=== PATIENT | male | born 1950 | race Caucasian/White ===

== ENCOUNTER → 2016-08-12 | Outpatient (CLI) | payer BC ==
[~2016-08-12] MED LIST: ATOR-22 PO; BSP5 PO; CHONDR PO; CLTP PO; GABA-113 PO; GLUCOSA PO; METO25TA56 PO; MULT-190 PO; MULT-506 PO; PANT40TA PO; ULT/50 PO
== END | disposition home or self-care (01) ==
LOC: C.CPL 13:09
PROVIDERS: ATTEND Orthopaedic Surgery
DX: Z01.810 Encounter for preprocedural cardiovascular examination (principal)

== ENCOUNTER 2023-07-28 15:16 | Inpatient (IN) ==
[2023-07-28] MEDS ORDERED: ONDANSETRON INJ 2 MG/ML 2 ML VIAL IV PRN (16:03)
[2023-07-28 17:27] LABS: Basophils # (auto) 0.02 K/uL (0.00-0.20); Basophils % (auto) 0.2 %; Eosinophils # (auto) 0.01 K/uL (0.00-0.50); Eosinophils % (auto) 0.1 %; Hematocrit (blood only) 47.7 % (42.0-52.0); Hemoglobin 16.7 g/dl (14.0-18.0); Immature Granulocytes # (auto) 0.02 K/uL (0.01-0.20); Immature Granulocytes % (auto) 0.2 %; Lymphocytes % (auto) 9.6 %; Mean Corpuscular Hemoglobin 32.2 pg (25.0-34.0); Mean Corpuscular Volume 92.1 fL (80.0-100.0); Mean Platelet Volume 9.2 fL (9.4-12.4); Monocytes # (auto) 1.06 K/uL (0.11-0.59); Monocytes % (auto) 11.3 %; Neutrophils # (auto) 7.33 K/uL (1.40-6.50); Neutrophils % (auto) 78.6 %; Platelet Count 146 K/uL (130-400); RDW Coefficient of Variation 12.2 % (11.5-14.5); RDW Standard Deviation 40.8 fL (36.4-46.3); Red Blood Count 5.18 M/uL (4.70-6.10); White Blood Count 9.34 K/ul (4.8-10.8)
[2023-07-28 17:39] LABS: Alanine Aminotransferase 20 U/L (7-52); Albumin Globulin Ratio 1.9 (0.9-2); Albumin Level 4.6 gm/dl (3.4-5.0); Alkaline Phosphatase 87 U/L (34-104); Anion Gap 8 (3-11); Aspartate Aminotransferase 19 U/L (13-39); BUN Creatinine Ratio 24.3 (10-20); Bilirubin,Total 1.1 mg/dl (0.2-1.0); Blood Urea Nitrogen 28 mg/dl (6-23); Calcium 9.7 mg/dl (8.6-10.3); Carbon Dioxide 28 mmol/L (21-32); Chloride 102 mmol/L (98-107); Est GFR (African American) 72.8 ml/min; Est GFR (Non-African American) 62.8 ml/min; Globulin 2.4 gm/dl (2.5-4.0); Glucose 123 mg/dl (70-99(Fasting)); Potassium 4.4 mmol/L (3.5-5.1); Sodium 138 mmol/L (136-145)
--- NOTE | 2023-07-28 17:58 | History & Physical Report ---
Date of Service July 28, 2023 Assessment & Plan (1) SBO (small bowel obstruction): Plan: This is a 73-year-old male with PMH of paroxysmal atrial fibrillation on Eliquis, hypertension, dyslipidemia, CAD, BPH, CLL following at [facility] on immunotherapy, Mnire's disease and other medical problems listed below who is a direct admission from [facility] with small bowel obstruction. History of small bowel obstruction in 2015 following a spinal surgery that resolved with bowel rest and IV fluids Began to have symptom last evening after midnight that woke him up and describes pain as diffuse across abdomen with associated nausea and emesis x [address] 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 Discussed NGT but patient would like to wait for now; open to it if nausea and discomfort progress Keep NPO, surgical evaluation, antiemetics No PO meds for now but consider resuming home po flecainide and Venclexta in AM if improving (2) Paroxysmal atrial fibrillation: Plan: On Flecainide, Toprol 12.5mg daily, Eliquis for anticoagulation - hold all PO for now Currently with regular rate & rhythm, admission EKG pending Converting beta piper to IV lopressor for now, ordered heparin gtt in case need for OR Will transfer to [facility] for telemetry coverage Mag/phos pending (3) CLL (chronic lymphocytic leukemia): Plan: Follows with [facility], on Venclexta 400mg HS Will hold tonight, consider resuming tomorrow if clinical improvement (4) GERD (gastroesophageal reflux disease): Plan: Converted PPI to IV while NPO DVT Ppx: heparin gtt Code status: FULL PCP: Robert Dispo: admitted to [facility] Patient seen in collaboration with Dr. Conrad. Please see addendum. Admission and Anticipated Discharge Date Admission Date: July 28, 2023 History of Present Illness Chief Complaint: Abdominal pain Primary Care Provider: Conner Jones MD This is a 73-year-old male with PMH of paroxysmal atrial fibrillation on Eliquis, hypertension, dyslipidemia, CAD, BPH, CLL following at [facility] on immunotherapy, Mnire's disease and other medical problems listed below who is a direct admission from [facility] with small bowel obstruction. History of small bowel obstruction in 2014 following a spinal surgery that resolved with bowel rest and IV fluids. No issues since then. Began to have symptom last evening after midnight that woke him up and describes pain as diffuse across abdomen with associated nausea. Had 1 episode of emesis earlier this morning that prompted visit to [facility] ER. 1 CT abdomen pelvis revealed proximal small bowel obstruction, transfer is arranged for patient to come to preferred location of [facility] where we have general surgery support. Patient's nausea resolved at outside hospital ER after dose of Zofran but recurred by time of arrival. Also having some belching. Denies any recurrent vomiting. Diffuse abdominal discomfort and bloating but denies overt pain. No fever, chills, lightheadedness, headache, chest pain, shortness of breath, dysuria. Last bowel movement was yesterday. History of bilateral hernia repair as well as appendectomy. Allergies Allergy/AdvReac Type Severity Reaction Status Date / Time bee venom protein (honey bee) Allergy Intermediate Hives Verified 04/26/21 22:38 orphenadrine AdvReac Intermediate MENTAL Verified 04/26/21 22:38 CHANGES oxycodone AdvReac Mild NAUSEA Verified 04/26/21 22:38 Home Medications Medication Instructions Recorded Confirmed Type Lactobacillus acidophilus 250 1,000 mmu cells PO DAILY 08/23/19 07/28/23 History million cell capsule (Probiotic Acidophilus) apixaban 5 mg tablet (Eliquis) 5 mg PO BID 08/23/19 07/28/23 History ascorbic acid (vitamin C) 1,000 mg 1 g PO DAILY 08/23/19 07/28/23 History tablet (Vitamin C) atorvastatin 20 mg tablet 20 mg PO HS 08/23/19 07/28/23 History calcium carbonate 600 mg-vitamin 1 tab PO HS 08/23/19 07/28/23 History D3 10 mcg (400 unit) tablet (Calcium 600 + D(3)) flecainide 50 mg tablet 50 mg PO BID 08/23/19 07/28/23 History glucosamine 750 ub-caeywivjvp-rsm 1 tab PO BID 08/23/19 07/28/23 History no.1 625 mg-C 30 rx-vbju-pfrx tablet (Glucosamine-Chondroitin 3X) metoprolol succinate 25 mg 12.5 mg PO DAILY 08/23/19 07/28/23 History tablet,extended release 24 hr vit C 250 mg-vit E 90 mg-zinc 40 1 tab PO BID 08/23/19 07/28/23 History mg-copper 1 zp-jjfbqw-tdujrp capsule (PreserVision AREDS-2) zinc 50 mg tablet 50 mg PO DAILY 08/23/19 07/28/23 History cyclobenzaprine 10 mg tablet 10 mg PO TID PRN Muscle Spasm 07/28/23 07/28/23 History pantoprazole 20 mg tablet,delayed 20 mg PO DAILY 07/28/23 07/28/23 History release (Protonix) venetoclax 100 mg tablet 400 mg PO HS 07/28/23 07/28/23 History (Venclexta) Past Med/Surg History Medical History (Updated 07/28/23 @ 20:36 by Ann Gonzalez PA-C) Abdominal hernia Hx SBO following lumbar fusion Osteoarthritis Melanoma Hyperlipidemia Atrial fibrillation s/p Imbruvica medication regimen GERD (gastroesophageal reflux disease) Hypertension CLL (chronic lymphocytic leukemia) Follows routinely with heme/onc Surgical History (Updated 07/28/23 @ 20:36 by Ann Gonzalez PA-C) History of appendectomy History of cardioversion 08/25/19 at [facility] S/P epidural steroid injection H/O elbow surgery laparoscopic elbow x2 S/P right knee arthroscopy S/P lumbar fusion S/P right inguinal hernia repair laparoscopic (with complications d/t arterial bleed) [facility] (~6-10 years ago) S/P left inguinal hernia repair open repair History of colonoscopy History of esophagogastroduodenoscopy (EGD) History of appendectomy H/O local excision of skin lesion History of adenoidectomy History of tonsillectomy History of cardiac cath 2012. no stents. Family History Brother FHx: brain cancer FHx: melanoma Aunt Family hx of colon cancer Grandfather Family history of diabetes mellitus Mother Family history of diabetes mellitus FHx: stroke Social History Smoking Status: Former smoker Second Hand Exposure: Yes (HX); Do You Dip or Chew Tobacco: No; Hx Alcohol Use: Yes Alcohol type: beer Hx Substance Use: No Preferred Language: Gabonese Communication Ability: Effective Windows Desktop Support Required: No Beliefs That Will Affect Care: None Current Living Situation: Family Other Information That Helps Us Care for You: Yes (CLL Must take drug) Feels Safe at Home: Yes Safety Concerns: Feels Safe At This Time Assistive Devices: Glasses Review of Systems Review of Systems: At least ten systems reviewed and negative except as noted in the HPI. Physical Exam Physical Exam: General Appearance: WD/WN, vitals as above, NAD, sitting up in bed, pleasant, conversing easily Head: normocephalic, atraumatic Eyes: normal inspection, PERRL, conjunctivae normal, anicteric sclerae ENT: external ear and nose normal, oropharynx normal Neck: normal visual inspection, trachea midline, no thyromegaly Respiratory: normal respiratory effort, lungs clear to auscultation, no wheeze, rales, rhonchi. No accessory muscle use Cardiovascular: regular rate, rhythm, no murmur, normal peripheral pulses, no BLE edema. Vessels: no JVD Chest: normal inspection of chest Abdomen/GI: hypoactive bowel sounds, soft with mild distention and TTP across lower abdomen, no hepatosplenomegaly Extremities/Musculoskeletal: no cyanosis or clubbing, extremities motor strength 5/5 Neurologic: PERRL, EOMI, accommodation nl, no face palsy, no dysarthria, CN's II-XI intact bilaterally and moves all extremities Psychiatric: A+Ox3, euthymic affect Skin: no rashes, normal color, warm/dry Results & Data Results & Data Vital Signs (Past 12 Hours) Vital Signs Temp Pulse Resp BP Pulse Ox O2 Del Method 07/28/23 17:06 36.5 C 73 16 136/82 95 Room Air Laboratory Results Short CBC 07/28/23 Range/Units 17:01 WBC 9.34 (4.8-10.8) K/ul Hgb 16.7 (14.0-18.0) g/dl Hct 47.7 (42.0-52.0) % Plt Count 146 (130-400) K/uL BMP 07/28/23 17:01 Sodium 138 Potassium 4.4 Chloride 102 Carbon Dioxide 28 BUN 28 H Creatinine 1.15 Glucose 123 H Calcium 9.7 Liver Function 07/28/23 Range/Units 17:01 Total Bilirubin 1.1 H (0.2-1.0) mg/dl AST 19 (13-39) U/L ALT 20 (7-52) U/L Alkaline Phosphatase 87 (34-104) U/L Albumin 4.6 (3.4-5.0) gm/dl Diagnostic Findings Chest X-Ray 07/28/23 16:03 XR chest 1V portable CLINICAL HISTORY: admission TECHNIQUE: Single frontal radiograph of the chest was obtained. Comparison: Comparison is made to chest radiograph 02/08/2015 FINDINGS: No lines and tubes are seen. The cardiomediastinal silhouette is normal. The lungs are clear. No evidence of pleural effusion or pneumothorax. IMPRESSION: No acute chest disease. ACT 112: Negative or not required by law. Electronically signed by: Joaquin Lundberg M.D. 07/28/2023 6:36 PM KUB X-Ray 07/28/23 17:56 XR KUB/Abdomen 1 view CLINICAL HISTORY: sbo TECHNIQUE: 1 view of the abdomen was obtained. Comparison: Comparison is made to abdomen radiograph 02/09/2015 FINDINGS: Lung bases are unremarkable. Posterior fixation hardware is seen. Gas distended loops of small bowel measure up to 42 mm, increased to stable from prior exam. Minimal stool and colonic gas seen. IMPRESSION: Multiple gas dilated loops of small bowel with no significant large bowel gas, compatible with small bowel obstruction. ACT 112: Negative or not required by law. Electronically signed by: Joaquin Lundberg M.D. 07/28/2023 6:41 PM ECG Additional Comments: admission EKG pending Code Status & VTE Plan VTE Prophylaxis Plan VTE Prophylaxis will be ordered: Yes Supervising Physician Co-Signing Physician Notes Patient is 73 year old man with h/o pAF on eliquis, flecainide, h/o SBO, CLL on venclexta who was transferred from [facility] where he presented with abd pain, distention that started overnight. Currently reports some nausea, mild abd pain, abd distention Had only one episode of nonbloody vomiting prior to admission. On exam, General: No acute distress Eyes: PERRL, conjunctivae normal, not pale, anicteric sclerae, EOM intact bilaterally ENMT: External ear and nose normal, oropharynx normal Respiratory: Normal respiratory effort, no respiratory distress, lungs clear to auscultation, no crackles and no wheezes Cardiovascular: RRR S1 S2 Gastrointestinal (Abdomen): Abdomen is mildly distended, soft, mild epigastric tenderness, decreased breath sounds Musculoskeletal: No pedal edema Neurologic: Alert and oriented x 3, No focal weakness, sensation grossly intact Psychiatric: Euthymic affect Small bowel obstruction Reviewed paperwork in chart from [facility] CT report noted SBO Paperwork has CD of CT abd. 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
--- NOTE | 2023-07-28 18:37 | XRay Report ---
XR chest 1V portable CLINICAL HISTORY: admission TECHNIQUE: Single frontal radiograph of the chest was obtained. Comparison: Comparison is made to chest radiograph 02/08/2015 FINDINGS: No lines and tubes are seen. The cardiomediastinal silhouette is normal. The lungs are clear. No evid ence of pleural effusion or pneumothorax. IMPRESSION: No acute chest disease. ACT 112: Negative or not required by law. Electronically signed by: Joaquin Lundberg M.D. 07/28/2023 6:36 PM
--- NOTE | 2023-07-28 18:43 | XRay Report ---
XR KUB/Abdomen 1 view CLINICAL HISTORY: sbo TECHNIQUE: 1 view of the abdomen was obtained. Comparison: Comparison is made to abdomen radiograph 02/09/2015 FINDINGS: Lung bases are unremarkable. Posterior fixation hardware is seen. Gas distended loops of small bowel measure up to 42 mm, increased to stable from prior exam. Minimal stool and colonic gas seen. IMPRESSION: Multiple gas dilated loops of small bowel with no significant large bowel gas, compatible with small bowel obstruction. ACT 112: Negative or not required by law. Electronically signed by: Joaquin Lundberg M.D. 07/28/2023 6:41 PM
--- NOTE | 2023-07-28 20:30 | Surgery Consultation ---
Date of Consultation July 28, 2023 Assessment & Plan (1) SBO (small bowel obstruction): The patient has been admitted on the hospital service. From surgical perspective we recommend proceeding as follows: Provide analgesics Provide antiemetics Continue n.p.o. status. I did discuss with the patient that as his abdominal exam improves and his bowel function returns consideration be given to advancing his diet beginning with sips of clear liquids. The patient has not had any emesis since approximately 10:30 AM this morning. As he has not had any emesis in several hours I feel we can hold off on placing an NG tube at this time, but did inform the patient that if his abdominal exam worsens or any nausea or vomiting ensue this modality will need to be reconsidered. Serial labs to be followed Intravenous fluids to be given for hydration At the present time the patient is noted to be normotensive without tachycardia or fever. He also does not exhibit leukocytosis or acute kidney injury and therefore I feel a trial of conservative management is warranted for his present clinical scenario Additional recommendations to be forthcoming based on his clinical course as as above. +bm this afternoon. feeling fine. he does have a RIH currently reduced. will obtain KUB and if better initiate clears. History of Present Illness Reason for Consultation: Small bowel obstruction Attending Physician: Ally Conrad MD History of Present Illness This a 73-year-old male who presented to [facility] secondary to abdominal pain. The patient notes that yesterday he developed some severe abdominal cramping and had some nausea and vomiting that ensued. He did not have any fever shakes or chills but presented to [facility]. While at [facility] he had labs and imaging performed. Chemistry profile showed sodium and potassium were both within the normal range. His BUN and creatinine were 23 and 1.3. His INR was 1.2. Lipase was 49. CBC revealed white blood cell count was not elevated. His hemoglobin and hematocrit were 17.7 and 53.4. His platelet count was [address] scan showed the patient had an [place] proximal small bowel and stomach with increased fluid levels and collapsed distal small bowel compatible the small bowel obstruction. There is no clear transition point identified. There is no free air or free fluid noted on the study With the patient's current clinical presentation as noted above he did have some nausea and vomiting and his most recent emesis was approximately 10:30 AM this morning. Since his symptomatology began he has not had any bowel movement or flatus. His most recent bowel movement was yesterday. He has not had any oral intake today. He does not report any modifying factors to his pain. He has had prior abdominal surgeries. He has had bilateral inguinal herniorrhaphies and he notes that 1 of these surgeries was performed laparoscopically. He has also had an appendectomy. He does report that he had a small bowel obstruction in 2014 that was treated in a conservative manner (he notes he did not require NG tube); with this episode though he said it was related to narcotic use following back surgery which raises the question of whether he had a small bowel obstruction or ileus. Since arrival to [facility] the patient has had labs and imaging which independent reviewed. Chest x-ray was performed that showed no evidence of pneumonia. A KUB was performed that showed multiple gas and dilated loops of small bowel compatible with a small bowel obstruction. CBC reveals white blood cell count, hemoglobin, hematocrit, and platelet count were all within normal range. Chemistry profile showed sodium and potassium and his creatinine were within normal range. BUN had a slight elevation at 28. Lactic acid level was nonelevated. At the time of my interview the patient was resting comfortably in bed and he was in no distress. Allergies Allergy/AdvReac Type Severity Reaction Status Date / Time bee venom protein (honey bee) Allergy Intermediate Hives Verified 04/26/21 22:38 orphenadrine AdvReac Intermediate MENTAL Verified 04/26/21 22:38 CHANGES oxycodone AdvReac Mild NAUSEA Verified 04/26/21 22:38 Home Medications Medication Instructions Recorded Confirmed Type Lactobacillus acidophilus 250 1,000 mmu cells PO DAILY 08/23/19 07/28/23 History million cell capsule (Probiotic Acidophilus) apixaban 5 mg tablet (Eliquis) 5 mg PO BID 08/23/19 07/28/23 History ascorbic acid (vitamin C) 1,000 mg 1 g PO DAILY 08/23/19 07/28/23 History tablet (Vitamin C) atorvastatin 20 mg tablet 20 mg PO HS 08/23/19 07/28/23 History calcium carbonate 600 mg-vitamin 1 tab PO HS 08/23/19 07/28/23 History D3 10 mcg (400 unit) tablet (Calcium 600 + D(3)) flecainide 50 mg tablet 50 mg PO BID 08/23/19 07/28/23 History glucosamine 750 xi-prbhdgtaxo-ykj 1 tab PO BID 08/23/19 07/28/23 History no.1 625 mg-C 30 tt-fuox-tlie tablet (Glucosamine-Chondroitin 3X) metoprolol succinate 25 mg 12.5 mg PO DAILY 08/23/19 07/28/23 History tablet,extended release 24 hr vit C 250 mg-vit E 90 mg-zinc 40 1 tab PO BID 08/23/19 07/28/23 History mg-copper 1 vv-xpsadn-uwulkb capsule (PreserVision AREDS-2) zinc 50 mg tablet 50 mg PO DAILY 08/23/19 07/28/23 History cyclobenzaprine 10 mg tablet 10 mg PO TID PRN Muscle Spasm 07/28/23 07/28/23 History pantoprazole 20 mg tablet,delayed 20 mg PO DAILY 07/28/23 07/28/23 History release (Protonix) venetoclax 100 mg tablet 400 mg PO HS 07/28/23 07/28/23 History (Venclexta) Patient History Medical History (Updated 07/28/23 @ 20:36 by Ann Gonzalez PA-C) Abdominal hernia Hx SBO following lumbar fusion Osteoarthritis Melanoma Hyperlipidemia Atrial fibrillation s/p Imbruvica medication regimen GERD (gastroesophageal reflux disease) Hypertension CLL (chronic lymphocytic leukemia) Follows routinely with heme/onc Surgical History (Updated 07/28/23 @ 20:36 by Ann Gonzalez PA-C) History of appendectomy History of cardioversion 08/25/19 at [facility] S/P epidural steroid injection H/O elbow surgery laparoscopic elbow x2 S/P right knee arthroscopy S/P lumbar fusion S/P right inguinal hernia repair laparoscopic (with complications d/t arterial bleed) [facility] (~6-10 years ago) S/P left inguinal hernia repair open repair History of colonoscopy History of esophagogastroduodenoscopy (EGD) History of appendectomy H/O local excision of skin lesion History of adenoidectomy History of tonsillectomy History of cardiac cath 2012. no stents. Family History Brother FHx: brain cancer FHx: melanoma Aunt Family hx of colon cancer Grandfather Family history of diabetes mellitus Mother Family history of diabetes mellitus FHx: stroke Social History Smoking Status: Former smoker Second Hand Exposure: Yes (HX); Do You Dip or Chew Tobacco: No; Hx Alcohol Use: Yes Alcohol type: beer Hx Substance Use: No Preferred Language: Georgian Communication Ability: Effective Assembler [employer] Required: No Beliefs That Will Affect Care: None Current Living Situation: Family Other Information That Helps Us Care for You: Yes (CLL Must take drug) Feels Safe at Home: Yes Safety Concerns: Feels Safe At This Time Assistive Devices: Glasses Review of Systems Constitutional: no fever and no chills Ear, Nose, Mouth, Throat: no ear pain Respiratory: no cough and no dyspnea Cardiovascular: no chest pain Gastrointestinal: as per Subjective / HPI Genitourinary: no dysuria Musculoskeletal: no back pain Integumentary: no rash Neurologic: no localized weakness Physical Exam Constitutional: WD/WN, vitals as above Eyes: no conjunctival abnormality ENMT: Ears: no hearing impairment and no external ear abnormality Mouth: no oropharynx abnormality Neck: trachea midline Respiratory: normal respiratory effort; no respiratory distress and no labored breathing Cardiovascular: Rate/Rhythm: regular rate and regular rhythm Gastrointestinal (Abdomen): Abdomen has absent bowel sounds. His abdomen is mild to moderately distended. There is no rebound tenderness or guarding. The patient did have some generalized pain with palpation greatest near the umbilicus. I did not appreciate any hernias Musculoskeletal: No calf tenderness Skin: no rashes Neurologic: moves all extremities Psychiatric: A+Ox3, euthymic affect Results & Data Vital Signs (Past 12 Hours) Vital Signs Temp Pulse Resp BP Pulse Ox O2 Del Method 07/28/23 17:06 36.5 C 73 16 136/82 95 Room Air PG Care Time/CCT Total # of Minutes Spent Total Time Spent with Patient: Total time spent is greater than 50% in coordination of care (as documented) at patient's floor/unit and/or counseling patient: Coding Level of Care Code 23640 INT INP/OBS CARE 2/55MIN Diagnoses SBO (small bowel obstruction) K56.609
[2023-07-28] MEDS ORDERED: METOPROLOL TARTRATE 1 MG/ML VIAL IV SCH (21:28)
[2023-07-28] MEDS ORDERED: ACETAMINOPHEN 1,000 MG/100 ML VIAL IV PRN (21:28)
[2023-07-28] MEDS ORDERED: METOPROLOL TARTRATE 1 MG/ML VIAL IV PRN (21:32)
[2023-07-28] MEDS ORDERED: Heparin IV Adult Wt-Based Standard *NO* INITIAL Bolus Protocol IV SCH (21:49)
[2023-07-28] MEDS: PANTOprazole 40 MG in SYRINGE 0 ML IV SCH (22:47)
[2023-07-28] MEDS: D5W AND NSS 1,000 ML IV SCH (22:47)
[2023-07-28] MEDS: HEPARIN SODIUM/DEXTROSE 25,000 UNITS/500 ML BAG IV SCH (23:10)
[2023-07-28 23:18] LABS: Basophils # (auto) 0.02 K/uL (0.00-0.20); Basophils % (auto) 0.3 %; Eosinophils # (auto) 0.02 K/uL (0.00-0.50); Eosinophils % (auto) 0.3 %; Hematocrit (blood only) 44.3 % (42.0-52.0); Hemoglobin 15.7 g/dl (14.0-18.0); Immature Granulocytes # (auto) 0.03 K/uL (0.01-0.20); Immature Granulocytes % (auto) 0.4 %; Lymphocytes # (auto) 0.97 K/uL (1.20-3.40); Lymphocytes % (auto) 13.6 %; Mean Corpuscular Hemoglobin 32.6 pg (25.0-34.0); Mean Corpuscular Hgb Conc 35.4 g/dL (32.0-36.0); Mean Corpuscular Volume 91.9 fL (80.0-100.0); Mean Platelet Volume 9.4 fL (9.4-12.4); Monocytes % (auto) 12.6 %; Neutrophils % (auto) 72.8 %; Platelet Count 148 K/uL (130-400); RDW Coefficient of Variation 12.2 % (11.5-14.5); RDW Standard Deviation 40.9 fL (36.4-46.3); Red Blood Count 4.82 M/uL (4.70-6.10); White Blood Count 7.14 K/ul (4.8-10.8)
[2023-07-28 23:49] LABS: INR 1.1 (0.9-1.1); Partial Thromboplastin Time 29 Seconds (21-31); Prothrombin Time 11.9 Seconds (9.0-12.0)
--- OUTSIDE RECORDS SUMMARY | 2023-07-29 04:51 | External Medical Summary | Summary of Care ---
Author Name Unknown Organization [facility] Address [address] [facility] [place] [address] Phone [phone] Care Team Providers Care Clinical Sales Consultant Name Role Phone Conner Jones MD Primary Care Provider + Reason for Visit * Reason Comments NEW PATIENT Right shoulder Encounter Details Date Type Department Care Team (Latest Contact Info) Description 06/27/2023 1:30 PM EST Office Visit Orthopaedics [facility] [address] [place] [address] Allan Alas PA-C [address] [place] [address] Osteoarthritis of right glenohumeral joint*; Osteoarthritis of right acromioclavicular joint Allergies Active Allergy Reactions Criticality Noted Date Comments Bee Venom Edema Other 05/02/2016 Swelling in area that was stung documented as of this encounter (statuses as of 06/27/2023) Medications Medication Sig Dispensed Refills Start Date End Date Status ICAPS PO CAPS Take by mouth 2 times a day. 0 Active GLUCOSAMINE CHONDROITIN COMPLX PO TABS Take by mouth 2 times a day. 0 Active zinc gluconate 50 MG Tablet Take 1 Tablet by mouth every evening. 0 Active Cyclobenzaprine HCl 10 MG Oral Tablet (Flexeril)Indications :Trismus Take 1 Tablet by mouth 3 times a day. 90 Tablet 0 06/07/2021 Active Venclexta 100 MG Oral Tablet Take 4 Tablets by mouth every evening. 0 03/19/2022 Active Vitamin C 1000 MG Oral Tablet Take 1 Tablet by mouth every evening. 0 Active Multivitamin Men 50+ Oral Tablet Take by mouth daily. 0 Active Probiotic Acidophilus BioBeads Oral Capsule Take 1 Capsule by mouth every evening. 0 Active Pantoprazole Sodium 40 MG Oral Tablet Delayed Release (Protonix) TAKE 1 TABLET IN THE MORNING 90 Tablet 3 07/23/2022 Active Flecainide Acetate 50 MG Oral Tablet (Tambocor) Take 1 Tablet by mouth in the morning and 1 Tablet before bedtime. 180 Tablet 3 09/04/2022 Active Apixaban 5 MG Oral Tablet (Eliquis)Indications: Atrial fibrillation, unspecified type (HCC) Take 1 Tablet by mouth in the morning and 1 Tablet before bedtime. 180 Tablet 3 02/13/2023 Active Atorvastatin Calcium 20 MG Oral Tablet (Lipitor)Indications: Hyperlipidemia with target LDL less than 130 TAKE 1 TABLET DAILY 90 Tablet 1 02/24/2023 Active Metoprolol Succinate ER 25 MG Oral Tablet Extended Release 24 Hour (toPROL XL)Indications:Atrial fibrillation, unspecified type (HCC) TAKE ONE-HALF (1/2) TABLET IN THE MORNING 45 Tablet 3 04/28/2023 Active Hospital, Clinic, or Other Facility Administered Medication Ordered Dose Route Frequency Start Date End Date Status lidocaine 1% 1 mL - triamcinolone acetonide 40 mg/mL 1 mL inj 2 mLIndications:Osteoarthriti s of right glenohumeral joint 2 mL IJ ONCE 06/27/2023 06/27/2023 Ended documented as of this encounter (statuses as of 06/27/2023) Active Problems Problem Noted Date Diagnosed Date Senile purpura 01/09/2022 Nonrheumatic aortic valve insufficiency 03/07/20 21 Nonrheumatic mitral valve regurgitation 03/07/20 21 PAF (paroxysmal atrial fibrillation) 03/07/2021 History of 2019 novel coronavirus disease (COVID -19) 05/30/2020 Chronic pain of right knee 12/31/2018 Fatty liver 09/30/2017 BALTAZAR (generalized anxiety disorder) 09/01/2017 CLL (chronic lymphocytic leukemia) 02/03/2015 Overview: 10/21-2nd opinion @. Patient completed rituximab induction on 03/03/17 for symptomatic splenomegaly with his CLL. Kaminski stage II, trisomy 12, IgVH indeterminent CLL. Routine general medical exam ination at a health care facility 08/25/2014 Overview: 01/21 EGD -chronic gastritis. Colon--+tubular adenoma. Alicia 5y 04/07/17 [place] +abd lymphadnopathy, no AAA 02/18 Dr Annie Centeno with [facility] in [place] for CLL 11/17 AAA screen WNl. 2009 colonoscopy WNL. EGD 2011 WNL (for GERd symptoms) History of malignant melanoma of skin 08/25/2014 Overview: 2013? Sees Dr Hernandez in [place]. Had wide excision reportedly neg. Dyslipidemia, goal LDL below 130 07/12/2014 Palpitations 05/16/2014 Coronary artery disease (CAD) excluded 4 Overview: 2013 abnormal stress test, normal cath. Family history of abdominal aortic aneurysm 07/2013 Overview: 2017 CT [place]-no AAA False positive cardiac stress test 10/13/2012 Family history of ischemic heart disease 013 Other and unspecified hyperlipidemia 09/13/2011 BPH with obstruction/lower urinary tract symptom s 09/13/2011 ED (erectile dysfunction) 09/13/2011 HTN, goal below 140/90 03/07/2011 Meniere's disease Vitamin D deficiency Nephrolithiasis Macular degeneration documented as of this encounter (statuses as of 06/27/2023) Resolved Problems Problem Noted Date Diagnosed Date Resolved Date Abdominal wall hernia 10/06/20182018 Overview: RLQ Prediabetes 08/25/2014 09/14/2020 Prinzmetal angina 05/16/2014 03/06/2015 Screening for AAA (abdominal aortic aneurysm) 11/05/19 14 11/04/2013 Chest pain, non-cardiac 10/13/201205/07 Abnormal stress test 09/22/2012 013 Chest pain 09/22/2012 09/01/2017 Dyslipidemia, goal to be determined 02/14/2004 06/02/2013 ABDOMINAL PAIN, RIGHT UPPER QUADRANT 02/14/2004 08/25/2014 Pruritus ani 06/06/2003 03/31/2017 FAM HX-DIABETES MELLITUS 04/06/2002 Family history of other card iovascular diseases 04/06/2002 09/08/2012 Overview: ICD-10 update of inactive term STRESS REACT, EMOTIONAL 08/07 ROTATOR CUFF SYND NOS 2016 documented as of this encounter (statuses as of 06/27/2023) Immunizations Name Administration Dates Next Due COVID-19 mRNA, LNP-s, No Pre serve, 2-Dose Series (Moderna) 10/12/2020,09/18/2020 COVID-19, LNP-s, No Preserve , Akin-sucrose, Ages 12+ (Pfizer) 09/12/2021 Diptheria/Tetanus (Adult) 10/05/2002 PPD 11/21/2017 Pneumococcal Conjugate Vacc, 13 Valent (Prevnar) 05/02/2016 Pneumococcal Polysaccharide PPV23 (Pneumovax) 06/13/2017 Season Influenza, Cell Cultu re, 18+ Yrs, With Preserv (Flucelvax) 04/17/2020 Seasonal Influenza, PF, 6 M & above, IM , (FluLaval or Fluzone) 06/13/2017 Seasonal Influenza, Quadriva lent Hd (Fluzone Hd) 04/26/2023,03/26/2022 Seasonal Influenza, Quadriva lent, No Preserve, IM 05/02/2016,05/23/2015 Seasonal Influenza, Split, I IV3, With Preserve, Inj 05/11/2014,06/06/2012,04/06/2010,06/06 Seasonal Influenza, Trivalen t, Adjuvanted, 65+ yrs 04/15/2019 TDAP (age 11 and older)(Adacel) 08/30/2010 Varicella Zoster Vaccine (Adult) 10/27/2012 documented as of this encounter Social History Tobacco Use Types Packs/Day Years Used Date Smoking Tobacco: Former Cigarettes 1 20 Q uit: 07/07/1989 Smokeless Tobacco: Never Alcohol Use Standard Drinks/Week Comments Yes 0 (1 standard drink = 0.6 oz pure alcohol) 2-3 drinks every other day to every three days PHQ-2 Answer Date Recorded PHQ Adult Total Score 0 01/10/2023 Hunger Vital Sign Answer Date Recorded Within the past 12 months, y ou worried that your food would run out before you got the money to buy more. Never true 01/11/20 23 Within the past 12 months, t he food you bought just didn't last and you didn't have money to get more. Never true 01/10/2023 Sex and Gender Information Value Date Recorded Sex Assigned at Male 01/10/2023 11:08 AM EDT Gender Identity Male 01/10/2023 11:08 AM EDT Sexual Orientation Straight 01/10/2023 11 :08 AM EDT Job Start Date Occupation Industry Not on file Not on file Not on file documented as of this encounter Progress Notes * Allan Alsa PA-C - 06/27/2023 1:51 PM ESTAssociated Order(s): LG Joint Inj/Arthro: R glenohumeral Post-Procedure Diagnose(s): Osteoarthritis of right glenohumeral joint Subjective Truman Clayton is a 73 year old male. Chief Complaint Patient presents with NEW PATIENT Right shoulder HPI: Established patient evaluated greater than 3 years ago now considered new presents todayfor 6 weeks of right shoulder pain. States his right shoulder bothering him since playing and serving during a tennis match. Shoulder level and overhead activity exacerbate his symptoms. Denies any weakness or true loss of motion. Denies any symptoms coming from cervical spine. Will need x-rays today. Points to anterior joint line as being may location. Also points towards his AC joint and posterior joint line. PMH: Patient Active Problem List Diagnosis Code Meniere's disease H81.09 HTN, goal below 140/90 I10 Other and unspecified hyperlipidemia E78.5 BPH with obstruction/lower urinary tract symptoms N40.1, N13.8 ED (erectile dysfunction) N52.9 Vitamin D deficiency E55.9 Family history of ischemic heart disease Z82.49 False positive cardiac stress test Z78.9 Family history of abdominal aortic aneurysm Z82.49 Palpitations R00.2 Coronary artery disease (CAD) excluded Z03.89 Dyslipidemia, goal LDL below 130 E78.5 Routine general medical examination at a health care facility Z00.00 Nephrolithiasis N20.0 Macular degeneration H35.30 History of malignant melanoma of skin Z85.820 CLL (chronic lymphocytic leukemia) (HCC) C91.10 BALTAZAR (generalized anxiety disorder) F41.1 Fatty liver K76.0 Chronic pain of right knee M25.561, G89.29 History of 2019 novel coronavirus disease (COVID-19) Z86.16 Nonrheumatic aortic valve insufficiency I35.1 Nonrheumatic mitral valve regurgitation I34.0 PAF (paroxysmal atrial fibrillation) ([facility]) I48.0 Senile purpura ([facility]) D69.2 Current Outpatient Medications Medication Sig Dispense Refill ICAPS PO CAPS Take by mouth 2 times a day. GLUCOSAMINE CHONDROITIN COMPLX PO TABS Take by mouth 2 times a day. zinc gluconate 50 MG Tablet Take 1 Tablet by mouth every evening. Cyclobenzaprine HCl 10 MG Oral Tablet (Flexeril) Take 1 Tablet by mouth 3 times a day. 90 Tablet 0 Venclexta 100 MG Oral Tablet Take 4 Tablets by mouth every evening. Vitamin C 1000 MG Oral Tablet Take 1 Tablet by mouth every evening. Multivitamin Men 50+ Oral Tablet Take by mouth daily. Probiotic Acidophilus BioBeads Oral Capsule Take 1 Capsule by mouth every evening. Pantoprazole Sodium 40 MG Oral Tablet Delayed Release (Protonix) TAKE 1 TABLET IN THE MORNING 90 Tablet 3 Flecainide Acetate 50 MG Oral Tablet (Tambocor) Take 1 Tablet by mouth in the morning and 1 Tablet before bedtime. 180 Tablet 3 Apixaban 5 MG Oral Tablet (Eliquis) Take 1 Tablet by mouth in the morning and 1 Tablet before bedtime. 180 Tablet 3 Atorvastatin Calcium 20 MG Oral Tablet (Lipitor) TAKE 1 TABLET DAILY 90 Tablet 1 Metoprolol Succinate ER 25 MG Oral Tablet Extended Release 24 Hour (toPROL XL) TAKE ONE-HALF (1/2) TABLET IN THE MORNING 45 Tablet 3 No current facility-administered medications for this visit. Past Medical History: Diagnosis Date Abdominal wall hernia 10/06/2018 RLQ BPH without obstruction/lower urinary tract symptoms CLL (chronic lymphocytic leukemia) (HCC) 02/03/2015 COVID-19 05/26/2020 COVID-19 virus infection 05/30/2020 Diverticulosis 02/17/2004 CT ABD Fatty liver 09/30/2017 BALTAZAR (generalized anxiety disorder) 09/01/2017 Hiatal hernia 05/16/2006 Upper GI HTN, goal below 130/80 03/07/2011 Hyperplasia of prostate 03/21/1994 Macular degeneration Meniere's disease 03/21/1994 Nephrolithiasis Prediabetes 08/25/2014 Rotator cuff syndrome 05/1995 Shingles 2017 Stress reaction, emotional 03/21/1994 Vitamin D deficiency Past Surgical History: Procedure Laterality Date COLONOSCOPY, DIAGNOSTIC (RECTUM) 01/09/2018 adenomatous polyp, repeat 5 yrs/COLONOSCOPY FLEXIBLE PROXIMAL DIAGNOSTIC performed by Arpit Mendoza MD at ENDOSCOPY [facility] COLONOSCOPY, DIAGNOSTIC (RECTUM) 05/23/2022 diverticulosis sigmoid colon/COLONOSCOPY FLEXIBLE PROXIMAL DIAGNOSTIC performed by Arpit Mendoza MD at ENDOSCOPY [facility] COLORECTAL CANCER SCREEN; NOT AT RISK 09/18/2009 normal colon exam repeat in 10 years EGD, FLEXIBLE, DIAGNOSTIC 01/09/2018 normal bx/ESOPHAGOGASTRODUODENOSCOPY (EGD), FLEXIBLE, TRANSORAL, DIAGNOSTIC performed by Arpit Mendoza MD at ENDOSCOPY [facility] FLUORO UPPER GI W KUB 05/16/2006 small sliding hiatal hernia with reflux INFORMATION [address] [place] INFORMATION 09/08/2007 Hydrocele 2008 [place] INJECTION LUMBAR/SACRAL 11/18/2014 INJECTION SPINE LUMBAR OR SACRAL performed by [facility] Cousins, DO at OR [facility] INJECTION LUMBAR/SACRAL 12/02/2014 INJECTION SPINE LUMBAR OR SACRAL performed by [facility] Cousins, DO at OR [facility] LAPAROSCOPY; REPAIR INITIAL INGUINAL HERNIA 06/22/2010 Left sided MISCELLANEOUS ORDER ([facility] ONLY) Right 07/2017 Dr Wallace-ivy. REMOVAL OF APPENDIX 1978 Appendectomy Tate العلي. 1978 REMOVAL OF TONSILS, UNDER AGE 12 1955 Tonsillectomy 1955 [place] REPAIR INITIAL INGUINAL HERNIA REDUCIBLE AGE 5 OR MORE 06/22/2010 06/22/2010 - [facility] with [facility] - Dr. Skinner Review of patient's allergies indicates: Allergen Reactions Bee Venom Edema Other Swelling in area that was stung Family History Problem Relation Age of Onset Diabetes Mother Hypertension Mother Stroke Mother x2 70s. Heart Disorder Father 55 CABG. 89/AAA Hypertension Father Other (macular degeneration) Father No Past Hx Sister x2 Other ( secondary defects) Sister 55 Cancer Brother 34 -brain No Past Hx Brother x2 Cancer Brother Metastatic melanoma Heart Disorder Grandfather (Paternal) AAA- Family Status Relation Status Mo Fa Sis (Not Specified) Sis Bro Bro (Not Specified) Bro (Not Specified) PGFA (Not Specified) Social History Socioeconomic History Marital status: Spouse name: Not on file Number of children: Not on file Years of education: Not on file Highest education level: Not on file Occupational History Occupation: [employer]-retired Occupation: 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 Tobacco Use Smoking status: Former Packs/day: 1.00 Years: 20.00 Additional pack years: 0.00 Total pack years: 20.00 Types: Cigarettes Quit date: 07/07/1989 Years since quittin.9 Smokeless tobacco: Never Vaping Use Vaping Use: Never used Substance and Sexual Activity Alcohol use: Yes Comment: 2-3 drinks every other day to every three days Drug use: No Sexual activity: Yes Partners: Female Comment: . Grace. 2 daughter prev marriage, 2 sons . +6 grandkids--4 in [place], 2 in [facility] Other Topics Concern Not on file Social History Narrative Tennis. In past. Golfs now. Can't run w/[employer] prob. Lifts. Social Determinants of Health Financial Resource Strain: Not on file Food Insecurity: No Food Insecurity (01/10/2023) Hunger Vital Sign Worried About Running Out of Food in the Last Year: Never true Ran Out of Food in the Last Year: Never true Transportation Needs: Not on file Physical Activity: Not on file Stress: Not on file Social Connections: Not on file Intimate Partner Violence: Not on file Housing Stability: Not on file Objective There were no vitals taken for this visit. complete review of systems negative General: alert and oriented x3 male, no acute distress, appears currently stated age, pleasant, well nourished, here with Skin: Right upper extremity including shoulder does not reveal any erythema, ecchymosis, abrasion, laceration, skin breakdown otherwise Neurovascular: Right upper extremity reveals distal pulses +2, capillary refill is under 2 seconds,good sensation light touch, +5 procurement coordinator strength, axillary median ulnar radial nerve assess fully intact Musculoskeletal: Exam of the right shoulder: Forward Flexion: 180 degrees with pain along the joint line and AC joint Abduction: 180 degrees with pain External rotation at 0 degrees: 70 degrees Internal Rotation: T7 Strength: Forward flexion: 5/5 Abduction: 5/5 External Rotation: 5/5 Internal Rotation: 5/5 Speed test: negative Yergason's: negative Tender to palpation ACJ (acromioclavicular joint): negative Tender to palpation LHB (long head of biceps): negative Virgen test: negative [place] test: negative Hornblower: negative Lift off: negative Belly Press: negative Bear Hug: negative External lag sign: negative Cross-body adduction: negative Sulcus sign: negative X-rays of the patient's right shoulder reveal humeral head located in glenoid fossa. There is no superior migration humeral head. The AC joint is free of separation but there is notable degeneration in the AC joint as well as the glenohumeral joint with osteoarthritis. No acute findings such as fracture dislocation subluxation. Unable to identify any type of obvious cystic change or masses in thebone. Personal interpretation and documentation regarding today's plain film radiographs performed by myself. ASSESSMENT/PLAN: Arthralgia of right acromioclavicular joint (Primary) - XR SHOULDER, 2 OR MORE VIEWS Impression: Right glenohumeral joint osteoarthritis Plan: Today 's findings were discussed with the patient. They were educated regarding their diagnosis. Also has underlying AC joint osteoarthritis. Multiple treatment options discussed and agreed upon, including pursuing an injection with the right glenohumeral joint with corticosteroid. Patient isin agreement and time-out in updated consent obtaining completed today. Patient is aware depending on results that the injection be both diagnostic and therapeutic and may allow for opportunities in the future to address the AC joint depending on those results. Telephonic visit 3 weeks to determineand discuss. Not identify clinical evidence today that would support an MRI looking for a surgical rotator cuff. The patient has no other questions or concerns. Pleased with today 's care. Call sooner if needed. Patient instructed to call or return to clinic for fever or warmth and redness at injection site for potential infection. Patient also advised as to potential for steroid flare reaction including increased pain and redness at injection site which should be treated with ice and resolve within 24 hours. LG Joint Inj/Arthro: R glenohumeral on 06/27/2023 2:08 PM Indications: pain Details: 22 G needle, anterior approach Medications: (Triamcinolone lidocaine) Outcome: tolerated well, no immediate complications Procedure, treatment alternatives, risks and benefits explained, specific risks discussed. Consent was given by the patient. Immediately prior to procedure a time out was called to verify the correctpatient, procedure, equipment, ground support equipment fitter and site/side marked as required. Patient was prepped and draped in the usual sterile fashion. This chart was completed in part utilizing [employer] Speech Voice Recognition Software. Grammatical errors, random word insertions, prounoun errors, and incomplete sentences are an occasional consequence of this system due to software limitations, ambient noise, and hardware issues. Any formal questions or concerns about the content, text, or information contained within the body of this dictation should be directly addressed to the provider for clarification. Allan Alas PA-C documented in this encounter Nursing Notes * Noemi Castelan MED ASSIST - 06/27/2023 1:28 PM EST Pt presents today for right shoulder pain x 1.5 months. Pt states when he moves his arm certain ways pain is 7/10. Pt is right hand dominate. Pt believes this is from serving a tennis ball. documented in this encounter Plan of Treatment Upcoming Encounters Date Type Department Care Team (Late st Contact Info) Description 02/13/2024 2:00 PM EDT Office Visit [facility] [address] [place] [address] Conner Jones MD [address] [place] [address] Pending Results Name Type Priority Associated Diagnoses Date /Time XR SHOULDER, 2 OR MORE VIEWS Medical Imaging Routine 06/27/2023 1:51 PM EST Health Maintenance Due Date Last Done Comments Zoster Vaccines (1 of 2) 12/22/2012 10/27/2012 DTaP,Tdap,and Td Vaccines (2 - Td or Tdap) 08/30/2020 08/30/2010, 10/05/2002 GFR 06/12/2023 06/12/2022, 03/08, 02/28/2022, Additional history exists Depression Screening 01/11/2024 01/10/2023 Albumin/Creatinine Ratio 01/10/2026 01/10/2023 COLONOSCOPY-EVERY 5 YRS AGES 18-100 05/23/2027 05/23/2022, 05/23/2022, 01/09/2018, Additional history exists AAA Screening Completed 04/07/2017, 11/15/2013 Pneumococcal Vaccine: 65+ Years Completed 06/13/2017, 05/02/2016 COVID-19 Vaccine Discontinued 09/12/2021, 02/2021, 09/18/2020 Influenza Vaccine (FLU shot) Completed 04/26/2023, 03/26/2022, 04/17/2020, Additional history exists GARDASIL-HPV IMMUNIZATION SERIES Aged Out No longer eligible based on patient's age to complete this topic Hepatitis B Aged Out No longer eligi ble based on patient's age to complete this topic MENINGOCOCCAL (MENACTRA/MENVEO) Aged Out No longer eligible based on patient's age to complete this topic documented as of this encounter Medical Devices Not on filedocumented as of this encounter Procedures Procedure Name Priority Date/Time Associated Diagnosis Comments OR ARTHROCENTESIS ASPIR&/INJ MAJOR JT/BURSA W/O US Routine 06/27/2023 2:08 PM EST Osteoarthritis of right glenohumeral joint documented in this encounter Results * OR ARTHROCENTESIS ASPIR&/INJ MAJOR JT/BURSA W/O US (06/27/2023 2:08 PM EST) Narrative Allan Alas PA-C - 06/27/2023 2:08 PM EST Allan Alas PA-C 06/27/2023 2:09 PM LG Joint Inj/Arthro: R glenohumeral on 06/27/2023 2:08 PM Indications: pain Details: 22 G needle, anterior approach Medications: (Triamcinolone lidocaine) Outcome: tolerated well, no immediate complications Procedure, treatment alternatives, risks and benefits explained, specific risks discussed. Consent was given by the patient. Immediately prior to procedure a time out was called to verify the correct patient, procedure, equipment, ground support equipment fitter and site/side marked as required. Patient was prepped and draped in the usual sterile fashion. Allan Alas PA-C PROCDOC FORM documented in this encounter Visit Diagnoses Diagnosis Osteoarthritis of right glenohumeral joint- Primary Osteoarthritis of right acromioclavicular joint documented in this encounter Administered Medications Inactive Administered Medications - up to 3 most recent administrations Medication Order MAR Action Action Date Dose Rate Site lidocaine 1% 1 mL - triamcinolone acetonide 40 mg/mL 1 mL inj 2 mL 2 mL, Injection, ONCE, On Fri06/27/23 at 1445, For 1 dose, Lidocaine 1% 1mL Triamcinolone Acetonide 40 mg/mL 1 mL (Final concentration = 20 mg/mL) REFRIGERATE and SHAKE WELL Given 06/27/2023 2:14 PM EST 2 mL Shoulder Right documented in this encounter Care Teams Clinical Sales Consultant Relationship Specialty Start Date End Date Conner Jones MD [address] [facility] [place] [address] PCP - General Family Medicine 07/12/14 documented as of this encounter
--- OUTSIDE RECORDS SUMMARY | 2023-07-29 04:51 | External Medical Summary | Summary of Care ---
Author Name Unknown Organization [facility] Address [address] [facility] [address] Phone [phone] Care Team Providers Care Outbound Supervisor Name Role Phone Conner Jones MD Primary Care Provider + Reason for Visit * Reason Onset Date Comments Test Results 07/02/2023 Encounter Details Date Type Department Care Team (Late st Contact Info) Description 07/02/2023 Telephone Orthopaedics [facility] [address] [place] [address] Allan Alas PA-C [address] [place] [address] Test Results Allergies Active Allergy Reactions Criticality Noted Date Comments Bee Venom Edema Other 05/02/2016 Swelling in area that was stung documented as of this encounter (statuses as of 07/02/2023) Medications Medication Sig Dispensed Refills Start Date [...] THE MORNING 45 Tablet 3 04/28/2023 Active documented as of this encounter (statuses as of 07/02/2023) Active Problems Problem Noted Date Diagnosed Date [...] -chronic gastritis. Colon--+tubular adenoma. 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 2009 colonoscopy WNL. EGD 2010 WNL (for GERd symptoms) History of malignant melanoma of skin 08/25/2014 Overview: 2013? Sees Dr Hernandez in [place]. Had wide excision reportedly neg. Dyslipidemia, goal LDL below 130 07/12/2014 Palpitations 05/16/2014 Coronary artery disease (CAD) excluded 4 Overview: 2013 abnormal stress test, normal cath. Family history of abdominal aortic aneurysm 07/2013 Overview: 2016 CT [place]-no AAA False positive cardiac stress test 10/13/2012 Family history of ischemic heart disease 013 Other and unspecified hyperlipidemia 09/13/2011 BPH with obstruction/lower urinary tract symptom s 09/13/2011 ED (erectile dysfunction) 09/13/2011 HTN, goal below 140/90 03/07/2011 Meniere's disease Vitamin D deficiency Nephrolithiasis Macular degeneration documented as of this encounter (statuses as of 07/02/2023) Resolved Problems Problem Noted Date Diagnosed Date [...] as of this encounter (statuses as of 07/02/2023) Immunizations Name Administration Dates Next Due COVID-19 [...] Influenza, Split, I IV3, With Preserve, Inj 05/11/2014,06/06/2012,04/06/2010 Seasonal Influenza, Trivalen t, Adjuvanted, 65+ yrs [...] on file documented as of this encounter Miscellaneous Notes * Telephone Encounter - Ruth Cortes MED ASSIST - 07/02/2023 1:27 PM EST Received a call from Merary with radiology, she states that Dr. Garcia wanted you to be aware of the unexpected finding on xray: 1. No acute finding. Mild glenohumeral and AC joint space narrowing/arthrosis. 2. Probable summation artifact in the right upper chest versus pulmonary nodule. Chest radiographic correlation is recommended. documented in this encounter Plan of Treatment Upcoming Encounters Date Type Department Care Team (Late st Contact Info) Description 07/31/2023 3:30 PM EST Telemedicine Orthopaedics [facility] [address] [address] Allan Alas PA-C [address] [address] 02/13/2024 2:00 PM EDT Office Visit Family Practice [facility] [address] [address] Conner Jones MD [address] [place] [address] Health Maintenance Due Date Last Done Comments [...] Not on filedocumented as of this encounter Care Teams Outbound Supervisor Relationship Specialty Start Date End Date Conner Jones MD [address] [place] [address] PCP - General Family Medicine 07/12/14 documented as of this encounter
--- OUTSIDE RECORDS SUMMARY | 2023-07-29 04:51 | External Medical Summary | Summary of Care ---
Author Name Unknown Organization [facility] Address [address] [facility] [address] Phone [phone] Care Team Providers Care Baked And Graphite Inspector Name Role Phone Conner Jones MD Primary Care Provider + Reason for Visit * Reason Onset Date Comments Advice 07/02/2023 Test Results 07/02/2023 Encounter Details Date Type Department Care Team (Late st Contact Info) Description 07/02/2023 Telephone [address] [facility] [address] [place] [address] Conner Jones MD [address] [place] [phone] Advice; Test Results Allergies Active Allergy Reactions Criticality Noted Date Comments Bee Venom Edema Other 05/02/2016 Swelling in area that was stung documented as of this encounter (statuses as of 07/08/2023) Medications Medication Sig Dispensed Refills Start Date [...] as of this encounter (statuses as of 07/08/2023) Active Problems Problem Noted Date Diagnosed Date [...] -chronic gastritis. Colon--+tubular adenoma. 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 2009 colonoscopy WNL. EGD 2011 WNL (for GERd symptoms) History of malignant melanoma of skin 08/25/2014 Overview: 2013? Sees Dr Hernandez in [place]. Had wide excision reportedly neg. Dyslipidemia, goal [...] as of this encounter (statuses as of 07/08/2023) Resolved Problems Problem Noted Date Diagnosed Date [...] as of this encounter (statuses as of 07/08/2023) Immunizations Name Administration Dates Next Due COVID-19 [...] encounter Miscellaneous Notes * Telephone Encounter - Conner Jones MD - 07/08/2023 8:48 PM EST See today's encounter. * Telephone Encounter - Estee Curiel LPN - 07/03/2023 5:13 PM EST Spoke with DOD-- He stated that per the findings on the chest XR there is no immediate f/u test that are recommendedat this moment. He believes it would be in the best interested to await PCP's review of XR and havehim determine what chest radiographic correlation is recommended. Called pts -- Explained to her the above information. She was upset nothing could be ordered atthis moment but understands the reasoning and stated our conversation gave her some reassurance. She is asking if PCP could call them on 07/08/22 when he returns to give them more reassurance on the situation. * Telephone Encounter - Estee Curiel LPN - 07/03/2023 4:25 PM EST Transferred to [place]-- DOD Can you please review the TE above regarding pts shoulder X[facility]2023 [facility] Pt worried about more cancer in pt and is requesting a follow up diagnostic XR. Can we place order for this? Is this appropriate? Or should ortho f/u? Please advise. I can call pt with with response. * Telephone Encounter - Pebbles Joshua LPN - 07/03/2023 12:02 PM EST Patient's calling in to check on the status of the message below. Asking to be sent high priority. As soon as it's addressed please notify patient. * Telephone Encounter - Doris Lemon LPN - 07/02/2023 3:58 PM EST Patient's calling to follow up on her message earlier. They are really concerned about the shoulder xray results. Ordered by Allan Alas PA-C, completed on 06/27. --Probable summation artifact in the right upper chest versus pulmonary nodule. Chest radiographic correlation is recommended. Patient currently has cancer, worried that the artifact seen is additional cancer. Requesting an order for CXR be placed please. * Telephone Encounter - Desire Mcrae OSA - 07/02/2023 10:44 AM EST Pt called requesting to speak with Dr. Jones about X-ray results from Orthopedic doctor. Caller is worried that what was seen in imaging result may be cancer. Please advise. documented in this encounter Plan of Treatment Upcoming Encounters Date Type Department Care Team (Late st Contact Info) Description 07/31/2023 3:30 PM EST Telemedicine Orthopaedics [facility] [address] [place] [address] Allan Alas PA-C [address] [place] [address] 02/13/2024 2:00 PM EDT Office Visit Family Practice [facility] [address] [place] [address] Conner Jones MD [address] [address] Health Maintenance Due Date Last Done Comments [...] filedocumented as of this encounter Care Teams Baked And Graphite Inspector Relationship Specialty Start Date End Date Conner Jones MD [address] [address] PCP - General Family Medicine 07/12/14 documented as of this encounter
--- OUTSIDE RECORDS SUMMARY | 2023-07-29 04:51 | External Medical Summary | Summary of Care ---
Author Name Unknown Organization [facility] Address [address] [place] [address] Phone [phone] Care Team Providers Care Driftman Name Role Phone Conner Mendez MD Primary Care Provider + Reason for Visit * Reason Comments eRx-Medication Refill Encounter Details Date Type Department Care Team (Late st Contact Info) Description 07/17/2023 Refill Family Practice [facility] [address] [place] [address] Conner Mendez MD [address] [place] [address] Allergies Active Allergy Reactions Criticality Noted Date Comments Bee Venom Edema Other 05/02/2016 Swelling in area that was stung documented as of this encounter (statuses as of 07/17/2023) Medications Medication Sig Dispensed Refills Start Date End Date Status ICAPS PO CAPS Take by mouth 2 times a day. 0 Active GLUCOSAMINE CHONDROITIN COMPLX PO TABS Take by mouth 2 times a day. 0 Active zinc gluconate 50 MG Tablet Take 1 Tablet by mouth every evening. 0 Active Cyclobenzaprine HCl 10 MG Oral Tablet (Flexeril)Indicat ions:Trismus Take 1 Tablet by mouth 3 times [...] Capsule by mouth every evening. 0 Active Flecainide Acetate 50 MG Oral Tablet (Tambocor) Take 1 Tablet by mouth in the morning and 1 Tablet before bedtime. 180 Tablet 3 09/04/2022 Active Apixaban 5 MG Oral Tablet (Eliquis)Indicati ons:Atrial fibrillation, unspecified type (HCC) Take 1 Tablet by mouth in the morning and 1 Tablet before bedtime. 180 Tablet 3 02/13/2023 Active Atorvastatin Calcium 20 MG Oral Tablet (Lipitor)Indicati ons:Hyperlipidemi a with target LDL less than 130 TAKE 1 TABLET DAILY 90 Tablet 1 02/24/2023 Active Metoprolol Succinate ER 25 MG Oral Tablet Extended Release 24 Hour (toPROL XL)Indications:At rial fibrillation, unspecified type (HCC) TAKE ONE-HALF (1/2) TABLET IN THE MORNING 45 Tablet 3 04/28/2023 Active Pantoprazole Sodium 40 MG Oral Tablet Delayed Release (Protonix) TAKE 1 TABLET IN THE MORNING 90 Tablet 1 07/17/2023 Active Pantoprazole Sodium 40 MG Oral Tablet Delayed Release (Protonix) TAKE 1 TABLET IN THE MORNING 90 Tablet 3 07/23/2022 07/17/2023 Discontinued documented as of this encounter (statuses as of 07/17/2023) Active Problems Problem Noted Date Diagnosed Date [...] -chronic gastritis. Colon--+tubular adenoma. Alicia 5y 04/07/17 [place] +abd lymphadnopathy, no AAA 02/18 Dr Annie Centeno with [facility] in [place] for CLL 11/17 AAA screen WNl. 2009 colonoscopy WNL. EGD 2011 WNL (for GERd symptoms) History of malignant melanoma of skin 08/25/2014 Overview: 2013? Sees Dr Hernandez in [place]. Had wide excision reportedly neg. Dyslipidemia, goal LDL below 130 07/12/2014 Palpitations 05/16/2014 Coronary artery disease (CAD) excluded 4 Overview: 2013 abnormal stress test, normal cath. Family history of abdominal aortic aneurysm 07/2013 Overview: 2016 CT [place]-no AAA False positive cardiac stress test 10/13/2012 Family history of ischemic heart disease 013 Other and unspecified hyperlipidemia 09/13/2011 BPH with obstruction/lower urinary tract symptom s 09/13/2011 ED (erectile dysfunction) 09/13/2011 HTN, goal below 140/90 03/07/2011 Meniere's disease Vitamin D deficiency Nephrolithiasis Macular degeneration documented as of this encounter (statuses as of 07/17/2023) Resolved Problems Problem Noted Date Diagnosed Date [...] as of this encounter (statuses as of 07/17/2023) Immunizations Name Administration Dates Next Due COVID-19 [...] encounter Miscellaneous Notes * Telephone Encounter - Chaz Heaton [facility] - 07/17/2023 2:58 PM ESTSigned Prescriptions: Disp Refills Pantoprazole Sodium 40 MG Oral Tablet Lindsay*90 Tab*1 Sig: TAKE 1 TABLET IN THE MORNINGAuthorizing Provider: CONNER MENDEZ User: CHAZ HEATON----- documented in this encounter Plan of Treatment Upcoming Encounters Date Type Department Care Team (Late st Contact Info) Description 07/31/2023 3:30 PM EST Telemedicine Orthopaedics [facility] [address] [address] Allan Alas PA-C [address] [address] 02/13/2024 2:00 PM EDT Office Visit Family Practice [facility] [address] [address] Conner Mendez MD [address] [address] Health Maintenance Due Date Last Done Comments [...] filedocumented as of this encounter Care Teams Driftman Relationship Specialty Start Date End Date Conner Mendez MD [address] [place] [address] PCP - General Family Medicine 07/12/14 documented as of this encounter
--- OUTSIDE RECORDS SUMMARY | 2023-07-29 04:51 | External Medical Summary | Summary of Care ---
Author Name Unknown Organization [facility] Address [address] [facility] [address] Phone [phone] Care Team Providers Care Dyed Raw Stock Blower Feeder Name Role Phone Conner Jones MD Primary Care Provider + Reason for Visit * Reason Comments NEW PATIENT Right shoulder Encounter Details Date Type Department Care Team (Latest Contact Info) Description 06/27/2023 1:30 PM EST Office Visit Orthopaedics [facility] [address] [place] [address] Allan Alas PA-C [address] [place] [address] Osteoarthritis of right glenohumeral joint*; Osteoarthritis of [...] -chronic gastritis. Colon--+tubular adenoma. Alicia 5y 04/07/17 [place] +abd lymphadnopathy, no AAA 02/18 Dr Annie Centeno with [facility] in [place] for CLL 11/17 AAA screen WNl. 2009 colonoscopy WNL. EGD 2011 WNL (for GERd symptoms) History of malignant melanoma of skin 08/25/2014 Overview: 2013? Sees Dr Hernandez in [place]. Had wide excision reportedly neg. Dyslipidemia, goal LDL below 130 07/12/2014 Palpitations 05/16/2014 Coronary artery disease (CAD) excluded 4 Overview: 2013 abnormal stress test, normal cath. Family history of abdominal aortic aneurysm 07/2013 Overview: 2017 CT [place]-no AAA False positive cardiac stress test 10/13/2012 [...] of this encounter Progress Notes * Allan Alas PA-C - 06/27/2023 1:51 PM ESTAssociated Order(s): [...] valve regurgitation I34.0 PAF (paroxysmal atrial fibrillation) ([facility]) I48.0 Senile purpura ([facility]) D69.2 Current Outpatient Medications Medication Sig [...] performed by Arpit Mendoza MD at ENDOSCOPY [facility] COLONOSCOPY, DIAGNOSTIC (RECTUM) 05/23/2022 diverticulosis sigmoid colon/COLONOSCOPY FLEXIBLE PROXIMAL DIAGNOSTIC performed by Arpit Mendoza MD at ENDOSCOPY [facility] COLORECTAL CANCER SCREEN; NOT AT RISK 09/18/2009 normal colon exam repeat in 10 years EGD, FLEXIBLE, DIAGNOSTIC 01/09/2018 normal bx/ESOPHAGOGASTRODUODENOSCOPY (EGD), FLEXIBLE, TRANSORAL, DIAGNOSTIC performed by Arpit Mendoza MD at ENDOSCOPY [facility] FLUORO UPPER GI W KUB 05/16/2006 small sliding hiatal hernia with reflux INFORMATION [address] Wallace [place] INFORMATION 09/08/2007 Hydrocele 2008 [place] INJECTION LUMBAR/SACRAL 11/18/2014 INJECTION SPINE LUMBAR OR SACRAL performed by [facility] Cousins, DO at OR [facility] INJECTION LUMBAR/SACRAL 12/02/2014 INJECTION SPINE LUMBAR OR SACRAL performed by [facility] Cousins, DO at OR [facility] LAPAROSCOPY; REPAIR INITIAL INGUINAL HERNIA 06/22/2010 Left sided MISCELLANEOUS ORDER ([facility] ONLY) Right 07/2017 Dr Wallace-ivy. REMOVAL OF APPENDIX 1978 Appendectomy Tate العلي. 1978 REMOVAL OF TONSILS, UNDER AGE 12 1955 Tonsillectomy 1955 Tate Black REPAIR INITIAL INGUINAL HERNIA REDUCIBLE AGE 5 OR MORE 06/22/2010 06/22/2010 - [facility] with [facility] - Dr. Skinner Review of patient's allergies [...] file Occupational History Occupation: [employer]-retired Occupation: 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 Tobacco Use Smoking status: [...] marriage, 2 sons . +6 grandkids--4 in [place], 2 in [facility] Other Topics Concern Not on file Social History Narrative Tennis. In past. Golfs now. Can't run w/J. Hilburnkel prob. Lifts. Social Determinants of Health Financial [...] under 2 seconds,good sensation light touch, +5 tumbling barrel painter strength, axillary median ulnar radial nerve assess [...] head of biceps): negative Virgen test: negative Lumpkin test: negative Hornblower: negative Lift off: negative [...] called to verify the correctpatient, procedure, equipment, supportability engineer and site/side marked as required. Patient was prepped and draped in the usual sterile fashion. This chart was completed in part utilizing [employer] Voice Recognition Software. Grammatical errors, random word [...] Description 07/31/2023 3:30 PM EST Telemedicine Orthopaedics [facility] [address] [place] [address] Allan Alas PA-C [address] [place] [address] 02/13/2024 2:00 PM EDT Office Visit Family Practice [facility] [address] [place] [address] Conner Jones MD [address] [place] [address] Pending Results Name Type Priority Associated Diagnoses [...] Procedure Name Priority Date/Time Associated Diagnosis Comments KS ARTHROCENTESIS ASPIR&/INJ MAJOR JT/BURSA W/O US Routine 06/27/2023 2:08 PM EST Osteoarthritis of right glenohumeral joint documented in this encounter Results * KS ARTHROCENTESIS ASPIR&/INJ MAJOR JT/BURSA W/O US (06/27/2023 2:08 PM EST) Narrative Allan Alas PA-C - 06/27/2023 2:08 PM Allan Mccollum PA-C 06/27/2023 2:09 PM LG Joint Inj/Arthro: R glenohumeral on 06/27/2023 2:08 PM Indications: pain Details: 22 G needle, anterior approach Medications: (Triamcinolone lidocaine) Outcome: tolerated well, no immediate complications Procedure, treatment alternatives, risks and benefits explained, specific risks discussed. Consent was given by the patient. Immediately prior to procedure a time out was called to verify the correct patient, procedure, equipment, supportability engineer and site/side marked as required. Patient was [...] Right documented in this encounter Care Teams Dyed Raw Stock Blower Feeder Relationship Specialty Start Date End Date Conner Jones MD [address] [place] [address] PCP - General Family Medicine 07/12/14 documented as of this encounter
--- OUTSIDE RECORDS SUMMARY | 2023-07-29 04:51 | External Medical Summary | Summary of Care ---
Author Name Unknown Organization [facility] Address [address] [facility] [address] Phone [phone] Care Team Providers Care Strategic Development Manager Name Role Phone Conner Jones MD Primary Care Provider + Reason for Visit * Reason Onset Date Comments Advice 07/02/2023 Test Results 07/02/2023 Encounter Details Date Type Department Care Team (Late st Contact Info) Description 07/02/2023 Telephone Family Practice [facility] [address] [place] [address] Conner Jones MD [address] [place] [id number] Advice; Test Results Allergies Active Allergy Reactions Criticality Noted Date Comments Bee Venom Edema Other 05/02/2016 Swelling in area that was stung documented as of this encounter (statuses as of 07/03/2023) Medications Medication Sig Dispensed Refills Start Date [...] as of this encounter (statuses as of 07/03/2023) Active Problems Problem Noted Date Diagnosed Date [...] -chronic gastritis. Colon--+tubular adenoma. Alicia 5y 04/07/17 [place] +abd lymphadnopathy, no AAA 02/18 Dr Annie Centeno with [facility] in [place] for CLL 11/17 AAA screen WNl. 2009 colonoscopy WNL. EGD 2011 WNL (for GERd symptoms) History of malignant melanoma of skin 08/25/2014 Overview: 2013? Sees Dr Hernandez in [place]. Had wide excision reportedly neg. Dyslipidemia, goal [...] as of this encounter (statuses as of 07/03/2023) Resolved Problems Problem Noted Date Diagnosed Date [...] as of this encounter (statuses as of 07/03/2023) Immunizations Name Administration Dates Next Due COVID-19 [...] encounter Miscellaneous Notes * Telephone Encounter - Estee Curiel LPN [...] - 07/03/2023 4:25 PM EST Transferred to me-- DOD Can you please review the TE above regarding pts shoulder XR from 06/27/2023 that was ordered by [facility]'s natasha alas. Pt worried about more cancer in [...] about the shoulder xray results. Ordered by Natasha Alas PA-C, completed on 06/27. --Probable summation [...] Description 07/31/2023 3:30 PM EST Telemedicine Orthopaedics [facility] [address] [address] Natasha Alas PA-C [address] [address] 02/13/2024 2:00 PM EDT Office Visit Family Practice [facility] [address] [address] Conner Jones MD [address] [address] Health Maintenance Due Date Last Done Comments [...] filedocumented as of this encounter Care Teams Strategic Development Manager Relationship Specialty Start Date End Date Conner Jones MD [address] [address] PCP - General Family Medicine 07/12/14 documented as of this encounter
--- OUTSIDE RECORDS SUMMARY | 2023-07-29 04:52 | External Medical Summary | Summary of Care ---
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 Yes Where should this appointment be scheduled? [facility] Type of Procedure MOHS Surgery Comments A. Skin, left preauricular area, shave: Basal cell carcinoma, infiltrative and nodular types. Reason for Visit * Reason Onset Date Comments Scheduling 04/15/2023 Encounter Details Date Type Department Care Team Description 04/15/2023 Telephone MOHS Surgery [facility] [place] [id number] Elizabeth Boo MD [address] [place], [place] [address] [id number] Scheduling Allergies Active Allergy Reactions Severity Noted Date Comments Bee Venom Edema Other 05/02/2016 Swelling in area that was stung documented as of this encounter (statuses as of 04/15/2023) Medications Medication Sig Dispensed Refills Start Date [...] by mouth every evening. 0 03/19/2022 Active Metoprolol Succinate ER 25 MG Oral Tablet Extended Release 24 Hour (toPROL XL)Indications:Atrial fibrillation, unspecified type (HCC) Take by mouth 0.5 Tablets in the morning. 45 Tablet 3 05/03/2022 Active Vitamin C 1000 MG Oral Tablet [...] TABLET DAILY 90 Tablet 1 02/24/2023 Active documented as of this encounter (statuses as of 04/15/2023) Active Problems Problem Noted Date Senile purpura 01/09/2022 Nonrheumatic aortic valve insufficiency 03/07/2021 Nonrheumatic mitral valve regurgitation 03/07/2021 PAF (paroxysmal atrial fibrillation) 07/2020 History of 2019 novel coronavirus diseas e (COVID-19) 05/30/2020 Chronic pain of right knee 12/31/2018 Fatty liver 09/30/2017 BALTAZAR (generalized anxiety disorder) 09/01 CLL (chronic lymphocytic leukemia) 02/03 Overview: 10/21-2nd opinion @. Patient completed rituximab induction on 03/03/17 for symptomatic splenomegaly with his CLL. Kaminski stage II, trisomy 12, IgVH indeterminent CLL. Routine general medical examination at a health care facility 08/25/2014 Overview: 01/21 EGD -chronic gastritis. Colon--+tubular adenoma. Alicia 5y 04/07/17 [place] +abd lymphadnopathy, no AAA 02/18 Dr Annie Centeno with [facility] in [place] for CLL 11/17 AAA screen WNl. 2009 colonoscopy WNL. EGD 2011 WNL (for GERd symptoms) History of malignant melanoma of skin Overview: 2013? Sees Dr Hernandez in [place]. Had wide excision reportedly neg. Dyslipidemia, goal LDL below 130 015 Palpitations 05/16/2014 Coronary artery disease (CAD) excluded 1 07/16/2013 Overview: 2013 abnormal stress test, normal cath. Family history of abdominal aortic aneur ysm 11/04/2013 Overview: 2016 CT [place]-no AAA False positive cardiac stress test 10/13 Family history of ischemic heart disease 09/08/2012 Other and unspecified hyperlipidemia 03/2012 BPH with obstruction/lower urinary tract symptoms 09/13/2011 ED (erectile dysfunction) 09/13/2011 HTN, goal below 140/90 03/07/2011 Meniere's disease Vitamin D deficiency Nephrolithiasis Macular degeneration documented as of this encounter (statuses as of 04/15/2023) Resolved Problems Problem Noted Date Resolved Date Abdominal wall hernia 10/06/2018 12/31/2018 Overview: RLQ Prediabetes 08/25/2014 09/14/2020 Prinzmetal angina 05/16/2014 03/06/2015 Screening for AAA (abdominal aortic aneurysm) 11/04/2013 Chest pain, non-cardiac 10/13/2012 05/16/20 14 Abnormal stress test 09/22/2012 10/13/2012 Chest pain 09/22/2012 09/01/2017 Dyslipidemia, goal to be determined 02/14/2004 06/02/2013 ABDOMINAL PAIN, RIGHT UPPER QUADRANT 02/14/2004 08/25/2014 Pruritus ani 06/06/2003 03/31/2017 FAM HX-DIABETES MELLITUS 04/06/2002 015 Family history of other cardiovascular diseases 04/06/2002 09/08/2012 Overview: ICD-10 update of inactive term STRESS REACT, EMOTIONAL 08/25/19 15 ROTATOR CUFF SYND NOS 03/31/2017 documented as of this encounter (statuses as of 04/15/2023) Immunizations Name Administration Dates Next Due COVID-19 mRNA, LNP-s, No Pre serve, 2-Dose Series (Moderna) 10/12/2020,09/18/2020 COVID-19, LNP-s, No Preserve , Akin-sucrose, Ages 12+ (Pfizer) 09/12/2021 Diptheria/Tetanus (Adult) 10/05/2002 PPD 11/21/2017 Pneumococcal Conjugate Vacc, 13 Valent (Prevnar) 05/02/2016 Pneumococcal Polysaccharide PPV23 (Pneumovax) 06/13/2017 SEASONAL INFLUENZA, PF, 6 M & Above, IM , (FLULAVAL or FLUZONE) 06/13/2017 Season Influenza, Cell Culte r, 18+ Yrs, With Preserv (Flucelvax) 04/17/2020 Seasonal Influenza, Quadriva lent Hd (Fluzone Hd) 03/26/2022 Seasonal Influenza, Quadriva lent, No Preserve, IM [...] every other day to every three days Food Insecurity Answer Date Recorded Within the past 12 months, y ou worried that your food would run out before you got money to buy more. Never true 01/10/2023 Within the past 12 months, t he food you bought just didn't last and you didn't have money to get more. Never true 01/10/2023 Sex Assigned at Date Recorded Male 01/10/2023 11:08 AM EDT Job Start Date Occupation Industry Not on file Not on file Not on file documented as of this encounter Miscellaneous Notes * Telephone Encounter - Elizabeth Boo MD - 04/15/2023 4:17 PM EDT Please schedule this patient for Mohs. A. Skin, left preauricular area, shave: Basal cell carcinoma, infiltrative and nodular types. 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 Ordered: 04/15/2023 Health Maintenance Due Date Last Done Comments Zoster Vaccines (1 of 2) 12/22/2012 10/27/2012 DTaP,Tdap,and Td Vaccines (2 - Td or Tdap) 08/30/2020 08/30/2010, 10/05/2002 Influenza Vaccine (FLU shot) (#1) 2023 03/26/2022, 04/17/2020, 04/15/2019, Additional history exists GFR 06/12/2023 06/12/2022, 03/08, 02/28/2022, Additional history exists Depression Screening 01/11/2024 01/10/2023 Albumin/Creatinine Ratio 01/10/2026 01/10/2023 COLONOSCOPY-EVERY 5 YRS AGES 18-100 05/23/2027 05/23/2022, 05/23/2022, 01/09/2018, Additional history exists AAA Screening Completed 04/07/2017, 11/15/2013 Pneumococcal Vaccine: 65+ Years Completed 06/13/2017, 05/02/2016 COVID-19 Vaccine Discontinued 09/12/2021, 02/2021, 09/18/2020 GARDASIL-HPV IMMUNIZATION SERIES Aged Out No longer eligible based on patient's age to complete this topic Hepatitis B Aged Out No longer eligi ble based on patient's age to complete this topic MENINGOCOCCAL (MENACTRA/MENVEO) Aged Out No longer eligible based on patient's age to complete this topic documented as of this encounter Medical Devices Not on filedocumented as of this encounter Visit Diagnoses Diagnosis 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
--- OUTSIDE RECORDS SUMMARY | 2023-07-29 04:52 | External Medical Summary | Summary of Care ---
Author Name Unknown Organization [facility] Address [address] [place] [place] [address] Phone [phone] Care Team Providers Care Machinist Wood Name Role Phone Conner Jones MD Primary Care Provider + Encounter Details Date Type Department Care Team Description 04/26/2023 Immunization [facility] [address] [facility] [address] [facility] [address] [facility] [place] [address] Arrived Allergies Active Allergy Reactions Severity Noted Date Comments Bee Venom Edema Other 05/02/2016 Swelling in area that was stung documented as of this encounter (statuses as of 04/26/2023) Medications Medication Sig Dispensed Refills Start Date [...] as of this encounter (statuses as of 04/26/2023) Active Problems Problem Noted Date Senile purpura [...] -chronic gastritis. Colon--+tubular adenoma. Alicia 5y 04/07/17 [place] +abd lymphadnopathy, no AAA 02/18 Dr Annie Centeno with [facility] in [place] for CLL 11/17 AAA screen WNl. 2009 colonoscopy WNL. EGD 2010 WNL (for GERd symptoms) History of malignant melanoma of skin Overview: 2013? Sees Dr Hernandez in [place]. Had wide excision reportedly neg. Dyslipidemia, goal LDL below 130 015 Palpitations 05/16/2014 Coronary artery disease (CAD) excluded 1 07/16/2013 Overview: 2013 abnormal stress test, normal cath. Family history of abdominal aortic aneur ysm 11/04/2013 Overview: 2016 CT [place]-no AAA False positive cardiac stress test 10/13 Family history of ischemic heart disease 09/08/2012 Other and unspecified hyperlipidemia 03/2012 BPH with obstruction/lower urinary tract symptoms 09/13/2011 ED (erectile dysfunction) 09/13/2011 HTN, goal below 140/90 03/07/2011 Meniere's disease Vitamin D deficiency Nephrolithiasis Macular degeneration documented as of this encounter (statuses as of 04/26/2023) Resolved Problems Problem Noted Date Resolved Date [...] as of this encounter (statuses as of 04/26/2023) Immunizations Name Administration Dates Next Due COVID-19 [...] on file documented as of this encounter Plan of Treatment Upcoming Encounters Date Type Specialty Care Team Description 06/25/2023 Office Visit Dermatology Elizabeth Boo MD [address] [place] [address] [place] [address] Health Maintenance Due Date Last Done Comments Zoster Vaccines (1 of 2) 12/22/2012 10/27/2012 DTaP,Tdap,and Td Vaccines (2 - Td or Tdap) 08/30/2020 08/30/2010, 10/05/2002 Influenza Vaccine (FLU shot) (#1) 2023 04/26/2023, 03/26/2022, 04/17/2020, Additional history exists GFR 06/12/2023 06/12/2022, 03/08, [...] filedocumented as of this encounter Care Teams Machinist Wood Relationship Specialty Start Date End Date Conner Jones MD [address] [place] [address] PCP - General Family Medicine 07/12/14 documented as of this encounter
--- OUTSIDE RECORDS SUMMARY | 2023-07-29 04:52 | External Medical Summary | Summary of Care ---
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 Elizabeth Boo MD [address] [place], [place] [address] [address] Referral ID Status Reason Start Date Expiration Date Visits Requested Visits Authorized [id number] Pending Review Specialty Services Required 3 1 [...] Care Team Description 04/15/2023 Telephone MOHS Surgery [place] Turner [address] [place] [address] Elizabeth Boo MD [address] [place] [address] [place] [address] Scheduling Allergies Active Allergy Reactions Severity Noted Date Comments Bee Venom Edema Other 05/02/2016 Swelling in area that was stung documented as of this encounter (statuses as of 04/17/2023) Medications Medication Sig Dispensed Refills Start Date [...] as of this encounter (statuses as of 04/17/2023) Active Problems Problem Noted Date Senile purpura [...] -chronic gastritis. Colon--+tubular adenoma. Alicia 5y 04/07/17 [place] +abd lymphadnopathy, no AAA 02/18 Dr Annie Centeno with [facility] in [place] for CLL 11/17 AAA screen WNl. 2009 colonoscopy WNL. EGD 2011 WNL (for GERd symptoms) History of malignant melanoma of skin Overview: 2013? Sees Dr Hernandez in [place]. Had wide excision reportedly neg. Dyslipidemia, goal LDL below 130 015 Palpitations 05/16/2014 Coronary artery disease (CAD) excluded 1 07/16/2013 Overview: 2013 abnormal stress test, normal cath. Family history of abdominal aortic aneur ysm 11/04/2013 Overview: 2016 CT [place]-no AAA False positive cardiac stress test 10/13 Family history of ischemic heart disease 09/08/2012 Other and unspecified hyperlipidemia 03/2012 BPH with obstruction/lower urinary tract symptoms 09/13/2011 ED (erectile dysfunction) 09/13/2011 HTN, goal below 140/90 03/07/2011 Meniere's disease Vitamin D deficiency Nephrolithiasis Macular degeneration documented as of this encounter (statuses as of 04/17/2023) Resolved Problems Problem Noted Date Resolved Date [...] as of this encounter (statuses as of 04/17/2023) Immunizations Name Administration Dates Next Due COVID-19 [...] encounter Miscellaneous Notes * Telephone Encounter - NAHUM Jimenez - 04/17/2023 2:52 PM EDT Spoke to and scheduled for mohs with DR Boo for 06/25 at 8am will mail a mohs packet. * Telephone Encounter - Elizabeth Boo MD - 04/15/2023 4:17 PM EDT Please schedule this patient for Mohs. A. Skin, left preauricular area, shave: Basal cell carcinoma, infiltrative and nodular types. documented in this encounter Plan of Treatment Upcoming Encounters Date Type Specialty Care Team Description 06/25/2023 Office Visit Dermatology Elizabeth Boo MD [address] [place] [address], [place] [address] Scheduled Referrals Name Type Priority Associated Diagnoses [...] Primary documented in this encounter Care Teams Teacher Lip Reading Relationship Specialty Start Date End Date Conner Jones MD [address] [place] [address] PCP - General Family Medicine 07/12/14 documented as of this encounter
--- OUTSIDE RECORDS SUMMARY | 2023-07-29 04:52 | External Medical Summary | Summary of Care ---
Author Name Unknown Organization [facility] Address [address] [place] [address] Phone [phone] Care Team Providers Care Welder Production Line Arc Name Role Phone Conner Jones MD Primary Care Provider + Reason for Visit * Reason Comments Mohs Surgery Pt presents today fo r Mohs surgery on L preauricular area. 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 Elizabeth Boo MD [address] [place] [address] [place] [address] Referral ID Status Reason Start Date Expiration Date Visits Requested Visits Authorized [id number] Pending Review Specialty Services Required 3 1 1 Encounter Details Date Type Department Care Team (Late st Contact Info) Description 06/25/2023 8:00 AM EST Office Visit MOHS Surgery State Niki Turner [address] [facility] [place] [address] Elizabeth Boo MD [address] [place] [address] [place] [address] 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 Colon--+tubular adenoma. 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 2009 colonoscopy WNL. EGD 2011 WNL (for GERd symptoms) History of malignant melanoma of skin 08/25/2014 Overview: 2013? Sees Dr Hernandez in [place]. Had wide excision reportedly neg. Dyslipidemia, goal LDL below 130 07/12/2014 Palpitations 05/16/2014 Coronary artery disease (CAD) excluded 4 Overview: 2013 abnormal stress test, normal cath. Family history of abdominal aortic aneurysm 07/2013 Overview: 2017 CT [place]-no AAA False positive cardiac stress test 10/13/2012 Family history of ischemic heart disease 013 Other and unspecified hyperlipidemia 09/13/2011 BPH with obstruction/lower urinary tract symptom s 09/13/2011 ED (erectile dysfunction) 09/13/2011 HTN, goal below 140/90 03/07/2011 Meniere's disease Vitamin D deficiency Nephrolithiasis Macular degeneration documented as of this encounter (statuses as of 06/26/2023) Resolved Problems Problem Noted Date Diagnosed Date [...] as of this encounter (statuses as of 06/26/2023) Immunizations Name Administration Dates Next Due COVID-19 [...] on file documented as of this encounter Last Filed Vital Signs Vital Sign Reading Time Taken Comments Blood Pressure - - Pulse - - Temperature 36.2 C (97.2 F) 06/25/2023 8:09 AM ES T Respiratory Rate - - Oxygen Saturation - - Inhaled Oxygen Concentration - - Weight 91.2 kg (201 lb) 06/25/2023 8:09 AM EST Height - - Body Mass Index 26.53 01/10/2023 11:06 AM EDT documented in this encounter Progress Notes * Elizabeth Boo MD - 06/25/2023 8:00 AM EST Greg Georges Surgery Note (See separate transcribed operative note for further detail) History: Truman Clayton is a 73 year old patient seen for evaluation and management of the following lesion: A. Skin, left preauricular area, shave: Basal cell carcinoma, infiltrative and nodular types. Patient problem list reviewed. Patient medication/allergy lists reviewed. Patient also asks about treatment of a lesion on his right dorsal hand. Examination: Truman Clayton is alert, oriented and appears well and in no distress. The patient's skin is remarkable for: Left preauricular area: 8 mm x 6 mm pink scar Right dorsal hand with pink scaly papule Impression/Plan: Basal cell carcinoma, infiltrative and nodular types - left preauricular area MMS Standard Mohs micrographic technique was utilized to treat this tumor. Microscopic examination of the specimen allowed the Mohs surgeon, whose dual role is to function as both surgeon and pathologist, to precisely identify the location of any remaining tumor or ascertain that the tissue margins were free of tumor. This process of excision of remaining tumor, mapping, and histologic exam was repeated until the tumor was excised completely. Patient identified, procedure verified, site identified and verified with the patient. Time out completed. Surgical removal of the lesion discussed with the patient (risks and benefits, including possibility of scarring, infection, bleeding, recurrence or potential for further treatment). I have specifically identified the site with the patient. I have discussed the fact that the patient will have a scar after the procedure regardless of granulation or repair with sutures. There is a risk of injury to nerves causing temporary or permanent numbness or the inability to move muscles fully such as the inability to lift eyebrows. Questions answered and verbal and written consent was obtained. 1 stage(s) Anesthetic: 0.05% lidocaine with 1:100,000 epinephrine. Repair: Primary Intermediate layered repair (see separate operative report for details) Absorbable sutures Wound care was discussed verbally, demonstrated and printed wound instructions given as well as wound care supplies. Patient instructed to call with questions or concerns. Personal contact information provided. 2. Favor hypertrophic actinic keratosis, right dorsal hand - A total of 1 lesion(s) were treated with cryotherapy. - The patient was counseled on the premalignant nature of these lesions, and they were treated withcryotherapy today which the patient is agreeable to. The risks, benefits, indications, alternatives, and complications were discussed, and consent was obtained. - If no resolution in 3-4 weeks patient to notify clinic for re-evaluation Follow-up: as needed Elizabeth Boo MD Associate, Mohs Micrographic Surgery & Dermatologic Surgery 06/25/23 documented in this encounter Procedure Notes * Elizabeth Boo MD - 06/26/2023 9:00 AM EST CLINIC [place]ES [place] [address] MOHS MICROGRAPHIC SURGERY Truman Clayton [facility]# [id number] 06/25/2023 [facility] NUMBER: [id number] BIOPSY: [id number] OPERATION: SURGICAL EXCISION OF CUTANEOUS MALIGNANCY USING CONTINUOUS MICROSCOPIC CONTROL(MOHS MICROGRAPHIC SURGERY) DIAGNOSIS: infiltrating basal cell carcinoma LOCATION: left preauricular area INDICATION FOR MOHS SURGERY: Location,Histologic Type SURGEON: Elizabeth Boo M.D. HISTOLOGY TECHNICIAN SURGEON: NONE HISTOLOGY TECHNICIAN SURGEON: NONE ANESTHETIC: Buffered lidocaine 0.5% with epinephrine 1:200,000 MANAGEMENT INFORMATION SYSTEMS DIRECTOR: Elizabeth Boo M.D. PREOPERATIVE SIZE OF LESION: 0.8 x 0.6 cm POSTOPERATIVE SIZE OF DEFECT: 1.0 x 0.8 cm ESTIMATED BLOOD LOSS: 5CC PROCEDURE: Time out called. Patient identified. Procedure matches verbalized consent. Site identified and verified and confirmed immediately prior to the procedure. Site marked. Thin layers of tumor-containing tissue were excised at each stage of surgery. These were cut into smaller tissue sections which were examined microscopically in a systematic fashion. Examination of the entire base and superficial peripheral margin allowed microscopic tumor extensions to be located and mapped. In accordance with the Mohs technique, this procedure enabled the maximum amount of normal tissue to be preserved while achieving the highest cure rate for cutaneous malignancy. At each surgical stage, the patient was prepped, the proposed excision outlined on the skin, and the area was reanesthetized as needed. STAGE I: The patient was prepped and the area of surgery was outlined. The operative site was anesthetized with a local injection of buffered lidocaine 0.5% with epinephrine 1:200,000. Following this the clinically apparent portion of the tumor was surgically removed. Hemostasis was achieved with an electrosurgical device. A thin layer of tissue was surgically excised and hemostasis was obtained. A reference map was drawn and the excised tissue was cut into 2 sections for examination in the micrographic laboratory. Edges of each section were dyed in order to achieve precise orientation. Horizontal sectioning of the base and continuous peripheral margins were then carried out and the prepared microscopic sections were examined by Elizabeth Boo M.D.. Any areas of residual infiltrating basal cell carcinoma were indicated on the reference map, pinpointing the location in which further tissue excision was necessary. At this point, no further tumor cells were identified and the tumor eradication was considered to be complete for a total of 1 stage of surgery in which multiple microscopic slices of 2 tissue sections had been examined. WOUND MANAGEMENT: This wound was reconstructed with a an intermediate repair. The beveled edges of the Mohs defect were excised at a 90 degree angle relative to surrounding skin. Burow's triangles were excised from the poles of the wound and oriented to use relaxed skin tension lines and anatomic borders to greatest advantage. Meticulous hemostasis was obtained with the electrosurgical device. The wound was repaired in a layered fashion to close potential space and to precisely and securely approximate the wound edges. Total volume of Buffered lidocaine 0.5% with epinephrine 1:200,000, for Mohs Surgery and reconstruction was 6 ml. The final closure was 2.5 cm.in length. Subcutaneous closure material: Interrupted 4-0 Monocryl Cutaneous closure material: Running 5-0 Fast gut Elizabeth Boo M.D. Associate Department of Dermatology documented in this encounter Nursing Notes * Kim Krishnan LPN - 06/25/2023 8:09 AM EST Chief Complaint Patient presents with Mohs Surgery Pt presents today for Mohs surgery on L preauricular area. Pt denies discomfort Referral Doctor: Rajeev Hypertension History: No Diabetes History: No Thyroid History: No Bleeding Tendency: Yes, refer to medication information for treatment. Artificial Valve or Joint: No Pacemaker: no Defibrillator: no Hepatitis/HIV Exposure: No Smoking: no Consent signed yes documented in this encounter Miscellaneous Notes * Letters - Elizabeth Boo MD - 06/26/2023 9:00 AM EST Department of Dermatology [place] [address] [facility] [place] [address] Elizabeth Boo M.D. Associate Dermatologic Surgery June 26, 2023 Elizabeth Boo M.D. [address] [facility] [place] [address] Truman Clayton [id number] MOHS CASE: [id number] DX: infiltrating basal cell carcinoma Dear Referring Provider, Thank you for referring Truman Clayton for treatment of infiltrating basal cell carcinoma of the left preauricular area. The tumor was treated today with Mohs micrographic surgery, requiring 1 stage for complete removal. The surgical wound was repaired with an intermediate layered closure. Thanks again for letting us participate in the care of your patient. Yours truly, Elizabeth Boo M.D. documented in this encounter Plan of Treatment Upcoming Encounters Date Type Department Care Team (Late st Contact Info) Description 06/27/2023 1:30 PM EST Office Visit Orthopaedics [facility] [address] [place] [address] Allan Alas PA-C [address] [place] [address] 02/13/2024 2:00 PM EDT Office Visit Family Practice [facility] [address] [place] [address] Conner Jones MD [address] [place] [address] Scheduled Referrals Name Type Priority Associated Diagnoses [...] carcinoma (BCC) of left preauricular region- Primary AK (actinic keratosis) Actinic keratosis documented in this encounter Care Teams Welder Production Line Arc Relationship Specialty Start Date End Date Conner Jones MD [address] [place] [address] PCP - General Family Medicine 07/12/14 documented as of this encounter
--- OUTSIDE RECORDS SUMMARY | 2023-07-29 04:52 | External Medical Summary | Summary of Care ---
Author Name Unknown Organization [facility] Address [address] [place] [address] Phone [phone] Care Team Providers Care Rag Willow Operator Name Role Phone Conner Jones MD Primary Care Provider + Encounter Details Date Type Department Care Team Description 02/25/2023 Orders Only Outcomes Research Department [address] [place] [address] Opal Swanson CHRA MyCode Research Other*[id number] Allergies Active Allergy Reactions Severity Noted Date Comments Bee Venom Edema Other 05/02/2016 Swelling in area that was stung documented as of this encounter (statuses as of 02/25/2023) Medications Medication Sig Dispensed Refills Start Date [...] as of this encounter (statuses as of 02/25/2023) Active Problems Problem Noted Date Senile purpura [...] -chronic gastritis. Colon--+tubular adenoma. Alicia 5y 04/07/17 [place] +abd lymphadnopathy, no AAA 02/18 Dr Annie Centeno with [facility] in [place] for CLL 11/17 AAA screen WNl. 2009 colonoscopy WNL. EGD 2011 WNL (for GERd symptoms) History of malignant melanoma of skin Overview: 2013? Sees Dr Hernandez in [place]. Had wide excision reportedly neg. Dyslipidemia, goal LDL below 130 015 Palpitations 05/16/2014 Coronary artery disease (CAD) excluded 1 07/16/2013 Overview: 2013 abnormal stress test, normal cath. Family history of abdominal aortic aneur ysm 11/04/2013 Overview: 2017 CT [place]-no AAA False positive cardiac stress test 10/13 Family history of ischemic heart disease 09/08/2012 Other and unspecified hyperlipidemia 03/2012 BPH with obstruction/lower urinary tract symptoms 09/13/2011 ED (erectile dysfunction) 09/13/2011 HTN, goal below 140/90 03/07/2011 Meniere's disease Vitamin D deficiency Nephrolithiasis Macular degeneration documented as of this encounter (statuses as of 02/25/2023) Resolved Problems Problem Noted Date Resolved Date [...] as of this encounter (statuses as of 02/25/2023) Immunizations Name Administration Dates Next Due COVID-19 mRNA, LNP-s, No Pre serve, 2-Dose Series (Moderna) 10/12/2020,09/18/2020 COVID-19, LNP-s, No Preserve , Akin-sucrose, Ages 12+ (Pfizer) 09/12/2021 Diptheria/Tetanus (Adult) 10/05/2002 PPD 11/21/2017 Pneumococcal Conjugate Vacc, 13 Valent (Prevnar) 05/02/2016 Pneumococcal Polysaccharide PPV23 (Pneumovax) 06/13/2017 Season Influenza, Cell Culte r, 18+ Yrs, With Preserv (Flucelvax) 04/17/2020 Seasonal Influenza, PF, 6 mo ns & Above, IM , (Flulaval) 06/13/2017 Seasonal Influenza, Quadriva lent Hd (Fluzone [...] Encounters Date Type Specialty Care Team Description 04/10/2023 Office Visit Dermatology Elizabeth Boo MD [address] [place] [address] Scheduled Orders Name Type Priority Associated Diagnoses Orde r Schedule MYCODE SUBSEQUENT ADULT Lab Routine MyCode Research Other*[id number] Every 6 Months for 2 Occurrences starting 02/25/2023 until 03/16/2024 Health Maintenance Due Date Last Done Comments Zoster Vaccines (1 of 2) 12/22/2012 10/27/2012 DTaP,Tdap,and Td Vaccines (2 - Td or Tdap) 08/30/2020 08/30/2010, 10/05/2002 Influenza Vaccine (FLU shot) (#1) 2023 03/26/2022, 04/17/2020, 04/15/2019, Additional history exists GFR 06/12/2023 06/12/2022, 03/08, 02/28/2022, Additional history exists Depression Screening, Annual for Pts 12 and Over 01/11/2024 01/10/2023 Albumin/Creatinine Ratio 01/10/2026 01/10/2023 COLONOSCOPY-EVERY [...] as of this encounter Visit Diagnoses Diagnosis My[facility] Research Other*[id number] documented in this encounter Care Teams Rag Willow Operator Relationship Specialty Start Date End Date Conner Jones MD [address] [place] [address] PCP - General Family Medicine 07/12/14 documented as of this encounter
--- OUTSIDE RECORDS SUMMARY | 2023-07-29 04:52 | External Medical Summary | Summary of Care ---
Author Name Unknown Organization [facility] Address [address] [place] [address] Phone [phone] Care Team Providers Care Butter Fat Tester Name Role Phone Conner Jones MD Primary Care Provider + Reason for Visit * Reason Comments Follow Up Patient presents for his 6 month follow up. He has a history of senile purpura. He is concerned about a mole on the make of his right upper leg and an area on his right chest. The mole on his leg began itching shortly after his last visit. He isn't able to see the area to know if it changed. The area on his chest is getting "caught" on his necklace. Encounter Details Date Type Department Care Team Description 04/10/2023 Office Visit Dermatology [facility] [place] [address] [place] [address] Elizabeth Boo MD [address] [facility] [place] [address] Skin lesion*; Inflamed seborrheic keratosis [L82.0 (ICD-10-CM)]; History of melanoma; History of nonmelanoma skin cancer; Screening exam for skin cancer Allergies Active Allergy Reactions Severity Noted Date [...] 09/01 CLL (chronic lymphocytic leukemia) 02/03 Overview: 10/21- opinion @. Patient completed rituximab induction on 03/03/17 for symptomatic splenomegaly with his CLL. Kaminski stage II, trisomy 12, IgVH indeterminent CLL. Routine general medical examination at a health care facility 08/25/2014 Overview: 01/21 EGD -chronic gastritis. Colon--+tubular adenoma. Alicia 5y 04/07/17 [place] +abd lymphadnopathy, no AAA 02/18 Dr Annie Centeno with [facility] in [place] for CLL 11/17 AAA screen WNl. 2009 colonoscopy WNL. EGD 2010 WNL (for GERd symptoms) History of malignant melanoma of skin Overview: 2013? Sees Dr Hernandez in [place]. Had wide excision reportedly neg. Dyslipidemia, goal LDL below 130 015 Palpitations 05/16/2014 Coronary artery disease (CAD) excluded 1 07/16/2013 Overview: 2013 abnormal stress test, normal cath. Family history of abdominal aortic aneur ysm 11/04/2013 Overview: 2016 CT [place]-no AAA False positive cardiac stress test 10/13 [...] as of this encounter Progress Notes * Elizabeth Boo MD - 04/10/2023 9:00 AM EDT SUBJECTIVE: History of Present Illness: Truman Clayton is a 72 year old male seen today for follow up skin check. Lesions of concern include itchy/irritated lesions on right posterior thigh and right chest. Bruise (senile purpura) on right forearm resolved. Per nurse note: Follow Up Patient presents for his 6 month follow up. He has a history of senile purpura. He is concerned about a mole on the make of his right upper leg and an area on his right chest. The mole on his leg began itching shortly after his last visit. He isn't able to see the area to know if it changed. The area on his chest is getting "caught" on his necklace. Melanoma History: Location: right shoulder Year: 2014 Depth: 0.6 cm (melanoma arising in severely dysplastic nevus Abdulaziz level III, 0.6mm) Treatment: WLE Staging: Stage IA - [id number] - < 0.8 mm without ulceration Patient also reports that he had a melanoma on his left jaw (not sure of date) and right hip. New, changing, or symptomatic moles since last visit: No Additional dermatologic history: - basal cell carcinoma left shoulder s/p ed&c 08-12-2013 - basal cell carcinoma left superior shoulder s/p ed&c 08-12-2013 - melanoma arising in severely dysplastic nevus Abdulaziz level III, 0.6mm Right shoulder s/p excision 07/2014 Dr. 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 HEME/LYMPH: No new or enlarging lumps or bumps. No systemic symptoms MEDICA TIONS: Current Outpatient Medications Medication Sig Dispense Refill [...] Take 4 Tablets by mouth every evening. Metoprolol Succinate ER 25 MG Oral Tablet Extended Release 24 Hour (toPROL XL) Take by mouth 0.5 Tablets in the morning. 45 Tablet 3 Vitamin C 1000 MG Oral Tablet Take [...] TAKE 1 TABLET DAILY 90 Tablet 1 No current facility-administered medications for this visit. ALLERG IES: Bee venom OBJECTIVE: GEN: Healthy, alert, no distress, appears oriented, pleasant, and cooperative. Lymph Nodes: Lymph nodes in head, neck, supraclavicular, axillary, and inguinal areas show no lymphadenopathy. SKIN: Detailed exam of hair, face including lids and lips, neck, back, chest, abdomen, buttocks, right and left upper extremities, right and left lower extremities including the nails and digits completed and are normal except: A.left preauricular area: 1 cm pink plaque B. Haddad/brown keratotic papules at right posterior thigh and right chest C. There are well-healed primary sites without clinical evidence of disease (no evidence of local, satellite, or in-transit recurrence). ASSESS MENT/PLAN: 1. Lesion A.left preauricular area. Favor basal cell carcinoma Shave Biopsy of the lesion noted above to establish and confirm diagnosis. The procedure, risks, benefits, alternatives and expected outcomes were discussed with the patient and consent was obtained.Time out called. Patient identified, procedure verified, site identified and verified. Patient and staff present in agreement. Area prepped with alcohol and anesthetized with 0.5% lidocaine with epinephrine at 1:200,000 concentration. Biopsy of lesion performed. 20% AlCl and bandaging applied. Specimen sent to pathology. Patient instructed in routine post-op care. 2. Irritated seborrheic keratosis, right posterior thigh and right chest. Treated with cryotherapy due to symptoms Cryotherapy was recommended for treatment today which patient was agreeable to. The risks, benefits, indications, alternatives, and complications were discussed, and informed consent was obtained. Specifically, the risks of permanent scar, loss or darkening of skin color, blister and recurrence of l esion were discussed. A total of 2 lesion(s) were treated with cryotherapy. The patient tolerated the procedure well without complications. Wound care instructions were given. 3 History of melanoma and nonmelanoma skin cancer/Skin cancer screening - History was obtained regarding new or changing moles. - Full skin check performed. No evidence of recurrence at previously treated sites of melanoma and nonmelanoma skin cancer. - Discussed sunscreen/photoprotection. Patient counseled on self-examination for new or changing moles. Informational handout reviewing sunscreen/photoprotection and self monitoring for melanoma was provided to patient at today's visit. - return in 6-12 months or sooner for any new or changing lesions of concern. Follow-up: 6-12 months The patient was encouraged to contact me with any further questions or concerns. Elizabeth Boo MD 04/10/2023 documented in this encounter Nursing Notes * SANDEEP Ta - 04/10/2023 9:03 AM EDT Patient identified by name and date of . Do you have any concerns about pain management for today's visit? No Living Will or Advance Directive for Health Care as noted on problem list. [facility] is a way you can talk to your provider online through e-mail. Would you like to sign up? I can activate it for you? DECLINES. Chief Complaint Patient presents with Follow Up Patient presents for his 6 month follow up. He has a history of senile purpura. He is concerned about a mole on the make of his right upper leg and an area on his right chest. The mole on his leg began itching shortly after his last visit. He isn't able to see the area to know if it changed. The area on his chest is getting "caught" on his necklace. documented in this encounter Miscellaneous Notes * Result Encounter Note - Elizabeth Boo MD - 04/15/2023 4:17 PM EDT Spoke with patient's regarding biopsy results as noted below: A. Skin, left preauricular area, shave: Basal cell carcinoma, infiltrative and nodular types. Explained the malignant nature of this lesion and that it will need to be treated with Mohs surgery. Elizabeth Boo MD 04/15/2023 documented in this encounter Plan of Treatment Upcoming Encounters Date Type Specialty Care Team Description 06/25/2023 Office Visit Dermatology Elizabeth Boo MD [address] [place] [address] Health Maintenance Due Date Last Done Comments [...] Procedure Name Priority Date/Time Associated Diagnosis Comments SURGICAL PATHOLOGY Routine 04/10/2023 9: 30 AM EDT Skin lesion documented in this encounter Results * SURGICAL PATHOLOGY (04/10/2023 9:30 AM EDT) Final Diagnosis A. Skin, left preauricular area, shave: Basal cell carcinoma, infiltrative and nodular types. 04/14/2023 2:15 PM EDT [facility] Clinical History See Order Comments 04/14/2023 2:15 PM EDT [facility] Order Comments A.left preauricular area: favor basal cell carcinoma. Shave biopsy 04/14/2023 2:15 PM EDT [facility] Gross Description A. Skin. Received in formalin with a container labeled with "Truman Clayton", "[id number]", "1950" and " left preauricular area". Received is a 0.9 x 0.8 cm skin shave. The skin surface is haddad to white firm and shiny. The underlying tissue is inked. The specimen is trisected and submitted in cassette A1. Gross By: MR 04/14/2023 2:15 PM EDT [facility] Sign Out Location Pathologist sign out performed at [facility] ([facility])[address] [address]. 04/14/2023 2:15 PM EDT [facility] Photographic images and diagrams represent ortega findings in this case; they are not intended to replace a complete review of the final diagnostic report. The following statement applies to Flow Cytometry, Histology, In situ Hybridization Assays and Molecular Genetics. This test was developed and performed at [facility] and its performance characteristics determined by [employer]. It has not been cleared or approved by the U.S. Food and Drug Administration. The FDA has determined that such clearance or approval is not necessary. This test is used for clinical purposes. It should not be regarded as investigational or for research. Special stains, including histochemical stains, and studies using immunologic and HILARY methodology (where applicable) are performed with appropriate positive and negative control reactions. 04/14/2023 2:15 PM EDT [facility] Tissue Skin structure / Unknown 04/10/2023 9:30 AM EDT 04/10/2023 9:30 AM EDT Comment:A.left preauricular area: favor basal cell carcinoma. Shave biopsy Elizabeth Boo MD LAB PATHOLOGY [facility] [address] [place] [address] documented in this encounter Visit Diagnoses Diagnosis Skin lesion- Primary Unspecified disorder of skin and subcutaneous tissue Inflamed seborrheic keratosis [L82.0 (ICD-10-CM)] Inflamed seborrheic keratosis History of melanoma Personal history of malignant melanoma of skin History of nonmelanoma skin cancer Personal history of other malignant neoplasm of skin Screening exam for skin cancer Screening for malignant neoplasm of the skin documented in this encounter Care Teams Butter Fat Tester Relationship Specialty Start Date End Date Conner Jones MD [address] [place] [address] PCP - General Family Medicine 07/12/14 documented as of this encounter
--- OUTSIDE RECORDS SUMMARY | 2023-07-29 04:52 | External Medical Summary | Summary of Care ---
Author Name Unknown Organization [facility] Address [address] [facility] [address] Phone [phone] Care Team Providers Care Lumber Yard Worker Name Role Phone Conner Jones MD Primary Care Provider + Reason for Visit * Reason Comments eRx-Medication Refill Encounter Details Date Type Department Care Team (Late st Contact Info) Description 04/28/2023 Refill Cardiology, [facility] [address] [place] [address] Farhan Verma PA-C [address] [place] [address] Atrial fibrillation, unspecified type (HCC) Allergies Active Allergy Reactions Criticality Noted Date Comments Bee Venom Edema Other 05/02/2016 Swelling in area that was stung documented as of this encounter (statuses as of 04/28/2023) Medications Medication Sig Dispensed Refills Start Date [...] THE MORNING 45 Tablet 3 04/28/2023 Active Metoprolol Succinate ER 25 MG Oral Tablet Extended Release 24 Hour (toPROL XL)Indications:At rial fibrillation, unspecified type (HCC) Take by mouth 0.5 Tablets in the morning. 45 Tablet 3 05/03/2022 04/28/2023 Discontinued documented as of this encounter (statuses as of 04/28/2023) Active Problems Problem Noted Date Diagnosed Date Senile purpura 01/09/2022 Nonrheumatic aortic valve insufficiency 03/07/20 21 Nonrheumatic mitral valve regurgitation 03/07/20 21 PAF (paroxysmal atrial fibrillation) 03/07/2021 History of 2019 novel coronavirus disease (COVID -19) 05/30/2020 Chronic pain of right knee 12/31/2018 Fatty liver 09/30/2017 BALTAZAR (generalized anxiety disorder) 09/01/2017 CLL (chronic lymphocytic leukemia) 02/03/2015 Overview: 10/21- opinion @. Patient completed rituximab induction on 03/03/17 for symptomatic splenomegaly with his CLL. Kaminski stage II, trisomy 12, IgVH indeterminent CLL. Routine general medical exam ination at a health care facility 08/25/2014 Overview: 01/21 EGD -chronic gastritis. Colon--+tubular adenoma. Alicia 5y 04/07/17 [place] +abd lymphadnopathy, no AAA 02/18 Dr Annie Centeno with [facility] in [place] for CLL 11/17 AAA screen WNl. 2009 colonoscopy WNL. EGD 2011 WNL (for GERd symptoms) History of malignant melanoma of skin 08/25/2014 Overview: 2013? Sees Dr Hernandez in [place]. Had wide excision reportedly neg. Dyslipidemia, goal LDL below 130 07/12/2014 Palpitations 05/16/2014 Coronary artery disease (CAD) excluded 4 Overview: 2013 abnormal stress test, normal cath. 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 ED (erectile dysfunction) 09/13/2011 HTN, goal below 140/90 03/07/2011 Meniere's disease Vitamin D deficiency Nephrolithiasis Macular degeneration documented as of this encounter (statuses as of 04/28/2023) Resolved Problems Problem Noted Date Diagnosed Date [...] as of this encounter (statuses as of 04/28/2023) Immunizations Name Administration Dates Next Due COVID-19 [...] encounter Miscellaneous Notes * Telephone Encounter - Phill Stockton IV, MD - 04/28/2023 3:57 PM EDTSigned Prescriptions: Disp Refills Metoprolol Succinate ER 25 MG Oral Tablet *45 Tab*3 Sig: TAKE ONE-HALF (1/2) TABLET IN THE MORNING Authorizing Provider: PHILL STOCKTON IV * Telephone Encounter - AALIYAH Bean - 04/28/2023 11:15 AM EDTPending Prescriptions: Disp Refills Metoprolol Succinate ER 25 MG Oral Tablet *45 Tab*3 Sig: TAKE ONE-HALF (1/2) TABLET IN THE MORNING * Telephone Encounter - AALIYAH Bean - 04/28/2023 11:15 AM EDT Did you pend patient's preferred pharmacy and medication before forwarding?yes Pharmacy: [facility] Pending Prescriptions: Disp Refills Metoprolol Succinate ER 25 MG Oral Tablet*45 Tab*3 Sig: TAKE ONE-HALF (1/2) TABLET IN THE MORNING Last Visit: 09/04/2022 (in office), 11/02/2019 (telemedicine) Next Visit: Visit date not found If no future appointments scheduled, and last appointment is greater than a year ago, please schedule patient for a follow-up appointment Last date the medication was ordered: 05-03-2022 Is this request for a controlled substance?No Urine Drug Screen:No results found for this or any previous visit. Patient Phone Numbers Labs: Lab Results Component Value Date/Time CREAT 1.0 06/12/2022 10:08 AM CREAT 1.0 09/21/2019 10:59 AM POTASSIUM 4.2 03/26/2022 01:49 PM POTASSIUM 4.8 09/21/2019 10:59 AM TSH 1.65 03/26/2022 01:49 PM TSH 2.19 07/01/2019 02:04 PM LDLCALC 82 06/12/2022 10:08 AM LDLCALC 46 07/01/2019 02:04 PM LDLDIRECT NOT APPLICABLE 07/01/2019 02:04 PM ALT 18 01/09/2022 01:31 PM ALT 15 07/01/2019 02:04 PM HGBA1C 5.2 02/28/2022 01:26 PM HGBA1C 6.3 (H) 07/08/2018 08:12 AM documented in this encounter Plan of Treatment Upcoming Encounters Date Type Department Care Team (Late st Contact Info) Description 06/25/2023 8:00 AM EST Office Visit [facility] [place] [address] [facility] [address] Elizabeth Boo MD [address] [place], [place] [address] [address] Health Maintenance Due Date Last Done Comments [...] as of this encounter Visit Diagnoses Diagnosis Atrial fibrillation, unspecified type (HCC) documented in this encounter Care Teams Lumber Yard Worker Relationship Specialty Start Date End Date Conner Jones MD [address] [place] [address] PCP - General Family Medicine 07/12/14 documented as of this encounter
--- OUTSIDE RECORDS SUMMARY | 2023-07-29 04:52 | External Medical Summary | Summary of Care ---
Author Name Unknown Organization [facility] Address [address] [place] [address] Phone [phone] Care Team Providers Care Risk Lead Name Role Phone Conner Jones MD Primary Care Provider + Reason for Visit * Reason Onset Date Comments Pre Cert/Prior Auth 06/13/2023 Encounter Details Date Type Department Care Team (Late st Contact Info) Description 06/13/2023 Telephone [facility] [address] [place] [address] Elizabeth Boo MD [address] [place] [address] Pre Cert/Prior Auth Allergies Active Allergy Reactions Criticality Noted Date Comments Bee Venom Edema Other 05/02/2016 Swelling in area that was stung documented as of this encounter (statuses as of 06/13/2023) Medications Medication Sig Dispensed Refills Start Date [...] as of this encounter (statuses as of 06/13/2023) Active Problems Problem Noted Date Diagnosed Date [...] -chronic gastritis. Colon--+tubular adenoma. Alicia 5y 04/07/17 [place] +abd lymphadnopathy, no AAA 02/18 Dr Annie Centeno with [facility] in [place] for CLL 11/17 AAA screen WNl. 2009 colonoscopy WNL. EGD 2010 WNL (for GERd symptoms) History of malignant melanoma of skin 08/25/2014 Overview: 2013? Sees Dr Hernandez in [place]. Had wide excision reportedly neg. Dyslipidemia, goal [...] as of this encounter (statuses as of 06/13/2023) Resolved Problems Problem Noted Date Diagnosed Date [...] as of this encounter (statuses as of 06/13/2023) Immunizations Name Administration Dates Next Due COVID-19 [...] encounter Miscellaneous Notes * Telephone Encounter - Cinthya Aaron OSA - 06/13/2023 10:18 AM EST 06/13/23 spoke to Terrie at [facility] and she stated that NO prior autho is needed for CPTcode: 47088- mohs procedure done in the doctors office. Call reference # [id number]. Called and spoke to Truman and let him know that NO prior autho is needed for mohs surgery done inthe doctors office. documented in this encounter Plan of Treatment Upcoming Encounters Date Type Department Care Team (Late st Contact Info) Description 06/25/2023 8:00 AM EST Office Visit [facility] Surgery [facility] [address] [place] [address] Elizabeth Boo MD [address] [place] [address] 06/26/2023 10:30 AM EST Office Visit Orthopaedics [facility] [address] [place] [address] Allan Alas PA-C [address] [place] [address] 02/13/2024 2:00 PM EDT Office Visit Family Practice [facility] [address] [place] [address] Conner Jones MD [address] [place] [address] Health Maintenance Due Date Last Done Comments [...] filedocumented as of this encounter Care Teams Risk Lead Relationship Specialty Start Date End Date Conner Jones MD [address] [place] [address] PCP - General Family Medicine 07/12/14 documented as of this encounter
--- OUTSIDE RECORDS SUMMARY | 2023-07-29 04:52 | External Medical Summary | Summary of Care ---
Author Name Unknown Organization [facility] Address [address] [place] [address] Phone [phone] Care Team Providers Care Correspondence Representative Name Role Phone Conner Jones MD Primary Care Provider + Reason for Visit * Reason Onset Date Comments Health Maintenance 04/07/2023 Encounter Details Date Type Department Care Team Description 04/07/2023 Telephone Family Practice [facility] [address] [place] [address] Conner Jones MD [address] [place] [address] Health Maintenance Allergies Active Allergy Reactions Severity Noted Date Comments Bee Venom Edema Other 05/02/2016 Swelling in area that was stung documented as of this encounter (statuses as of 04/07/2023) Medications Medication Sig Dispensed Refills Start Date [...] as of this encounter (statuses as of 04/07/2023) Active Problems Problem Noted Date Senile purpura [...] gastritis. Colon--+tubular adenoma. Alicia 5y 04/07/17 [place] +abd lymphadnopathy, no AAA 02/18 Dr Annie Centeno with [facility] in [place] for CLL 11/17 AAA screen WNl. 2009 colonoscopy WNL. EGD 2010 WNL (for GERd symptoms) History of malignant melanoma of skin Overview: 2014? Sees Dr Hernandez in [place]. Had wide excision reportedly neg. Dyslipidemia, goal [...] as of this encounter (statuses as of 04/07/2023) Resolved Problems Problem Noted Date Resolved Date [...] as of this encounter (statuses as of 04/07/2023) Immunizations Name Administration Dates Next Due COVID-19 [...] encounter Miscellaneous Notes * Telephone Encounter - Kiley Hood LPN - 04/07/2023 12:44 PM EDT Care Gaps Comprehensive Care Outreach Last Office/Telemedicine Visit: 01/10/2023 (in office), 05/30/2020 (telemedicine) Next Office Visit: Visit date not found Hemoglobin AIC Results: Lab Results Component Value Date/Time HEMOGLOBIN A1C - [facility] 5.2 09/02/2020 08:56 AM HEMOGLOBIN A1C - [facility] 6.3 (H) 07/08/2018 08:12 AM HEMOGLOBIN A1C - [facility] 5.4 03/06/2015 10:20 AM Reviewed Health Maintenance below: Health Maintenance Topic Date Due Zoster Vaccines (1 of 2) 12/22/2012 DTaP,Tdap,and Td Vaccines (2 - Td or Tdap) 08/30/2020 Influenza Vaccine (FLU shot) (1) 03/07/2023 GFR 06/12/2023 Ov Labs add lipid dec flu Care Gap Outreach Action Taken: Left message documented in this encounter Plan of Treatment Upcoming Encounters Date Type Specialty Care Team Description 04/10/2023 Office Visit Dermatology BooElizabeth MD [address] [place] [address] Health Maintenance Due Date Last Done Comments [...] filedocumented as of this encounter Care Teams Correspondence Representative Relationship Specialty Start Date End Date Conner Jones MD [address] [place] [address] PCP - General Family Medicine 07/12/14 documented as of this encounter
--- OUTSIDE RECORDS SUMMARY | 2023-07-29 04:53 | External Medical Summary | Summary of Care ---
Author Name Unknown Organization [facility] Address [address] [facility] [place] [address] Phone [phone] Care Team Providers Care Systems Administrator Name Role Phone Conner Jones MD Primary Care Provider + Reason for Visit * Reason Comments New Med Request Encounter Details Date Type Department Care Team Description 02/10/2023 Refill Cardiology, [facility] [address] [place] [address] Sampson Funes, DO [address] [place] [address] Atrial fibrillation, unspecified type (HCC) Allergies Active Allergy Reactions Severity Noted Date Comments Bee Venom Edema Other 05/02/2016 Swelling in area that was stung documented as of this encounter (statuses as of 02/13/2023) Medications Medication Sig Dispensed Refills Start Date [...] THE MORNING 90 Tablet 3 07/23/2022 Active Atorvastatin Calcium 20 MG Oral Tablet (Lipitor)Indicati ons:Hyperlipidemi a with target LDL less than 130 TAKE 1 TABLET DAILY 90 Tablet 1 08/26/2022 Active Flecainide Acetate 50 MG Oral Tablet (Tambocor) Take 1 Tablet by mouth in the morning and 1 Tablet before bedtime. 180 Tablet 3 09/04/2022 Active Apixaban 5 MG Oral Tablet (Eliquis)Indicati ons:Atrial fibrillation, unspecified type (HCC) Take 1 Tablet by mouth in the morning and 1 Tablet before bedtime. 180 Tablet 3 02/13/2023 Active Eliquis 5 MG Oral Tablet (Apixaban)Indicat ions:Atrial fibrillation, unspecified type (HCC) TAKE 1 TABLET TWICE A DAY 180 Tablet 3 09/03/2022 02/11/2023 Discontinued documented as of this encounter (statuses as of 02/13/2023) Active Problems Problem Noted Date Senile purpura [...] -chronic gastritis. Colon--+tubular adenoma. Alicia 5y 04/07/17 [place] +abd lymphadnopathy, no AAA 02/18 Dr Annie Centeno with [facility] in [place] for CLL 11/17 AAA screen [place]. 2009 colonoscopy WNL. EGD 2010 WNL (for GERd symptoms) History of malignant melanoma of skin Overview: 2013? Sees Dr Hernandez in [place]. Had wide excision reportedly neg. Dyslipidemia, goal LDL below 130 015 Palpitations 05/16/2014 Coronary artery disease (CAD) excluded 1 07/16/2013 Overview: 2013 abnormal stress test, normal cath. Family history of abdominal aortic aneur ysm 11/04/2013 Overview: 2016 CT [place]-no AAA False positive cardiac stress test 10/13 Family history of ischemic heart disease 09/08/2012 Other and unspecified hyperlipidemia 03/2012 BPH with obstruction/lower urinary tract symptoms 09/13/2011 ED (erectile dysfunction) 09/13/2011 HTN, goal below 140/90 03/07/2011 Meniere's disease Vitamin D deficiency Nephrolithiasis Macular degeneration documented as of this encounter (statuses as of 02/13/2023) Resolved Problems Problem Noted Date Resolved Date [...] as of this encounter (statuses as of 02/13/2023) Immunizations Name Administration Dates Next Due COVID-19 mRNA, LNP-s, No Pre serve, 2-Dose Series (Moderna) 10/12/2020,09/18/2020 COVID-19, LNP-s, No Preserve , Akin-sucrose, Ages 12+ (Pfizer) 09/12/2021 Diptheria/Tetanus (Adult) 10/05/2002 PPD 11/21/2017 Pneumococcal Conjugate Vacc, 13 Valent (Prevnar) 05/02/2016 Pneumococcal Polysaccharide PPV23 (Pneumovax) 06/13/2017 Seasonal Influenza, Cell Cul ture, 18 Yrs & Older 04/17/2020 Seasonal Influenza, Quadriva lent Hd (Fluzone Hd) 03/26/2022 Seasonal Influenza, Quadriva lent, No Preserve, 6 Mons & Above, IM 06/13/2017 Seasonal Influenza, Quadriva lent, No Preserve, IM [...] Encounter - Phill Stockton IV, MD - 02/13/2023 12:39 PM EDTSigned Prescriptions: Disp Refills Apixaban 5 MG Oral Tablet (Eliquis) 180 Ta*3 Sig: Take 1 Tablet by mouth in the morning and 1 Tablet before bedtime. Authorizing Provider: PHILL STOCKTON IV * Telephone Encounter - AALIYAH Bean - 02/11/2023 9:00 AM EDTPending Prescriptions: Disp Refills Apixaban 5 MG Oral Tablet (Eliquis) 180 Ta*3 Sig: Take 1 Tablet by mouth in the morning and 1 Tablet before bedtime. * Telephone Encounter - AALIYAH Bean - 02/11/2023 8:58 AM EDT Did you pend patient's preferred pharmacy and medication before forwarding?yes Pharmacy: [facility]- [place] Pending Prescriptions: Disp Refills Apixaban 5 MG Oral Tablet (Eliquis) [Phar*180 Ta*3 Sig: Take 1 Tablet by mouth in the morning and 1 Tablet before bedtime. Last Visit: 09/04/2022 (in office), 11/02/2019 (telemedicine) Next Visit: Visit date not found If no future appointments scheduled, and last appointment is greater than a year ago, please schedule patient for a follow-up appointment Last date the medication was ordered: 09-03-2022 Is this request for a controlled substance?No [...] 04/10/2023 Office Visit Dermatology Elizabeth Boo MD [address] [place] [id number] Health Maintenance Due Date Last Done Comments [...] (HCC) documented in this encounter Care Teams Systems Administrator Relationship Specialty Start Date End Date Conner Jones MD [address] [place] [address] PCP - General Family Medicine 07/12/14 documented as of this encounter
--- OUTSIDE RECORDS SUMMARY | 2023-07-29 04:53 | External Medical Summary | Summary of Care ---
Author Name Unknown Organization [facility] Address [address] [facility] [place] [address] Phone [phone] Care Team Providers Care High Pressure Operator Name Role Phone Conner Jones MD Primary Care Provider + Reason for Visit * Reason Onset Date Comments Appointment 02/06/2023 MRI Encounter Details Date Type Department Care Team Description 02/06/[address], [address] [place] [address] Nalini Wyman, RT (R) Appointment (/MRI) Allergies Active Allergy Reactions Severity Noted Date Comments Bee Venom Edema Other 05/02/2016 Swelling in area that was stung documented as of this encounter (statuses as of 02/06/2023) Medications Medication Sig Dispensed Refills Start Date [...] TABLET DAILY 90 Tablet 1 08/26/2022 Active Eliquis 5 MG Oral Tablet (Apixaban)Indications :Atrial fibrillation, unspecified type (HCC) TAKE 1 TABLET TWICE A DAY 180 Tablet 3 09/03/2022 Active Flecainide Acetate 50 MG Oral Tablet (Tambocor) Take 1 Tablet by mouth in the morning and 1 Tablet before bedtime. 180 Tablet 3 09/04/2022 Active documented as of this encounter (statuses as of 02/06/2023) Active Problems Problem Noted Date Senile purpura [...] -chronic gastritis. Colon--+tubular adenoma. Alicia 5y 04/07/17 [place] +abd lymphadnopathy, no AAA 02/18 Dr Annie Centeno with [facility] in [place] for CLL 11/17 AAA screen [place]Nl. 2009 colonoscopy WNL. EGD 2011 WNL (for GERd symptoms) History of malignant melanoma of skin Overview: 2013? Sees Dr Hernandez in [place]. Had wide excision reportedly neg. Dyslipidemia, goal [...] as of this encounter (statuses as of 02/06/2023) Resolved Problems Problem Noted Date Resolved Date [...] as of this encounter (statuses as of 02/06/2023) Immunizations Name Administration Dates Next Due COVID-19 [...] encounter Miscellaneous Notes * Telephone Encounter - Nalini Wyman, RT (R) - 02/06/2023 2:08 PM EDT Name: Truman Clayton Do you have any of the following: Pacemaker, stents, heart valves, aneurysm clips? No Have you ever worked with metal or have you ever gotten metal in your eyes? No Have you had a colonoscopy in the last 30 days? No On dialysis? No Do you have any dermals or body piercing's? No Do you wear an insulin pump or diabetic monitor? No No new tattoos RT Lolis (R) documented in this encounter Plan of Treatment Upcoming Encounters Date Type Specialty Care Team Description 02/11/2023 Imaging Radiology 04/10/2023 Office Visit Dermatology Elizabeth Boo MD [address] [facility] [place] [address] Health Maintenance Due Date Last Done Comments [...] filedocumented as of this encounter Care Teams High Pressure Operator Relationship Specialty Start Date End Date Conner Jones MD [address] [place] [address] PCP - General Family Medicine 07/12/14 documented as of this encounter
--- OUTSIDE RECORDS SUMMARY | 2023-07-29 04:53 | External Medical Summary | Summary of Care ---
Author Name Unknown Organization [facility] Address [address] [place] [address] Phone [phone] Care Team Providers Care Timber Framer Helper Name Role Phone Conner Mendez MD Primary Care Provider + Reason for Visit * Reason Comments eRx-Medication Refill Encounter Details Date Type Department Care Team Description 02/24/2023 Refill Family Practice [facility] [address] [place] [address] Conner Mendez MD [address] [place] [address] Hyperlipidemia with target LDL less than 130 Allergies Active Allergy Reactions Severity Noted Date Comments Bee Venom Edema Other 05/02/2016 Swelling in area that was stung documented as of this encounter (statuses as of 02/24/2023) Medications Medication Sig Dispensed Refills Start Date [...] TABLET DAILY 90 Tablet 1 02/24/2023 Active Atorvastatin Calcium 20 MG Oral Tablet (Lipitor)Indicati ons:Hyperlipidemi a with target LDL less than 130 TAKE 1 TABLET DAILY 90 Tablet 1 08/26/2022 02/24/2023 Discontinued documented as of this encounter (statuses as of 02/24/2023) Active Problems Problem Noted Date Senile purpura [...] -chronic gastritis. Colon--+tubular adenoma. Alicia 5y 04/07/17 [place] +abd lymphadnopathy, no AAA 02/18 Dr Annie Centeno with [facility] in [place] for CLL 11/17 AAA screen [place]Nl. 2009 colonoscopy WNL. EGD 2010 WNL (for GERd symptoms) History of malignant melanoma of skin Overview: 2013? Sees Dr Hernandez in [place]. Had wide excision reportedly neg. Dyslipidemia, goal LDL below 130 015 Palpitations 05/16/2014 Coronary artery disease (CAD) excluded 1 07/16/2013 Overview: 2013 abnormal stress test, normal cath. Family history of abdominal aortic aneur ysm 11/04/2013 Overview: 2016 CT [place]-no AAA False positive cardiac stress test 10/13 Family history of ischemic heart disease 09/08/2012 Other and unspecified hyperlipidemia 03/2012 BPH with obstruction/lower urinary tract symptoms 09/13/2011 ED (erectile dysfunction) 09/13/2011 HTN, goal below 140/90 03/07/2011 Meniere's disease Vitamin D deficiency Nephrolithiasis Macular degeneration documented as of this encounter (statuses as of 02/24/2023) Resolved Problems Problem Noted Date Resolved Date [...] as of this encounter (statuses as of 02/24/2023) Immunizations Name Administration Dates Next Due COVID-19 [...] encounter Miscellaneous Notes * Telephone Encounter - Janene Angulo [facility] - 02/24/2023 4:42 PM EDT Signed Prescriptions: Disp Refills Atorvastatin Calcium 20 MG Oral Tablet (Li*90 Tab*1 Sig: TAKE 1 TABLET DAILYAuthorizing Provider: CONNER MENDEZ User: JANENE ANGULO documented in this encounter Plan of Treatment Upcoming Encounters Date Type Specialty Care Team Description 04/10/2023 Office Visit Dermatology Elizabeth Boo MD [address] [place] [address] Health Maintenance Due Date Last Done Comments [...] as of this encounter Visit Diagnoses Diagnosis Hyperlipidemia with target LDL less than 130 Other and unspecified hyperlipidemia documented in this encounter Care Teams Timber Framer Helper Relationship Specialty Start Date End Date Conner Mendez MD [address] [place] [address] PCP - General Family Medicine 07/12/14 documented as of this encounter
[2023-07-29 06:16] LABS: Hematocrit (blood only) 43.3 % (42.0-52.0); Hemoglobin 15.2 g/dl (14.0-18.0); Mean Corpuscular Hemoglobin 32.5 pg (25.0-34.0); Mean Corpuscular Hgb Conc 35.1 g/dL (32.0-36.0); Mean Corpuscular Volume 92.5 fL (80.0-100.0); Mean Platelet Volume 9.5 fL (9.4-12.4); Platelet Count 139 K/uL (130-400); RDW Coefficient of Variation 12.1 % (11.5-14.5); Red Blood Count 4.68 M/uL (4.70-6.10); White Blood Count 6.56 K/ul (4.8-10.8)
[2023-07-29 06:29] LABS: Albumin Level 3.9 gm/dl (3.4-5.0); BUN Creatinine Ratio 29.1 (10-20); Bilirubin,Total 0.9 mg/dl (0.2-1.0); Creatinine Clr Calc Pharmacy 67.6 ml/min; Est GFR (African American) 76.8 ml/min; Est GFR (Non-African American) 66.2 ml/min; Magnesium 2.4 mg/dl (1.7-2.4); Total Protein 5.9 gm/dl (6.0-8.3)
[2023-07-29 06:57] LABS: ANTI-Xa, UFH(UnfractionatedHep 1.18 IU/ml (0.3-0.7)
[2023-07-29] MEDS: PANTOprazole 40 MG in SYRINGE 0 ML IV SCH (08:30)
[2023-07-29 09:13] LABS: ANTI-Xa, UFH(UnfractionatedHep 0.92 IU/ml (0.3-0.7)
--- NOTE | 2023-07-29 10:25 | Surgery Progress Note ---
Date of Service July 29, 2023 Assessment & Plan (1) SBO (small bowel obstruction): Plan: pt denies nausea, vomiting, fever chills, SOB cp passed small amount of flatus Abdomen soft mildly distended TTP RLQ Encouraged ambulation in halls will continue to monitor Admission and Anticipated Discharge Date Admission Date: July 28, 2023 Subjective pt denies nausea, vomiting, fever chills, SOB cp passed small amount of flatus Review of Systems Constitutional: no fever and no chills Ear, Nose, Mouth, Throat: no hearing loss Respiratory: no dyspnea Cardiovascular: no chest pain Gastrointestinal: no abdominal pain, no nausea and no vomiting Genitourinary: no dysuria Musculoskeletal: no muscle weakness Neurologic: + confusion; no memory loss Physical Exam Physical Exam: alert oriented pleasant Constitutional: well developed, cooperative and comfortable; no acute distress ENMT: external ear and nose normal, oropharynx normal Neck: trachea midline, no thyromegaly Respiratory: normal respiratory effort and able to speak in complete sentences; no respiratory distress Cardiovascular: Rate/Rhythm: regular rate Gastrointestinal (Abdomen): Inspection/Auscultation: + abdomen distended Percussion/Palpation: + abdomen tender (TTP RLQ) and abdomen soft; abdomen not rigid Musculoskeletal: no cyanosis or clubbing, extremities motor strength 5/5 Skin: no rashes, warm and dry Neurologic: awake; not confused Results & Data Vital Signs (Past 12 Hours) Vital Signs Temp Pulse Pulse Resp BP Pulse Ox O2 Del Method 07/29/23 07:45 98.2 F 64 20 151/86 H 95 Room Air 07/29/23 06:32 78 07/29/23 04:18 98.6 F 64 18 138/84 94 Room Air 07/29/23 00:00 Room Air PG Care Time/CCT Total # of Minutes Spent Total Time Spent with Patient: Total time spent is greater than 50% in coordination of care (as documented) at patient's floor/unit and/or counseling patient: Coding Level of Care Code 13807 SUB INP/OBS CARE 2/35MIN Diagnoses SBO (small bowel obstruction) K56.609
[2023-07-29 10:53] LABS: ANTI-Xa, UFH(UnfractionatedHep 0.48 IU/ml (0.3-0.7)
[2023-07-29] MEDS: D5W AND NSS 1,000 ML IV SCH (11:51)
--- NOTE | 2023-07-29 12:24 | Electrocardiogram Report ---
Test Reason : Blood Pressure : / mmHG Vent. Rate : 060 BPM Atrial Rate : 060 BPM P-R Int : 184 ms QRS Dur : 088 ms QT Int : 418 ms P-R-T Axes : -09 016 037 degrees QTc Int : 418 ms Normal sinus rhythm Normal ECG When compared with ECG of 26-APR-2021 20:26, No significant change was found Confirmed by Yg Roberson ([id number]) on 07/29/2023 12:24:19 PM Referred By: Ann Gonzalez Confirmed By:Kike Roberson
--- NOTE | 2023-07-29 13:14 | Hospitalist Progress Note ---
Date of Service July 29, 2023 Assessment & Plan (1) SBO (small bowel obstruction): Plan: This is a 73-year-old male with PMH of paroxysmal atrial fibrillation on Eliquis, hypertension, dyslipidemia, CAD, BPH, CLL following at [facility] on immunotherapy, Mnire's disease and other medical problems listed below who is a direct admission from [facility] with small bowel obstruction. History of small bowel obstruction in 2015 following a spinal surgery that resolved with bowel rest and IV fluids Presented with nausea, vomiting and abdominal pain for 1 day KUB on admission here showing multiple gas dilated loops of small bowel with no significant large bowel gas, compatible with small bowel obstruction Patient reports improvement on the symptoms. He is passing flatus. Repeat KUB pending. Plan to start clear liquids if KUB shows improvement as per surgery. (2) Paroxysmal atrial fibrillation: Plan: On Flecainide, Toprol 12.5mg daily, Eliquis for anticoagulation EKG personally reviewed; normal sinus rhythm. On heparin drip as he is n.p.o. On flecainide and metoprolol (3) CLL (chronic lymphocytic leukemia): Plan: Follows with [facility], on Venclexta 400mg HS Resume (4) GERD (gastroesophageal reflux disease): Plan: On Protonix. DVT Ppx: heparin gtt Code status: FULL PCP: Robert Dispo: admitted to [facility] for small bowel obstruction. Undergoing conservative care. Advance diet as tolerated. Please note the above document was generated using voice recognition software. It may contain grammatical, syntax or spelling errors. Any formal questions or concerns about the content, text or information contained within the body of this dictation should be directly addressed to the provider for clarification Admission and Anticipated Discharge Date Admission Date: July 28, 2023 Subjective Patient seen and examined at bedside. He is walking around the hallways without any difficulty. He is passing gas; no abdominal pain or discomfort. Review of Systems Review of Systems: All systems reviewed & are unremarkable except as noted in Subjective Physical Exam Physical Exam: Constitutional: WD/WN, vitals as above, NAD, sitting up in bed, pleasant, conversing easily Respiratory: normal respiratory effort, lungs clear to auscultation, no wheeze, rales, rhonchi. Normal insp/exp effort, no accessory muscle use Cardiovascular: RRR, no murmur, no edema Vessels: no JVD or carotid bruit Chest: normal inspection of chest Abdomen: Soft, nontender. Slightly distended. Musculoskeletal: no cyanosis or clubbing, extremities motor strength 5/5 Skin: no rashes, warm and dry normal turgor Neurologic: PERRL, EOMI, accommodation nl, no face palsy, no dysarthria CN's II- XI intact bilaterally and moves all extremities Psychiatric: A+Ox3, euthymic affect Results & Data Results & Data Vital Signs (Past 12 Hours) Vital Signs Temp Pulse Pulse Resp BP Pulse Ox O2 Del Method 07/29/23 11:24 36.9 C 64 18 148/86 H 93 Room Air 07/29/23 07:45 36.8 C 64 20 151/86 H 95 Room Air 07/29/23 06:32 78 07/29/23 05:48 60 07/29/23 04:18 37.0 C 64 18 138/84 94 Room Air
--- NOTE | 2023-07-29 14:00 | XRay Report ---
XR KUB/Abdomen 1 view CLINICAL HISTORY: SBO TECHNIQUE: 1 view of the abdomen was obtained. Comparison: Comparison is made to abdomen radiograph 07/28/2023 FINDINGS: Lung bases are unremarkable. Posterior fixation hardware is seen. Numerous distended loops of small b owel measuring up to 43 mm. Minimal bowel gas is seen without significant stool burden. IMPRESSION: Findings compatible with continued small bowel obstruction. ACT 112: Negative or not required by law. Electronically signed by: Joaquin Lundberg M.D. 07/29/2023 1:58 PM
[2023-07-29] MEDS: FLECAINIDE ACETATE 100 MG TABLET PO SCH ×2 (14:57→20:41)
[2023-07-29] MEDS: METOPROLOL SUCC 25MG EXT REL TAB PO SCH (14:59)
[2023-07-29] MEDS: PANTOprazole 40 MG TAB PO SCH (14:59)
[2023-07-29 19:05] LABS: ANTI-Xa, UFH(UnfractionatedHep 0.71 IU/ml (0.3-0.7)
[2023-07-29] MEDS ORDERED: Nursing to Pharmacy Communication SCH (21:00)
[2023-07-29] MEDS ORDERED: VENETOCLAX PO SCH (21:00)
[2023-07-29] MEDS ORDERED: ATORVASTATIN 20 MG TAB PO SCH (21:00)
[2023-07-29] MEDS: HEPARIN SODIUM/DEXTROSE 25,000 UNITS/500 ML BAG IV SCH (23:11)
[2023-07-30 01:19] LABS: ANTI-Xa, UFH(UnfractionatedHep 0.56 IU/ml (0.3-0.7)
[2023-07-30] MEDS ORDERED: Nursing to Pharmacy Communication SCH (04:15)
[2023-07-30 07:00] LABS: Basophils # (auto) 0.01 K/uL (0.00-0.20); Basophils % (auto) 0.2 %; Eosinophils # (auto) 0.02 K/uL (0.00-0.50); Eosinophils % (auto) 0.5 %; Hemoglobin 13.9 g/dl (14.0-18.0); Immature Granulocytes # (auto) 0.02 K/uL (0.01-0.20); Immature Granulocytes % (auto) 0.5 %; Lymphocytes # (auto) 1.36 K/uL (1.20-3.40); Lymphocytes % (auto) 33.3 %; Mean Corpuscular Hemoglobin 32.9 pg (25.0-34.0); Mean Corpuscular Hgb Conc 35.6 g/dL (32.0-36.0); Mean Corpuscular Volume 92.4 fL (80.0-100.0); Mean Platelet Volume 9.3 fL (9.4-12.4); Monocytes # (auto) 0.59 K/uL (0.11-0.59); Monocytes % (auto) 14.5 %; Neutrophils # (auto) 2.08 K/uL (1.40-6.50); Platelet Count 122 K/uL (130-400); RDW Coefficient of Variation 12.2 % (11.5-14.5); RDW Standard Deviation 41.5 fL (36.4-46.3); Red Blood Count 4.22 M/uL (4.70-6.10); White Blood Count 4.08 K/ul (4.8-10.8)
[2023-07-30 07:33] LABS: Calcium 8.6 mg/dl (8.6-10.3); Potassium 4.2 mmol/L (3.5-5.1)
[2023-07-30 07:38] LABS: BUN Creatinine Ratio 24.5 (10-20); Creatinine Clr Calc Pharmacy 79.1 ml/min; Est GFR (African American) 92.9 ml/min; Est GFR (Non-African American) 80.1 ml/min
--- NOTE | 2023-07-30 07:38 | Surgery Progress Note ---
Date of Service July 30, 2023 Assessment & Plan (1) SBO (small bowel obstruction): Plan: Patient tolerating clears , advanced to full liquids this AM No n/v, fever chills, sob, cp reports had BM x4 now, +flatus Ambulating without difficulty VSS, HR 55 Patient progressing, will continue to monitor. as above. multiple bms. no pain or nausea. hollie fulls. really would like to go home. clinically meeting criteria for d/c. no indication for surgical intervention at this time. Admission and Anticipated Discharge Date Admission Date: July 28, 2023 Subjective Patient tolerating clears No n/v, fever chills, sob, cp reports had BM x4 now, +flatus Review of Systems Constitutional: no fever and no chills Ear, Nose, Mouth, Throat: no hearing loss Respiratory: no dyspnea Cardiovascular: no chest pain Gastrointestinal: no abdominal pain, no nausea and no vomiting Genitourinary: no dysuria Musculoskeletal: no muscle weakness Integumentary: no rash Neurologic: no confusion and no memory loss Physical Exam Physical Exam: alert oriented pleasant Constitutional: well developed, cooperative and comfortable; no acute distress ENMT: external ear and nose normal, oropharynx normal Neck: trachea midline, no thyromegaly Respiratory: normal respiratory effort and able to speak in complete sentences; no respiratory distress Cardiovascular: Rate/Rhythm: + bradycardic (55) Gastrointestinal (Abdomen): Inspection/Auscultation: + abdomen distended (mild) Percussion/Palpation: + abdomen tender (TTP LUQ "soreness") and abdomen soft; abdomen not rigid Musculoskeletal: no cyanosis or clubbing, extremities motor strength 5/5 Skin: no rashes, warm and dry Neurologic: awake; not confused Results & Data Vital Signs (Past 12 Hours) Vital Signs Temp Pulse Pulse Resp BP Pulse Ox O2 Del Method 07/30/23 04:47 55 L 07/30/23 04:17 98.2 F 57 L 18 132/81 94 Room Air 07/30/23 00:03 98.4 F 55 L 18 125/79 94 Room Air 07/29/23 19:47 97.5 F L 60 18 134/87 94 Room Air PG Care Time/CCT Total # of Minutes Spent Total Time Spent with Patient: Total time spent is greater than 50% in coordination of care (as documented) at patient's floor/unit and/or counseling patient: Coding Level of Care Code 87861 SUB INP/OBS CARE 07/31MIN Diagnoses SBO (small bowel obstruction) K56.609
[2023-07-30] MEDS: PANTOprazole 40 MG TAB PO SCH (08:52)
[2023-07-30] MEDS: FLECAINIDE ACETATE 100 MG TABLET PO SCH (08:52)
[2023-07-30] MEDS: METOPROLOL SUCC 25MG EXT REL TAB PO SCH (08:52)
[2023-07-30] MEDS: HEPARIN SODIUM/DEXTROSE 25,000 UNITS/500 ML BAG IV SCH (13:32)
--- NOTE | 2023-07-30 17:11 | Discharge Summary ---
Date of Service July 30, 2023 Admission HPI Per Admitting Provider This is a 73-year-old male with PMH of paroxysmal atrial fibrillation on Eliquis, hypertension, dyslipidemia, CAD, BPH, CLL following at [facility] on immunotherapy, Mnire's disease and other medical problems listed below who is a direct admission from [facility] with small bowel obstruction. History of small bowel obstruction in 2014 following a spinal surgery that resolved with bowel rest and IV fluids. No issues since then. Began to have symptom last evening after midnight that woke him up and describes pain as diffuse across abdomen with associated nausea. Had 1 episode of emesis earlier this morning that prompted visit to [facility] ER. 1 CT abdomen pelvis revealed proximal small bowel obstruction, transfer is arranged for patient to come to preferred location of [facility] where we have general surgery support. Patient's nausea resolved at outside hospital ER after dose of Zofran but recurred by time of arrival. Also having some belching. Denies any recurrent vomiting. Diffuse abdominal discomfort and bloating but denies overt pain. No fever, chills, lightheadedness, headache, chest pain, shortness of breath, dysuria. Last bowel movement was yesterday. History of bilateral hernia repair as well as appendectomy. Admission Exam Per Admitting Provider General Appearance: WD/WN, vitals as above, NAD, sitting up in bed, pleasant, conversing easily Head: normocephalic, atraumatic Eyes: normal inspection, PERRL, conjunctivae normal, anicteric sclerae ENT: external ear and nose normal, oropharynx normal Neck: normal visual inspection, trachea midline, no thyromegaly Respiratory: normal respiratory effort, lungs clear to auscultation, no wheeze, rales, rhonchi. No accessory muscle use Cardiovascular: regular rate, rhythm, no murmur, normal peripheral pulses, no BLE edema. Vessels: no JVD Chest: normal inspection of chest Abdomen/GI: hypoactive bowel sounds, soft with mild distention and TTP across lower abdomen, no hepatosplenomegaly Extremities/Musculoskeletal: no cyanosis or clubbing, extremities motor strength 5/5 Neurologic: PERRL, EOMI, accommodation nl, no face palsy, no dysarthria, CN's II-XI intact bilaterally and moves all extremities Psychiatric: A+Ox3, euthymic affect Skin: no rashes, normal color, warm/dry Principal Diagnosis Small bowel obstruction History of paroxysmal A-fib Discharge Exam Constitutional: WD/WN, vitals as above, NAD, sitting up in bed, pleasant, conversing easily Respiratory: normal respiratory effort, lungs clear to auscultation, no wheeze, rales, rhonchi. Normal insp/exp effort, no accessory muscle use Cardiovascular: RRR, no murmur, no edema Vessels: no JVD or carotid bruit Chest: normal inspection of chest Abdomen: Soft, nontender. non distended. Musculoskeletal: no cyanosis or clubbing, extremities motor strength 5/5 Skin: no rashes, warm and dry normal turgor Neurologic: PERRL, EOMI, accommodation nl, no face palsy, no dysarthria CN's II- XI intact bilaterally and moves all extremities Psychiatric: A+Ox3, euthymic affect Discharge Data Allergies Allergy/AdvReac Type Severity Reaction Status Date / Time bee venom protein (honey bee) Allergy Intermediate Hives Verified 04/26/21 22:38 orphenadrine AdvReac Intermediate MENTAL Verified 04/26/21 22:38 CHANGES oxycodone AdvReac Mild NAUSEA Verified 04/26/21 22:38 Consultations 07/28/23 16:03 Consult General Surgery Routine Hospital Course (1) SBO (small bowel obstruction): Per prior attending with addendum: This is a 73-year-old male with PMH of paroxysmal atrial fibrillation on Eliquis, hypertension, dyslipidemia, CAD, BPH, CLL following at [facility] on immunotherapy, Mnire's disease and other medical problems listed below who is a direct admission from [facility] with small bowel obstruction. History of small bowel obstruction in 2014 following a spinal surgery that resolved with bowel rest and IV fluids Presented with nausea, vomiting and abdominal pain for 1 day KUB on admission here showing multiple gas dilated loops of small bowel with no significant large bowel gas, compatible with small bowel obstruction Patient reports improvement on the symptoms. He is passing flatus. Repeat KUB pending. Plan to start clear liquids if KUB shows improvement as per surgery. (2) Paroxysmal atrial fibrillation: On Flecainide, Toprol 12.5mg daily, Eliquis for anticoagulation EKG personally reviewed; normal sinus rhythm. On heparin drip as he is n.p.o. On flecainide and metoprolol (3) CLL (chronic lymphocytic leukemia): Follows with [facility], on Venclexta 400mg HS Resume (4) GERD (gastroesophageal reflux disease): On Protonix. DVT Ppx: heparin gtt Code status: FULL PCP: Robert Dispo: admitted to [facility] for small bowel obstruction. Undergoing conservative care. Advance diet as tolerated. Please note the above document was generated using voice recognition software. It may contain grammatical, syntax or spelling errors. Any formal questions or concerns about the content, text or information contained within the body of this dictation should be directly addressed to the provider for clarification Plan Addendum 07/30/2023: Patient was seen and examined at bedside as a follow-up of small bowel obstruction. Patient moving bowels, tolerating advancement of diet, patient to continue with soft diet on discharge, patient with no abdominal pain upon initiating soft diet so far, discussed with surgery, okay to discharge today from their point of view. Patient to resume his home dose of Eliquis from [facility]. Patient would like to go home and has been hemodynamically stable and ambulating around in the hallway very well. He is being discharged with following instruction at the point of discharge: Follow-up with your primary care physician within a week time and likely you will need labs CBC/CMP/magnesium/phosphorus. Continue with low fiber/soft diet for next 1 week and then slowly progress towards your regular consistency diet. Maintain mobility and adequate hydration. If with worsening abdominal pain or fever, report back to emergency immediately. You can resume your Eliquis from today evening. Take your medications as prescribed. Please make sure that you are able to get your medications today by calling your pharmacy before you leave the hospital so that your treatment continuity is not broken. Home Health Attestation I certify that this patient is under my care and that I, or a physicians multimedia assistant working with me, had a face to-face encounter that meets the home health [id number] encounter requirements with this patient. The encounter with the patient was in whole, or in part, for the following medical condition, which is the primary reason for home health care (list medical condition): I certify that, based on my findings, the following services are medically necessary home health services: My clinical findings support the need for the above services because: Further, I certify that my clinical findings support that this patient is homebound (i.e. absences from home require considerable and taxing effort and are for medical reasons or holiness services or infrequently or of short duration when for other reasons) because: Certification for Home Health Services: Based on the above findings, I certify that this patient is confined to the home and needs intermittent usp care, physical therapy and/or speech therapy or continues to need occupational therapy. The patient is under my care, and I have initiated the establishment of the plan of care. This patient will be followed by a physician who will periodically review the plan of care. Total Time Total Time Spent Total Time Spent (In Minutes): 45 Discharge Plan Discharge Items Patient Disposition: Home - Self-Care Reason For Visit: SBO Discharge Diagnosis: Small bowel obstruction History of paroxysmal A-fib Activity: Resume your previous activity Non-emergency contact: Primary Care Provider Call non-emergency contact if: you have any medication questions, your symptoms worsen, your pain is worsening and your temperature is above 101 Follow-up/Referrals: Mauricio Cornejo DO [Surgeon] - (You may call our office if you have any questions/concerns regarding your recent hospitalization for a small bowel obstruction) Conner Jones MD [Primary Care Provider] - Diet: Low Fiber Diet Texture: Dental soft (bite-sized) Addtl Attending Provider Instructions: Follow-up with your primary care physician within a week time and likely you will need labs CBC/CMP/magnesium/phosphorus. Continue with low fiber/soft diet for next 1 week and then slowly progress towards your regular consistency diet. Maintain mobility and adequate hydration. If with worsening abdominal pain or fever, report back to emergency immediately. You can resume your Eliquis from today evening. Take your medications as prescribed. Please make sure that you are able to get your medications today by calling your pharmacy before you leave the hospital so that your treatment continuity is not broken. Pending Studies at Discharge: No Stand-Alone Forms: My [employer], Smoking Cessation Medications and NE Order Prescriptions: Continued ascorbic acid (vitamin C) [Vitamin C] 1,000 mg Tablet 1 g PO DAILY atorvastatin 20 mg Tablet 20 mg PO HS flecainide 50 mg Tablet 50 mg PO BID zinc 50 mg Tablet 50 mg PO DAILY metoprolol succinate 25 mg Tablet Extended Release 24 Hr 12.5 mg PO DAILY calcium carbonate-vitamin D3 [Calcium 600 + D(3)] 600 mg(1,500mg) -400 unit Tablet 1 tab PO HS [id number] [Glucosamine-Chondroitin 3X] 750-625-30 mg Tablet 1 tab PO BID Eliquis 5 mg Tablet 5 mg PO BID PreserVision AREDS-2 [id number] mr-[id number]-[id number]-mg Capsule 1 tab PO BID Probiotic Acidophilus 1.5 mg (250 million cell) Capsule 1,000 mmu cells PO DAILY pantoprazole [Protonix] 20 mg Tablet,Delayed Release (Dr/Ec) 20 mg PO DAILY Venclexta 100 mg tablet 400 mg PO HS cyclobenzaprine 10 mg Tablet 10 mg PO TID PRN (Reason: Muscle Spasm) Discharge Orders: Discharge Order (Routine); Ordered 07/30/23 Ordered By: Thom Batista Admission Data Admit Date/Time: 07/28/23 16:49 Attending Provider: Thom Batista Admit Provider: Ally Conrad I. Primary Care Provider: Conner Jones Other Providers: Mauricio Cornejo
[2023-07-30] MEDS ORDERED: VENETOCLAX 100 MG PO SCH (18:00)
== END 2023-07-30 18:39 | disposition home or self-care (01) | DRG 389 ==
LOC: SUATTDRO 16:49 → 3N 16:49 → 2N 21:20

== ENCOUNTER 2024-08-09 04:19 | Inpatient (IN) ==
--- OUTSIDE RECORDS SUMMARY | 2024-08-09 04:26 | External Medical Summary | Summary of Care ---
Author Name Unknown Organization [facility] Address [address] [place] [address] Phone [phone] Care Team Providers Care Computer Systems Design Analyst Name Role Phone Conner Jones MD Primary Care Provider + Reason for Visit * Reason Comments Excision Pt presents today fo r an excision on L torso (back) Encounter Details Date Type Department Care Team (Late st Contact Info) Description 07/22/2024 2:30 PM EST Office Visit [facility] [address] [place] [address] Elizabeth Boo MD [address] [place] [id number] Pigmented skin lesion of suspected malignant nature* Allergies Active Allergy Reactions Criticality Noted Date Comments Bee Venom Edema Other 05/02/2016 Swelling in area that was stung documented as of this encounter (statuses as of 07/29/2024) Medications ICAPS PO CAPS Take by mouth 2 times a day. Active GLUCOSAMINE CHONDROITIN COMPLX PO TABS Take by mouth 2 times a day. Active zinc gluconate 50 MG Tablet Take 1 Tablet by mouth every evening. Active Vitamin C 1000 MG Oral Tablet Take 1 Tablet by mouth every evening. Active Multivitamin Men 50+ Oral Tablet Take by mouth daily. Active Probiotic Acidophilus BioBeads Oral Capsule Take 1 Capsule by mouth every evening. Active Flecainide Acetate 50 MG Oral Tablet (Tambocor)Indica tions:Atrial fibrillation, unspecified type (HCC) Take 1 Tablet by mouth in the morning and 1 Tablet before bedtime. 180 Tablet 3 4 Active Apixaban 5 MG Oral Tablet (Eliquis)Indicat ions:Atrial fibrillation, unspecified type (HCC) Take 1 Tablet by mouth in the morning and 1 Tablet before bedtime. 180 Tablet 3 4 Active Penciclovir 1 % External Cream Apply to cold sores every 2 hours as needed 15 g 1 4 Active Tamsulosin HCl 0.4 MG Oral Capsule (Flomax)Indicati ons:BPH with obstruction/lowe r urinary tract symptoms Take 1 Capsule by mouth in the morning. 90 Capsule 3 4 Active Pantoprazole Sodium 40 MG Oral Tablet Delayed Release (Protonix) TAKE 1 TABLET IN THE MORNING 90 Tablet 3 4 Active Metoprolol Succinate ER 25 MG Oral Tablet Extended Release 24 Hour (toPROL XL)Indications:A trial fibrillation, unspecified type (HCC) TAKE ONE-HALF (1/2) TABLET IN THE MORNING 45 Tablet 3 4 Active Atorvastatin Calcium 20 MG Oral Tablet (Lipitor)Indicat ions:Hyperlipide jesse with target LDL less than 130 TAKE 1 TABLET DAILY 90 Tablet 3 4 Active Molnupiravir 200 MG Oral CapsuleIndicatio ns:Positive self-administere d antigen test for COVID-19 Take 4 Capsules by mouth in the morning and 4 Capsules before bedtime. 40 Capsule 4 Active Benzonatate 100 MG Oral Capsule Take 1 Capsule by mouth 3 times a day as needed for Cough. 30 Capsule 1 5 Active Mupirocin 2 % External Ointment (Bactroban) Apply to area around nose and thin layer to nostrils two times a day for 3 weeks 22 g 1 5 Active Azithromycin 250 MG Oral Tablet (Zithromax Z-German) Take 2 tabs by mouth on day 1 then 1 tab daily days 2-5 6 Tablet 5 Active documented as of this encounter (statuses as of 07/29/2024) Active Problems Problem Noted Date Diagnosed Date Senile purpura 01/09/2022 Nonrheumatic aortic valve insufficiency 03/07/20 21 Nonrheumatic mitral valve regurgitation 03/07/20 21 PAF (paroxysmal atrial fibrillation) 03/07/2021 History of 2019 novel coronavirus disease (COVID -19) 05/30/2020 Chronic pain of right knee 12/31/2018 Fatty liver 09/30/2017 BALTAZAR (generalized anxiety disorder) 09/01/2017 CLL (chronic lymphocytic leukemia) 02/03/2015 Overview (09/01/2017): 10/21-2nd opinion @. Patient completed rituximab induction on 03/03/17 for symptomatic splenomegaly with his CLL. Kaminski stage II, trisomy 12, IgVH indeterminent CLL. Routine general medical exam ination at a health care facility 08/25/2014 Overview (03/04/2024): 05/28 colon WNL jean carlos 5y 01/21 EGD -chronic gastritis. Colon--+tubular adenoma. Jean Carlos 5y 04/07/17 [place]azo +abd lymphadnopathy, no AAA 02/18 Dr Annie Centeno with [facility] in [place] for CLL 11/17 AAA screen WNl. 2009 colonoscopy WNL. EGD 2010 WNL (for GERd symptoms) History of malignant melanoma of skin 08/25/2014 Overview (09/01/2017): 2013? Sees Dr Hernandez in [place]. Had wide excision reportedly neg. Dyslipidemia, goal LDL below 130 07/12/2014 Palpitations 05/16/2014 Coronary artery disease (CAD) excluded 4 Overview (08/25/2014): 2013 abnormal stress test, normal cath. Family history of abdominal aortic aneurysm 07/2013 Overview (09/01/2017): [address] CT [place]-no AAA False positive cardiac stress test 10/13/2012 Family history of ischemic heart disease 013 Other and unspecified hyperlipidemia 09/13/2011 BPH with obstruction/lower urinary tract symptom s 09/13/2011 ED (erectile dysfunction) 09/13/2011 HTN, goal below 140/90 03/07/2011 Meniere's disease Vitamin D deficiency Nephrolithiasis Macular degeneration documented as of this encounter (statuses as of 07/29/2024) Resolved Problems Problem Noted Date Diagnosed Date Resolved Date Abdominal wall hernia 10/06/20182018 Overview (10/06/2018): RLQ Prediabetes 08/25/2014 09/14/2020 Prinzmetal angina 05/16/2014 03/06/2015 Screening for AAA (abdominal aortic aneurysm) 11/05/19 14 11/04/2013 Chest pain, non-cardiac 10/13/201205/07 Abnormal stress test 09/22/2012 013 Chest pain 09/22/2012 09/01/2017 Dyslipidemia, goal to be determined 02/14/2004 06/02/2013 ABDOMINAL PAIN, RIGHT UPPER QUADRANT 02/14/2004 08/25/2014 Pruritus ani 06/06/2003 03/31/2017 FAM HX-DIABETES MELLITUS 04/06/2002 Family history of other card iovascular diseases 04/06/2002 09/08/2012 Overview (09/28/2015): ICD-10 update of inactive term STRESS REACT, EMOTIONAL 08/07 ROTATOR CUFF SYND NOS 2016 documented as of this encounter (statuses as of 07/29/2024) Immunizations Name Administration Dates Next Due COVID-19 mRNA, LNP-s, No Pre serve, 2-Dose Series (Moderna) 10/12/2020,09/18/2020 COVID-19, LNP-s, No Preserve , Akin-sucrose, Ages 12+ (Pfizer) 09/12/2021 Diptheria/Tetanus (Adult) 10/05/2002 Hepatitis B, 0-19 yrs 06/04/1994,12/31/1993,11/05 PPD 11/21/2017 Pneumococcal Conjugate Vacc, 13 Valent (Prevnar) 05/02/2016 Pneumococcal Polysaccharide PPV23 (Pneumovax) 06/13/2017 Seasonal Influenza Vac., MDV , IM, 0.5 mL (Fluzone) 05/11/2014,06/06/2012,04/06/2010,06/06 Seasonal Influenza, High Dos e, Trivalent, PF, IM (Fluzone HD) 03/20/2024 Seasonal Influenza, MDCK, Tr ivalent, PF, (Flucelvax) 04/17/2020 Seasonal Influenza, PF, 6 M & above, IM , (FluLaval or Fluzone) 06/13/2017 Seasonal Influenza, Quadriva lent Hd (Fluzone Hd) 04/26/2023,03/26/2022 Seasonal Influenza, Quadriva lent, No Preserve, IM 05/02/2016,05/23/2015 Seasonal Influenza, Trivalen t, Adjuvanted, 65+ YRS, PF, (Fluad) 04/15/2019 TDAP (age 10 and older)(Boostrix) 10/22/2023 TDAP, Age 7 and older, IM (Adacel) 08/30/2010 Varicella Zoster Vaccine (Adult) 10/27/2012 documented as of this encounter Social History Tobacco Use Types Packs/Day Years Used Date Smoking Tobacco: Former Cigarettes 1 20 0 07/07/1969 - 07/07/1989 Smokeless Tobacco: Never Alcohol Use Standard Drinks/Week Comments Yes 0 (1 standard drink = 0.6 oz pure alcohol) 2-3 drinks every other day to every three days PHQ-2 Answer Date Recorded PHQ Adult Total Score 0 03/04/2024 Hunger Vital Sign Answer Date Recorded Within the past 12 months, y ou worried that your food would run out before you got the money to buy more. Never true 03/04/20 24 Within the past 12 months, t he food you bought just didn't last and you didn't have money to get more. Never true 03/04/2024 Childcare Answer Date Recorded Do you feel overwhelmed with taking care of a child, family member or friend? No 03/04/2024 Does your family need help f inding childcare? (Household - for ages 0-17 years) Not on file 03/04/2024 Clothing Answer Date Recorded Have you been unable to get clothing when it was really needed? No 03/04/2024 Is your family able to get c lothes or diapers when needed? (Household - for ages 0-17 years) Not on file 03/04/2024 Personal Safety Answer Date Recorded Do you feel unsafe or have concerns for your saf ety? No 03/04/2024 Do you have concerns for you r family's safety? (Household - for ages 0-17 years) Not on file 03/04/2024 Utilities Answer Date Recorded Do you have trouble paying y our heating, water, or electric bill? No 03/04/2024 Is your family able to pay t he heat, water, or electric bill? (Household - for ages 0-17 years) Not on file 03/04/2024 Does your family have access to good internet? (Household - for ages 0-17 years) Not on file 03/04/2024 Employment Status Answer Date Recorded Are you unemployed or without regular income? No 03/04/2024 Does the household have a re lar source of income? (Household - for ages 0-17 years) Not on file 03/04/2024 Social Connections Answer Date Recorded How often do you feel lonely or isolated from th ose around you? Never 03/04/2024 Financial Resource Strain Answer Date R ecorded Do you have any trouble payi ng for your medications, or do you think you might in the future? No 03/04/2024 Does your family have troubl e paying for medicine? (Household - for ages 0-17 years) Not on file 03/04/2024 Transportation Needs Answer Date Record ed Do you have trouble getting a ride to medical visits or work? (Adult - for ages 18 years and over) Not on file 03/04/2024 Does your family have a hard time getting a ride to doctors visits? (Household - for ages 0-17 years) Not on file 03/04/2024 Has lack of transportation k ept you from medical appointments, meetings, work, or from getting things needed for daily living? Check all that apply. No 03/04/2024 Do you (or your family) have trouble finding or paying for a ride (transportation)? (Household - for ages 0-17 years) Not on file 03/04/2024 Housing Stability Answer Date Recorded Do you currently live in a s helter or have no steady place to sleep at night? No 03/04/2024 Do you think you are at risk of becoming homeless? (Adult - for ages 18 years and over) Not on file 03/04/2024 Does your family worry about paying for your home or becoming homeless? (Household - for ages 0-17 years) Not on file 0 03/04/2024 Are you homeless or worried that you might be in the future? No 03/04/2024 Are you (or your family) bin eless or worried that you might be in the future? (Household - for ages 0-17 years) Not on file Food Insecurity Answer Date Recorded Do you need food for this week? No 03/04/2024 Are you able to get enough f ood for your family? (Household - for ages 0-17 years) Not on file 03/04/2024 Does your family need food t his week? (Household - for ages 0-17 years) Not on file 03/04/2024 Do you always have enough fo od for your family? 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 Pathology as follows: A. Skin, L torso, shave: Severely atypical junctional melanocytic proliferation, inked edges narrowly clear in planes of section examined Comment: The histologic differential diagnosis includes early evolving melanoma in-situ. An additional procedure to ensure complete removal should be performed Examination Truman Clayton, 74 year old male, is alert, oriented and appears well and in no distress. The following lesion was noted and addressed: 1) Location: left torso (left lower back) Appearance: 9 mm x 6 mm pink scar Impression: Severely atypical junctional melanocytic proliferation. The histologic differential diagnosis includes early evolving melanoma in-situ, left torso (left lower back) Recommendation: The lesion was excised (see separate note) Follow-up: as needed Eliazbeth Boo MD 07/22/2024 PROCEDURE NOTE Referred by: Charis Bruce PA-C Preoperative diagnosis: Severely atypical junctional melanocytic proliferation. The histologic differential diagnosis includes early evolving melanoma in-situ Postoperative diagnosis: Pending Location: left torso (left lower back) Surgeon(s): Elizabeth Boo MD Anesthesia: Lidocaine 0.5% with epinephrine 1:200,000 by local infiltration Procedure: Excision of soft tissue lesion and closure of defect with an intermediate layered repair Estimated blood loss: Less than 5cc Complications: none Preoperative size: 0.9 cm x 0.6 cm without margins, 1.9 cm x 1.6 cm with margins Postoperative length of closure: 5 cm Description of procedure: The patient was escorted to the procedure room. Timeout was called. Patient name, medical record number, date and procedure were verified. Verification of positioning,equipment and availability of supplies was executed. Site(s) identified and marked prior to procedure. Patient and staff present were in agreement. The surgical site was examined and excision was planned to take at least 5 mm of normal-appearing skin in all directions. The skin was then locally anesthetized and prepped in the usual fashion. Excision was performed through the full thickness of skin into the subcutaneous tissue. The specimen was submitted in formalin for histologic examination. Meticulous hemostasis was obtained with the electrosurgical device and the defect was closed primarily with a layered repair using deep sutures of 3-0 Vicryl and superficial sutures of 5-0 Vicryl Rapide. A sterile pressure dressing was placed. Postoperative care: The patient was instructed to cleanse the wound daily, followed by the application of sterile ointment and a nonadherent dressing. I urged the patient to call us if any problems or questions should arise postoperatively. Operation performed with curative intent: Yes Original Breslow thickness of the lesion: Severely atypical junctional melanocytic proliferation. The histologic differential diagnosis includes early evolving melanoma in-situ Clinical margin width (measured from the edge of the lesion or the prior excision scar): 0.5 cm Depth of excision: full-thickness skin and subcutaneous tissue to deep fat documented in this encounter Nursing Notes * Kim Krishnan LPN - 07/22/2024 2:19 PM EST Chief Complaint Patient presents with Excision Pt presents today for an excision on L torso (back) Referral Doctor: ELADIA Vizcaino Hypertension History: Yes, refer to medication information for treatment. Diabetes History: No Thyroid History: No Bleeding Tendency: Yes, refer to medication information for treatment. Artificial Valve or Joint: no Pacemaker: no Defibrillator: no Hepatitis/HIV Exposure: No Smoking: no Consent signed yes documented in this encounter Miscellaneous Notes * Addendum Note - Cassandra Cullen TECH - 07/29/2024 7:56 AM ESTAddended by: CASSANDRA CULLEN on: 07/29/2024 07:56 AM Modules accepted: Orders * Result Encounter Note - Elizabeth Boo MD - 07/27/2024 7:27 PM EST Spoke with patient regarding pathology results as noted below: A. Skin, left torso, excision: Prior procedure site changes; no atypical junctional melanocytic proliferation identified in the planes of section examined (see comment) Comment: The prior procedure site changes do not extend to an inked surgical margin in the planes of section examined. Explained the pathology results above and that no further intervention is needed. Patient reports that wound is healing well and he has no problems/questions at this time. Elizabeth Boo MD 07/27/2024 7:26 PM documented in this encounter Plan of Treatment Upcoming Encounters Date Type Department Care Team (Late st Contact Info) Description 12/24/2024 11:15 AM EDT [facility] [place] [address] [place] [address] Rodrigo Graham MD [address] [place] [address] 03/25/2025 11:40 AM EDT Office Visit Family [facility] [address] [place] [address] Conner Jones MD [address] [place] [address] Health Maintenance Due Date Last Done Comments Cologuard 1995 Fecal Occult Blood Test 1995 Sigmoidoscopy 1995 Zoster Vaccines (1 of 2) 12/22/2012 10/27/2012 Adult Wellness Visit 2016 GFR 07/28/2024 07/28/2023, 01/2022, 03/26/2022, Additional history exists Depression Screening 03/04/2025 03/04/2024 Albumin/Creatinine Ratio 01/10/2026 01/10/2023 Colonoscopy 05/23/2027 05/23/2022, 05/07, 01/09/2018, Additional history exists Colorectal Cancer Screening 05/23/2027 DTap/Tdap Vaccines (3 - Td or Tdap) 10/21/2033 10/22/2023, 08/30/2010, 10/05/2002 Hepatitis B Vaccine Aged Out 06/04/1994, 12/31/1993, 11/30/1993 No longer eligible based on patient's age to complete this topic Pneumococcal Vaccine: 50+ Years Completed 06/13/2017, 05/02/2016 COVID-19 Vaccine Discontinued 09/12/2021, 02/2021, 09/18/2020 RETIRED - COLONOSCOPY-EVERY 5 YRS AGES 18-100 Discontinued 05/23/2022, 05/23/2022, 01/09/2018, Additional history exists AAA Screening Completed 06/12/2022, 01/2022, 01/09/2022, Additional history exists Influenza Vaccine (FLU shot) Completed 03/20/2024, 04/26/2023, 03/26/2022, Additional history exists HPV (Gardasil) Vaccine Aged Out No lo nger eligible based on patient's age to complete this topic MENINGOCOCCAL (MENACTRA/MENVEO) Aged Out No longer eligible based on patient's age to complete this topic documented as of this encounter Medical Devices Not on filedocumented as of this encounter Procedures Procedure Name Priority Date/Time Associated Diagnosis Comments SURGICAL PATHOLOGY Routine 07/22/2024 4: 58 PM EST Pigmented skin lesion of suspected malignant nature documented in this encounter Results * SURGICAL PATHOLOGY (07/22/2024 4:58 PM EST) Final Diagnosis A. Skin, left torso, excision: Prior procedure site changes; no atypical junctional melanocytic proliferation identified in the planes of section examined (see comment) Comment: The prior procedure site changes do not extend to an inked surgical margin in the planes of section examined. 07/27/2024 12:37 PM EST [facility] Clinical History See Order Comments 07/27/2024 12:37 PM EST [facility] Order Comments A.left torso: excision of severely atypical junctional melanocytic proliferation, suture at medial pole 07/27/2024 12:37 PM EST [facility] Gross Description A. Skin. Received formalin with a container labeled with "Truman Clayton", "[id number]", "1950" and " left torso". The specimen consists of an excision of haddad skin and underlying tissue measuring 5.7 x 2.5 cm, which is excised to a depth of 1.2 cm. The specimen is oriented with a suture at the medial pole. In the center of the epidermal surface there is a previous biopsy site scar measuring 1.1 x 1.0 cm, which comes within 1.0 cm of the closest peripheral edge. There is no residual gross pigmented lesion identified and there is slight ulceration present. The resection margins are designated with ink and the specimen is serially sectioned and the underlying adipose tissue is grossly unremarkable. The specimen is entirely submitted as per the attached diagram in cassettes A1-A9. Gross By: LY 07/27/2024 12:37 PM EST [facility] Sign Out Location Pathologist sign out performed at [facility] ([facility]), [address] [place] [id number]. 07/27/2024 12:37 PM EST [facility] Photographic images and diagrams represent ortgea findings in this case; they are not intended to replace a complete review of the final diagnostic report. The following statement applies to Flow Cytometry, Histology, In situ Hybridization Assays and Molecular Genetics. This test was developed and performed at [facility] and its performance characteristics determined by [facility]. It has not been cleared or approved [...] with appropriate positive and negative control reactions. 07/27/2024 12:37 PM EST [facility] Tissue Skin structure / Unknown 07/22/2024 4:58 PM EST 07/22/2024 4:58 PM EST Comment:A.left torso: excisi on of severely atypical junctional melanocytic proliferation, suture at medial pole us Elizabeth Boo MD LAB PATHOLOGY ORDERABLE S Final Result [facility] [address] [place] [address] documented in this encounter Visit Diagnoses Diagnosis Pigmented skin lesion of suspected malignant nature- Primary documented in this encounter Care Teams Computer Systems Design Analyst Relationship Specialty Start Date End Date Conner Jones MD [address] [facility] [place] [address] PCP - General Family Medicine 07/12/14 documented as of this encounter
--- OUTSIDE RECORDS SUMMARY | 2024-08-09 04:26 | External Medical Summary | Summary of Care ---
Author Name Unknown Organization [facility] Address [address] [place] [address] Phone [phone] Care Team Providers Care Phlebotomy Technologist Name Role Phone Conner Jones MD Primary Care Provider + Reason for Visit * Reason Comments NEW PATIENT Cough, hoarseness, c ongestion * Evaluate & Treat - Unlimited Visits (Within 30 days (routine)) - Pending Review Specialty Diagnoses / Procedures Referred By Roque lua Referred To Contact Otolaryngology Diagnoses Throat irritation Acute cough Conner Jones MD [address] [place] [address] Phone: tel: fax: Referral ID Status Reason Start Date Expiration Date Visits Requested Visits Authorized [id number] Pending Review Specialty Services Required [phone] Encounter Details Date Type Department Care Team (Late st Contact Info) Description 07/20/2024 1:30 PM EST Office Visit Otolaryngology [facility] [address] [place] [address] Flaca Castaneda PA-C [address] [place] [address] Acute recurrent sinusitis, unspecified location* Allergies Active Allergy Reactions Criticality Noted Date Comments Bee Venom Edema Other 05/02/2016 Swelling in area that was stung documented as of this encounter (statuses as of 07/28/2024) Medications ICAPS PO CAPS Take by mouth [...] as of this encounter (statuses as of 07/28/2024) Active Problems Problem Noted Date Diagnosed Date [...] gastritis. Colon--+tubular adenoma. 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 2009 colonoscopy WNL. EGD 2010 WNL (for GERd symptoms) History of malignant melanoma of skin 08/25/2014 Overview (09/01/2017): 2013? Sees Dr Hernandez in [place]. Had wide excision reportedly neg. Dyslipidemia, goal LDL below 130 07/12/2014 Palpitations 05/16/2014 Coronary artery disease (CAD) excluded 4 Overview (08/25/2014): 2013 abnormal stress test, normal cath. Family history of abdominal aortic aneurysm 07/2013 Overview (09/01/2017): 2017 CT [place]-no AAA False positive cardiac stress test 10/13/2012 Family history of ischemic heart disease 013 Other and unspecified hyperlipidemia 09/13/2011 BPH with obstruction/lower urinary tract symptom s 09/13/2011 ED (erectile dysfunction) 09/13/2011 HTN, goal below 140/90 03/07/2011 Meniere's disease Vitamin D deficiency Nephrolithiasis Macular degeneration documented as of this encounter (statuses as of 07/28/2024) Resolved Problems Problem Noted Date Diagnosed Date [...] as of this encounter (statuses as of 07/28/2024) Immunizations Name Administration Dates Next Due COVID-19 mRNA, LNP-s, No Pre serve, 2-Dose Series (Moderna) 10/12/2020,09/18/2020 COVID-19, LNP-s, No Preserve , Akin-sucrose, Ages 12+ (Pfizer) 09/12/2021 Diptheria/Tetanus (Adult) 10/05/2002 Hepatitis B, 0-19 yrs 06/04/1994,12/31/1993,11/05 PPD 11/21/2017 Pneumococcal Conjugate Vacc, 13 Valent (Prevnar) 05/02/2016 Pneumococcal Polysaccharide PPV23 (Pneumovax) 06/13/2017 Seasonal Influenza Vac., MDV , IM, 0.5 mL (Fluzone) 05/11/2014,06/06/2012,04/06/2010 Seasonal Influenza, High Dos e, Trivalent, PF, [...] file Not on file Not on file [employer] 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 Not on file Not on f ile Not on file documented as of this encounter Last Filed Vital Signs Vital Sign Reading Time Taken Comments Blood Pressure - - Pulse - - Temperature 36.2 C (97.1 F) 07/20/2024 1:32 PM ES T Respiratory Rate - - Oxygen Saturation - - Inhaled Oxygen Concentration - - Weight 91.1 kg (200 lb 14.4 oz) 07/20/2024 1:32 PM EST Height 185.4 cm (6' 0.99") 07/20/2024 1:32 PM ES T Body Mass Index 26.51 07/20/2024 1:32 PM EST documented in this encounter Progress Notes * Flaca Castaneda PA-C - 07/20/2024 1:45 PM EST 07/20/2024 Nursing Notes: Yany Barrera LPN 07/20/24 1333 Signed Chief Complaint Patient presents with NEW PATIENT Patient states he has ongoing cough since child. Hoarseness of voice. Had covid on years , now having continued congestion and cough. Taking otc antihistamine, has script for cough medication. Hasnot been treated with any antibiotics. Pt has not been allergy tested. Broke nose in the past. Has post nasal drip. Throat clearing. No imaging of sinuses. Has normal chest x rays in past. Has seen pulm in the past but not for this. States a chest x ray was done though when mentioning of the cough. HISTORY OF PRESENT ILLNESS This 74 year old male is seen at the request of Conner Jones MD for the initial evaluation of chronic cough and acute sinus symptoms Patient reports that he has had a chronic cough for many years with PND and frequent throat clearing with intermittent hoarseness. Takes Protonix with good control of his reflux. Denies dysphagia. Had normal CXR 07/17/23. He also reports he had COVID 07/06 and has had continued cough and nasal congestion. Past Medical History: Diagnosis Date Abdominal wall [...] Nephrolithiasis Prediabetes 08/25/2014 Rotator cuff syndrome 05/1995 [place] 2017 Stress reaction, emotional 03/21/1994 Vitamin D deficiency Past Surgical History: Procedure Laterality Date COLONOSCOPY, DIAGNOSTIC (RECTUM) 01/09/2018 adenomatous polyp, repeat 5 yrs/COLONOSCOPY FLEXIBLE PROXIMAL DIAGNOSTIC performed by Arpit eMndoza MD at ENDOSCOPY [facility] COLONOSCOPY, DIAGNOSTIC (RECTUM) 05/23/2022 diverticulosis sigmoid colon/COLONOSCOPY FLEXIBLE PROXIMAL DIAGNOSTIC performed by Arpit Mendoza MD at ENDOSCOPY [facility] COLORECTAL CANCER SCREEN; NOT AT RISK 09/18/2009 normal colon exam repeat in 10 years EGD, FLEXIBLE, DIAGNOSTIC 01/09/2018 normal bx/ESOPHAGOGASTRODUODENOSCOPY (EGD), FLEXIBLE, TRANSORAL, DIAGNOSTIC performed by Arpit Mendoza MD at ENDOSCOPY [facility] FLUORO UPPER GI W KUB 05/16/2006 small sliding hiatal hernia with reflux INFORMATION [address] [place] INFORMATION 09/08/2007 Hydrocele 2007 [place] INJECTION LUMBAR/SACRAL 11/18/2014 INJECTION SPINE LUMBAR OR SACRAL performed by Francisco Elana Mueller DO at OR [facility] INJECTION LUMBAR/SACRAL 12/02/2014 INJECTION SPINE LUMBAR OR SACRAL performed by James Mueller DO at OR [facility] LAPAROSCOPY; REPAIR INITIAL INGUINAL HERNIA 06/22/2010 Left sided MISCELLANEOUS ORDER ([facility] ONLY) Right 07/2017 Dr Wallace-ivy. REMOVAL OF APPENDIX 1978 Appendectomy Tate العلي. 1979 REMOVAL OF TONSILS, UNDER AGE 12 1955 Tonsillectomy 1955 [place] Black REPAIR INITIAL INGUINAL HERNIA REDUCIBLE AGE 5 OR MORE 06/22/2010 06/22/2010 - LI with [facility] - Dr. Skinner Medications Current Outpatient Medications Medication Sig Dispense Refill Azithromycin 250 MG Oral Tablet (Zithromax Z-German) Take 2 tabs by mouth on day 1 then 1 tab daily days 2-5 6 Tablet 0 ICAPS PO CAPS Take by mouth 2 times a day. GLUCOSAMINE CHONDROITIN COMPLX PO TABS Take by mouth 2 times a day. zinc gluconate 50 MG Tablet Take 1 Tablet by mouth every evening. Vitamin C 1000 MG Oral Tablet Take 1 Tablet by mouth every evening. Multivitamin Men 50+ Oral Tablet Take by mouth daily. Probiotic Acidophilus BioBeads Oral Capsule Take 1 Capsule by mouth every evening. Flecainide Acetate 50 MG Oral Tablet (Tambocor) Take 1 Tablet by mouth in the morning and 1 Tablet before bedtime. 180 Tablet 3 Apixaban 5 MG Oral Tablet (Eliquis) Take 1 Tablet by mouth in the morning and 1 Tablet before bedtime. 180 Tablet 3 Penciclovir 1 % External Cream Apply to cold sores every 2 hours as needed 15 g 1 Tamsulosin HCl 0.4 MG Oral Capsule (Flomax) Take 1 Capsule by mouth in the morning. 90 Capsule 3 Pantoprazole Sodium 40 MG Oral Tablet Delayed Release (Protonix) TAKE 1 TABLET IN THE MORNING 90 Tablet 3 Metoprolol Succinate ER 25 MG Oral Tablet Extended Release 24 Hour (toPROL XL) TAKE ONE-HALF (1/2) TABLET IN THE MORNING 45 Tablet 3 Atorvastatin Calcium 20 MG Oral Tablet (Lipitor) TAKE 1 TABLET DAILY 90 Tablet 3 Molnupiravir 200 MG Oral Capsule Take 4 Capsules by mouth in the morning and 4 Capsules before bedtime. 40 Capsule 0 Benzonatate 100 MG Oral Capsule Take 1 Capsule by mouth 3 times a day as needed for Cough. 30 Capsule 1 Mupirocin 2 % External Ointment (Bactroban) Apply to area around nose and thin layer to nostrils two times a day for 3 weeks 22 g 1 Proventil HFA 108 (90 Base) MCG/ACT Inhalation Aerosol Solution Inhale 2 Puffs by mouth every 4 hours as needed for Wheezing or Cough. 18 g 0 No current facility-administered medications for this visit. Allergies Review of patient's allergies indicates: Allergen Reactions Bee Venom Edema Other Swelling in area that was stung Family History Family History Problem Relation Name Age of Onset Diabetes Mother Hypertension Mother Stroke Mother x2 70s. Heart Disorder Father 55 CABG. 89/AAA Hypertension Father Other (macular degeneration) Father No Past Hx Sister x2 Other ( secondary defects) Sister 55 Cancer Brother 34 -brain No Past Hx Brother x2 Cancer Brother Metastatic melanoma Heart Disorder Grandfather (Paternal) AAA- Social History Social History Tobacco Use Smoking status: Former Current packs/day: 0.00 Average packs/day: 1 pack/day for 20.0 years (20.0 ttl pk-yrs) Types: Cigarettes Start date: 07/07/1969 Quit date: 07/07/1989 Years since quittin.0 Smokeless tobacco: Never Substance Use Topics Alcohol use: Yes Comment: 2-3 drinks every other day to every three days Vaping/E-Cigarette Use Vaping/E-Cigarette Use Never User Vaping/E-Cigarette Substances Vaping/E-Cigarette Devices REVIEW OF SYSTEMS Negative for constitutional, heart, lung, liver, kidney, digestive, hematologic, neurologic, rheumatologic, or endocrine complaints except as per history of present illness and past medical history. PHYSICAL EXAMINATION: Temp 36.2 C (97.1 F) (Tympanic) | Ht 1.854 m (6' 0.99") | Wt 91.1 kg (200 lb 14.4 oz) | BMI 26.51 kg/m | BSA 2.17 m Physical Examination: General: this is a healthy appearing male who appears his stated age. The patient is alert and appropriately verbally conversant without hoarseness. Face: The face was inspected and no cutaneous masses or lesions were visualized. There was no erythema or edema noted. Facial movement was symmetric without weakness. No skin lesions were detected. There was no sinus tenderness elicited. The parotid and submandibular glands were normal to palpation. Nose: Septum nonobstructing, turbinates normal, no masses, polyps, or mucopus. Oral Cavity: Examination of the oral cavity revealed no mass lesions nor infection. The palate was noted to be intact without evidence of clefting. The tongue exhibited normal mobility. Mucosa was moist without lesion. The lips were free of lesion. Gums were free of inflammation. Dentition: Unremarkable Oropharynx: The oral pharynx was free of mass lesion or mucosal abnormality. The palate was noted to be without lesions. The uvula was normal appearing. The tonsils were unremarkable. Nasopharynx/hypopharynx/larynx: See procedure documentation Ears: Examination of the ears revealed that the auricles were normally formed with no lesions. The external auditory canals were cleaned of any obstructing cerumen. The tympanic membranes were intactand freely mobile to pneumatoscopy without perforation or significant retraction pockets. Neck: Visualization and palpation of the neck revealed no mass lesions, no thyromegaly or thyroid masses. No skin lesions or inflammatory processes were detected. The cervical musculature was normal to palpation. Lymphatics (cervical): There were no palpable lymph nodes in the posterior triangle, submandibular triangle, jugulodigastric region, or central neck PROCEDURE NOTE Because of inability to cooperate with the mirror exam or in order to get a better assessment of the larynx, fiberoptic examination of the larynx was performed. The nose was first topically decongested with topical oxymetazoline 0.05% spray and topically anesthetized with topical Lidocaine 4% spray. The patient tolerated the procedure well. Patient should refrain from eating or drinking for 30-45minutes due to anesthesia of the pharynx and possible interference with swallowing. Fiberoptic examination revealed no mass lesions. Vocal cord mobility was normal without paralysis or paresis. No vocal cord masses were visualized. The pyriform sinuses were free of any mass lesions. There was no significant edema or erythema of the larynx. Encounter Diagnoses Name Primary? Acute recurrent sinusitis, unspecified location Yes Plan; Findings of examination and recommendations were discussed with the patient. He will be started on Zpak for acute sinusitis. Laryngoscopy is unremarkable with no concerning or abnormal findings. RAST testing will be ordered. Flaca Castaneda PA-C 07/20/2024 1:45 PM documented in this encounter Nursing Notes * Yany Barrera LPN - 07/20/2024 1:28 PM EST Chief Complaint Patient presents with NEW PATIENT Patient states he has ongoing cough since child. Hoarseness of voice. Had covid on years [place], now having continued congestion and cough. Taking otc antihistamine, has script for cough medication. Hasnot been treated with any antibiotics. Pt has not been allergy tested. Broke nose in the past. Has post nasal drip. Throat clearing. No imaging of sinuses. Has normal chest x rays in past. Has seen pulm in the past but not for this. States a chest x ray was done though when mentioning of the cough. documented in this encounter Plan of Treatment Upcoming Encounters Date Type Department Care Team (Late st Contact Info) Description 12/24/2024 11:15 AM EDT Office Visit [facility]atology [facility] [address] [facility] [place] [address] Rodrigo Graham MD [address] [place] [address] 03/25/2025 11:40 AM EDT Office Visit Family Practice [facility] [address] [place] [address] Conner Jones MD [address] [place] [address] Health Maintenance Due Date Last Done Comments [...] Not on filedocumented as of this encounter Results * [facility]GE PROFILE (07/20/2024 2:30 PM EST) Mite Pteronyssinus IgE <0.10 <0.10 kUa/L 07/21/2024 11:29 AM EST [facility] Mite Farinae IgE <0.10 <0.10 kUa/L 07/21/2024 11:29 AM EST [facility] Cat Dander IgE <0.10 <0.10 kUa/L 07/21/2024 11:29 AM EST [facility] Dog Dander IgE <0.10 <0.10 kUa/L 07/21/2024 11:29 AM EST [facility] Bermuda Grass IgE <0.10 <0.10 kUa/L 07/21/2024 11:29 AM EST [facility] Rodrigo Grass IgE <0.10 <0.10 kUa/L 07/21/2024 11:29 AM EST [facility] Penicillium Notatum IgE <0.10 <0.10 kUa/L 07/21/2024 11:29 AM EST [facility] Cladosporium IgE <0.10 <0.10 kUa/L 07/21/2024 11:29 AM EST [facility] Aspergillus IgE <0.10 <0.10 kUa/L 07/21/2024 11:29 AM EST [facility] Alternaria IgE <0.10 <0.10 kUa/L 07/21/2024 11:29 AM EST [facility] Helminthosporium IgE <0.10 <0.10 kUa/L 07/21/2024 11:29 AM EST [facility] Pullularia IgE <0.10 <0.10 kUa/L 07/21/2024 11:29 AM EST [facility] Acremonium [place] IgE <0.10 <0.10 kUa/L 07/21/2024 11:29 AM EST [facility] [place] Maple IgE <0.10 <0.10 kUa/L 07/21/2024 11:29 AM EST [facility] Birch IgE <0.10 <0.10 kUa/L 07/21/2024 11:29 AM EST [facility] [place] IgE <0.10 <0.10 kUa/L 07/21/2024 11:29 AM EST [facility] Elm IgE <0.10 <0.10 kUa/L 07/21/2024 11:29 AM EST [facility] [place] Tree IgE <0.10 <0.10 kUa/L 07/21/2024 11:29 AM EST [facility] [place] IgE <0.10 <0.10 kUa/L 07/21/2024 11:29 AM EST [facility] White [place] IgE <0.10 <0.10 kUa/L 07/21/2024 11:29 AM EST [facility] Pecan [place] IgE <0.10 <0.10 kUa/L 07/21/2024 11:29 AM EST [facility] Common Ragweed IgE <0.10 <0.10 kUa/L 07/21/2024 11:29 AM EST [facility] Mugwort IgE <0.10 <0.10 kUa/L 07/21/2024 11:29 AM EST [facility] Sudanese Plantain IgE <0.10 <0.10 kUa/L 07/21/2024 11:29 AM EST [facility] [place] Quarter IgE <0.10 <0.10 kUa/L 07/21/2024 11:29 AM EST [facility] Cocklebur IgE <0.10 <0.10 kUa/L 07/21/2024 11:29 AM EST [facility] Pigweed IgE <0.10 <0.10 kUa/L 07/21/2024 11:29 AM EST [facility] Sheep [employer] IgE <0.10 <0.10 kUa/L 07/21/2024 11:29 AM EST [facility] Comment: <0.10 kUa/L - Class 0 Allergen: Absence of Allergen Specific IgE 0.10-0.34 kUa/L - Class 0/1 Allergen: Low Level of Allergen Specific IgE 0.35-0.69 kUa/L - Class 1 Allergen: Low Level of Allergen Specific IgE 0.70-3.49 kUa/L - Class 2 Allergen: Moderate Level of Allergen Specific IgE 3.50-17.49 kUa/L - Class 3 Allergen: High Level of Allergen Specific IgE 17.5-49.99 kUa/L - Class 4 Allergen: Very High Level of Allergen Specific IgE 50.0-99.99 kUa/L - Class 5 Allergen: Very High Level of Allergen Specific IgE >=100.0 kUa/L - Class 6 Allergen: Very High Level of Allergen Specific IgE Blood Venous blood specimen / Unknown Venipuncture / Unknown 07/20/2024 2:30 PM EST 07/20/2024 2:30 PM EST Flaca Castaneda PA-C LAB BLOOD ORDERABLES F inal Result [place] [facility] [place] [address] [facility] [place] [address] documented in this encounter Visit Diagnoses Diagnosis Acute recurrent sinusitis, unspecified location- Primary documented in this encounter Care Teams Phlebotomy Technologist Relationship Specialty Start Date End Date Conner Jones MD [address] [facility] [place] [address] PCP - General Family Medicine 07/12/14 documented as of this encounter
--- OUTSIDE RECORDS SUMMARY | 2024-08-09 04:26 | External Medical Summary | Summary of Care ---
Author Name Unknown Organization [facility] Address [address] [place] [address] Phone [phone] Care Team Providers Care Belly Dump Driver Name Role Phone Conner Jones MD Primary Care Provider + Reason for Visit * Reason Comments Excision Pt presents today fo r an excision on L torso (back) Encounter Details Date Type Department Care Team (Late st Contact Info) Description 07/22/2024 2:30 PM EST Office Visit [facility] Surgery [facility] [address] [place] [address] Elizabeth Boo MD [address] [place] [id number] Pigmented skin lesion of suspected malignant nature* Allergies Active Allergy Reactions Criticality Noted Date Comments Bee Venom Edema Other 05/02/2016 Swelling in area that was stung documented as of this encounter (statuses as of 07/25/2024) Medications ICAPS PO CAPS Take by mouth [...] as of this encounter (statuses as of 07/25/2024) Active Problems Problem Noted Date Diagnosed Date [...] no AAA 02/18 Dr Annie Centeno with [facility] in [place] for CLL 11/17 AAA screen WNl. 2009 colonoscopy WNL. EGD 2010 WNL (for GERd symptoms) History of malignant melanoma of skin 08/25/2014 Overview (09/01/2017): 2013? Sees Dr Hernandez in [place]. Had wide excision reportedly neg. Dyslipidemia, goal LDL below 130 07/12/2014 Palpitations 05/16/2014 Coronary artery disease (CAD) excluded 4 Overview (08/25/2014): 2013 abnormal stress test, normal cath. Family history of abdominal aortic aneurysm 07/2013 Overview (09/01/2017): 2017 CT [place]-no AAA False positive cardiac stress test 10/13/2012 Family history of ischemic heart disease 013 Other and unspecified hyperlipidemia 09/13/2011 BPH with obstruction/lower urinary tract symptom s 09/13/2011 ED (erectile dysfunction) 09/13/2011 HTN, goal below 140/90 03/07/2011 Meniere's disease Vitamin D deficiency Nephrolithiasis Macular degeneration documented as of this encounter (statuses as of 07/25/2024) Resolved Problems Problem Noted Date Diagnosed Date [...] as of this encounter (statuses as of 07/25/2024) Immunizations Name Administration Dates Next Due COVID-19 [...] No 03/04/2024 Does the household have a [facility] source of income? 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 file Not on file [...] excised (see separate note) Follow-up: as needed Elizabeth Boo MD 07/22/2024 PROCEDURE NOTE Referred by: [...] Consent signed yes documented in this encounter Plan of Treatment Upcoming Encounters Date Type Department Care Team (Late st Contact Info) Description 12/24/2024 11:15 AM EDT Office Visit Dermatology [facility] [address] [facility] [place] [address] Rodrigo Graham MD [address] [facility] [place] [address] 03/25/2025 11:40 AM EDT Office Visit Family Practice [facility] [address] [facility] [place] [address] Conner Jones MD [address] [facility] [place] [address] Pending Results Name Type Priority Associated Diagnoses Date /Time SURGICAL PATHOLOGY Pathology Routine Pigmented skin lesion of suspected malignant nature 07/22/2024 4:58 PM EST Health Maintenance Due Date Last Done Comments Cologuard 1995 Fecal Occult Blood Test 1995 Sigmoidoscopy 1995 Zoster Vaccines (1 of 2) 12/22/2012 10/27/2012 Adult Wellness Visit 2016 GFR 07/28/2024 07/28/2023, 12/0 01/2022, 03/26/2022, Additional history exists Depression Screening [...] as of this encounter Visit Diagnoses Diagnosis Pigmented skin lesion of suspected malignant nature- Primary documented in this encounter Care Teams Belly Dump Driver Relationship Specialty Start Date End Date Conner Jones MD [address] [place] [address] PCP - General Family Medicine 07/12/14 documented as of this encounter
--- OUTSIDE RECORDS SUMMARY | 2024-08-09 04:26 | External Medical Summary ---
Author Name Unknown Address Unknown Organization [id number]:[facility]ATORY [facility] [place] [address] [facility] [place] [address] Laboratory Report Ordering Provider Test Date Status HALEIGH VALENCIA 07/20/2024 14:30:51 Final Observation Date Value Abnormality Reference (Units ) Status Dust Mite IgE, pteronyssinus 07/20/2024 14:30:51 <0.10 <0.10 (kUa/L) Final Dust Mite IgE, farinae 07/20/2024 14:30:51 <0.10 <0.10 (kUa/L) Final Cat Epithelium IgE 07/20/2024 14:30:51 <0.10 <0.10 (kUa/L) Final Dog Dander IgE 07/20/2024 14:30:51 <0.10 <0.10 (kUa/L) Final Bermuda grass IgE 07/20/2024 14:30:51 <0.10 <0.10 (kUa/L) Final Rodrigo IgE 07/20/2024 14:30:51 <0.10 <0.10 (kUa/L) Final Penicillium notatum IgE 07/20/2024 14:30:51 <0.10 <0.10 (kUa/L) Final Cladosporium IgE 07/20/2024 14:30:51 <0.10 <0.10 (kUa/L) Final Aspergillus IgE 07/20/2024 14:30:51 <0.10 <0.10 (kUa/L) Final Alternaria IgE 07/20/2024 14:30:51 <0.10 <0.10 (kUa/L) Final Setomelanomma rostrata IgE Ab [Units/volume] in Serum 07/20/2024 14:30:51 <0.10 <0.10 (kUa/L) Final Pullularia IgE 07/20/2024 14:30:51 <0.10 <0.10 (kUa/L) Final Acremonium sp IgE Ab [Units/volume] in Serum 07/20/2024 14:30:51 <0.10 <0.10 (kUa/L) Final Maple IgE Ab [Units/volume] in Serum 07/20/2024 14:30:51 <0.10 <0.10 (kUa/L) Final Silver Birch IgE Ab [Units/volume] in Serum 07/20/2024 14:30:51 <0.10 <0.10 (kUa/L) Final [place] IgE 07/20/2024 14:30:51 <0.10 <0.10 (kUa/L) Final Elm IgE 07/20/2024 14:30:51 <0.10 <0.10 (kUa/L) Final Anna tree IgE 07/20/2024 14:30:51 <0.10 <0.10 (kUa/L) Final [place] IgE 07/20/2024 14:30:51 <0.10 <0.10 (kUa/L) Final White Gary IgE 07/20/2024 14:30:51 <0.10 <0.10 (kUa/L) Final Pecan or [place] Tree IgE 07/20/2024 14:30:51 <0.10 <0.10 (kUa/L) Final Common ragweed shinnecock (nAmb a) 1 IgE Ab [Units/volume] in Serum 07/20/2024 14:30:51 <0.10 <0.10 (kUa/L) Final Mugwort IgE 07/20/2024 14:30:51 <0.10 <0.10 (kUa/L) Final Plaintain (Yi) IgE 07/20/2024 14:30:51 <0.10 <0.10 (kUa/L) Final [place] Qu[place] IgE 07/20/2024 14:30:51 <0.10 <0.10 (kUa/L) Final Cocklebur IgE Ab [Units/volume] in Serum 07/20/2024 14:30:51 <0.10 <0.10 (kUa/L) Final Pigweed common IgE 07/20/2024 14:30:51 <0.10 <0.10 (kUa/L) Final Sheep sorrel IgE 07/20/2024 14:30:51 <0.10 <0.10 (kUa/L) Final
<0.10 kUa/L - Class 0 Allergen: Absence [...] Very High Level of Allergen Specific IgE Performing Location [facility] [place] [facility] [address] [facility] [address] [facility] [address]
--- OUTSIDE RECORDS SUMMARY | 2024-08-09 04:26 | External Medical Summary | Summary of Care ---
Author Name Unknown Organization [facility] Address [address] [place] [address] Phone [phone] Care Team Providers Care Greeting Card Editor Name Role Phone Conner Mendez MD Primary Care Provider + Reason for Visit * Reason Comments Skin Check Pt presents for rout ine skin check, pt has a cyst on finger of left hand he would like evaluated, no other concerns.Hx: MM, NMSC, AK, CLLFamily hx of MM associated with Bro[place] Encounter Details Date Type Department Care Team (Late st Contact Info) Description 06/17/2024 11:00 AM EST Office Visit Dermatology [facility] [place] [place] [address] [facility] [place] [address] Charis Bruce PA-C [address] [facility] [place] [address] Multiple pigmented nevi*; Skin exam, screening for cancer; Actinic skin damage; History of melanoma; Personal history of CLL (chronic lymphocytic leukemia); Skin tumor Allergies Active Allergy Reactions Criticality Noted Date Comments Bee Venom Edema Other 05/02/2016 Swelling in area that was stung documented as of this encounter (statuses as of 06/18/2024) Medications ICAPS PO CAPS Take by mouth [...] 1 Tablet before bedtime. 180 Tablet 3 08/13/2023 Active Apixaban 5 MG Oral Tablet (Eliquis)Indicat ions:Atrial fibrillation, unspecified type (HCC) Take 1 Tablet by mouth in the morning and 1 Tablet before bedtime. 180 Tablet 3 10/07/2023 Active Penciclovir 1 % External Cream Apply to cold sores every 2 hours as needed 15 g 1 12/12/2023 Active Tamsulosin HCl 0.4 MG Oral Capsule (Flomax)Indicati ons:BPH with obstruction/lowe r urinary tract symptoms Take 1 Capsule by mouth in the morning. 90 Capsule 3 03/04/2024 Active Pantoprazole Sodium 40 MG Oral Tablet Delayed Release (Protonix) TAKE 1 TABLET IN THE MORNING 90 Tablet 3 04/13/2024 Active Metoprolol Succinate ER 25 MG Oral Tablet Extended Release 24 Hour (toPROL XL)Indications:A trial fibrillation, unspecified type (HCC) TAKE ONE-HALF (1/2) TABLET IN THE MORNING 45 Tablet 3 04/22/2024 Active Atorvastatin Calcium 20 MG Oral Tablet (Lipitor)Indicat ions:Hyperlipide jesse with target LDL less than 130 TAKE 1 TABLET DAILY 90 Tablet 3 05/18/2024 Active documented as of this encounter (statuses as of 06/18/2024) Active Problems Problem Noted Date Diagnosed Date [...] gastritis. Colon--+tubular adenoma. Jean Carlos 5y 04/07/17 [place] +abd lymphadnopathy, no AAA 02/18 Dr Annie Centeno with [facility] in [place] for CLL 11/17 AAA screen WNl. 2009 colonoscopy WNL. EGD 2010 WNL (for GERd symptoms) History of malignant melanoma of skin 08/25/2014 Overview (09/01/2017): 2013? Sees Dr Hernandez in [place]. Had wide excision reportedly neg. Dyslipidemia, goal LDL below 130 07/12/2014 Palpitations 05/16/2014 Coronary artery disease (CAD) excluded 4 Overview (08/25/2014): 2013 abnormal stress test, normal cath. Family history of abdominal aortic aneurysm 07/2013 Overview (09/01/2017): 2017 CT [place]-no AAA False positive cardiac stress test 10/13/2012 Family history of ischemic heart disease 013 Other and unspecified hyperlipidemia 09/13/2011 BPH with obstruction/lower urinary tract symptom s 09/13/2011 ED (erectile dysfunction) 09/13/2011 HTN, goal below 140/90 03/07/2011 Meniere's disease Vitamin D deficiency Nephrolithiasis Macular degeneration documented as of this encounter (statuses as of 06/18/2024) Resolved Problems Problem Noted Date Diagnosed Date Resolved Date Abdominal wall hernia 10/06/20182018 Overview (10/06/2018): RLQ Prediabetes 08/25/2014 09/14/2020 Prinzmetal angina 05/16/2014 03/06/2015 Screening for AAA (abdominal aortic aneurysm) 11/05/19 14 11/04/2013 Chest pain, non-cardiac 10/13/2012 11/1 Abnormal stress test 09/22/2012 013 Chest pain [...] as of this encounter (statuses as of 06/18/2024) Immunizations Name Administration Dates Next Due COVID-19 [...] money to buy more. Never true 03/04/20 Within the past 12 months, t he [...] 03/04/2024 Does the household have a re gular source of income? (Household - for ages [...] file Not on file Not on file 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 Date Last Appointment: 12/02/2023 (in office) Melanoma History: Location: right shoulder Year: 2014 Depth: 0.6 cm (melanoma arising in severely dysplastic nevus Abdulaziz level III, 0.6mm) Treatment: WLE Staging: Stage IA - [id number] - < 0.8 mm without ulceration Location L jaw Year 2014 Depth Mis Treatment: WLE Additional dermatologic history: - 'carcinoma R hip, unsure what type' - basal cell carcinoma left preauricular area Mohs 2022 - basal cell carcinoma left shoulder s/p ed&c 08-12-2013 - basal cell carcinoma left superior shoulder s/p ed&c 08-12-2013 - melanoma arising in severely dysplastic nevus Abdulaziz level III, 0.6mm Right shoulder s/p excision 07/2014 Dr. 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 HEME/LYMPH: No new or enlarging lumps or bumps. Rest of ROS unremarkable. MEDICA TIONS: Current Outpatient Medications Medication Sig [...] TAKE 1 TABLET DAILY 90 Tablet 3 No current facility-administered medications for this visit. ALLERG IES: Bee venom OBJECTIVE: GEN: Healthy, alert, no distress, appears oriented, pleasant, and cooperative. SKIN: Detailed exam of hair, face including lids and lips, neck, chest, abdomen, back, bilateral upper ext. (arm, hand, fingers), bilateral lower ext. (leg, foot, toes), and palpation of scalp completed and are normal except: 1. Scar - R shoulder Regional LN unremarkable. 2. Scar- L jaw 3. Scar- scalp 4. Back- Scattered benign appearing lesions over examined skin including scattered benign and relatively monomorphic appearing melanocytic nevi. 5. L torso - 3mm haddad pink macule with pigment globules. ASSESS MENT/PLAN: 1. Scar - Hx MM - No evidence of recurrence. No indication for imaging . PCP aware . 2. Hx Mis. No evidence of recurrence 3. Hx NMSC - no evidence of recurrence Discussed sun protection with patient including proper use of sunscreens and protective clothing. ABCDs explained 4. Multiple pigmented nevi. Benign nature was discussed and no further intervention needed. Advised to call with any changes. 5. Benign nevus vs ATN vs MM. Biopsy of the lesion noted above to establish and confirm diagnosis. The procedure, risks, benefits, alternatives and expected outcomes were discussed with the patient and consent was obtained. Time out called. Patient identified, procedure verified, site identified and verified. Patient and staff present in agreement. Area prepped with alcohol and anesthetized with 0.5% lidocaine with epinephrine at 1:200,000 concentration. Biopsy of lesion performed. 20% AlCl and bandaging applied. Specimen sent to pathology. Patient instructed in routine post-op care. 6. Hx CLL In remission, follows with [facility] every 6 months Patient counseled to examine himself for new or changing moles on a monthly basis. I reveiwed changes to watch for including changes in the ABCDs, asymmetry of a lesion, changes in border, color or diameter as well as non healing lesions. I instructed the patient to call if any new lesions appear or current lesions change. I discussed with the patient the need for daily sunscreens of a number 30 or higher as well as how to apply sunscreens. Ophtho visit recommended every other year, and PCP visit encouraged yearly. Follow-up: 6 months Priority MM There were no barriers tolearning and no other pain was related to today's visit. The patient and/or person accompanying patient demonstrates understanding of the visit and treatment. Charis Bruce PA-C 06/17/2024 11:11 AM REF: CONNER MENDEZ [address] [place] [address] (office) [phone] (fax) PCP: CONNER MENDEZ [address] [place] [address] [phone] documented in this encounter Nursing Notes * Pricilla Singh CMA - 06/17/2024 10:58 AM EST Chief Complaint Patient presents with Skin Check Pt presents for routine skin check, pt has a cyst on finger of left hand he would like evaluated, no other concerns. Hx: MM, NMSC, AK, CLL Family hx of MM associated with Broher documented in this encounter Miscellaneous Notes * Addendum Note - Pricilla Singh CMA - 06/17/2024 2:31 PM ESTAddended by: PRICILLA SINGH on: 06/17/2024 02:31 PM Modules accepted: Orders documented in this encounter Plan of Treatment Upcoming Encounters Date Type Department Care Team (Late st Contact Info) Description 12/24/2024 11:15 AM EDT Office Visit Dermatology [facility] [address] [facility] [address] [place], [place] [address] Rodrigo Graham MD [address] [place] [address] 03/25/2025 11:40 AM EDT Office Visit Family Practice [facility] [address] [place] [address] Conner Mendez MD [address] [place] [address] Pending Results Name Type Priority Associated Diagnoses Date /Time SURGICAL PATHOLOGY Pathology Routine Skin tumor 06/17/2024 11:42 AM EST Health Maintenance Due Date Last Done [...] age to complete this topic Pneumococcal Vaccine: 65+ Years Completed 06/13/2017, 05/02/2016 [...] Procedure Name Priority Date/Time Associated Diagnosis Comments DERM IMAGE (SITE) Routine 06/17/2024 Skin exam, screening for cancer Multiple pigmented nevi Actinic skin damage History of melanoma Personal history of CLL (chronic lymphocytic leukemia) Skin tumor documented in this encounter Results * DERM IMAGE (SITE) (06/17/2024) 06/17/2024 Charis Bruce PA-C DIGITAL PHOTOGRAPHY Fin al Result documented in this encounter Visit Diagnoses Diagnosis Multiple pigmented nevi- Primary Benign neoplasm of skin, site unspecified Skin exam, screening for cancer Screening for malignant neoplasm of the skin Actinic skin damage Other dermatitis due to solar radiation History of melanoma Personal history of malignant melanoma of skin Personal history of CLL (chronic lymphocytic leukemia) Personal history of lymphoid leukemia Skin tumor Neoplasm of uncertain behavior of skin documented in this encounter Care Teams Greeting Card Editor Relationship Specialty Start Date End Date Conner Mendez MD [address] [facility] [place] [address] PCP - General Family Medicine 07/12/14 documented as of this encounter
--- OUTSIDE RECORDS SUMMARY | 2024-08-09 04:26 | External Medical Summary | Summary of Care ---
Author Name Unknown Organization [facility] Address [address] [place] [address] Phone [phone] Care Team Providers Care Rod Welder Name Role Phone Conner Jones MD Primary Care Provider + Reason for Visit * Reason Comments Outpatient Testing Encounter Details Date Type Department Care Team (Late st Contact Info) Description 07/20/2024 3:00 PM EST Laboratory Laboratory, [facility] [address] [place] [phone] [facility] [address] [place] [address] Acute recurrent sinusitis, unspecified location Allergies Active Allergy Reactions Criticality Noted Date Comments Bee Venom Edema Other 05/02/2016 Swelling in area that was stung documented as of this encounter (statuses as of 07/20/2024) Medications ICAPS PO CAPS Take by mouth [...] as of this encounter (statuses as of 07/20/2024) Active Problems Problem Noted Date Diagnosed Date Senile purpura 01/09/2022 Nonrheumatic aortic valve insufficiency 03/07/20 21 Nonrheumatic mitral valve regurgitation 09/01/20 21 PAF (paroxysmal atrial fibrillation) 03/07/2021 History [...] no AAA 02/18 Dr Annie Centeno with [facility] in [place] for CLL 11/17 AAA screen WNl. 2009 colonoscopy WNL. EGD 2010 WNL (for GERd symptoms) History of malignant melanoma of skin 08/25/2014 Overview (09/01/2017): 2013? Sees Dr Hernandez in [place]. Had wide excision reportedly neg. Dyslipidemia, goal LDL below 130 07/12/2014 Palpitations 05/16/2014 Coronary artery disease (CAD) excluded 4 Overview (08/25/2014): 2013 abnormal stress test, normal cath. Family history of abdominal aortic aneurysm 07/2013 Overview (09/01/2017): 2017 CT [place]-no AAA False positive cardiac stress test 10/13/2012 Family history of ischemic heart disease 013 Other and unspecified hyperlipidemia 09/13/2011 BPH with obstruction/lower urinary tract symptom s 09/13/2011 ED (erectile dysfunction) 09/13/2011 HTN, goal below 140/90 03/07/2011 Meniere's disease Vitamin D deficiency Nephrolithiasis Macular degeneration documented as of this encounter (statuses as of 07/20/2024) Resolved Problems Problem Noted Date Diagnosed Date [...] as of this encounter (statuses as of 07/20/2024) Immunizations Name Administration Dates Next Due COVID-19 [...] No 03/04/2024 Does the household have a [place] service [place] source of income? 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 Not on file [...] 2:30 PM EST Office Visit MOHS Surgery [facility] [address] [place] [address] Elizabeth Boo MD [address] [place] [address] 12/24/2024 11:15 AM EDT Office Visit Dermatology [facility] [address] [place] [address] Rodrigo Graham MD [address] [place] [address] 03/25/2025 11:40 AM EDT Office Visit Family Practice [facility] [address] [facility] [place] [address] Conner Jones MD [address] [place] [address] Pending Results Name Type Priority Associated Diagnoses Date /Time [facility]ER[facility] Lab Routine Acute recurrent sinusitis, unspecified location 07/20/2024 2:30 PM EST Health Maintenance Due Date Last [...] as of this encounter Visit Diagnoses Diagnosis Acute recurrent sinusitis, unspecified location documented in this encounter Care Teams Rod Welder Relationship Specialty Start Date End Date Conner Jones MD [address] [place] [address] PCP - General Family Medicine 07/12/14 documented as of this encounter
--- OUTSIDE RECORDS SUMMARY | 2024-08-09 04:26 | External Medical Summary | Summary of Care ---
Author Name Unknown Organization [facility] Address [address] [place] [address] Phone [phone] Care Team Providers Care [employer] Glazer Name Role Phone Conner Mendez MD Primary Care Provider + Reason for Visit * Reason Comments eRx-Medication Refill Encounter Details Date Type Department Care Team (Late st Contact Info) Description 07/29/2024 Refill Family Practice [facility] [place] [address] Conner Mendez MD [address] [place] [address] Allergies Active Allergy Reactions Criticality Noted Date [...] Active Flecainide Acetate 50 MG Oral Tablet (Tambocor)Indic ations:Atrial fibrillation, unspecified type (HCC) Take 1 Tablet by mouth in the morning and 1 Tablet before bedtime. 180 Tablet 3 08/13/19 24 Active Apixaban 5 MG Oral Tablet (Eliquis)Indica tions:Atrial fibrillation, unspecified type (HCC) Take 1 Tablet by mouth in the morning and 1 Tablet before bedtime. 180 Tablet 3 10/07/19 24 Active Penciclovir 1 % External Cream Apply to cold sores every 2 hours as needed 15 g 1 12/12/19 24 Active Tamsulosin HCl 0.4 MG Oral Capsule (Flomax)Indicat ions:BPH with obstruction/low er urinary tract symptoms Take 1 Capsule by mouth in the morning. 90 Capsule 3 03/04/20 24 Active Pantoprazole Sodium 40 MG Oral Tablet Delayed Release (Protonix) TAKE 1 TABLET IN THE MORNING 90 Tablet 3 04/13/20 24 Active Metoprolol Succinate ER 25 MG Oral Tablet Extended Release 24 Hour (toPROL XL)Indications: Atrial fibrillation, unspecified type (HCC) TAKE ONE-HALF (1/2) TABLET IN THE MORNING 45 Tablet 3 04/22/20 24 Active Atorvastatin Calcium 20 MG Oral Tablet (Lipitor)Indica tions:Hyperlipi demia with target LDL less than 130 TAKE 1 TABLET DAILY 90 Tablet 3 05/18/20 24 Active Molnupiravir 200 MG Oral CapsuleIndicati ons:Positive self-administer ed antigen test for COVID-19 Take 4 Capsules by mouth in the morning and 4 Capsules before bedtime. 40 Capsule 07/06/20 24 Active Mupirocin 2 % External Ointment (Bactroban) Apply to area around nose and thin layer to nostrils two times a day for 3 weeks 22 g 1 07/12/19 25 Active Azithromycin 250 MG Oral Tablet (Zithromax Z-German) Take 2 tabs by mouth on day 1 then 1 tab daily days 2-5 6 Tablet 07/20/19 25 Active Proventil HFA 108 (90 Base) MCG/ACT Inhalation Aerosol Solution Inhale 2 Puffs by mouth every 4 hours as needed for Wheezing or Cough. 18 g 07/26/19 25 Active Benzonatate 100 MG Oral Capsule (Tesnikhil Stark) Take 1 Capsule by mouth 3 times a day as needed for Cough. 30 Capsule 1 07/29/19 25 Active Benzonatate 100 MG Oral Capsule Take 1 Capsule by mouth 3 times a day as needed for Cough. 30 Capsule 1 07/08/19 25 025 Discontinued documented as of this encounter (statuses [...] no AAA 02/18 Dr Annie Centeno with [facility] in [place] for CLL 11/17 AAA screen WNl. 2009 colonoscopy WNL. EGD 2011 WNL (for GERd symptoms) History of malignant melanoma of skin 08/25/2014 Overview (09/01/2017): 2013? Sees Dr Hernandez in [place]. Had wide excision reportedly neg. Dyslipidemia, goal LDL below 130 07/12/2014 Palpitations 05/16/2014 Coronary artery disease (CAD) excluded 4 Overview (08/25/2014): 2013 abnormal stress test, normal cath. 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 Authorizing Provider: CONNER MENDEZ * Telephone Encounter - Damian Pereira [facility] - 07/29/2024 11:38 AM ESTPending Prescriptions: Disp Refills Benzonatate 100 MG Oral Capsule [Pharmacy *30 Cap*1 Sig: Take 1 Capsule by mouth 3 times a day as needed for Cough. * Telephone Encounter - Damian Pereira [facility] - 07/29/2024 11:38 AM EST Refill pharmacists currently not authorized to approve refills for the pended medication(s) per refill protocol. Please approve if appropriate. Pending Prescriptions: Disp Refills Benzonatate 100 MG Oral Capsule [Pharmacy *30 Cap*1 Sig: Take 1 Capsule by mouth 3 times a day as needed for Cough. Last Visit: 03/04/2024 (in office), 05/30/2020 (telemedicine) Next Visit: 03/25/2025 If no future appointments scheduled, and last appointment is greater than a year ago, please schedule patient for a follow-up appointment Last date the medication was ordered: 07-08-24 Pharmacy: [facility] Is this request for a controlled substance?No Urine Drug Screen:No results found for this or any previous visit. Patient Phone Numbers Labs: Lab Results Component Value Date/Time CREAT 1.32 (A) 07/28/2023 12:00 AM CREAT 1.0 02/28/2022 01:26 PM CREAT 1.0 09/21/2019 10:59 AM POTASSIUM 4.4 07/28/2023 12:00 AM POTASSIUM 4.2 02/28/2022 01:26 PM POTASSIUM 4.8 09/21/2019 10:59 AM TSH 1.65 03/26/2022 01:49 PM TSH 2.19 07/01/2019 02:04 PM LDL 60 08/28/2023 09:45 AM LDL 46 07/01/2019 02:04 PM LDL NOT APPLICABLE 07/01/2019 02:04 PM ALT 18 01/09/2022 01:31 PM ALT 15 07/01/2019 02:04 PM HGBA1C 5.2 02/28/2022 01:26 PM HGBA1C 6.3 (H) 07/08/2018 08:12 AM Damian Pereira, Vanessa.Ph. Clinical Pharmacist [facility] [address] [place] [address], [address] [place] [address] MC: [phone] [id number] 07/29/2024,11:38 AM documented in this encounter Plan of Treatment Upcoming Encounters Date Type Department Care Team (Late st Contact Info) Description 12/24/2024 11:15 AM EDT Office Visit Dermatology [facility] [address] [facility] [place] [address] Rodrigo Graham MD [address] [facility] [place] [address] 03/25/2025 11:40 AM EDT Office Visit Family Practice [facility] [address] [place] [address] Conner Mendez MD [address] [place] [address] Health Maintenance Due Date Last Done Comments Cologuard 1995 Fecal Occult Blood Test 1995 Sigmoidoscopy 1995 Zoster Vaccines (1 of 2) 12/22/2012 10/27/2012 Adult Wellness Visit 2016 GFR 07/28/2024 07/28/2023, 12/01/2022, 03/26/2022, Additional history exists Depression Screening 03/04/2025 [...] filedocumented as of this encounter Care Teams [employer] Glazer Relationship Specialty Start Date End Date Conner Mendez MD [address] [place] [address] PCP - General Family Medicine 07/12/14 documented as of this encounter
--- OUTSIDE RECORDS SUMMARY | 2024-08-09 04:26 | External Medical Summary | Summary of Care ---
Author Name Unknown Organization [facility] Address [address] [place] [address] Phone [phone] Care Team Providers Care Director Of Media Name Role Phone Conner Jones MD Primary Care Provider + Reason for Referral * Evaluate & Treat - Unlimited Visits (Within 30 days (routine)) - Pending Review Specialty Diagnoses / Procedures Referred By Roque lua Referred To Contact Otolaryngology Diagnoses Throat irritation Acute cough Conner Jones MD [address] [place] [address] Phone: tel: fax: Referral ID Status Reason Start Date Expiration Date Visits Requested Visits Authorized [id number] Pending Review Specialty Services Required 4 [phone] Question Answer Referral Priority Within 30 days (routine) Where should this appointment be scheduled? [facility] Reason for Referral Throat Conditions Specific Condition: Throat Pain/Swelling Comments +cough Reason for Visit * Reason Onset Date Comments Referral 06/28/2024 Encounter Details Date Type Department Care Team (Late st Contact Info) Description 06/28/2024 Telephone Family Practice [facility] [address] [place] [address] Conner Jones MD [address] [place] [address] Referral Allergies Active Allergy Reactions Criticality Noted Date Comments Bee Venom Edema Other 05/02/2016 Swelling in area that was stung documented as of this encounter (statuses as of 06/28/2024) Medications ICAPS PO CAPS Take by mouth [...] as of this encounter (statuses as of 06/28/2024) Active Problems Problem Noted Date Diagnosed Date [...] gastritis. Colon--+tubular adenoma. 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 2009 colonoscopy WNL. EGD 2010 WNL (for GERd symptoms) History of malignant melanoma of skin 08/25/2014 Overview (09/01/2017): 2013? Sees Dr Hernandez in [place]. Had wide excision reportedly neg. Dyslipidemia, goal LDL below 130 07/12/2014 Palpitations 05/16/2014 Coronary artery disease (CAD) excluded 4 Overview (08/25/2014): 2013 abnormal stress test, normal cath. Family history of abdominal aortic aneurysm 07/2013 Overview (09/01/2017): 2017 CT [place]-no AAA False positive cardiac stress test 10/13/2012 Family history of ischemic heart disease 013 Other and unspecified hyperlipidemia 09/13/2011 BPH with obstruction/lower urinary tract symptom s 09/13/2011 ED (erectile dysfunction) 09/13/2011 HTN, goal below 140/90 03/07/2011 Meniere's disease Vitamin D deficiency Nephrolithiasis Macular degeneration documented as of this encounter (statuses as of 06/28/2024) Resolved Problems Problem Noted Date Diagnosed Date [...] as of this encounter (statuses as of 06/28/2024) Immunizations Name Administration Dates Next Due COVID-19 [...] No 03/04/2024 Does the household have a [facility] source of income? 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 Asking for a referral for ENT with Dr. Torres Her has throat irritation and a cough. He is not sick. Wants to make sure he is okay. Said this was already discussed with Dr. Jones. documented in this encounter Plan of Treatment Upcoming Encounters Date Type Department Care Team (Late st Contact Info) Description 07/20/2024 1:30 PM EST Office Visit Otolaryngology [facility] [address] [place] [address] Frank Torres, [address] [place] [address] 07/22/2024 2:30 PM EST Office Visit MOHS Surgery [facility] [address] [place] [address] Elizabeth Boo MD [address] [facility] [place] [address] 12/24/2024 11:15 AM EDT Office Visit Dermatology [facility] [address] [facility] [place] [address] Rodrigo Graham MD [address] [facility] [place] [address] 03/25/2025 11:40 AM EDT Office Visit Family Practice [facility] [address] [place] [address] Conner Jones MD [address] [place] [address] Scheduled Referrals Name Type Priority Associated Diagnoses Order Schedule ADULT/PEDS OTOLARYNGOLOGY REFERRAL OP Referral Within 30 days (routine) Throat irritation Acute cough Ordered: 06/28/2024 Health Maintenance Due Date Last Done Comments [...] as of this encounter Visit Diagnoses Diagnosis Throat irritation- Primary Other diseases of pharynx, not elsewhere classified Acute cough documented in this encounter Care Teams Director Of Media Relationship Specialty Start Date End Date Conner Jones MD [address] [place] [address] PCP - General Family Medicine 07/12/14 documented as of this encounter
--- OUTSIDE RECORDS SUMMARY | 2024-08-09 04:26 | External Medical Summary | Summary of Care ---
Author Name Unknown Organization [facility] Address [address] [facility] [address] Phone [phone] Care Team Providers Care Software Implementation Specialist Name Role Phone Conner Jones MD Primary Care Provider + Reason for Visit * Reason Onset Date Comments Med Request 07/06/2024 COVID POSITIVE, Requesting Paxlovid Encounter Details Date Type Department Care Team (Late st Contact Info) Description 07/06/2024 Telephone Family Practice [facility] [address] [place] [address] Conner Jones MD [address] [place] [address] Med Request (COVID POSITIVE, Requesting Pa... Allergies Active Allergy Reactions Criticality Noted Date Comments Bee Venom Edema Other 05/02/2016 Swelling in area that was stung documented as of this encounter (statuses as of 07/08/2024) Medications ICAPS PO CAPS Take by mouth [...] for Cough. 30 Capsule 1 5 Active Molnupiravir 200 MG Oral CapsuleIndicatio ns:Positive self-administere d antigen test for COVID-19 Take 4 Capsules by mouth in the morning and 4 Capsules before bedtime. 40 Capsule 4 07/06/20 24 Discontinu ed(Refill) documented as of this encounter (statuses as of 07/08/2024) Active Problems Problem Noted Date Diagnosed Date [...] no AAA 02/18 Dr Annie Centeno with [facility] in [place] for CLL 11/17 AAA screen WNl. 2009 colonoscopy WNL. EGD 2010 WNL (for GERd symptoms) History of malignant melanoma of skin 08/25/2014 Overview (09/01/2017): 2013? Sees Dr Hernandez in [place]. Had wide excision reportedly neg. Dyslipidemia, goal LDL below 130 07/12/2014 Palpitations 05/16/2014 Coronary artery disease (CAD) excluded 4 Overview (08/25/2014): 2013 abnormal stress test, normal cath. Family history of abdominal aortic aneurysm 07/2013 Overview (09/01/2017): 2016 CT [place]-no AAA False positive cardiac stress test 10/13/2012 Family history of ischemic heart disease 013 Other and unspecified hyperlipidemia 09/13/2011 BPH with obstruction/lower urinary tract symptom s 09/13/2011 ED (erectile dysfunction) 09/13/2011 HTN, goal below 140/90 03/07/2011 Meniere's disease Vitamin D deficiency Nephrolithiasis Macular degeneration documented as of this encounter (statuses as of 07/08/2024) Resolved Problems Problem Noted Date Diagnosed Date [...] as of this encounter (statuses as of 07/08/2024) Immunizations Name Administration Dates Next Due COVID-19 [...] Not on file Not on file 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 Confirmed that pt has been recently active on the [email or web address] chart portal. * Telephone Encounter - Conner Jones MD - 07/08/2024 11:50 AM EST Tessalon sent for cough as well, along with Paxlovid Can also use honey, cough drops. * Telephone Encounter - Estee Curiel LPN - 07/08/2024 10:52 AM EST Pt pos for covid, was Rx antiviral. Is not asking for cough med to be sent in. Please advise if this is appropriate. * Telephone Encounter - Doris Cordero OSA - 07/08/2024 7:42 AM EST Spouse, Grace calling in. Asking if a medication could be prescribed for his cough. - not having any sob. Uses [facility] [place] Please advise. Thank you. * Telephone Encounter - Mega Londono CRNP - 07/06/2024 2:44 PM EST Sent to the requested pharmacy. Remind the to take pt to ER if symptoms become severe over theholidays. * Telephone Encounter - Pebbles Joshua LPN - 07/06/2024 1:37 PM EST Patient's calling back: Please send script for molnupiravir to [facility] in [place], [place]--She called and they do carry themedication. Pended medication for approval * Telephone Encounter - Amy Pena LPN - 07/06/2024 1:27 PM EST Called and spoke with patients . Notified of below. will call office back with pharmacy * Telephone Encounter - Mega Londono CRNP - 07/06/2024 1:07 PM EST Pt in on Eliquis, Paxlovid increases risk of bleeding. Sending molnupiravir which is an alterative to paxlovid. If [facility]'t carry this molnupiravir, pt's should call around and find out the pharmacythat carries this medication. * Telephone Encounter - Pebbles Joshua LPN - 07/06/2024 11:06 AM EST Patient's calling back to check on the status of Paxlovid script. She wanted to let the office know that [facility] does not carry Paxlovid and would like itsent to [facility] in [place]. asking if medication can be sent in as soon as possible. Sent Teams message to clinic * Telephone Encounter - Pebbles Joshua LPN - 07/06/2024 9:02 AM EST Patient calling to request Paxlovid. Date of positive Covid test: 07/05 Symptoms started: 07/05 What symptoms are you experiencing? Fever, cough, body aches, runny nose, congestion (fever, sore throat, shortness of breath, cough, wheezing, nasal drainage, congestion) Date of last fever: 07/06 Did you have 2 vaccines: Yes Boosters: Yes Date of first exposure: NA Date of last exposure: NA What have you tried OTC: Tylenol for fever What pharmacy do you use: [facility], selected documented in this encounter Plan of Treatment Upcoming Encounters Date Type Department Care Team (Late st Contact Info) Description 07/20/2024 1:30 PM EST Office Visit Otolaryngology [facility] [address] [place] [address] Frank Torres, [address] [place] [address] 07/22/2024 2:30 PM EST Office Visit MOHS Surgery [facility] [address] [place] [address] Elizabeth [facility]oo MD [facility] [address] 12/24/2024 11:15 AM EDT Office Visit Dermatology [facility] [address] [place] [address] Rodrigo Graham MD [address] [place], [place] [address] 03/25/2025 11:40 AM EDT Office Visit Family Practice [facility] [address] [place] [address] Conner Jones MD [address] [place] [address] Health Maintenance Due Date Last Done Comments [...] as of this encounter Visit Diagnoses Diagnosis Positive self-administered antigen test for COVID-19- Primary documented in this encounter Care Teams Software Implementation Specialist Relationship Specialty Start Date End Date Conner Jones MD 132 [facility] [place] [address] PCP - General Family Medicine 07/12/14 documented as of this encounter
--- OUTSIDE RECORDS SUMMARY | 2024-08-09 04:26 | External Medical Summary | Summary of Care ---
Author Name Unknown Organization [facility] Address [address] [facility] [address] Phone [phone] Care Team Providers Care Desktop Publishing Associate Name Role Phone Conner Jones MD Primary Care Provider + Reason for Visit * Reason Onset Date Comments Med Request 07/06/2024 COVID POSITIVE, Requesting Paxlovid Encounter Details Date Type Department Care Team (Late st Contact Info) Description 07/06/[address] [facility] [address] [place] [address] Conner Jones MD [address] [place] [address] Med Request (COVID POSITIVE, Requesting Pa... Allergies Active Allergy Reactions Criticality Noted Date Comments Bee Venom Edema Other 05/02/2016 Swelling in area that was stung documented as of this encounter (statuses as of 07/15/2024) Medications ICAPS PO CAPS Take by mouth [...] as of this encounter (statuses as of 07/15/2024) Active Problems Problem Noted Date Diagnosed Date [...] no AAA 02/18 Dr Annie Centeno with [facility] in [place] for CLL 11/17 AAA screen WNl. 2009 colonoscopy WNL. EGD 2010 WNL (for GERd symptoms) History of malignant melanoma of skin 08/25/2014 Overview (09/01/2017): 2013? Sees Dr Hernandez in [place]. Had wide excision reportedly neg. Dyslipidemia, goal LDL below 130 07/12/2014 Palpitations 05/16/2014 Coronary artery disease (CAD) excluded 4 Overview (08/25/2014): 2013 abnormal stress test, normal cath. Family history of abdominal aortic aneurysm 07/2013 Overview (09/01/2017): 2016 CT [place]-no AAA False positive cardiac stress test 10/13/2012 Family history of ischemic heart disease 013 Other and unspecified hyperlipidemia 09/13/2011 BPH with obstruction/lower urinary tract symptom s 09/13/2011 ED (erectile dysfunction) 09/13/2011 HTN, goal below 140/90 03/07/2011 Meniere's disease Vitamin D deficiency Nephrolithiasis Macular degeneration documented as of this encounter (statuses as of 07/15/2024) Resolved Problems Problem Noted Date Diagnosed Date [...] as of this encounter (statuses as of 07/15/2024) Immunizations Name Administration Dates Next Due COVID-19 [...] file Not on file Not on file [employer] Not on file Not on file [...] pt has been recently active on the [employer] chart portal. * Telephone Encounter - Conner [...] Thank you. * Telephone Encounter - Mega Lonodno CRNP - 07/06/2024 2:44 PM EST Sent to the requested pharmacy. Remind the to take pt to ER if symptoms become severe over theholidays. * Telephone Encounter - Pebbles Joshua LPN - 07/06/2024 1:37 PM EST Patient's calling back: Please send script for molnupiravir to [facility] in [place]--She called and they do carry themedication. [...] would like itsent to [facility] in [place]. asking if medication can be sent in [...] 07/20/2024 1:30 PM EST Office Visit Otolaryngology [facility] [address] [place] [address] Frank Torres, [address] [place] [address] 07/22/2024 2:30 PM EST Office Visit MOHS Surgery [facility] [address] [place] [address] Elizabeth Boo MD [address] [facility] [address] 12/24/2024 11:15 AM EDT Office Visit Dermatology [facility] [address] [place] [address] Rodrigo Graham MD [address] [place], [place] [address] 03/25/2025 11:40 AM EDT Office Visit Family Practice [facility] [address] [place] [address] Conner Jones MD [address] [place] [address] Health Maintenance Due Date Last Done Comments [...] Primary documented in this encounter Care Teams Desktop Publishing Associate Relationship Specialty Start Date End Date Conner Jones MD 132 [facility] [place] [address] PCP - General Family Medicine 07/12/14 documented as of this encounter
--- OUTSIDE RECORDS SUMMARY | 2024-08-09 04:26 | External Medical Summary | Summary of Care ---
Author Name Unknown Organization [facility] Address [address] [place] [address] Phone [phone] Care Team Providers Care Warehouse Hand Name Role Phone Conner Jones MD Primary Care Provider + Reason for Visit * Reason Comments Excision Pt presents today fo r an excision on L torso (back) Encounter Details Date Type Department Care Team (Late st Contact Info) Description 07/22/2024 2:30 PM EST Office Visit MOHS Surgery [facility] [address] [place] [address] Elizabeth Boo MD [address] [place] [id number] Pigmented skin lesion of suspected malignant nature* Allergies Active Allergy Reactions Criticality Noted Date Comments Bee Venom Edema Other 05/02/2016 Swelling in area that was stung documented as of this encounter (statuses as of 07/26/2024) Medications ICAPS PO CAPS Take by mouth [...] as of this encounter (statuses as of 07/26/2024) Active Problems Problem Noted Date Diagnosed Date [...] no AAA 02/18 Dr Annie Centeno with [facility] in [place] for CLL 11/17 AAA screen WNl. 2009 colonoscopy WNL. EGD 2010 WNL (for GERd symptoms) History of malignant melanoma of skin 08/25/2014 Overview (09/01/2017): 2013? Sees Dr Hernandez in [place]. Had wide excision reportedly neg. Dyslipidemia, goal LDL below 130 07/12/2014 Palpitations 05/16/2014 Coronary artery disease (CAD) excluded 4 Overview (08/25/2014): 2013 abnormal stress test, normal cath. Family history of abdominal aortic aneurysm 07/2013 Overview (09/01/2017): 2017 CT [place]-no AAA False positive cardiac stress test 10/13/2012 Family history of ischemic heart disease 013 Other and unspecified hyperlipidemia 09/13/2011 BPH with obstruction/lower urinary tract symptom s 09/13/2011 ED (erectile dysfunction) 09/13/2011 HTN, goal below 140/90 03/07/2011 Meniere's disease Vitamin D deficiency Nephrolithiasis Macular degeneration documented as of this encounter (statuses as of 07/26/2024) Resolved Problems Problem Noted Date Diagnosed Date [...] as of this encounter (statuses as of 07/26/2024) Immunizations Name Administration Dates Next Due COVID-19 [...] file Not on file Not on file [employer] Not on file Not on file [...] 12/24/2024 11:15 AM EDT Office Visit Dermatology [facility] 200 [facility] [place] [address] Rodrigo Graham MD [facility] [place] [address] 03/25/2025 11:40 AM EDT Office Visit Family Practice [facility] [address] [facility] [place] [address] Conner Jones MD [address] [facility] [place] [address] Pending Results Name Type Priority Associated Diagnoses [...] Primary documented in this encounter Care Teams Warehouse Hand Relationship Specialty Start Date End Date Conner Jones MD [address] [facility] [place] [address] PCP - General Family Medicine 07/12/14 documented as of this encounter
--- OUTSIDE RECORDS SUMMARY | 2024-08-09 04:27 | External Medical Summary | Summary of Care ---
Author Name Unknown Organization [facility] Address [address] [place] [address] Phone [phone] Care Team Providers Care Supervisor Research Kennel Name Role Phone Conner Mendez MD Primary Care Provider + Reason for Visit * Reason Comments eRx-Medication Refill Encounter Details Date Type Department Care Team (Late st Contact Info) Description 04/12/2024 Refill Family Practice [facility] [place] [address] Conner Mendez MD [address] [place] [address] Allergies Active Allergy Reactions Criticality Noted Date Comments Bee Venom Edema Other 05/02/2016 Swelling in area that was stung documented as of this encounter (statuses as of 04/13/2024) Medications Medication Sig Dispensed Refills Start Date [...] 1 Capsule by mouth every evening. Active Metoprolol Succinate ER 25 MG Oral Tablet Extended Release 24 Hour (toPROL XL)Indications:At rial fibrillation, unspecified type (HCC) TAKE ONE-HALF (1/2) TABLET IN THE MORNING 45 Tablet 3 04/28/2023 Active Flecainide Acetate 50 MG Oral Tablet (Tambocor)Indicat ions:Atrial fibrillation, unspecified type (HCC) Take 1 Tablet by mouth in the morning and 1 Tablet before bedtime. 180 Tablet 3 08/13/2023 Active Apixaban 5 MG Oral Tablet (Eliquis)Indicati ons:Atrial fibrillation, unspecified type (HCC) Take 1 Tablet by mouth in the morning and 1 Tablet before bedtime. 180 Tablet 3 10/07/2023 Active Penciclovir 1 % External Cream Apply to cold sores every 2 hours as needed 15 g 1 12/12/2023 Active Atorvastatin Calcium 20 MG Oral Tablet (Lipitor)Indicati ons:Hyperlipidemi a with target LDL less than 130 TAKE 1 TABLET DAILY 90 Tablet 02/18/2024 Active Tamsulosin HCl 0.4 MG Oral Capsule (Flomax)Indicatio ns:BPH with obstruction/lower urinary tract symptoms Take 1 Capsule by mouth in the morning. 90 Capsule 3 03/04/2024 Active Pantoprazole Sodium 40 MG Oral Tablet Delayed Release (Protonix) TAKE 1 TABLET IN THE MORNING 90 Tablet 3 04/13/2024 Active Pantoprazole Sodium 40 MG Oral Tablet Delayed Release (Protonix) TAKE 1 TABLET IN THE MORNING 90 Tablet 01/14/2024 04/13/2024 Discontinued documented as of this encounter (statuses as of 04/13/2024) Active Problems Problem Noted Date Diagnosed Date [...] at a health care facility 08/25/2014 Overview: 05/28 colon WNL jean carlos 5y 01/21 EGD -chronic gastritis. Colon--+tubular adenoma. 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 2009 colonoscopy WNL. EGD 2010 WNL (for GERd symptoms) History of malignant melanoma of skin 08/25/2014 Overview: 2013? Sees Dr Hernandez in [place]. Had wide excision reportedly neg. Dyslipidemia, goal LDL below 130 07/12/2014 Palpitations 05/16/2014 Coronary artery disease (CAD) excluded 4 Overview: 2013 abnormal stress test, normal cath. Family history of abdominal aortic aneurysm 07/2013 Overview: 2016 CT [place]-no AAA False positive cardiac stress test 10/13/2012 Family history of ischemic heart disease 013 Other and unspecified hyperlipidemia 09/13/2011 BPH with obstruction/lower urinary tract symptom s 09/13/2011 ED (erectile dysfunction) 09/13/2011 HTN, goal below 140/90 03/07/2011 Meniere's disease Vitamin D deficiency Nephrolithiasis Macular degeneration documented as of this encounter (statuses as of 04/13/2024) Resolved Problems Problem Noted Date Diagnosed Date [...] as of this encounter (statuses as of 04/13/2024) Immunizations Name Administration Dates Next Due COVID-19 [...] encounter Miscellaneous Notes * Telephone Encounter - Charlene Oliveira RPh - 04/13/2024 4:31 PM EDTSigned Prescriptions: Disp Refills Pantoprazole Sodium 40 MG Oral Tablet Lindsay*90 Tab*3 Sig: TAKE 1 TABLET IN THE MORNINGAuthorizing Provider: CONNER MENDEZ User: CHARLENE OLIVEIRA-- documented in this encounter Plan of Treatment Upcoming Encounters Date Type Department Care Team (Late st Contact Info) Description 06/17/2024 11:00 AM EST Office Visit [facility] [address] [place] [address] Charis Bruce PA-C [address] [place] [address] 03/25/2025 11:40 AM EDT Office Visit Family Practice [facility] [address] [place] [address] Conner Mendez MD [address] [place] [address] Health Maintenance Due Date Last Done Comments [...] filedocumented as of this encounter Care Teams Supervisor Research Kennel Relationship Specialty Start Date End Date Conner Mendez MD [address] [place] [address] PCP - General Family Medicine 07/12/14 documented as of this encounter
--- OUTSIDE RECORDS SUMMARY | 2024-08-09 04:27 | External Medical Summary | Summary of Care ---
Author Name Unknown Organization [facility] Address [address] [facility] [address] Phone [phone] Care Team Providers Care Field Geologist Name Role Phone Conner Jones MD Primary Care Provider + Encounter Details Date Type Department Care Team (Late st Contact Info) Description 03/20/2024 10:40 AM EDT Immunization Ancillary [facility] [address] [facility] [address] [facility] [address] [facility] [address] Arrived Allergies Active Allergy Reactions Criticality Noted Date Comments Bee Venom Edema Other 05/02/2016 Swelling in area that was stung documented as of this encounter (statuses as of 03/20/2024) Medications Medication Sig Dispensed Refills Start Date [...] Active Flecainide Acetate 50 MG Oral Tablet (Tambocor)Indications :Atrial fibrillation, unspecified type (HCC) Take 1 Tablet by mouth in the morning and 1 Tablet before bedtime. 180 Tablet 3 08/13/2023 Active Apixaban 5 MG Oral Tablet (Eliquis)Indications: Atrial fibrillation, unspecified type (HCC) Take 1 Tablet by mouth in the morning and 1 Tablet before bedtime. 180 Tablet 3 10/07/2023 Active Penciclovir 1 % External Cream Apply to cold sores every 2 hours as needed 15 g 1 12/12/2023 Active Pantoprazole Sodium 40 MG Oral Tablet Delayed Release (Protonix) TAKE 1 TABLET IN THE MORNING 90 Tablet 01/14/2024 Active Atorvastatin Calcium 20 MG Oral Tablet (Lipitor)Indications: Hyperlipidemia with target LDL less than 130 TAKE 1 TABLET DAILY 90 Tablet 02/18/2024 Active Tamsulosin HCl 0.4 MG Oral Capsule (Flomax)Indications:B PH with obstruction/lower urinary tract symptoms Take 1 Capsule by mouth in the morning. 90 Capsule 3 03/04/2024 Active documented as of this encounter (statuses as of 03/20/2024) Active Problems Problem Noted Date Diagnosed Date [...] gastritis. Colon--+tubular adenoma. Jean Carlos 5y 04/07/17 [place] +abd lymphadnopathy, no AAA 02/18 Dr Annie Centeno with [facility] in [place] for CLL 11/17 AAA screen WNl. 2009 colonoscopy WNL. EGD 2011 WNL (for GERd symptoms) History of malignant melanoma of skin 08/25/2014 Overview: 2013? Sees Dr Hernandez in [place]. Had wide excision reportedly neg. Dyslipidemia, goal [...] as of this encounter (statuses as of 03/20/2024) Resolved Problems Problem Noted Date Diagnosed Date [...] as of this encounter (statuses as of 03/20/2024) Immunizations Name Administration Dates Next Due COVID-19 mRNA, LNP-s, No Pre serve, 2-Dose Series (Moderna) 10/12/2020,09/18/2020 COVID-19, LNP-s, No Preserve , Akin-sucrose, Ages 12+ (Pfizer) 09/12/2021 Diptheria/Tetanus (Adult) 10/05/2002 Hepatitis B, 0-19 yrs 06/04/1994,12/31/1993,11/05 PPD 11/21/2017 Pneumococcal Conjugate Vacc, 13 Valent (Prevnar) 05/02/2016 Pneumococcal Polysaccharide PPV23 (Pneumovax) 06/13/2017 Seasonal Influenza, High Dos e, Trivalent, PF, IM (Fluzone HD) 03/20/2024 Seasonal Influenza, MDCK, Tr ivalent, PF, (Flucelvax) 04/17/2020 Seasonal Influenza, PF, 6 M & above, IM , (FluLaval or Fluzone) 06/13/2017 Seasonal Influenza, Quadriva lent Hd (Fluzone Hd) 04/26/2023,03/26/2022 Seasonal Influenza, Quadriva lent, No Preserve, IM 05/02/2016,05/23/2015 Seasonal Influenza, Trivalen t, (IIV3), with Preserv, (Fluzone) 05/11/2014,06/06/2012,04/06/2010 Seasonal Influenza, Trivalen t, Adjuvanted, 65+ YRS, [...] 06/17/2024 11:00 AM EST Office Visit Dermatology [facility] [address] [facility] [place] [address] Charis Bruce PA-C [address] [facility] [place] [address] 03/25/2025 11:40 AM EDT Office Visit Family Practice [facility] [address] [place] [address] Conner Jones MD [address] [place] [address] Health Maintenance Due Date Last Done Comments Cologuard 1995 Fecal Occult Blood Test 1995 Sigmoidoscopy 1995 Zoster Vaccines (1 of 2) 12/22/2012 10/27/2012 Adult Wellness Visit 2016 Influenza Vaccine (FLU shot) (#1) 2024 03/20/2024, 04/26/2023, 03/26/2022, Additional history exists GFR 07/28/2024 07/28/2023, 12/0 01/2022, 03/26/2022, Additional [...] Completed 06/12/2022, 01/2022, 01/09/2022, Additional history exists HPV (Gardasil) Vaccine Aged Out No lo nger eligible based on patient's age to complete this topic MENINGOCOCCAL (MENACTRA/MENVEO) Aged Out No longer eligible based on patient's age to complete this topic documented as of this encounter Medical Devices Not on filedocumented as of this encounter Care Teams Field Geologist Relationship Specialty Start Date End Date Conner Jones MD [address] [place] [address] PCP - General Family Medicine 07/12/14 documented as of this encounter
--- OUTSIDE RECORDS SUMMARY | 2024-08-09 04:27 | External Medical Summary | Summary of Care ---
Author Name Unknown Organization [facility] Address [address] [place] [address] Phone [phone] Care Team Providers Care Marine Pipefitter Name Role Phone Conner Mendez MD Primary [...] 06/17/2024 11:00 AM EST Office Visit Dermatology [facility] [address] [facility] [place] [address] Charis Bruce PA-C [address] [facility] [place] [address] Multiple pigmented nevi*; Skin exam, screening for cancer; Actinic skin damage; History of melanoma; Personal history of CLL (chronic lymphocytic leukemia); Skin tumor Allergies Active Allergy Reactions Criticality Noted Date Comments Bee Venom Edema Other 05/02/2016 Swelling in area that was stung documented as of this encounter (statuses as of 06/17/2024) Medications ICAPS PO CAPS Take by mouth [...] as of this encounter (statuses as of 06/17/2024) Active Problems Problem Noted Date Diagnosed Date [...] gastritis. Colon--+tubular adenoma. Jean Carlos 5y 04/07/17 [place] +abd lymphadnopathy, no AAA 02/18 Dr Annie Centeno with [facility] in [place] for CLL 11/17 AAA screen WNl. 2009 colonoscopy WNL. EGD 2010 WNL (for GERd symptoms) History of malignant melanoma of skin 08/25/2014 Overview (09/01/2017): 2013? Sees Dr Hernandez in [place]. Had wide excision reportedly neg. Dyslipidemia, goal LDL below 130 07/12/2014 Palpitations 05/16/2014 Coronary artery disease (CAD) excluded 4 Overview (08/25/2014): 2013 abnormal stress test, normal cath. Family history of abdominal aortic aneurysm 07/2013 Overview (09/01/2017): 2016 CT [place]-no AAA False positive cardiac stress test 10/13/2012 Family history of ischemic heart disease 013 Other and unspecified hyperlipidemia 09/13/2011 BPH with obstruction/lower urinary tract symptom s 09/13/2011 ED (erectile dysfunction) 09/13/2011 HTN, goal below 140/90 03/07/2011 Meniere's disease Vitamin D deficiency Nephrolithiasis Macular degeneration documented as of this encounter (statuses as of 06/17/2024) Resolved Problems Problem Noted Date Diagnosed Date [...] as of this encounter (statuses as of 06/17/2024) Immunizations Name Administration Dates Next Due COVID-19 [...] file Not on file Not on file 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 Hx CLL In remission, follows with [facility] every 6 months Patient counseled to examine [...] 11:11 AM REF: CONNER MENDEZ [address] [place] [address] (office) [phone] (fax) PCP: CONNER MENDEZ [address] [place] [address] [phone] documented in this encounter Nursing Notes * [...] 12/24/2024 11:15 AM EDT Office Visit Dermatology [facility] [address] [facility] [place] [address] Rodrigo Graham MD [address] [facility] [place] [address] 03/25/2025 11:40 AM EDT Office Visit Family Practice [facility] [address] [place] [place] [address] Conner Mendez MD [address] [place] [address] Pending Results Name Type Priority Associated Diagnoses Date /Time SURGICAL PATHOLOGY Pathology Routine Skin tumor 06/17/2024 11:42 AM EST Health Maintenance Due Date Last Done Comments Cologuard 1995 Fecal Occult Blood Test 1995 Sigmoidoscopy 1995 Zoster Vaccines (1 of 2) 12/22/2012 10/27/2012 Adult Wellness Visit 2016 GFR 07/28/2024 07/28/2023, 1201/2022, 03/26/2022, Additional history exists Depression Screening 03/04/2025 [...] as of this encounter Visit Diagnoses Diagnosis Multiple pigmented [...] skin documented in this encounter Care Teams Marine Pipefitter Relationship Specialty Start Date End Date Conner Mendez MD [address] [place] [address] PCP - General Family Medicine 07/12/14 documented as of this encounter
--- OUTSIDE RECORDS SUMMARY | 2024-08-09 04:27 | External Medical Summary | Summary of Care ---
Author Name Unknown Organization [facility] Address [address] [place] [address] Phone [phone] Care Team Providers Care Actuarial Intern Name Role Phone Conner Jones MD Primary Care Provider + Reason for Visit * Reason Comments Outpatient Testing Encounter Details Date Type Department Care Team (Late st Contact Info) Description 05/28/2024 2:40 PM EST Laboratory Laboratory, [facility] 132 [place] [address] [facility] [address] [place] [address] Chronic lymphocytic leukemia (HCC); [email or web address] Other*[id number] Allergies Active Allergy Reactions Criticality Noted Date Comments Bee Venom Edema Other 05/02/2016 Swelling in area that was stung documented as of this encounter (statuses as of 05/28/2024) Medications ICAPS PO CAPS Take by mouth [...] as of this encounter (statuses as of 05/28/2024) Active Problems Problem Noted Date Diagnosed Date Senile purpura 01/09/2022 Nonrheumatic aortic valve insufficiency 03/07/20 21 Nonrheumatic mitral valve regurgitation 03/07/20 21 PAF (paroxysmal atrial fibrillation) 03/07/2021 History of 2019 novel coronavirus disease (COVID -19) 05/30/2020 Chronic pain of right knee 12/31/2018 Fatty liver 09/30/2017 BALTAZAR (generalized anxiety disorder) 09/01/2017 CLL (chronic lymphocytic leukemia) 02/03/2015 Overview (09/01/2017): 10/21- opinion @. Patient completed rituximab induction on 03/03/17 for symptomatic splenomegaly with his CLL. Kaminski stage II, trisomy 12, IgVH indeterminent CLL. Routine general medical exam ination at a health care facility 08/25/2014 Overview (03/04/2024): 05/28 colon WNL jean carlos 5y 01/21 EGD -chronic gastritis. Colon--+tubular adenoma. Jean Carlos 5y 04/07/17 [place] +abd lymphadnopathy, no AAA 02/18 Dr Annie Centeno with [facility] in [place] for CLL 11/17 AAA screen WNl. 2009 colonoscopy WNL. EGD 2010 WNL (for GERd symptoms) History of malignant melanoma of skin 08/25/2014 Overview (09/01/2017): 2013? Sees Dr Hernandez in [place]. Had wide excision reportedly neg. Dyslipidemia, goal LDL below 130 07/12/2014 Palpitations 05/16/2014 Coronary artery disease (CAD) excluded 4 Overview (08/25/2014): 2013 abnormal stress test, normal cath. Family history of abdominal aortic aneurysm 07/2013 Overview (09/01/2017): 2016 CT [place]-no AAA False positive cardiac stress test 10/13/2012 Family history of ischemic heart disease 013 Other and unspecified hyperlipidemia 09/13/2011 BPH with obstruction/lower urinary tract symptom s 09/13/2011 ED (erectile dysfunction) 09/13/2011 HTN, goal below 140/90 03/07/2011 Meniere's disease Vitamin D deficiency Nephrolithiasis Macular degeneration documented as of this encounter (statuses as of 05/28/2024) Resolved Problems Problem Noted Date Diagnosed Date [...] as of this encounter (statuses as of 05/28/2024) Immunizations Name Administration Dates Next Due COVID-19 [...] file Not on file 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 [address] [facility] [place] [address] Conner Jones MD [address] [place] [address] Pending Results Name Type Priority Associated Diagnoses Date /Time CBC WITH WBC DIFFERENTIAL Lab Routine Chronic lymphocytic leukemia (HCC) 05/28/2024 2:43 PM EST MYCODE SUBSEQUENT ADULT Lab Routine [employer] Other*[id number] 05/28/2024 2:43 PM EST CBC Lab Routine Chronic lymphocytic leukemia (HCC) 05/28/2024 2:43 PM EST DIFFERENTIAL, AUTOMATED Lab Routine Chronic lymphocytic leukemia (HCC) 05/28/2024 2:43 PM EST MYCODE SST1 Lab Routine [employer] Other*[id number] 05/28/2024 2:43 PM EST MYCODE SST2 Lab Routine [employer] Other*[id number] 05/28/2024 2:43 PM EST Health Maintenance Due Date Last Done Comments Marjorie 1995 Fecal Occult Blood Test 1995 Sigmoidoscopy [...] as of this encounter Visit Diagnoses Diagnosis Chronic lymphocytic leukemia (HCC) Chronic lymphoid leukemia, without mention of having achieved remission [employer] Other*[id number] documented in this encounter Care Teams Actuarial Intern Relationship Specialty Start Date End Date Conner Jones MD [address] [place] [address] PCP - General Family Medicine 07/12/14 documented as of this encounter
--- OUTSIDE RECORDS SUMMARY | 2024-08-09 04:27 | External Medical Summary | Summary of Care ---
Author Name Unknown Organization [facility] Address [address] [place] [address] Phone [phone] Care Team Providers Care Pharmaceutical Process Engineer Name Role Phone Conner Jones MD Primary Care Provider + Encounter Details Date Type Department Care Team (Late st Contact Info) Description 03/23/2024 Orders Only Outcomes Research Department [address] [place] [address] Opal Swanson CHRA [employer] Other*[id number] Allergies Active Allergy Reactions Criticality Noted Date Comments Bee Venom Edema Other 05/02/2016 Swelling in area that was stung documented as of this encounter (statuses as of 03/23/2024) Medications Medication Sig Dispensed Refills Start Date [...] as of this encounter (statuses as of 03/23/2024) Active Problems Problem Noted Date Diagnosed Date [...] no AAA 02/18 Dr Annie Centeno with [facility] in [place] for CLL 11/17 AAA screen WNl. 2009 colonoscopy WNL. EGD 2010 WNL (for GERd symptoms) History of malignant melanoma of skin 08/25/2014 Overview: 2013? Sees Dr Hernandez in [place]. Had wide excision reportedly neg. Dyslipidemia, goal LDL below 130 07/12/2014 Palpitations 05/16/2014 Coronary artery disease (CAD) excluded 4 Overview: 2013 abnormal stress test, normal cath. Family history of abdominal aortic aneurysm 07/2013 Overview: 2016 CT [place]-no AAA False positive cardiac stress test 10/13/2012 Family history of ischemic heart disease 013 Other and unspecified hyperlipidemia 09/13/2011 BPH with obstruction/lower urinary tract symptom s 09/13/2011 ED (erectile dysfunction) 09/13/2011 HTN, goal below 140/90 03/07/2011 Meniere's disease Vitamin D deficiency Nephrolithiasis Macular degeneration documented as of this encounter (statuses as of 03/23/2024) Resolved Problems Problem Noted Date Diagnosed Date [...] as of this encounter (statuses as of 03/23/2024) Immunizations Name Administration Dates Next Due COVID-19 [...] 06/17/2024 11:00 AM EST Office Visit Dermatology [facility] [address] [place] [address] Charis Bruce PA-C [address] [place] [address] 03/25/2025 11:40 AM EDT Office Visit Family Practice [facility] [address] [place] [address] Conner Jnoes MD [address] [place] [address] Scheduled Orders Name Type Priority Associated Diagnoses Orde r Schedule MYCODE SUBSEQUENT ADULT Lab Routine [employer] Other*[id number] Every 6 Months for 2 Occurrences starting 03/23/2024 until 04/12/2025 Health Maintenance Due Date Last Done Comments [...] this encounter Visit Diagnoses Diagnosis [employer] Other*[id number] documented in this encounter Care Teams Pharmaceutical Process Engineer Relationship Specialty Start Date End Date Conner Jones MD [address] [place] [address] PCP - General Family Medicine 07/12/14 documented as of this encounter
--- OUTSIDE RECORDS SUMMARY | 2024-08-09 04:27 | External Medical Summary | Summary of Care ---
Author Name Unknown Organization [facility] Address [address] [place] [address] Phone [phone] Care Team Providers Care Cradle Slide Maker Name Role Phone Conner Jones MD Primary Care Provider + Encounter Details Date Type Department Care Team (Late st Contact Info) Description 06/17/2024 Telephone Dermatology [facility] [address] [place] [address] Charis Bruce PA-C [address] [place] [address] Allergies Active Allergy Reactions Criticality Noted Date [...] gastritis. Colon--+tubular adenoma. Jean Carlos 5y 04/07/17 [place] +abd lymphadnopathy, no AAA 02/18 Dr Annie Centeno with [facility] in [place] for CLL 11/17 AAA screen WNl. 2009 colonoscopy WNL. EGD 2011 WNL (for GERd symptoms) History of malignant melanoma of skin 08/25/2014 Overview (09/01/2017): 2013? Sees Dr Hernandez in [place]. Had wide excision reportedly neg. Dyslipidemia, goal LDL below 130 07/12/2014 Palpitations 05/16/2014 Coronary artery disease (CAD) excluded 4 Overview (08/25/2014): 2013 abnormal stress test, normal cath. 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 * Telephone Encounter - Charis Bruce PA-C - 06/17/2024 11:33 AM EST Please schedule 6 month complex melissa with Dr. Graham (MM priority) documented in this encounter Plan of Treatment Upcoming Encounters Date Type Department Care Team (Late st Contact Info) Description 12/24/2024 11:15 AM EDT Office Visit Dermatology [facility] [address] [facility] [place] [address] Rodrigo Graham MD [address] [facility] [place] [address] 03/25/2025 11:40 AM EDT Office Visit Family Practice [facility] [address] [place] [address] Conner Jones MD [address] [place] [address] Health Maintenance Due Date Last Done Comments [...] filedocumented as of this encounter Care Teams Cradle Slide Maker Relationship Specialty Start Date End Date Conner Jones MD [address] [place] [address] PCP - General Family Medicine 07/12/14 documented as of this encounter
--- OUTSIDE RECORDS SUMMARY | 2024-08-09 04:27 | External Medical Summary ---
Author Name Unknown Address Unknown Organization [facility] [place] [address] Laboratory Report Ordering Provider Test Date Status DANELLE BETTS 05/28/2024 14:43:51 Final Observation Date Value Abnormality Reference (Units ) Status SYNC LEUKOCYTES IN BLOOD BY AUTOMATED COUNT 05/28/2024 14:43:51 5.81 4.00-10.80 (K/uL) Final Segs 05/28/2024 14:43:51 50.3 40.0-75.0 (%) Final Lymphs % 05/28/2024 14:43:51 33.6 18.0-42.0 (%) Final Monos 05/28/2024 14:43:51 13.9 Above high normal 1.0-11.0 (%) Final Eosinophils 05/28/2024 14:43:51 1.9 0.0-6.0 (%) Final Basos 05/28/2024 14:43:51 0.3 0.0-2.0 (%) Final Absolute Segs 05/28/2024 14:43:51 2.92 1.80-7.70 (K/uL) Final Lymphs, absolute 05/28/2024 14:43:51 1.95 1.00-4.80 (K/ul) Final Monos, Abs 05/28/2024 14:43:51 0.81 0.00-1.10 (K/uL) Final Eos, Abs 05/28/2024 14:43:51 0.11 0.00-0.70 (K/uL) Final Basos, Abs 05/28/2024 14:43:51 0.02 0.00-0.20 (K/uL) Final Performing Location [facility] [place] [address]
--- OUTSIDE RECORDS SUMMARY | 2024-08-09 04:27 | External Medical Summary | Summary of Care ---
Author Name Unknown Organization [facility] Address [address] [place] [address] Phone [phone] Care Team Providers Care Gas Collection System Operator Name Role Phone Conner Jones MD Primary Care Provider + Reason for Visit * Reason Onset Date Comments Medication Refill 04/22/2024 Encounter Details Date Type Department Care Team (Late st Contact Info) Description 04/22/2024 Refill Cardiology, [facility] [address] [place] [address] Jass Morillo, DO [address] [place] [address] Atrial fibrillation, unspecified type (HCC) Allergies Active Allergy Reactions Criticality Noted Date Comments Bee Venom Edema Other 05/02/2016 Swelling in area that was stung documented as of this encounter (statuses as of 04/22/2024) Medications Medication Sig Dispensed Refills Start Date [...] Active Flecainide Acetate 50 MG Oral Tablet (Tambocor)Indicati ons:Atrial fibrillation, unspecified type (HCC) Take 1 Tablet by mouth in the morning and 1 Tablet before bedtime. 180 Tablet 3 08/13/2023 Active Apixaban 5 MG Oral Tablet (Eliquis)Indicatio ns:Atrial fibrillation, unspecified type (HCC) Take 1 Tablet by mouth in the morning and 1 Tablet before bedtime. 180 Tablet 3 10/07/2023 Active Penciclovir 1 % External Cream Apply to cold sores every 2 hours as needed 15 g 1 12/12/2023 Active Atorvastatin Calcium 20 MG Oral Tablet (Lipitor)Indicatio ns:Hyperlipidemia with target LDL less than 130 TAKE 1 TABLET DAILY 90 Tablet 02/18/2024 Active Tamsulosin HCl 0.4 MG Oral Capsule (Flomax)Indication s:BPH with obstruction/lower urinary tract symptoms Take 1 Capsule by mouth in the morning. 90 Capsule 3 03/04/2024 Active Pantoprazole Sodium 40 MG Oral Tablet Delayed Release (Protonix) TAKE 1 TABLET IN THE MORNING 90 Tablet 3 04/13/2024 Active Metoprolol Succinate ER 25 MG Oral Tablet Extended Release 24 Hour (toPROL XL)Indications:Atr ial fibrillation, unspecified type (HCC) TAKE ONE-HALF (1/2) TABLET IN THE MORNING 45 Tablet 3 04/22/2024 Active Metoprolol Succinate ER 25 MG Oral Tablet Extended Release 24 Hour (toPROL XL)Indications:Atr ial fibrillation, unspecified type (HCC) TAKE ONE-HALF (1/2) TABLET IN THE MORNING 45 Tablet 3 04/28/2023 04/22/2024 Discontinued (Refill) documented as of this encounter (statuses as of 04/22/2024) Active Problems Problem Noted Date Diagnosed Date [...] gastritis. Colon--+tubular adenoma. Jean Carlos 5y 04/07/17 [place] +abd lymphadnopathy, no AAA 02/18 Dr Annie Centeno with [facility] in [place] for CLL 11/17 AAA screen WNl. 2009 colonoscopy WNL. EGD 2010 WNL (for GERd symptoms) History of malignant melanoma of skin 08/25/2014 Overview: 2013? Sees Dr Hernandez in [place]. Had wide excision reportedly neg. Dyslipidemia, goal LDL below 130 07/12/2014 Palpitations 05/16/2014 Coronary artery disease (CAD) excluded 4 Overview: 2013 abnormal stress test, normal cath. Family history of abdominal aortic aneurysm 07/2013 Overview: 2017 CT [place]-no AAA False positive cardiac stress test 10/13/2012 Family history of ischemic heart disease 013 Other and unspecified hyperlipidemia 09/13/2011 BPH with obstruction/lower urinary tract symptom s 09/13/2011 ED (erectile dysfunction) 09/13/2011 HTN, goal below 140/90 03/07/2011 Meniere's disease Vitamin D deficiency Nephrolithiasis Macular degeneration documented as of this encounter (statuses as of 04/22/2024) Resolved Problems Problem Noted Date Diagnosed Date [...] as of this encounter (statuses as of 04/22/2024) Immunizations Name Administration Dates Next Due COVID-19 [...] encounter Miscellaneous Notes * Telephone Encounter - Jass Morillo DO - 04/22/2024 4:39 PM EDTSigned Prescriptions: Disp Refills Metoprolol Succinate ER 25 MG Oral Tablet *45 Tab*3 Sig: TAKE ONE-HALF (1/2) TABLET IN THE MORNINGAuthorizing Provider: JASS MORILLO documented in this encounter Plan of Treatment Upcoming Encounters Date Type Department Care Team (Late st Contact Info) Description 06/17/2024 11:00 AM EST Office Visit [facility]atology [facility] [address] [place] [address] Charis Bruce PA-C [address] [place] [address] 03/25/2025 11:40 AM EDT Office Visit Family [facility] [address] [place] [address] Conner Jones MD [address] [place] [address] Health Maintenance Due Date Last Done Comments [...] (HCC) documented in this encounter Care Teams Gas Collection System Operator Relationship Specialty Start Date End Date Conner Jones MD [address] [place] [address] PCP - General Family Medicine 07/12/14 documented as of this encounter
--- OUTSIDE RECORDS SUMMARY | 2024-08-09 04:27 | External Medical Summary ---
Author Name Unknown Address Unknown Organization [id number]:LABORATORY [facility] - [address] [place] [id number] Laboratory Report Ordering Provider Test Date Status DANELLE BETTS 05/28/2024 14:43:51 Final Observation Date Value Abnormality Reference (Units ) Status WBC, Total 05/28/2024 14:43:51 5.81 4.00-10.8 0 (K/uL) Final RBC 05/28/2024 14:43:51 4.46 4.50-5.25 (M/uL) Final Hemoglobin 05/28/2024 14:43:51 14.6 14.0-16.8 (g/dL) Final HCT 05/28/2024 14:43:51 41.5 40.0-48.4 (%) Final MCV 05/28/2024 14:43:51 93.0 82.0-99.5 (fL) Final MCH 05/28/2024 14:43:51 32.7 27.0-34.0 (pg) Final MCHC 05/28/2024 14:43:51 35.2 32.0-36.0 (g/dL) Final RDW 05/28/2024 14:43:51 12.2 11.5-15.5 (%) Final Platelets 05/28/2024 14:43:51 136 Below low normal 140 -400 (K/uL) Final MPV 05/28/2024 14:43:51 9.3 6.6-11.1 ( fL) Final Performing Location [facility] [address] 0 - [address] [place] [id number]
--- OUTSIDE RECORDS SUMMARY | 2024-08-09 04:27 | External Medical Summary | Summary of Care ---
Author Name Unknown Organization [facility] Address [address] [place] [address] Phone [phone] Care Team Providers Care Truss Puller Helper Name Role Phone Conner Jones MD Primary Care Provider + Reason for Visit * Reason Comments Physical-Exam Yearly physical-viv[facility] er lab Encounter Details Date Type Department Care Team (Late st Contact Info) Description 03/04/2024 10:40 AM EDT Office Visit Family [facility] [address] [place] [address] Conner Jones MD [address] [place] [phone] Well adult exam*; BPH with obstruction/lower urinary tract symptoms; Neuralgia and neuritis; HTN, goal below 140/90; CLL (chronic lymphocytic leukemia) ([facility]); PAF (paroxysmal atrial fibrillation) ([facility]) Allergies Active Allergy Reactions Criticality Noted Date Comments Bee Venom Edema Other 05/02/2016 Swelling in area that was stung documented as of this encounter (statuses as of 03/04/2024) Medications Medication Sig Dispensed Refills Start Date [...] as of this encounter (statuses as of 03/04/2024) Active Problems Problem Noted Date Diagnosed Date [...] no AAA 02/18 Dr Annie Centeno with [facility] in [place] for CLL 11/17 AAA screen WNl. 2009 colonoscopy WNL. EGD 2010 WNL (for GERd symptoms) History of malignant melanoma of skin 08/25/2014 Overview: 2013? Sees Dr Hernandez in [place]. Had wide excision reportedly neg. Dyslipidemia, goal LDL below 130 07/12/2014 Palpitations 05/16/2014 Coronary artery disease (CAD) excluded 4 Overview: 2013 abnormal stress test, normal cath. Family history of abdominal aortic aneurysm 07/2013 Overview: 2016 CT [place]-no AAA False positive cardiac stress test 10/13/2012 Family history of ischemic heart disease 013 Other and unspecified hyperlipidemia 09/13/2011 BPH with obstruction/lower urinary tract symptom s 09/13/2011 ED (erectile dysfunction) 09/13/2011 HTN, goal below 140/90 03/07/2011 Meniere's disease Vitamin D deficiency Nephrolithiasis Macular degeneration documented as of this encounter (statuses as of 03/04/2024) Resolved Problems Problem Noted Date Diagnosed Date [...] as of this encounter (statuses as of 03/04/2024) Immunizations Name Administration Dates Next Due COVID-19 mRNA, LNP-s, No Pre serve, 2-Dose Series (Moderna) 10/12/2020,09/18/2020 COVID-19, LNP-s, No Preserve , Akin-sucrose, Ages 12+ (Pfizer) 09/12/2021 Diptheria/Tetanus (Adult) 10/05/2002 Hepatitis B, 0-19 yrs 06/04/1994,12/31/1993,11/05 PPD 11/21/2017 Pneumococcal Conjugate Vacc, 13 Valent (Prevnar) 05/02/2016 Pneumococcal Polysaccharide PPV23 (Pneumovax) 06/13/2017 Seasonal Influenza, MDCK, Tr ivalent, PF, (Flucelvax) [...] 0 07/07/1969 - 07/07/1989 Smokeless Tobacco: Never Tobacco Cessation:Counseling Given: Not Answered Alcohol Use Standard Drinks/Week Comments Yes 0 [...] Sign Reading Time Taken Comments Blood Pressure 132/86 03/04/2024 10:36 AM EDT Pulse 50 03/04/2024 10:36 AM EDT Temperature 36.3 C (97.4 F) 03/04/2024 1 0:36 AM EDT Respiratory Rate 16 03/04/2024 10:3 6 AM EDT Oxygen Saturation 98% 03/04/2024 10: 36 AM EDT Inhaled Oxygen Concentration - - Weight 88.4 kg (194 lb 12.8 oz) 024 10:36 AM EDT Height 185.4 cm (6' 0.99") 03/04/2024 1 0:36 AM EDT Body Mass Index 25.71 03/04/2024 10:36 AM EDT documented in this encounter Progress Notes * Conner Jones MD - 03/04/2024 11:46 AM EDT SUBJECTIVE: Truman Clayton is a 73 year old male here for Physical-Exam (Yearly physical- copper lab) . Here for CPE Apprec hemeonc at [place] stopped Venclexta. No fever, chills, chest pain, shortness of breath, headache, nausea, vomit, diarrhea, constipation or vision changes Had [facility] hosp in spring 2023, resolved. Doing well now C/o inc nocturia, x2-3/night, some slower flow. Interested in Rx Very rare palp ROS: Negative except above. Past Medical History: Diagnosis Date Abdominal wall [...] performed by Arpit Mendoza MD at ENDOSCOPY [facility] COLONOSCOPY, DIAGNOSTIC (RECTUM) 05/23/2022 diverticulosis sigmoid colon/COLONOSCOPY FLEXIBLE PROXIMAL DIAGNOSTIC performed by Arpit Mendoza MD at ENDOSCOPY [facility] COLORECTAL CANCER SCREEN; NOT AT RISK 09/18/2009 normal colon exam repeat in 10 years EGD, FLEXIBLE, DIAGNOSTIC 01/09/2018 normal bx/ESOPHAGOGASTRODUODENOSCOPY (EGD), FLEXIBLE, TRANSORAL, DIAGNOSTIC performed by Arpit Mendoza MD at ENDOSCOPY [facility] FLUORO UPPER GI W KUB 05/16/2006 small sliding hiatal hernia with reflux INFORMATION [address] Adair [place] INFORMATION 09/08/2007 Hydrocele 2008 [place] INJECTION LUMBAR/SACRAL 11/18/2014 INJECTION SPINE LUMBAR OR SACRAL performed by James Lopezsins, DO at OR [facility] INJECTION LUMBAR/SACRAL 12/02/2014 INJECTION SPINE LUMBAR OR SACRAL performed by James Elana Mueller, DO at OR [facility] LAPAROSCOPY; REPAIR INITIAL INGUINAL HERNIA 06/22/2010 Left sided MISCELLANEOUS ORDER ([facility] ONLY) Right 07/2017 Dr Cowan. REMOVAL OF APPENDIX 1978 Appendectomy Tate العلي. 1979 REMOVAL OF TONSILS, UNDER AGE 12 1955 Tonsillectomy 1955 [place] REPAIR INITIAL INGUINAL HERNIA REDUCIBLE AGE 5 OR MORE 06/22/2010 06/22/2010 - [facility] with jones [facility] - Dr. 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 Tobacco Use Smoking status: Former Current packs/day: 0.00 Average packs/day: 1 pack/day for 20.0 years (20.0 ttl pk-yrs) Types: Cigarettes Start date: 07/07/1969 Quit date: 07/07/1989 Years since quittin.6 Smokeless tobacco: Never Vaping Use Vaping status: Never Used Substance and Sexual Activity Alcohol use: Yes Comment: 2-3 drinks every other day to every three days Drug use: No Sexual activity: Yes Partners: Female Comment: . Grace. 2 daughter prev marriage, 2 sons . +6 grandkids--4 in [place], 2 in [facility] Other Topics Concern Not on file Social History Narrative Tennis. In past. Golfs now. Can't run w/[facility] prob. Lifts. Social Determinants of Health Financial Resource Strain: Low Risk (03/04/2024) Financial Resource Strain Do you have any trouble paying for your medications, or do you think you might in the future? (Adult - for ages 18 years and over): No Does your family have trouble paying for medicine? (Household - for ages 0-17 years): Not on file Food Insecurity: No Food Insecurity (03/04/2024) Food Insecurity Do you need food for this week? (Adult - for ages 18 years and over): No Are you able to get enough food for your family? (Household - for ages 0-17 years): Not on file Does your family need food this week? (Household - for ages 0-17 years): Not on file Do you always have enough food for your family? (Household - for ages 0-17 years): Not on file Transportation Needs: No Transportation Needs (03/04/2024) Transportation Needs Do you have trouble getting a ride to medical visits or work? (Adult - for ages 18 years and over):Not on file Does your family have a hard time getting a ride to doctors visits? (Household - for ages 0-17 years): Not on file Has lack of transportation kept you from medical appointments, meetings, work, or from getting things needed for daily living? Check all that apply. (Adult - for ages 18 years and over): No Do you (or your family) have trouble finding or paying for a ride (transportation)? (Household - for ages 0-17 years): Not on file Social Connections: Socially Integrated (03/04/2024) Social Connections How often do you feel lonely or isolated from those around you? (Adult - for ages 18 years and over): Never Housing Stability: Low Risk (03/04/2024) Housing Stability Do you currently live in a custodial or have no steady place to sleep at night? (Adult - for ages 18 years and over): No Do you think you are at risk of becoming homeless? (Adult - for ages 18 years and over): Not on file Does your family worry about paying for your home or becoming homeless? (Household - for ages 0-17 years): Not on file Are you homeless or worried that you might be in the future? (Adult - for ages 18 years and over): No Are you (or your family) homeless or worried that you might be in the future? (Household - for ages0-17 years): Not on file Family History Problem Relation Name Age of Onset Diabetes Mother Hypertension Mother Stroke Mother x2 70s. Heart Disorder Father 55 CABG. 89/AAA Hypertension Father Other (macular degeneration) Father No Past Hx Sister x2 Other ( secondary defects) Sister 55 Cancer Brother 34 -brain No Past Hx Brother x2 Cancer Brother Metastatic melanoma Heart Disorder Grandfather (Paternal) AAA- Current Outpatient Medications Medication Sig Dispense Refill Tamsulosin HCl 0.4 MG Oral Capsule (Flomax) Take 1 Capsule by mouth in the morning. 90 Capsule 3 ICAPS PO CAPS Take by mouth 2 [...] Take 1 Capsule by mouth every evening. Metoprolol Succinate ER 25 MG Oral Tablet Extended Release 24 Hour (toPROL XL) TAKE ONE-HALF (1/2) TABLET IN THE MORNING 45 Tablet 3 Flecainide Acetate 50 MG Oral [...] 2 hours as needed 15 g 1 Pantoprazole Sodium 40 MG Oral Tablet Delayed Release (Protonix) TAKE 1 TABLET IN THE MORNING 90 Tablet 0 Atorvastatin Calcium 20 MG Oral Tablet (Lipitor) TAKE 1 TABLET DAILY 90 Tablet 0 No current facility-administered medications for this visit. Physical: BP 132/86 | Pulse 50 | Temp 36.3 C (97.4 F) (Tympanic) | Resp 16 | Ht 1.854 m (6' 0.99") | Wt 88.4 kg (194 lb 12.8 oz) | SpO2 98% | BMI 25.71 kg/m | BSA 2.13 m General-No apparent Distress Head, Eyes, Ears, Nose, Throat--Normocephalic, atraumatic Neck-Supple Lymph-no lymphadenopathy Lungs-Clear to Auscultation bilaterally Cardiovascular--Regular rate & Rhythm, +s1, s2, no murmur Abdomen-soft, nontender, nondistended + bowel sounds Extremities--no edema Neuro-alert & oriented x3 (Z00.00) Well adult exam (primary encounter diagnosis) Plan: counseled on diet/exercise Shots reviewed Labs reviewed/ordered Rec d/c Zinc OTC given hx neuropathy Colon UTD PSA ordered (N40.1, N13.8) BPH with obstruction/lower urinary tract symptoms Plan: Tamsulosin HCl 0.4 MG Oral Capsule (Flomax), PSA (M79.2) Neuralgia and neuritis Plan: COPPER, SERUM OR PLASMA (I10) HTN, goal below 140/90 Plan: cotn mgt (C91.10) CLL (chronic lymphocytic leukemia) ([facility]) Plan: cont mgmt hemeonc (I48.0) PAF (paroxysmal atrial fibrillation) ([facility]) Plan: cont mgmt cards (This note was completed using the dictation program Fluency Direct. As such, there may be misspellings, word substitutions, or other variations that should not change the essence of the clinical content of this encounter note.If there is need for further clarification, please direct questions to the provider listed above.) Conner Jones MD documented in this encounter Nursing Notes * Amy Pena LPN - 03/04/2024 10:32 AM EDT The patient has been properly identified by confirmation of name and date of . Chief Complaint Patient presents with Physical-Exam Yearly physical documented in this encounter Plan of Treatment Upcoming Encounters Date Type Department Care Team (Late st Contact Info) Description 06/17/2024 11:00 AM EST Office Visit Dermatology [facility] [address] [place] [address] Charis Bruce PA-C [address] [facility] [place] [address] 03/25/2025 11:40 AM EDT Office Visit Family [facility] [address] [facility] [place] [address] Conner Jones MD [address] [facility] [place] [address] Pending Results Name Type Priority Associated Diagnoses Date /Time COPPER, SERUM OR PLASMA Lab Routine Neuralgia and neuritis 03/04/2024 11:36 AM EDT PSA Lab Routine BPH with obstruction/lower urinary tract symptoms 03/04/2024 11:36 AM EDT Scheduled Orders Name Type Priority Associated Diagnoses Orde r Schedule COPPER, SERUM OR PLASMA Lab Routine Neuralgia and neuritis Expected: 03/04/2024, Expires: 03/04/2025 PSA Lab Routine BPH with obstruction/lower urinary tract symptoms Expected: 03/04/2024 (Approximate), Expires: 03/04/2025 Health Maintenance Due Date Last Done Comments Cologuard 1995 Fecal Occult Blood Test 1995 Sigmoidoscopy 1995 Zoster Vaccines (1 of 2) 12/22/2012 10/27/2012 Adult Wellness Visit 2016 Influenza Vaccine (FLU shot) (#1) 2024 04/26/2023, 03/26/2022, 04/17/2020, Additional history exists GFR 07/28/2024 07/28/2023, 01/2022, 03/26/2022, Additional history [...] as of this encounter Visit Diagnoses Diagnosis Well adult exam- Primary Routine general medical examination at a health care facility BPH with obstruction/lower urinary tract symptoms Hypertrophy of prostate with urinary obstruction and other lower urinary tract symptoms (LUTS) Neuralgia and neuritis Neuralgia, neuritis, and radiculitis, unspecified HTN, goal below 140/90 Unspecified essential hypertension CLL (chronic lymphocytic leukemia) (HCC) Chronic lymphoid leukemia, without mention of having achieved remission PAF (paroxysmal atrial fibrillation) (HCC) Atrial fibrillation documented in this encounter Care Teams Truss Puller Helper Relationship Specialty Start Date End Date Conner Jones MD [address] [place] [address] PCP - General Family Medicine 07/12/14 documented as of this encounter
--- OUTSIDE RECORDS SUMMARY | 2024-08-09 04:27 | External Medical Summary ---
Author Name Unknown Address Unknown Organization K01:LABORATORY [facility] [place] - [address] [place] [address] Laboratory Report Ordering Provider Test Date Status ADRIANA ROMERO 05/28/2024 14:43:51 Final Observation Date Value Abnormality Reference (Units ) Status MYCODE SPECIMEN-SST 05/28/2024 14:43:51 Freezing of extracted DNA, whole blood and/or serum. Final Performing Location LABORATORY C - [address] [place] [address]
--- OUTSIDE RECORDS SUMMARY | 2024-08-09 04:27 | External Medical Summary | Summary of Care ---
Author Name Unknown Organization [facility] Address [address] [place] [address] Phone [phone] Care Team Providers Care Advice Clerk Name Role Phone Conner Mendez MD Primary Care Provider + Reason for Visit * Reason Comments eRx-Medication Refill Encounter Details Date Type Department Care Team (Late st Contact Info) Description 05/17/[address] [facility] [address] [place] [address] Conner Mendez MD [address] [place] [address] Hyperlipidemia with target LDL less than 130 Allergies Active Allergy Reactions Criticality Noted Date Comments Bee Venom Edema Other 05/02/2016 Swelling in area that was stung documented as of this encounter (statuses as of 05/18/2024) Medications ICAPS PO CAPS Take by mouth [...] 4 Active Apixaban 5 MG Oral Tablet (Eliquis)Indica [...] TABLET DAILY 90 Tablet 3 4 Active Atorvastatin Calcium 20 MG Oral Tablet (Lipitor)Indica tions:Hyperlipi demia with target LDL less than 130 TAKE 1 TABLET DAILY 90 Tablet 4 024 Discontinued documented as of this encounter (statuses as of 05/18/2024) Active Problems Problem Noted Date Diagnosed Date [...] no AAA 02/18 Dr Annie Centeno with [facility] in [place] for CLL 11/17 AAA screen WNl. 2009 colonoscopy WNL. EGD 2010 WNL (for GERd symptoms) History of malignant melanoma of skin 08/25/2014 Overview (09/01/2017): 2013? Sees Dr Hernandez in [place]. Had wide excision reportedly neg. Dyslipidemia, goal LDL below 130 07/12/2014 Palpitations 05/16/2014 Coronary artery disease (CAD) excluded 4 Overview (08/25/2014): 2013 abnormal stress test, normal cath. Family history of abdominal aortic aneurysm 07/2013 Overview (09/01/2017): 2016 CT [place]-no AAA False positive cardiac stress test 10/13/2012 Family history of ischemic heart disease 013 Other and unspecified hyperlipidemia 09/13/2011 BPH with obstruction/lower urinary tract symptom s 09/13/2011 ED (erectile dysfunction) 09/13/2011 HTN, goal below 140/90 03/07/2011 Meniere's disease Vitamin D deficiency Nephrolithiasis Macular degeneration documented as of this encounter (statuses as of 05/18/2024) Resolved Problems Problem Noted Date Diagnosed Date [...] as of this encounter (statuses as of 05/18/2024) Immunizations Name Administration Dates Next Due COVID-19 [...] file Not on file Not on file 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 on file documented as of this encounter Miscellaneous Notes * Telephone Encounter - Regan Duvall [facility] - 05/18/2024 12:39 PM EST Signed Prescriptions: Disp Refills Atorvastatin Calcium 20 MG Oral Tablet (Li*90 Tab*3 Sig: TAKE 1 TABLET DAILYAuthorizing Provider: CONNER MENDEZOrderaldo User: REGAN DUVALL documented in this encounter Plan of Treatment Upcoming Encounters Date Type Department Care Team (Late st Contact Info) Description 06/17/2024 11:00 AM EST Office Visit Dermatology [facility] [address] [place] [address] Charis Bruce PA-C [address] [place] [address] 03/25/2025 11:40 AM EDT Office Visit Family Practice [facility] [address] [facility] [place] [id number] Conner Mendez MD [address] [facility] [place] [address] Health Maintenance Due Date Last Done Comments [...] hyperlipidemia documented in this encounter Care Teams Advice Clerk Relationship Specialty Start Date End Date Conner [place]nez MD [address] [place] [address] PCP - General Family Medicine 07/12/14 documented as of this encounter
--- OUTSIDE RECORDS SUMMARY | 2024-08-09 04:27 | External Medical Summary | Summary of Care ---
Author Name Unknown Organization [facility] Address [address] [place] [address] Phone [phone] Care Team Providers Care Lightout Examiner Name Role Phone Conner Mendez MD Primary [...] 06/17/2024 11:00 AM EST Office Visit Dermatology [facility] [place] [address] [facility] [place] [address] Charis Bruce PA-C [address] [facility] [place] [address] Multiple pigmented nevi*; Skin exam, screening for [...] gastritis. Colon--+tubular adenoma. Jean Carlos 5y 04/07/17 [place] +abd lymphadnopathy, no AAA 02/18 Dr Annie Centeno with [facility] in [place] for CLL 11/17 AAA screen WNl. 2009 colonoscopy WNL. EGD 2010 WNL (for GERd symptoms) History of malignant melanoma of skin 08/25/2014 Overview (09/01/2017): 2013? Sees Dr Hernandez in [place]. Had wide excision reportedly neg. Dyslipidemia, goal LDL below 130 07/12/2014 Palpitations 05/16/2014 Coronary artery disease (CAD) excluded 4 Overview (08/25/2014): 2013 abnormal stress test, normal cath. Family history of abdominal aortic aneurysm 07/2013 Overview (09/01/2017): 2016 CT [place]-no AAA False positive cardiac stress test 10/13/2012 [...] file Not on file Not on file [employer]otics [employer] Not on file Not on [...] 0.6mm) Treatment: WLE Staging: Stage IA - [id number] - < 0.8 mm without ulceration Location [...] top of scalp excision 10/18/15 Fam Hx: Brother-Melanoma (passed), Father- non melanoma [...] verified, site identified and verified. Patient and staffpresent in agreement. Area prepped with alcohol and anesthetized with 0.5% lidocaine with epinephrine at 1:200,000 concentration. Biopsy of lesion performed. 20% AlCl and bandaging applied. Specimen sent to pathology. Patient instructed in routine post-op care. 6. Hx CLL In remission, follows with [facility] every 6 months Patient counseled to [...] 06/17/2024 11:11 AM REF: CONNER MENDEZ [address] [place] [address] (office) [phone] (fax) PCP: CONNER MENDEZ [address] [place] [address] [phone] documented in this encounter Nursing Notes * Estrella Singh CMA - 06/17/2024 10:58 AM EST Chief Complaint Patient presents with Skin Check Pt presents for routine skin check, pt has a cyst on finger of left hand he would like evaluated, no other concerns. Hx: MM, NMSC, AK, CLL Family hx of MM associated with [place] documented in this encounter Plan of Treatment Upcoming Encounters Date Type Department Care Team (Late st Contact Info) Description 03/25/2025 11:40 AM EDT Office Visit Family Practice [facility] [address] [place] [address] Conner Mendez MD [address] [place] [address] Pending Results Name Type Priority Associated Diagnoses [...] skin documented in this encounter Care Teams Lightout Examiner Relationship Specialty Start Date End Date Conner Mendez MD [address] [place] [address] PCP - General Family Medicine 07/12/14 documented as of this encounter
--- OUTSIDE RECORDS SUMMARY | 2024-08-09 04:27 | External Medical Summary | Summary of Care ---
Author Name Unknown Organization [facility] Address [address] [place] [address] Phone [phone] Care Team Providers Care Architectural Superintendent Name Role Phone Conner Jones MD Primary Care Provider + Reason for Visit * Reason Comments Outpatient Testing Encounter Details Date Type Department Care Team (Late st Contact Info) Description 03/04/2024 11:50 AM EDT Laboratory Laboratory, [facility] [address] [place] [phone] [facility] [address] [place] [address] [employer] Other*[id number]; Neuralgia and neuritis; BPH with obstruction/lower urinary tract symptoms Allergies Active Allergy Reactions Criticality Noted Date [...] Overview: 05/28 colon WNL jean carlos 5y 7/18 E[place] -chronic gastritis. Colon--+tubular adenoma. Jean Carlos 5y 04/07/17 [place] +abd lymphadnopathy, no AAA 02/18 Dr Annie Centeno with [facility] in [place] for CLL 11/17 AAA screen WNl. 2009 colonoscopy WNL. EGD 2011 WNL (for GERd symptoms) History of malignant melanoma of skin 08/25/2014 Overview: 2013? Sees Dr Hernandez in [place]. Had wide excision reportedly neg. Dyslipidemia, goal LDL below 130 07/12/2014 Palpitations 05/16/2014 Coronary artery disease (CAD) excluded 4 Overview: 2013 abnormal stress test, normal cath. Family history of abdominal aortic aneurysm 07/2013 Overview: 2016 CT [place]-no AAA False positive cardiac stress test 10/13/2012 [...] 06/17/2024 11:00 AM EST Office Visit Dermatology [facility] [address] [facility] [place] [address] Charis Bruce PA-C [address] [facility] [place] [address] 03/25/2025 11:40 AM EDT Office Visit Family Practice [facility] [address] [place] [address] Conner Jones MD [address] [place] [address] Pending Results Name Type Priority Associated Diagnoses Date /Time MYCODE SUBSEQUENT ADULT Lab Routine [employer] Other*[id number] 03/04/2024 11:36 AM EDT COPPER, SERUM OR PLASMA Lab Routine Neuralgia and neuritis 03/04/2024 11:36 AM EDT PSA Lab Routine BPH with obstruction/lower urinary tract symptoms 03/04/2024 11:36 AM EDT MYCODE SST1 Lab Routine [employer] Other*[id number] 03/04/2024 11:36 AM EDT MYCODE SST2 Lab Routine [employer] Other*[id number] 03/04/2024 11:36 AM EDT Health Maintenance Due Date Last Done Comments [...] this encounter Visit Diagnoses Diagnosis [employer] Other*[id number] Neuralgia and neuritis Neuralgia, neuritis, and radiculitis, unspecified BPH with obstruction/lower urinary tract symptoms Hypertrophy of prostate with urinary obstruction and other lower urinary tract symptoms (LUTS) documented in this encounter Care Teams Architectural Superintendent Relationship Specialty Start Date End Date Conner Jones MD [address] [place] [address] PCP - General Family Medicine 07/12/14 documented as of this encounter
--- OUTSIDE RECORDS SUMMARY | 2024-08-09 04:27 | External Medical Summary | Summary of Care ---
Author Name Unknown Organization [facility] Address [address] [place] [address] Phone [phone] Care Team Providers Care Photographer Finish Name Role Phone Conner Mendez MD Primary [...] 06/17/2024 11:00 AM EST Office Visit Dermatology [facility] [place] [address] [facility] [place] [address] Charis Bruce PA-C 200 [facility] [place] [address] Multiple pigmented nevi*; Skin exam, screening for [...] gastritis. Colon--+tubular adenoma. Jean Carlos 5y 04/07/17 [place] +abd lymphadnopathy, no AAA 02/18 Dr Annie Centeno with [facility] in [place] for CLL 11/17 AAA screen WNl. 2009 colonoscopy WNL. EGD 2010 WNL (for GERd symptoms) History of malignant melanoma of skin 08/25/2014 Overview (09/01/2017): 2013? Sees Dr Hernandez in [place]. Had wide excision reportedly neg. Dyslipidemia, goal LDL below 130 07/12/2014 Palpitations 05/16/2014 Coronary artery disease (CAD) excluded 4 Overview (08/25/2014): 2013 abnormal stress test, normal cath. Family history of abdominal aortic aneurysm 07/2013 Overview (09/01/2017): 2016 CT [place]-no AAA False positive cardiac stress test 10/13/2012 [...] file Not on file Not on file Chain [employer] Not on file Not on file [...] 0.6mm) Treatment: WLE Staging: Stage IA - [id number] - < 0.8 mm without ulceration Location [...] 6. Hx CLL In remission, follows with [facility] every 6 months Patient counseled to examine [...] REF: CONNER MENDEZ [address] [place] [address] (office) [phone] (fax) PCP: CONNER MENDEZ [address] [place] [address] [phone] documented in this encounter Nursing Notes * [...] 11:40 AM EDT Office Visit Family Practice [facility] [address] [place] [address] Conner Mendez MD [address] [place] [address] Pending Results Name Type Priority Associated Diagnoses [...] skin documented in this encounter Care Teams Photographer Finish Relationship Specialty Start Date End Date Conner Mendez MD [address] [place] [address] PCP - General Family Medicine 07/12/14 documented as of this encounter
--- OUTSIDE RECORDS SUMMARY | 2024-08-09 04:28 | External Medical Summary ---
Author Name Unknown Address Unknown Organization K01:[facility] [place] [address] [place] [address] Laboratory Report Ordering Provider Test Date Status ADRIANA ROMERO 03/04/2024 11:36:09 Final Observation Date Value Abnormality Reference (Units ) Status MYCODE SPECIMEN-SST 03/04/2024 11:36:09 Freezing of extracted DNA, whole blood and/or serum. Final Performing Location LABORATORY C - [address] [place] [address]
--- OUTSIDE RECORDS SUMMARY | 2024-08-09 04:28 | External Medical Summary | Summary of Care ---
Author Name Unknown Organization [facility] Address [address] [place] [address] Phone [phone] Care Team Providers Care Elevator Repairer Apprentice Name Role Phone Conner Jones MD Primary Care Provider + Reason for Visit * Reason Comments NEW PATIENT R shoulder * Evaluate & Treat - Unlimited Visits (Within 10 days (routine)) - Pending Review Specialty Diagnoses / Procedures Referred By Contact Referred To Contact Sports Medicine / Orthopedics Diagnoses Osteoarthritis of right acromioclavicular joint Allan Alas PA-C [address] [place] [address] Referral ID Status Reason Start Date Expiration Date Visits Requested Visits Authorized [id number] Pending Review Specialty Services Required 01/21/[phone] Encounter Details Date Type Department Care Team (Latest Contact Info) Description 02/12/2024 10:00 AM EDT Office Visit Orthopaedics [address] [phone] Isaias Moss MD [address] [place] [address] Osteoarthritis of right acromioclavicular joint* Allergies Active Allergy Reactions Criticality Noted Date Comments Bee Venom Edema Other 05/02/2016 Swelling in area that was stung documented as of this encounter (statuses as of 02/12/2024) Medications Medication Sig Dispensed Refills Start Date [...] before bedtime. 180 Tablet 3 10/07/2023 Active Atorvastatin Calcium 20 MG Oral Tablet (Lipitor)Indications: Hyperlipidemia with target LDL less than 130 TAKE 1 TABLET DAILY 90 Tablet 11/19/2023 Active Penciclovir 1 % External Cream Apply to cold sores every 2 hours as needed 15 g 1 12/12/2023 Active Pantoprazole Sodium 40 MG Oral Tablet Delayed Release (Protonix) TAKE 1 TABLET IN THE MORNING 90 Tablet 01/14/2024 Active Hospital, Clinic, or Other Facility Administered Medication Ordered Dose Route Frequency Start Date End Date Status lidocaine 1 % inj 10 mgIndications:Osteoarthriti s of right acromioclavicular joint 10 mg IX ONCE 02/12/2024 02/12/2024 E nded Triamcinolone Acetonide (Kenalog) 40 MG/ML inj 40 mgIndications:Osteoarthriti s of right acromioclavicular joint 40 mg IX ONCE 02/12/2024 02/12/2024 E nded documented as of this encounter (statuses as of 02/12/2024) Active Problems Problem Noted Date Diagnosed Date [...] -chronic gastritis. Colon--+tubular adenoma. Alicia 5y 04/07/17 [place] +abd lymphadnopathy, no AAA 02/18 Dr Annie Centeno with [facility] in [place] for CLL 11/17 AAA screen WNl. 2009 colonoscopy WNL. EGD 2011 WNL (for GERd symptoms) History of malignant melanoma of skin 08/25/2014 Overview: 2013? Sees Dr Hernandez in [place]. Had wide excision reportedly neg. Dyslipidemia, goal LDL below 130 07/12/2014 Palpitations 05/16/2014 Coronary artery disease (CAD) excluded 4 Overview: 2013 abnormal stress test, normal cath. Family history of abdominal aortic aneurysm 07/2013 Overview: 2017 CT [place]-no AAA False positive cardiac stress test 10/13/2012 Family history of ischemic heart disease 013 Other and unspecified hyperlipidemia 09/13/2011 BPH with obstruction/lower urinary tract symptom s 09/13/2011 ED (erectile dysfunction) 09/13/2011 HTN, goal below 140/90 03/07/2011 Meniere's disease Vitamin D deficiency Nephrolithiasis Macular degeneration documented as of this encounter (statuses as of 02/12/2024) Resolved Problems Problem Noted Date Diagnosed Date [...] as of this encounter (statuses as of 02/12/2024) Immunizations Name Administration Dates Next Due COVID-19 [...] t, Adjuvanted, 65+ yrs 04/15/2019 TDAP (age 10 and older)(Boostrix) 10/22/2023 [...] as of this encounter Progress Notes * Isaias Moss MD - 02/12/2024 10:03 AM EDT Presents for procedure only visit. Referred by my colleague Allan Alas PA-C (orthopedic surgery) for ultrasound guided steroid injection of the right AC joint. PROCEDURE NOTE: SHOULDER AC JOINT INJECTION Laterality: Right Time out: Prior to injection, a time out was called to confirm the administration of appropriate medicine, patient name, procedure and confirm to the best of our ability and knowledge the presence of any necessary risks and benefits. Patient verbalized understanding. Ultrasound utilized to guide injection. During the procedure, the needle was visualized in plane and was advanced with continuous ultrasound guidance to the appropriate anatomical landmark as described in the procedure. Ultrasound required due to failed previous injection done without fluoroscopic or ultrasound guidance Sterile technique applied using gloves, chlorhexadine, and alcohol swabs. Ethyl chloride spray for local anesthetic. AC joint injected lateral to medial using 1.5 inch, 25 gauge needle. Injected with 1 mL Lidocaine 1% - 1 mL Triamcinolone Acetonide 40 mg/mL >> inject 2 mL. Patient tolerated procedure with no significant bleeding or adverse reaction. Patient instructed to call or return to clinic for fever, warmth, unusual redness at injection sitefor potential infection. Patient also advised regarding post-procedural pain. Patient to message to update both myself and Allan Alas PA-C (orthopedic surgery) in 3-5 weeks Isaias Moss MD Sports Medicine Primary Care Orthopaedics [address] [address] documented in this encounter Nursing Notes * Maia Hernandez LPN - 02/12/2024 9:57 AM EDT NEW Pt Referral by Allan Alas PA-C R shoulder pain Pt c/o 4/10 pain today Xray 06/27/23 Pt stated he has had 2 prior steroid injections in R shoulder lasting 1-2 mos Pt accompanied by his today Huma Tia VARGAS documented in this encounter Plan of Treatment Upcoming Encounters Date Type Department Care Team (Late st Contact Info) Description 02/12/2024 10:30 AM EDT Imaging Radiology [facility] [address] [facility] [address] Arrived 03/04/2024 10:40 AM EDT Office Visit Family Practice [facility] [address] [place] [address] Conner Jones MD [address] [place] [address] 06/17/2024 11:00 AM EST Office Visit Dermatology [facility] [address] Charis Bruce PA-C [address] [facility] [place] [place] [address] Pending Results Name Type Priority Associated Diagnoses Date /Time POINT OF CARE US JOINT INJECTION SMALL, ORTHO Medical Imaging Routine Osteoarthritis of right acromioclavicular joint 02/12/2024 10:15 AM EDT Health Maintenance Due Date Last Done Comments Cologuard 1995 Fecal Occult Blood Test 1995 Sigmoidoscopy 1995 Zoster Vaccines (1 of 2) 12/22/2012 10/27/2012 Adult Wellness Visit 2016 Depression Screening 01/11/2024 01/10/2023 Influenza Vaccine (FLU shot) (#1) 2024 04/26/2023, 03/26/2022, 04/17/2020, Additional history exists GFR 07/28/2024 07/28/2023, 01/2022, 03/26/2022, Additional history exists Albumin/Creatinine Ratio 01/10/2026 01/10/2023 Colonoscopy 05/23/2027 05/23/2022, 05/07, 01/09/2018, Additional history exists Colorectal Cancer Screening 05/23/2027 DTaP,Tdap,and Td Vaccines (3 - Td or Tdap) 10/21/2033 10/22/2023, 08/30/2010, 10/05/2002 Pneumococcal Vaccine: 65+ Years Completed 06/13/2017, 05/02/2016 COVID-19 Vaccine Discontinued 09/12/2021, 02/2021, 09/18/2020 RETIRED - COLONOSCOPY-EVERY 5 YRS AGES 18-100 Discontinued 05/23/2022, 05/23/2022, 01/09/2018, Additional history exists AAA Screening Completed 06/12/2022, 01/2022, 01/09/2022, Additional history exists HPV (Gardasil) Vaccine Aged Out No lo nger eligible based on patient's age to complete this topic Hepatitis B Vaccine Aged Out No longe r eligible based on patient's age to complete this topic MENINGOCOCCAL (MENACTRA/MENVEO) Aged Out No longer eligible based on patient's age to complete this topic documented as of this encounter Medical Devices Not on filedocumented as of this encounter Visit Diagnoses Diagnosis Osteoarthritis of right acromioclavicular joint- Primary documented in this encounter Administered Medications Inactive Administered Medications - up to 3 most recent administrations Medication Order MAR Action Action Date Dose Rate Site lidocaine 1 % inj 10 mg 10 mg, Intra-Articular, ONCE, On Stacey 02/12/24 at 1100, For 1 dose Given 02/12/2024 10:19 AM EDT 10 mg Shoulder Right Triamcinolone Acetonide (Kenalog) 40 MG/ML inj 40 mg 40 mg, Intra-Articular, ONCE, On Stacey 02/12/24 at 1100, For 1 dose Given 02/12/2024 10:19 AM EDT 40 mg Shoulder Right documented in this encounter Care Teams Elevator Repairer Apprentice Relationship Specialty Start Date End Date Conner Jones MD [address] [facility] [place] [address] PCP - General Family Medicine 07/12/14 documented as of this encounter
--- OUTSIDE RECORDS SUMMARY | 2024-08-09 04:28 | External Medical Summary | Summary of Care ---
Author Name Unknown Organization [facility] Address [address] [place] [address] Phone [phone] Care Team Providers Care Concrete Grinder Operator Name Role Phone Conner Jones MD Primary Care Provider + Reason for Visit * Reason Comments Outpatient Testing Encounter Details Date Type Department Care Team (Late st Contact Info) Description 02/20/2024 1:50 PM EDT Laboratory Laboratory, [facility] [address] [place] [phone] [facility] [address] [place] [address] Chronic lymphocytic leukemia (HCC)* Allergies Active Allergy Reactions Criticality Noted Date Comments Bee Venom Edema Other 05/02/2016 Swelling in area that was stung documented as of this encounter (statuses as of 02/20/2024) Medications Medication Sig Dispensed Refills Start Date [...] 1 TABLET DAILY 90 Tablet 02/18/2024 Active documented as of this encounter (statuses as of 02/20/2024) Active Problems Problem Noted Date Diagnosed Date [...] -chronic gastritis. Colon--+tubular adenoma. Alicia 5y 04/07/17 [place] +abd lymphadnopathy, no AAA 02/18 Dr Annie Centeno with [facility] in [place] for CLL 11/17 AAA screen WNl. 2009 colonoscopy WNL. EGD 2010 WNL (for GERd symptoms) History of malignant melanoma of skin 08/25/2014 Overview: 2013? Sees Dr Hernandez in [place]. Had wide excision reportedly neg. Dyslipidemia, goal [...] as of this encounter (statuses as of 02/20/2024) Resolved Problems Problem Noted Date Diagnosed Date [...] as of this encounter (statuses as of 02/20/2024) Immunizations Name Administration Dates Next Due COVID-19 [...] 10:40 AM EDT Office Visit Family Practice [facility] [address] [place] [address] Conner Jones MD [address] [place] [address] 06/17/2024 11:00 AM EST Office Visit Dermatology [facility] [address] [facility] [place] [address] Charis Bruce PA-C [address] [place] [address] Scheduled Orders Name Type Priority Associated Diagnoses Orde r Schedule CBC WITH WBC DIFFERENTIAL Lab Routine Chronic lymphocytic leukemia (HCC) Every 3 Months for 99 Occurrences starting 02/20/2024 until 02/19/2025, 1 completed Health Maintenance Due Date Last Done Comments Cologuard 1995 Fecal Occult Blood Test 1995 Sigmoidoscopy 1995 Zoster Vaccines (1 of 2) 12/22/2012 10/27/2012 Adult Wellness Visit 2016 Depression Screening 01/11/2024 01/10/2023 Influenza Vaccine (FLU shot) (#1) 2024 04/26/2023, 03/26/2022, 04/17/2020, Additional history exists GFR 07/28/2024 07/28/2023, 1201/2022, 03/26/2022, Additional history exists Albumin/Creatinine Ratio 01/10/2026 [...] Procedure Name Priority Date/Time Associated Diagnosis Comments DIFFERENTIAL, AUTOMATED Routine 02/20/2024 1:54 PM EDT Chronic lymphocytic leukemia (HCC) CBC Routine 02/20/2024 1:54 PM EDT Chronic lymphocytic leukemia (HCC) CBC Routine 02/20/2024 1:54 PM EDT Chronic lymphocytic leukemia (HCC) documented in this encounter Results * (ABNORMAL) DIFFERENTIAL, AUTOMATED (02/20/2024 1:54 PM EDT) WBC 6.36 4.00 - 10.80 K/uL 02/20/2024 2:04 PM EDT [facility] [place] [facility] Neutrophils % 57.4 40.0 - 75.0 % 02/20/2024 2:04 PM EDT [facility] [place] [facility] Lymphocytes % 28.9 18.0 - 42.0 % 02/20/2024 2:04 PM EDT [facility] [place] [facility] Monocytes % 11.9(H) 1.0 - 11.0 % 02/20/2024 2:04 PM EDT [facility] [place] [facility] Eosinophils % 1.6 0.0 - 6.0 % 02/20/2024 2:04 PM EDT [facility] [place] [facility] Basophils % 0.2 0.0 - 2.0 % 02/20/2024 2:04 PM EDT [facility] [place] [facility] Absolute Neutrophils 3.65 1.80 - 7.70 K/uL 02/20/2024 2:04 PM EDT [facility] [place] [facility] Absolute Lymphocytes 1.84 1.00 - 4.80 K/ul 02/20/2024 2:04 PM EDT [facility] [place] [facility] Absolute Monocytes 0.76 0.00 - 1.10 K/uL 02/20/2024 2:04 PM EDT [facility] [place] [facility] Absolute Eosinophils 0.10 0.00 - 0.70 K/uL 02/20/2024 2:04 PM EDT [facility] [place] [facility] Absolute Basophils 0.01 0.00 - 0.20 K/uL 02/20/2024 2:04 PM EDT [facility] [place] [facility] Blood Venous blood specimen / Unknown Venipuncture / Unknown 02/20/2024 1:54 PM EDT 02/20/2024 1:55 PM EDT Efrain Lai MD LAB BLOOD [facility] [place] [facility] [place] [address] * (ABNORMAL) CBC (02/20/2024 1:54 PM EDT) WBC 6.36 4.00 - 10.80 K/uL 02/20/2024 2:04 PM EDT [facility] [place] [facility] RBC 4.38 4.50 - 5.25 M/uL 02/20/2024 2:04 PM EDT [facility] [place] [facility] HGB 13.9(L) 14.0 - 16.8 g/dL 02/20/2024 2:04 PM EDT [facility] [place] [facility] HCT 41.0 40.0 - 48.4 % 02/20/2024 2:04 PM EDT [facility] [place] [facility] MCV 93.6 82.0 - 99.5 fL 02/20/2024 2:04 PM EDT [facility] [place] [facility] MCH 31.7 27.0 - 34.0 pg 02/20/2024 2:04 PM EDT [facility] [place] [facility] MCHC 33.9 32.0 - 36.0 g/dL 02/20/2024 2:04 PM EDT [facility] [place] [facility] RDW 11.6 11.5 - 15.5 % 02/20/2024 2:04 PM EDT [facility] [place] [facility] PLT 137(L) 140 - 400 K/uL 02/20/2024 2:04 PM EDT [facility] [place] [facility] MPV 9.5 6.6 - 11.1 fL 02/20/2024 2:04 PM EDT [facility] [place] [facility] Blood Venous blood specimen / Unknown Venipuncture / Unknown 02/20/2024 1:54 PM EDT 02/20/2024 1:55 PM EDT Efrain Lai MD LAB BLOOD [facility] [place] [facility] [address] [place] [address] documented in this encounter Visit Diagnoses Diagnosis Chronic lymphocytic leukemia (HCC)- Primary Chronic lymphoid leukemia, without mention of having achieved remission documented in this encounter Care Teams Concrete Grinder Operator Relationship Specialty Start Date End Date Conner Jones MD [address] [place] [address] PCP - General Family Medicine 07/12/14 documented as of this encounter
--- OUTSIDE RECORDS SUMMARY | 2024-08-09 04:28 | External Medical Summary ---
Author Name Unknown Address Unknown Organization K01:[facility] [place] - [address] [place] [address] Laboratory Report Ordering Provider Test Date Status VANESSA ESTRADA 03/04/2024 11:36:09 Final Observation Date Value Abnormality Reference (Units ) Status PSA 03/04/2024 11:36:09 0.59 <4.10 (ng/ mL) Final Performing Location LABORATORY [facility] - [address] [place] [address]
--- OUTSIDE RECORDS SUMMARY | 2024-08-09 04:28 | External Medical Summary ---
Author Name Unknown Address Unknown Organization [id number]:[facility] [address] [place] [address] Laboratory Report Ordering Provider Test Date Status DANELLE BETTS 02/20/2024 13:54:58 Final Observation Date Value Abnormality Reference (Units ) Status SYNC LEUKOCYTES IN BLOOD BY AUTOMATED COUNT 02/20/2024 13:54:58 6.36 4.00-10.80 (K/uL) Final Segs 02/20/2024 13:54:58 57.4 40.0-75.0 (%) Final Lymphs % 02/20/2024 13:54:58 28.9 18.0-42.0 (%) Final Monos 02/20/2024 13:54:58 11.9 Above high normal 1.0-11.0 (%) Final Eosinophils 02/20/2024 13:54:58 1.6 0.0-6.0 (%) Final Basos 02/20/2024 13:54:58 0.2 0.0-2.0 (%) Final Absolute Segs 02/20/2024 13:54:58 3.65 1.80-7.70 (K/uL) Final Lymphs, absolute 02/20/2024 13:54:58 1.84 1.00-4.80 (K/ul) Final Monos, Abs 02/20/2024 13:54:58 0.76 0.00-1.10 (K/uL) Final Eos, Abs 02/20/2024 13:54:58 0.10 0.00-0.70 (K/uL) Final Basos, Abs 02/20/2024 13:54:58 0.01 0.00-0.20 (K/uL) Final Performing Location [facility] [place] [address]
--- OUTSIDE RECORDS SUMMARY | 2024-08-09 04:28 | External Medical Summary | Summary of Care ---
Author Name Unknown Organization [facility] Address [address] [place] [address] Phone [phone] Care Team Providers Care Geospatial Information Technologist Name Role Phone Conner Mendez MD Primary Care Provider + Reason for Visit * Reason Comments eRx-Medication Refill Encounter Details Date Type Department Care Team (Late st Contact Info) Description 02/17/[address] [facility] [address] [place] [address] Conner Mendez MD [address] [place] [address] Hyperlipidemia with target LDL less than 130 Allergies Active Allergy Reactions Criticality Noted Date Comments Bee Venom Edema Other 05/02/2016 Swelling in area that was stung documented as of this encounter (statuses as of 02/18/2024) Medications Medication Sig Dispensed Refills Start Date [...] 1 TABLET DAILY 90 Tablet 02/18/2024 Active Atorvastatin Calcium 20 MG Oral Tablet (Lipitor)Indicati ons:Hyperlipidemi a with target LDL less than 130 TAKE 1 TABLET DAILY 90 Tablet 11/19/2023 02/18/2024 Discontinued documented as of this encounter (statuses as of 02/18/2024) Active Problems Problem Noted Date Diagnosed Date [...] -chronic gastritis. Colon--+tubular adenoma. Alicia 5y 04/07/17 [place] +abd lymphadnopathy, no AAA 02/18 Dr Annie Centeno with [facility] in [place] for CLL 11/17 AAA screen WNl. 2009 colonoscopy WNL. EGD 2011 WNL (for GERd symptoms) History of malignant melanoma of skin 08/25/2014 Overview: 2013? Sees Dr Hernandez in [place]. Had wide excision reportedly neg. Dyslipidemia, goal LDL below 130 07/12/2014 Palpitations 05/16/2014 Coronary artery disease (CAD) excluded 4 Overview: 2013 abnormal stress test, normal cath. Family history of abdominal aortic aneurysm 07/2013 Overview: 2016 CT [place]-no AAA False positive cardiac stress test 10/13/2012 Family history of ischemic heart disease 013 Other and unspecified hyperlipidemia 09/13/2011 BPH with obstruction/lower urinary tract symptom s 09/13/2011 ED (erectile dysfunction) 09/13/2011 HTN, goal below 140/90 03/07/2011 Meniere's disease Vitamin D deficiency Nephrolithiasis Macular degeneration documented as of this encounter (statuses as of 02/18/2024) Resolved Problems Problem Noted Date Diagnosed Date [...] as of this encounter (statuses as of 02/18/2024) Immunizations Name Administration Dates Next Due COVID-19 [...] encounter Miscellaneous Notes * Telephone Encounter - Lulu Schwartz RPh - 02/18/2024 3:13 PM EDTSigned Prescriptions: Disp Refills Atorvastatin Calcium 20 MG Oral Tablet (Li*90 Tab*0 Sig: TAKE 1 TABLET DAILYAuthorizing Provider: CONNER MENDEZ User: LULU SCHWARTZ * Telephone Encounter - Lulu Schwartz RPh - 02/18/2024 3:13 PM EDT RX authorized. Zero refills given until upcoming appt. 03/04/2024 Lulu Bedolla, PharmD Clinical Pharmacist [facility] [phone] 02/18/2024 3:13 PM documented in this encounter Plan of Treatment Upcoming Encounters Date Type Department Care Team (Late st Contact Info) Description 03/04/2024 10:40 AM EDT Office Visit Family [facility] [address] [place] [address] Conner Mendez MD [address] [place] [address] 06/17/2024 11:00 AM EST Office Visit Dermatology [facility] [place] [address] [place] [address] Charis Bruce PA-C [address] [place] [address] Health Maintenance Due Date Last Done Comments [...] hyperlipidemia documented in this encounter Care Teams Geospatial Information Technologist Relationship Specialty Start Date End Date Conner Mendez MD [address] [place] [address] PCP - General Family Medicine 07/12/14 documented as of this encounter
--- OUTSIDE RECORDS SUMMARY | 2024-08-09 04:28 | External Medical Summary ---
Author Name Unknown Address Unknown Organization K01:[facility] [place] - [address] [place] [address] Laboratory Report Ordering Provider Test Date Status ADRIANA ROMERO 03/04/2024 11:36:09 Final Observation Date Value Abnormality Reference (Units ) Status MYCODE SPECIMEN-SST 03/04/2024 11:36:09 Freezing of extracted DNA, whole blood and/or serum. Final Performing Location [facility] - [address] [place] [address]
--- OUTSIDE RECORDS SUMMARY | 2024-08-09 04:28 | External Medical Summary ---
Author Name Unknown Address Unknown Organization K0G:[facility] [address] [place] [address] Laboratory Report Ordering Provider Test Date Status DANELLE BETTS 02/20/2024 13:54:58 Final Observation Date Value Abnormality Reference (Units ) Status WBC, Total 02/20/2024 13:54:58 6.36 4.00-10.8 0 (K/uL) Final RBC 02/20/2024 13:54:58 4.38 4.50-5.25 (M/uL) Final Hemoglobin 02/20/2024 13:54:58 13.9 Below low normal 14 .0-16.8 (g/dL) Final HCT 02/20/2024 13:54:58 41.0 40.0-48.4 (%) Final MCV 02/20/2024 13:54:58 93.6 82.0-99.5 (fL) Final MCH 02/20/2024 13:54:58 31.7 27.0-34.0 (pg) Final MCHC 02/20/2024 13:54:58 33.9 32.0-36.0 (g/dL) Final RDW 02/20/2024 13:54:58 11.6 11.5-15.5 (%) Final Platelets 02/20/2024 13:54:58 137 Below low normal 140 -400 (K/uL) Final MPV 02/20/2024 13:54:58 9.5 6.6-11.1 ( fL) Final Performing Location [facility] [address] [place] [address]
--- OUTSIDE RECORDS SUMMARY | 2024-08-09 04:28 | External Medical Summary ---
Author Name Unknown Address Unknown Organization : Laboratory Report Ordering Provider Test Date Status VANESSA ESTRADA 03/04/2024 11:36:09 Final Observation Date Value Abnormality Reference (Units ) Status Copper 03/04/2024 11:36:09 114 70-175 (mc g/dL) Final This test was developed and its analytical performance
characteristics have been determined by [employer]
[facility] [place], [place]. It has
not been cleared or approved by the U.S. Food and Drug
Administration. This assay has been validated pursuant
to the CLIA regulations and is used for clinical
purposes.

Test Performed at:
[facility]
[address]
[place] [address]
Kentrell Brooke M.D., Ph.D.,Director of Laboratories Performing Location
--- OUTSIDE RECORDS SUMMARY | 2024-08-09 04:28 | External Medical Summary | Summary of Care ---
Author Name Unknown Organization [facility] Address [address] [place] [address] Phone [phone] Care Team Providers Care Terminal Worker Name Role Phone Conner Jones MD Primary Care Provider + Reason for Visit * Reason Comments NEW PATIENT R shoulder * Evaluate & Treat - Unlimited Visits (Within 10 days (routine)) - Pending Review Specialty Diagnoses / Procedures Referred By Contact Referred To Contact Sports Medicine / Orthopedics Diagnoses Osteoarthritis of right acromioclavicular joint Allan Alas PA-C [address] [place] [address] Referral ID Status Reason Start Date Expiration Date Visits Requested Visits Authorized [id number] Pending Review Specialty Services Required 01/21/[phone] Encounter Details Date Type Department Care Team (Latest Contact Info) Description 02/12/2024 10:00 AM EDT Office Visit Orthopaedics [address] [phone] Isaias Moss MD [address] [place] [address] Osteoarthritis of right acromioclavicular joint* Allergies Active [...] -chronic gastritis. Colon--+tubular adenoma. Alicia 5y 04/07/17 [place] +abd lymphadnopathy, no AAA 02/18 Dr Annie Centeno with [facility] in [place] for CLL 11/17 AAA screen WNl. 2009 colonoscopy WNL. EGD 2011 WNL (for GERd symptoms) History of malignant melanoma of skin 08/25/2014 Overview: 2013? Sees Dr Hernandez in [place]. Had wide excision reportedly neg. Dyslipidemia, goal LDL below 130 07/12/2014 Palpitations 05/16/2014 Coronary artery disease (CAD) excluded 4 Overview: 2013 abnormal stress test, normal cath. Family history of abdominal aortic aneurysm 07/2013 Overview: 2017 CT [place]-no AAA False positive cardiac stress test 10/13/2012 [...] MD Sports Medicine Primary Care Orthopaedics [address] [phone] documented in this encounter Nursing Notes * [...] 10:40 AM EDT Office Visit Family Practice [facility] [address] [place] [address] Conner Jones MD [address] [place] [address] 06/17/2024 11:00 AM EST Office Visit Dermatology [facility] [address] [facility] [place] [address] Charis Bruce PA-C [address] [facility] [place] [address] Pending Results Name Type Priority Associated Diagnoses [...] Right documented in this encounter Care Teams Terminal Worker Relationship Specialty Start Date End Date Conner Jones MD [address] [place] [address] PCP - General Family Medicine 07/12/14 documented as of this encounter
[2024-08-09] MEDS: ONDANSETRON INJ 2 MG/ML 2 ML VIAL IV STA (04:38)
[2024-08-09] MEDS: SODIUM CHLORIDE 0.9% 500 ML IV ONE (04:38)
[2024-08-09] MEDS: MoRPHine SULFATE 4 MG/ML 1 ML CARP\\VIAL IV STA (04:38)
--- NOTE | 2024-08-09 04:42 | Emergency Department Note ---
ED Visit Note I was consulted by the Advanced Practice Provider. I personally made/approved the management plan and take responsibility for the patient management. I performed a substantive portion of the visit. This includes the aspects of: -History/Physical -MDM
--- NOTE | 2024-08-09 04:45 | Emergency Department Note ---
History of Present Illness General Chief complaint: Constipation Stated complaint: BOWEL OBSTRUCTION Time Seen by Provider: 08/09/24 04:24 History of Present Illness This 74-year-old male with a PMH of paroxysmal atrial fibrillation on Eliquis, hypertension, dyslipidemia, CAD, BPH, CLL following at [facility] on immunotherapy, Mnire's disease presents ER complaining of abdominal pain with no bowel movement. He is concerned he has another bowel obstruction. Patient denies chest pain, dyspnea, fevers or any other medical complaints. Home Medications Medication Instructions Recorded Confirmed Type Lactobacillus acidophilus 250 1,000 mmu cells PO DAILY 08/23/19 08/06/23 History million cell capsule (Probiotic Acidophilus) apixaban 5 mg tablet (Eliquis) 5 mg PO BID 08/23/19 08/06/23 History ascorbic acid (vitamin C) 1,000 mg 1 g PO DAILY 08/23/19 08/06/23 History tablet (Vitamin C) atorvastatin 20 mg tablet 20 mg PO HS 08/23/19 08/06/23 History flecainide 50 mg tablet 50 mg PO BID 08/23/19 08/06/23 History glucosamine 750 dc-xmnpkrqhxb-bhg 1 tab PO BID 08/23/19 08/06/23 History no.1 625 mg-C 30 lc-ptch-eimz tablet (Glucosamine-Chondroitin 3X) metoprolol succinate 25 mg 12.5 mg PO DAILY 08/23/19 08/06/23 History tablet,extended release 24 hr vit C 250 mg-vit E 90 mg-zinc 40 1 tab PO BID 08/23/19 08/06/23 History mg-copper 1 ur-jleoxg-fboomq capsule (PreserVision AREDS-2) zinc 50 mg tablet 50 mg PO DAILY 08/23/19 08/06/23 History pantoprazole 20 mg tablet,delayed 20 mg PO DAILY 07/28/23 08/06/23 History release (Protonix) venetoclax 100 mg tablet 400 mg PO HS 07/28/23 08/06/23 History (Venclexta) multivitamin 1 tab PO DAILY 08/06/23 08/06/23 History Allergies Allergy/AdvReac Type Severity Reaction Status Date / Time bee venom protein (honey bee) Allergy Intermediate Hives Verified 08/06/23 10:05 orphenadrine AdvReac Intermediate MENTAL Verified 08/06/23 10:05 CHANGES oxycodone AdvReac Mild NAUSEA Verified 08/06/23 10:05 Past Med/Surg History Problem List (Updated 08/09/24 @ 05:44 by Opal Peck PA-C) Paroxysmal atrial fibrillation SBO (small bowel obstruction) (Acute) CLL (chronic lymphocytic leukemia) Follows routinely with heme/onc Hypertension GERD (gastroesophageal reflux disease) Medical History (Updated 08/09/24 @ 05:44 by Opal Peck PA-C) Abdominal hernia Hx SBO following lumbar fusion Osteoarthritis Melanoma Hyperlipidemia Atrial fibrillation s/p Imbruvica medication regimen Surgical History (Updated 07/28/23 @ 20:36 by Ann Gonzalez PA-C) History of appendectomy History of cardioversion 08/25/19 at [facility] S/P epidural steroid injection H/O elbow surgery laparoscopic elbow x2 S/P right knee arthroscopy S/P lumbar fusion S/P right inguinal hernia repair laparoscopic (with complications d/t arterial bleed) [facility] (~6-10 years ago) S/P left inguinal hernia repair open repair History of colonoscopy History of esophagogastroduodenoscopy (EGD) History of appendectomy H/O local excision of skin lesion History of adenoidectomy History of tonsillectomy History of cardiac cath 2012. no stents. Family History Brother FHx: brain cancer FHx: melanoma Aunt Family hx of colon cancer Grandfather Family history of diabetes mellitus Mother Family history of diabetes mellitus FHx: stroke Social History Smoking Status: Former smoker Second Hand Exposure: Yes (HX); Do You Dip or Chew Tobacco: No; Hx Alcohol Use: Yes Alcohol type: beer Hx Substance Use: No Preferred Language: Mongolian Communication Ability: Effective Pizza Chef Required: No Beliefs That Will Affect Care: None Current Living Situation: Family Feels Safe at Home: Yes Assistive Devices: Glasses Review of Systems A total of 10 systems reviewed and were otherwise negative Physical Exam Vital Signs Vital Signs - 24 hr 08/09/24 04:22 08/09/24 04:38 08/09/24 04:38 Temperature 36.5 C Temperature Source Temporal Artery Scan Pulse Rate 70 Pulse Rate [Apical] 70 Pulse Rate from SpO2 Sensor Respiratory Rate 18 16 Respiratory Effort / Characteristics Non-Labored Spontaneous Non-Labored Respiratory Depth Normal Normal Blood Pressure 172/107 H Blood Pressure [Right Arm] 169/94 H Blood Pressure Mean 128 Blood Pressure Mean [Right Arm] 119 Pulse Oximetry 97 94 96 Oxygen Delivery Method Room Air Room Air Room Air Sepsis Recent Fever Within 48 Hours No Sepsis New/Unexplained Change in Mental Status No Sepsis Action Taken by Nursing No Action Required 08/09/24 04:38 08/09/24 04:45 08/09/24 04:45 Temperature Temperature Source Pulse Rate 69 72 Pulse Rate [Apical] Pulse Rate from SpO2 Sensor 71 Respiratory Rate 24 Respiratory Effort / Characteristics Respiratory Depth Blood Pressure 130/82 Blood Pressure [Right Arm] Blood Pressure Mean 100 Blood Pressure Mean [Right Arm] Pulse Oximetry 95 Oxygen Delivery Method Sepsis Recent Fever Within 48 Hours Sepsis New/Unexplained Change in Mental Status Sepsis Action Taken by Nursing 08/09/24 04:45 08/09/24 04:45 08/09/24 04:45 Temperature Temperature Source Pulse Rate Pulse Rate [Apical] Pulse Rate from SpO2 Sensor Respiratory Rate Respiratory Effort / Characteristics Respiratory Depth Blood Pressure 130/82 130/82 130/82 Blood Pressure [Right Arm] Blood Pressure Mean 100 100 100 Blood Pressure Mean [Right Arm] Pulse Oximetry Oxygen Delivery Method Sepsis Recent Fever Within 48 Hours Sepsis New/Unexplained Change in Mental Status Sepsis Action Taken by Nursing 08/09/24 04:57 08/09/24 05:00 08/09/24 05:03 Temperature Temperature Source Pulse Rate 67 65 Pulse Rate [Apical] Pulse Rate from SpO2 Sensor 66 66 Respiratory Rate 24 20 Respiratory Effort / Characteristics Respiratory Depth Blood Pressure 142/84 H Blood Pressure [Right Arm] Blood Pressure Mean 98 Blood Pressure Mean [Right Arm] Pulse Oximetry 92 92 Oxygen Delivery Method Sepsis Recent Fever Within 48 Hours Sepsis New/Unexplained Change in Mental Status Sepsis Action Taken by Nursing 08/09/24 05:36 08/09/24 05:45 Temperature Temperature Source Pulse Rate 69 Pulse Rate [Apical] Pulse Rate from SpO2 Sensor 69 Respiratory Rate 20 Respiratory Effort / Characteristics Respiratory Depth Blood Pressure 135/84 Blood Pressure [Right Arm] Blood Pressure Mean 104 Blood Pressure Mean [Right Arm] Pulse Oximetry 95 Oxygen Delivery Method Sepsis Recent Fever Within 48 Hours Sepsis New/Unexplained Change in Mental Status Sepsis Action Taken by Nursing VITALS: Vitals are noted on the nurse's note and reviewed by myself. Vital signs stable. GENERAL: Pleasant gentleman who appears uncomfortable, in no acute distress, nondiaphoretic, well-developed well-nourished. SKIN: Capillary reflex less than 2 seconds. HEENT: Normocephalic. PERRLA. EOMI. Nares patent. Mucous membranes moist. Neck is supple without nuchal rigidity. HEART: Regular rate and rhythm LUNGS: Clear to auscultation bilaterally without wheezes, rales or rhonchi. No retractions or accessory muscle use. ABDOMEN: Positive bowel sounds x 4. Normal tympanic percussion. Soft, tender to palpation mid abdomen, without masses or organomegaly. Coreas sign negative. No guarding or rebound tenderness. no CVA tenderness MUSCULOSKELETAL: No gross musculoskeletal defects. NEURO: Patient was alert and oriented to person place and time. No focal neurological deficits. Course Administered Medications Acetaminophen (Ofirmev) 1,000 mg in 100 mls @ 400 mls/hr IV NOW STA Stop: 08/09/24 07:00 Last Admin: 08/09/24 06:49 Dose: 400 mls/hr Documented By: NIYAH Discontinued Medications Sodium Chloride (Nss) 500 mls @ 999 mls/hr IV .Q31M ONE Stop: 08/09/24 04:55 Last Infusion: 08/09/24 05:20 Dose: Infused Documented By: Admin: 08/09/24 04:38 Dose: 999 mls/hr Documented By: NIYAH Ioversol (Optiray 320 100ml) 100 ml IV ONCE ONE Stop: 08/09/24 05:23 Last Admin: 08/09/24 05:22 Dose: 93 ml Documented By: LINA Morphine Sulfate (Morphine Sulfate 4 Mg/Ml 1 Ml Carp\Vial) 4 mg IV NOW STA Stop: 08/09/24 04:26 Last Admin: 08/09/24 04:38 Dose: 4 mg Documented By: NIYAH Ondansetron HCl (Ondansetron Inj 2 Mg/Ml 2 Ml Vial) 4 mg IV NOW STA Stop: 08/09/24 04:31 Last Admin: 08/09/24 04:38 Dose: 4 mg Documented By: NIYAH Medical Decision Making Medical Records Attestation: I reviewed the patient's medical records. Home Medications Current Medication List: was personally reviewed by me Laboratory Data Attestation: I reviewed the patient's lab results. 08/09/24 04:25 08/09/24 04:25 Lab Results 08/09/24 08/09/24 08/09/24 Range/Units 04:25 04:42 04:59 WBC 6.83 (4.8-10.8) K/ul RBC 4.68 L (4.70-6.10) M/uL Hgb 14.9 (14.0-18.0) g/dl POC Hgb 12.9 L (14.0-18.0) g/dl Hct 41.2 L (42.0-52.0) % POC Hct 38 L (42-52) % MCV 88.0 (80.0-100.0) fL MCH 31.8 (25.0-34.0) pg MCHC 36.2 H (32.0-36.0) g/dL RDW Std Deviation 38.4 (36.4-46.3) fL RDW Coeff of Miya 11.9 (11.5-14.5) % Plt Count 148 (130-400) K/uL MPV 9.4 (9.4-12.4) fL Immature Gran % (Auto) 0.3 % Neut % (Auto) 72.1 % Lymph % (Auto) 19.9 % Lamar % (Auto) 6.7 % Eos % (Auto) 0.6 % Baso % (Auto) 0.4 % Neut # (Auto) 4.92 (1.40-6.50) K/uL Lymph # (Auto) 1.36 (1.20-3.40) K/uL Lamar # (Auto) 0.46 (0.11-0.59) K/uL Eos # (Auto) 0.04 (0.00-0.50) K/uL Baso # (Auto) 0.03 (0.00-0.20) K/uL Immature Gran # (Auto) 0.02 (0.01-0.20) K/uL POC Sodium 140 (135-144) mmol/L Sodium 139 (136-145) mmol/L POC Potassium 3.9 (3.3-5.0) mmol/L Potassium 4.2 (3.5-5.1) mmol/L POC Chloride 105 (101-112) mmol/L Chloride 106 (98-107) mmol/L Carbon Dioxide 26 (21-32) mmol/L POC Total CO2 25 (24-31) mmol/L Anion Gap 7 (3-11) POC Anion Gap 15.0 L (16-25) mmol/L POC BUN 18 (7-18) mg/dl BUN 19 (6-23) mg/dl Creatinine 1.07 (0.6-1.4) mg/dl POC Creatinine 1.1 (0.6-1.3) mg/dl Est Cr Clr Drug Dosing 68.5 ml/min eGFR 72.82 BUN/Creatinine Ratio 17.8 (10-20) Glucose 151 H (70-99(Fasting)) mg/dl POC Glucose (other) 152 H (70-99) mg/dl Lactate 1.4 (0.4-2.0) mmol/L Calcium 9.9 (8.6-10.3) mg/dl POC Ioniz Calcium Saurav 1.18 (1.12-1.32) mmol/l Total Bilirubin 0.8 (0.2-1.0) mg/dl AST 18 (13-39) U/L ALT 16 (7-52) U/L Alkaline Phosphatase 63 (34-104) U/L Total Protein 6.4 (6.0-8.3) gm/dl Albumin 4.2 (3.4-5.0) gm/dl Globulin 2.2 L (2.5-4.0) gm/dl Albumin/Globulin Ratio 1.9 (0.9-2) Lipase 20 (11-82) U/L Imaging Data Attestation: I personally reviewed and interpreted this imaging study as follows: Radiologist's Impression: Abdomen/Pelvis CT 08/09/24 04:25 EXAM: CT abd pelvis IV con only CLINICAL HISTORY: mid abd pain, hx SBO. TECHNIQUE: Contrast-enhanced CT of the abdomen and pelvis was performed, with the following protocol: axial images with, and reconstructed coronal and sagittal images. Intravenous contrast was administered. One of the following dose reduction techniques was utilized for this exam: Automated exposure control, adjustment of the mA and/or kV according to patient size, and use of iterative reconstruction. COMPARISON: CT dated 07/28/2023. FINDINGS: Abdomen: Liver: Normal in size, shape, and density. 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 A tiny 7 mm hypodensity in segment 6 of the liver, likely benign(stable). Hepatic vasculature and biliary ducts are unremarkable. Gallbladder and Biliary System: The gallbladder is normal in size and shape. No wall thickening, pericholecystic fluid, or gallstones were identified. The common bile duct is normal in caliber without dilation. Pancreas: Pancreatic head, body, and tail are visualized and appear normal in size and density. No pancreatic masses or calcifications were noted. The pancreatic duct is not dilated. Spleen: Normal in size, shape, and density. No splenic lesions or masses were identified. Kidneys and Adrenal Glands: Both kidneys are normal in size, shape, and position. Cortical thickness is within normal limits. A 20 mm hypodense area in the right kidney, is stable. No renal calculi or hydronephrosis. Adrenal glands are unremarkable with no evidence of masses or hyperplasia. Pelvis: Urinary Bladder: Normal in contour and wall thickness. No intraluminal lesions were identified. Prostate: Normal in size and contour. No focal lesions or masses were identified. Bowel: A distended fluid-filled stomach is seen. Multiple prominent fluid-filled small bowel loops are seen along the anterior abdominal wall with adjacent free fluid, leading to a focally dilated distal ileal loop right inguinal hernia. Fecal matter, measuring up to 3.3 cm in diameter, continuing into edematous collapsed distal ileal loops. Surrounding areas of fat stranding and haziness are seen. A focus of air is seen in this dilated ileal loop wall, along the right lateral aspect(229/385). No abnormal bowel wall enhancement is seen. Extensive colonic diverticulosis, without any evidence of acute diverticulitis. No evidence of appendicitis. Fat-containing right inguinal hernia, with soft tissue thickening, in the pelvis and right femoral region(stable). Mild free fluid is seen in the pelvis(new). 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 Bones and Soft Tissues: Degenerative changes in the visualized spine, with mild anterolisthesis of L5 over S1(stable). The metallic spinal fixator is seen through L3-S1 levels, with postlaminectomy changes at the L5-S1 level(stable). IMPRESSION: 1. High grade Small yuni obstruction as described. 2. 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 3. Mild free fluid is seen in the pelvis (new). 4. Fat-containing right inguinal hernia, with soft tissue thickening, in the pelvis and right femoral region (stable). 5. The rest of the findings have been stable since the previous scan. Electronically signed by Humphrey Oseguera 08-09-2024 06:37 AM [facility] Narrative Prior records/ancillary studies reviewed. Triage Nursing notes reviewed. Additional history obtained from family. The patient's history was concerning for abdominal pain. Differential diagnosis: Etiologies such as appendicitis, diverticulitis, PUD, biliary pathology, UTI, pancreatitis, obstruction, mesenteric ischemia, aortic pathology, infections, inflammatory bowel disease, renal colic, as well as others were entertained. Physical examination findings: As above. ER treatment provided: An order was placed for continuous cardiac monitoring. The monitor shows a rate of 60-100 with a sinus rhythm per my Independent interpretation. IV fluids, Zofran and morphine ordered On reassessment the patient felt better. Diagnostics interpreted by me: The labs Independently Interpreted by myself revealed no worrisome leukocytosis, negative lactic Imaging studies: Imaging was reviewed and read by radiology Consultation: A consultation was placed with the hospitalist. The case was discussed and diagnostics were reviewed. The patient was evaluated in the ER for further treatment. Exam and history seem consistent with recurrent bowel obstruction. Patient was placed NPO. Medicine was consulted and accepts admission. Patient will be admitted to the medical service.By the evaluation outlined above emergent etiologies such as appendicitis, diverticulitis, PUD, biliary pathology, UTI, pancreatitis, mesenteric ischemia, aortic pathology, infections, inflammatory bowel disease, renal colic, as well as others were deemed relatively unlikely. The pt informed about the findings as listed above. All questions were answered and pleased with the treatment. The chart was completed utilizing [employer] voice recognition software. Grammatical errors, random word insertions, pronoun errors, and incomplete sentences are an occassional consequence of this system due to software limitations, ambient noise, and hardware issues. Any formal questions or concerns about the content, text, or information contained within the body of this dictation should be directly addressed to the physician student assistant for clarification. Impression & Plan SBO (small bowel obstruction) Discharge Plan Visit Data Chief Complaint: Constipation Stated Complaint: BOWEL OBSTRUCTION ED Provider: Quan Londono ED Midlevel Provider: Opal Peck Discharge Problem: SBO (small bowel obstruction) Patient Disposition: Admitted As Inpatient Condition: Fair Forms Stand Alone Forms: My [facility] Prescriptions Prescriptions: No Action multivitamin Tablet 1 tab PO DAILY ascorbic acid (vitamin C) [Vitamin C] 1,000 mg Tablet 1 g PO DAILY atorvastatin 20 mg Tablet 20 mg PO HS flecainide 50 mg Tablet 50 mg PO BID zinc 50 mg Tablet 50 mg PO DAILY metoprolol succinate 25 mg Tablet Extended Release 24 Hr 12.5 mg PO DAILY [id number] [Glucosamine-Chondroitin 3X] 750-625-30 mg Tablet 1 tab PO BID Eliquis 5 mg Tablet 5 mg PO BID PreserVision AREDS-2 [id number] nl-ynpl-pz-mg Capsule 1 tab PO BID Probiotic Acidophilus 1.5 mg (250 million cell) Capsule 1,000 mmu cells PO DAILY pantoprazole [Protonix] 20 mg Tablet,Delayed Release (Dr/Ec) 20 mg PO DAILY Venclexta 100 mg tablet 400 mg PO HS Referrals Referrals: Conner Jones MD [Primary Care Provider] -
[2024-08-09 05:10] LABS: Basophils # (auto) 0.03 K/uL (0.00-0.20); Basophils % (auto) 0.4 %; Eosinophils # (auto) 0.04 K/uL (0.00-0.50); Eosinophils % (auto) 0.6 %; Hematocrit (blood only) 41.2 % (42.0-52.0); Hemoglobin 14.9 g/dl (14.0-18.0); Immature Granulocytes # (auto) 0.02 K/uL (0.01-0.20); Immature Granulocytes % (auto) 0.3 %; Lymphocytes # (auto) 1.36 K/uL (1.20-3.40); Lymphocytes % (auto) 19.9 %; Mean Corpuscular Hemoglobin 31.8 pg (25.0-34.0); Mean Corpuscular Hgb Conc 36.2 g/dL (32.0-36.0); Mean Platelet Volume 9.4 fL (9.4-12.4); Monocytes # (auto) 0.46 K/uL (0.11-0.59); Monocytes % (auto) 6.7 %; Neutrophils # (auto) 4.92 K/uL (1.40-6.50); Neutrophils % (auto) 72.1 %; Platelet Count 148 K/uL (130-400); RDW Coefficient of Variation 11.9 % (11.5-14.5); RDW Standard Deviation 38.4 fL (36.4-46.3); Red Blood Count 4.68 M/uL (4.70-6.10); White Blood Count 6.83 K/ul (4.8-10.8)
[2024-08-09 05:11] LABS: iSTAT Creatinine 1.1 mg/dl (0.6-1.3); iSTAT Hemoglobin 12.9 g/dl (14.0-18.0); iSTAT Ionized Calcium 1.18 mmol/l (1.12-1.32); iSTAT Potassium 3.9 mmol/L (3.3-5.0)
[2024-08-09] MEDS: OPTIRAY 320 100ml IV ONE (05:22)
[2024-08-09 05:26] LABS: Albumin Globulin Ratio 1.9 (0.9-2); Albumin Level 4.2 gm/dl (3.4-5.0); BUN Creatinine Ratio 17.8 (10-20); Bilirubin,Total 0.8 mg/dl (0.2-1.0); Calcium 9.9 mg/dl (8.6-10.3); Creatinine Clr Calc Pharmacy 68.5 ml/min; Globulin 2.2 gm/dl (2.5-4.0); Potassium 4.2 mmol/L (3.5-5.1); Total Protein 6.4 gm/dl (6.0-8.3)
--- NOTE | 2024-08-09 06:37 | CT Scan Report ---
EXAM: CT abd pelvis IV con only CLINICAL HISTORY: mid abd pain, hx SBO. TECHNIQUE: Contrast-enhanced CT of the abdomen and pelvis was performed, with the following protocol: axial images with, and reconstructed coronal and sagittal images. Intravenous contrast was administered. One of the following dose reduction techniques was utilized for this exam: Automated exposure control, adjustment of the mA and/or kV according to patient size, and use of iterative reconstruction. COMPARISON: CT dated 07/28/2023. FINDINGS: Abdomen: Liver: Normal in size, shape, and density. 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 A tiny 7 mm hypodensity in segment 6 of the liver, likely benign(stable). Hepatic vasculature and biliary ducts are unremarkable. Gallbladder and Biliary System: The gallbladder is normal in size and shape. No wall thickening, pericholecystic fluid, or gallstones were identified. The common bile duct is normal in caliber without dilation. Pancreas: Pancreatic head, body, and tail are visualized and appear normal in size and density. No pancreatic masses or calcifications were noted. The pancreatic duct is not dilated. Spleen: Normal in size, shape, and density. No splenic lesions or masses were identified. Kidneys and Adrenal Glands: Both kidneys are normal in size, shape, and position. Cortical thickness is within normal limits. A 20 mm hypodense area in the right kidney, is stable. No renal calculi or hydronephrosis. Adrenal glands are unremarkable with no evidence of masses or hyperplasia. Pelvis: Urinary Bladder: Normal in contour and wall thickness. No intraluminal lesions were identified. Prostate: Normal in size and contour. No focal lesions or masses were identified. Bowel: A distended fluid-filled stomach is seen. Multiple prominent fluid-filled small bowel loops are seen along the anterior abdominal wall with adjacent free fluid, leading to a focally dilated distal ileal loop right inguinal hernia. Fecal matter, measuring up to 3.3 cm in diameter, continuing into edematous collapsed distal ileal loops. Surrounding areas of fat stranding and haziness are seen. A focus of air is seen in this dilated ileal loop wall, along the right lateral aspect(229/385). No abnormal bowel wall enhancement is seen. Extensive colonic diverticulosis, without any evidence of acute diverticulitis. No evidence of appendicitis. Fat-containing right inguinal hernia, with soft tissue thickening, in the pelvis and right femoral region(stable). Mild free fluid is seen in the pelvis(new). 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 Bones and Soft Tissues: Degenerative changes in the visualized spine, with mild anterolisthesis of L5 over S1(stable). The metallic spinal fixator is seen through L3-S1 levels, with postlaminectomy changes at the L5-S1 level(stable). IMPRESSION: 1. High grade Small yuni obstruction as described. 2. 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 3. Mild free fluid is seen in the pelvis (new). 4. Fat-containing right inguinal hernia, with soft tissue thickening, in the pelvis and right femoral region (stable). 5. The rest of the findings have been stable since the previous scan. Electronically signed by Humphrey Oseguera 08-09-2024 06:37 AM
[2024-08-09] MEDS: ACETAMINOPHEN 1,000 MG/100 ML VIAL IV STA (06:49)
--- NOTE | 2024-08-09 07:52 | History & Physical Report ---
<Statement entered by Wood Romero DO - 08/09/24 11:55> I have seen and examined the patient and have discussed the case with the advance practice provider. I have reviewed the advanced practitioner's documentation, and I agree with, and take responsibility for that plan of care. Patient seen while still in the ED. He denies any emesis. Trying to see if he can avoid an NG tube. Hypoactive slightly high-pitched bowel sounds, slight distention, no significant pain Patient requesting ice chips. Explained to him that with the bowel obstruction the ice chips would not move forward and this would only increase the likelihood that he will have issues with nausea and vomiting and need an NG tube. Strongly cautioned against this. Reviewed surgical consultation. Proceeding with conservative medical management at this time at bedside and aware of plan of care Further plan of care as outlined below I spent a total of 20 minutes coordinating, documenting, and providing care for this patient excluding time spent by another provider/QHP. Date of Service August 09, 2024 Assessment & Plan (1) SBO (small bowel obstruction): (2) Paroxysmal atrial fibrillation: (3) GERD (gastroesophageal reflux disease): (4) CLL (chronic lymphocytic leukemia): Plan Truman Clayton is a 74y/o M with PMHx significant for HTN, HLD, PAF on Eliquis, nonrheumatic AV insufficiency, nonrheumatic MVR, vitamin D deficiency, senile purpura, fatty liver, SBO, chronic pain of R knee, BPH with LUTS, Mnire's disease, CLL [follows with [facility]], macular degeneration and BALTAZAR who presented to the ED on 08/09/24 with complaints of abdominal pain/spasms and nausea. He was ultimately found to have a high-grade SBO on presenting CTAP. Previously admitted under our service in July 2023 with SBO which was managed conservatively. Also had a SBO in 2015 following spinal surgery which resolved with conservative management as well. High-Grade SBO: Hemodynamically stable in ED. Initial laboratory evaluation reviewed and grossly unremarkable. CTAP today revealed a high-grade SBO, possible mesenteric panniculitis and mild free fluid within the pelvis. UA negative. Appreciate general surgery consult - no urgent surgical intervention required, recommended conservative management for now. S/p 0.5L NSS in ED. Continue gentle IVF and NPO status. Hold all po meds for now. Continue PRN pain control and PRN antiemetics. Paroxysmal AFib: On flecainide 25mg HS, metoprolol succinate 12.5mg QAM. NSR on telemetry + rate- controlled in ED. Also on Eliquis 5mg BID for anticoagulation. Holding all po meds for now ISO SBO. Utilizing SQ Lovenox for DVT prophylaxis. Converting po BB to PRN IV Lopressor for now. Consider resuming home po flecainide and metoprolol succinate in AM if clinically improving. GERD: Converted po PPI to IV PPI while NPO status. CLL: Follows with [facility]. Was on Venclexta therapy but reports this has been stopped. 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 Code Status: FULL CODE PCP: Conner Jones MD Disposition: Admit to Med/Telemetry for further inpatient evaluation and management. Patient seen in collaboration with Dr. Romero. Please see addendum. I spent a total of 55 minutes coordinating, documenting, and providing care for this patient excluding time spent in the performance of separately billed services or time spent by another provider/QHP. This included personally reviewi ng all current laboratories and imaging studies, medical reconciliation, outpatient chart review and discussion with specialists. This chart was completed in part utilizing Speech Voice Recognition Software. Grammatical errors, random word insertions, pronoun errors, and incomplete sentences are an occasional consequence of this system due to software limitations, ambient noise, and hardware issues. Any formal questions or concerns about the content, text, or information contained within the body of this dictation should be directly addressed to the provider for clarification. History of Present Illness Chief Complaint: Abdominal Pain/Spasms, Nausea Primary Care Provider: Conner Jones MD Truman Clayton is a 74y/o M with PMHx significant for HTN, HLD, PAF on Eliquis, nonrheumatic AV insufficiency, nonrheumatic MVR, vitamin D deficiency, senile purpura, fatty liver, chronic pain of R knee, BPH with LUTS, Mnire's disease, CLL on Venclexta, macular degeneration and BALTAZAR who presented to the ED on 08/09/24 with complaints of abdominal pain/spasms and nausea. History obtained from the patient, at bedside and associated chart review. Patient with generalized abdominal pain/spasms and intermittent nausea since yesterday morning. Patient reports these symptoms feel similar to when he had his most recent SBO back in July 2023 - which was managed conservatively. Patient also had a SBO in 2014 following a spinal surgery that resolved with conservative management as well. No episodes of vomiting. denies any fever, chills or body aches. Last BM was yesterday morning. Last meal was yesterday evening. Does not remember the last time he passed gas. Most recent dose of Eliquis was last evening. Did not take any of his prescribed medications this morning. Feels abdomen is mildly distended. He is complaining of some mild gastric reflux however he did not take his Protonix this morning. Denies any SOB, chest pain or urinary complaints. Previous abdominal surgeries consist of laparoscopic R inguinal hernia repair, open L inguinal hernia repair and appendectomy. CTAP today revealed a high-grade SBO, possible mesenteric panniculitis and mild free fluid within the pelvis. Remained hemodynamically stable in ED. Initial laboratory evaluation reviewed and grossly unremarkable. No leukocytosis. Allergies Allergy/AdvReac Type Severity Reaction Status Date / Time bee venom protein (honey bee) Allergy Intermediate Hives Verified 08/06/23 10:05 orphenadrine AdvReac Intermediate MENTAL Verified 08/06/23 10:05 CHANGES oxycodone AdvReac Mild NAUSEA Verified 08/06/23 10:05 Home Medications Medication Instructions Recorded Confirmed Type apixaban 5 mg tablet (Eliquis) 5 mg PO BID 08/23/19 08/09/24 History ascorbic acid (vitamin C) 1,000 mg 1 g PO DAILY 08/23/19 08/09/24 History tablet (Vitamin C) atorvastatin 20 mg tablet 20 mg PO HS 08/23/19 08/09/24 History flecainide 50 mg tablet 25 mg PO HS 08/23/19 08/09/24 History glucosamine 750 to-[id number] 1 tab PO BID 08/23/19 08/09/24 History no.1 625 mg-C 30 sg-[id number]-[id number] tablet (Glucosamine-Chondroitin 3X) metoprolol succinate 25 mg 12.5 mg PO DAILY 08/23/19 08/09/24 History tablet,extended release 24 hr vit C 250 mg-vit E 90 mg-zinc 40 1 tab PO BID 08/23/19 08/09/24 History mg-copper 1 mc-mdspat-lebygm capsule (PreserVision AREDS-2) pantoprazole 20 mg tablet,delayed 20 mg PO DAILY 07/28/23 08/09/24 History release (Protonix) multivitamin 1 tab PO DAILY 08/06/23 08/09/24 History Past Med/Surg History Problem List Paroxysmal atrial fibrillation SBO (small bowel obstruction) (Acute) CLL (chronic lymphocytic leukemia) Follows routinely with heme/onc Hypertension GERD (gastroesophageal reflux disease) Medical History Abdominal hernia Hx SBO following lumbar fusion Osteoarthritis Melanoma Hyperlipidemia Atrial fibrillation s/p Imbruvica medication regimen Surgical History History of appendectomy History of cardioversion 08/25/19 at [facility] S/P epidural steroid injection H/O elbow surgery laparoscopic elbow x2 S/P right knee arthroscopy S/P lumbar fusion S/P right inguinal hernia repair laparoscopic (with complications d/t arterial bleed) [facility] (~6-10 years ago) S/P left inguinal hernia repair open repair History of colonoscopy History of esophagogastroduodenoscopy (EGD) History of appendectomy H/O local excision of skin lesion History of adenoidectomy History of tonsillectomy History of cardiac cath 2012. no stents. Family History Brother FHx: brain cancer FHx: melanoma Aunt Family hx of colon cancer Grandfather Family history of diabetes mellitus Mother Family history of diabetes mellitus FHx: stroke Social History Smoking Status: Former smoker Second Hand Exposure: Yes (HX); Do You Dip or Chew Tobacco: No; Hx Alcohol Use: Yes Alcohol type: beer Hx Substance Use: No Preferred Language: Latvian Communication Ability: Effective Paste Worker Required: No Beliefs That Will Affect Care: None Current Living Situation: Family Feels Safe at Home: Yes Assistive Devices: Glasses Review of Systems Review of Systems: At least ten systems reviewed and negative, except as noted in the HPI. Physical Exam Physical Exam: General: WD/WN, vitals as above, NAD, sitting up in bed, pleasant, conversing appropriately. at bedside. A+Ox3. HEENT: Normocephalic, atraumatic. Conjunctivae normal. External ear and nose normal, oropharynx somewhat dry. Respiratory: Normal respiratory effort, lungs clear to auscultation bilaterally. No accessory muscle use. Cardiovascular: Regular rate/rhythm, normal peripheral pulses, no BLE edema. Vessels: No JVD. Abdomen/GI: Active bowel sounds, soft, mildly distended. Mild, diffuse TTP in all quadrants. No guarding. Neurologic: No overt focal deficits, CN's II-XI not formally tested but appear grossly intact bilaterally. Results & Data Results & Data Vital Signs (Past 12 Hours) Vital Signs Temp Pulse Pulse Resp BP BP Pulse Ox 08/09/24 06:49 65 20 149/91 H 95 08/09/24 05:45 135/84 08/09/24 05:36 69 20 95 08/09/24 05:03 65 20 92 08/09/24 05:00 142/84 H 08/09/24 04:57 67 24 92 08/09/24 04:45 130/82 08/09/24 04:45 130/82 08/09/24 04:45 130/82 08/09/24 04:45 130/82 08/09/24 04:45 72 24 95 08/09/24 04:38 69 08/09/24 04:38 96 08/09/24 04:38 70 16 169/94 H 94 08/09/24 04:22 36.5 C 70 18 172/107 H 97 O2 Del Method 08/09/24 06:49 Room Air 08/09/24 05:45 08/09/24 05:36 08/09/24 05:03 08/09/24 05:00 08/09/24 04:57 08/09/24 04:45 08/09/24 04:45 08/09/24 04:45 08/09/24 04:45 08/09/24 04:45 08/09/24 04:38 02/03/25 04:38 Room Air 08/09/24 04:38 Room Air 08/09/24 04:22 Room Air Laboratory Results Short CBC 08/09/24 Range/Units 04:25 WBC 6.83 (4.8-10.8) K/ul Hgb 14.9 (14.0-18.0) g/dl Hct 41.2 L (42.0-52.0) % Plt Count 148 (130-400) K/uL BMP 08/09/24 04:25 Sodium 139 Potassium 4.2 Chloride 106 Carbon Dioxide 26 BUN 19 Creatinine 1.07 Glucose 151 H Calcium 9.9 Liver Function 08/09/24 Range/Units 04:25 Total Bilirubin 0.8 (0.2-1.0) mg/dl AST 18 (13-39) U/L ALT 16 (7-52) U/L Alkaline Phosphatase 63 (34-104) U/L Albumin 4.2 (3.4-5.0) gm/dl Diagnostic Findings Abdomen/Pelvis CT 08/09/24 04:25 EXAM: CT abd pelvis IV con only CLINICAL HISTORY: mid abd pain, hx SBO. TECHNIQUE: Contrast-enhanced CT of the abdomen and pelvis was performed, with the following protocol: axial images with, and reconstructed coronal and sagittal images. Intravenous contrast was administered. One of the following dose reduction techniques was utilized for this exam: Automated exposure control, adjustment of the mA and/or kV according to patient size, and use of iterative reconstruction. COMPARISON: CT dated 07/28/2023. FINDINGS: Abdomen: Liver: Normal in size, shape, and density. 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 A tiny 7 mm hypodensity in segment 6 of the liver, likely benign(stable). Hepatic vasculature and biliary ducts are unremarkable. Gallbladder and Biliary System: The gallbladder is normal in size and shape. No wall thickening, pericholecystic fluid, or gallstones were identified. The common bile duct is normal in caliber without dilation. Pancreas: Pancreatic head, body, and tail are visualized and appear normal in size and density. No pancreatic masses or calcifications were noted. The pancreatic duct is not dilated. Spleen: Normal in size, shape, and density. No splenic lesions or masses were identified. Kidneys and Adrenal Glands: Both kidneys are normal in size, shape, and position. Cortical thickness is within normal limits. A 20 mm hypodense area in the right kidney, is stable. No renal calculi or hydronephrosis. Adrenal glands are unremarkable with no evidence of masses or hyperplasia. Pelvis: Urinary Bladder: Normal in contour and wall thickness. No intraluminal lesions were identified. Prostate: Normal in size and contour. No focal lesions or masses were identified. Bowel: A distended fluid-filled stomach is seen. Multiple prominent fluid-filled small bowel loops are seen along the anterior abdominal wall with adjacent free fluid, leading to a focally dilated distal ileal loop right inguinal hernia. Fecal matter, measuring up to 3.3 cm in diameter, continuing into edematous collapsed distal ileal loops. Surrounding areas of fat stranding and haziness are seen. A focus of air is seen in this dilated ileal loop wall, along the right lateral aspect(229/385). No abnormal bowel wall enhancement is seen. Extensive colonic diverticulosis, without any evidence of acute diverticulitis. No evidence of appendicitis. Fat-containing right inguinal hernia, with soft tissue thickening, in the pelvis and right femoral region(stable). Mild free fluid is seen in the pelvis(new). 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 Bones and Soft Tissues: Degenerative changes in the visualized spine, with mild anterolisthesis of L5 over S1(stable). The metallic spinal fixator is seen through L3-S1 levels, with postlaminectomy changes at the L5-S1 level(stable). IMPRESSION: 1. High grade Small yuni obstruction as described. 2. 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 3. Mild free fluid is seen in the pelvis (new). 4. Fat-containing right inguinal hernia, with soft tissue thickening, in the pelvis and right femoral region (stable). 5. The rest of the findings have been stable since the previous scan. Electronically signed by Humphrey Oseguera 08-09-2024 06:37 AM Medications Administered Discontinued Medications Sodium Chloride (Nss) 500 mls @ 999 mls/hr IV .Q31M ONE Stop: 08/09/24 04:55 Last Infusion: 08/09/24 05:20 Dose: Infused Documented By: Admin: 08/09/24 04:38 Dose: 999 mls/hr Documented By: NIYAH Acetaminophen (Ofirmev) 1,000 mg in 100 mls @ 400 mls/hr IV NOW STA Stop: 08/09/24 07:00 Last Admin: 08/09/24 06:49 Dose: 400 mls/hr Documented By: NIYAH Ioversol (Optiray 320 100ml) 100 ml IV ONCE ONE Stop: 08/09/24 05:23 Last Admin: 08/09/24 05:22 Dose: 93 ml Documented By: LINA Morphine Sulfate (Morphine Sulfate 4 Mg/Ml 1 Ml Carp\Vial) 4 mg IV NOW STA Stop: 08/09/24 04:26 Last Admin: 08/09/24 04:38 Dose: 4 mg Documented By: NIYAH Ondansetron HCl (Ondansetron Inj 2 Mg/Ml 2 Ml Vial) 4 mg IV NOW STA Stop: 08/09/24 04:31 Last Admin: 08/09/24 04:38 Dose: 4 mg Documented By: NIYAH Code Status & VTE Plan Code Status FULL CODE (3) GERD (gastroesophageal reflux disease) Esophagitis presence: esophagitis presence not specified Qualified Code(s): K21.9 - Gastro-esophageal reflux disease without esophagitis
--- NOTE | 2024-08-09 08:40 | Surgery Consultation ---
Date of Consultation August 09, 2024 Assessment & Plan (1) SBO (small bowel obstruction): Plan 74-year-old gentleman with small bowel obstruction. He has had these in the past treated conservatively. He has a normal white count. He has no signs or symptoms of threatened bowel. No urgent surgical intervention required. He will be admitted to the hospital placed n.p.o. on IV fluids. If he begins to be nauseated he will need an NG tube. We will observe him for now. Will continue to follow while he is here. If he were to worsen, he could potentially require exploration in the operating room. History of Present Illness Reason for Consultation: small bowel obstruction Requesting Physician: Adalgisa Macias MD Attending Physician: Adalgisa Macias MD History of Present Illness 74-year-old gentleman with a past medical history of atrial fibrillation, chronic lymphocytic leukemia, hypertension, on Eliquis, presents with a 1 day history of severe mid abdominal pain. He did experience some chills and nausea with this episode yesterday. He states the pain is significantly improved today. His last bowel movement was yesterday morning. He has not passed flatus since that time. He denies fevers. He denies chest pain or shortness of b reath. He had an episode of small bowel obstruction last year in July which was treated conservatively. He did not require NG tube at that time. He has a past medical history significant for appendectomy as well as laparoscopic hernia repairs. CT scan demonstrates small bowel obstruction with transition point in the right lower quadrant in the distal ileum. White blood cell Count is normal. Allergies Allergy/AdvReac Type Severity Reaction Status Date / Time bee venom protein (honey bee) Allergy Intermediate Hives Verified 08/06/23 10:05 orphenadrine AdvReac Intermediate MENTAL Verified 08/06/23 10:05 CHANGES oxycodone AdvReac Mild NAUSEA Verified 08/06/23 10:05 Home Medications Medication Instructions Recorded Confirmed Type apixaban 5 mg tablet (Eliquis) 5 mg PO BID 08/23/19 08/09/24 History ascorbic acid (vitamin C) 1,000 mg 1 g PO DAILY 08/23/19 08/09/24 History tablet (Vitamin C) atorvastatin 20 mg tablet 20 mg PO HS 08/23/19 08/09/24 History flecainide 50 mg tablet 25 mg PO HS 08/23/19 08/09/24 History glucosamine 750 [id number]-uhlyohniyx-orc 1 tab PO BID 08/23/19 08/09/24 History no.1 625 mg-C 30 lf-ukoj-fows tablet (Glucosamine-Chondroitin 3X) metoprolol succinate 25 mg 12.5 mg PO DAILY 08/23/19 08/09/24 History tablet,extended release 24 hr vit C 250 mg-vit E 90 mg-zinc 40 1 tab PO BID 08/23/19 08/09/24 History mg-copper 1 aw-rcbxjn-puemml capsule (PreserVision AREDS-2) pantoprazole 20 mg tablet,delayed 20 mg PO DAILY 07/28/23 08/09/24 History release (Protonix) multivitamin 1 tab PO DAILY 08/06/23 08/09/24 History Patient History Medical History Abdominal hernia Hx SBO following lumbar fusion Osteoarthritis Melanoma Hyperlipidemia Atrial fibrillation s/p Imbruvica medication regimen Surgical History History of appendectomy History of cardioversion 08/25/19 at [facility] S/P epidural steroid injection H/O elbow surgery laparoscopic elbow x2 S/P right knee arthroscopy S/P lumbar fusion S/P right inguinal hernia repair laparoscopic (with complications d/t arterial bleed) [facility] (~6-10 years ago) S/P left inguinal hernia repair open repair History of colonoscopy History of esophagogastroduodenoscopy (EGD) History of appendectomy H/O local excision of skin lesion History of adenoidectomy History of tonsillectomy History of cardiac cath 2012. no stents. 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 Required: No Beliefs That Will Affect Care: None Current Living Situation: Family Feels Safe at Home: Yes Assistive Devices: Glasses Review of Systems Review of Systems: All systems reviewed & are unremarkable except as noted in HPI & below Physical Exam Constitutional: WD/WN, vitals as above Eyes: PERRL, conjunctivae normal, anicteric sclerae Neck: trachea midline, no thyromegaly Respiratory: normal respiratory effort; no respiratory distress and no labored breathing Cardiovascular: Rate/Rhythm: regular rhythm and + irregularly irregular Gastrointestinal (Abdomen): Inspection/Auscultation: abdomen normal to inspection and + abdomen distended ( mild) Percussion/Palpation: + abdomen tender ( mild diffuse tenderness) and abdomen soft; no guarding and abdomen not rigid Skin: no rashes, warm and dry Psychiatric: A+Ox3, euthymic affect Results & Data Vital Signs (Past 12 Hours) Vital Signs Temp Pulse Pulse Resp BP BP Pulse Ox 08/09/24 06:49 65 20 149/91 H 95 08/09/24 05:45 135/84 08/09/24 05:36 69 20 95 08/09/24 05:03 65 20 92 08/09/24 05:00 142/84 H 08/09/24 04:57 67 24 92 08/09/24 04:45 130/82 08/09/24 04:45 130/82 08/09/24 04:45 130/82 08/09/24 04:45 130/82 08/09/24 04:45 72 24 95 08/09/24 04:38 69 08/09/24 04:38 96 08/09/24 04:38 70 16 169/94 H 94 08/09/24 04:22 36.5 C 70 18 172/107 H 97 O2 Del Method 08/09/24 06:49 Room Air 08/09/24 05:45 08/09/24 05:36 08/09/24 05:03 08/09/24 05:00 08/09/24 04:57 08/09/24 04:45 08/09/24 04:45 08/09/24 04:45 08/09/24 04:45 08/09/24 04:45 08/09/24 04:38 08/09/24 04:38 Room Air 08/09/24 04:38 Room Air 08/09/24 04:22 Room Air Laboratory Results 08/09/24 08/09/24 08/09/24 Range/Units 04:59 04:42 04:25 WBC 6.83 (4.8-10.8) K/ul RBC 4.68 L (4.70-6.10) M/uL Hgb 14.9 (14.0-18.0) g/dl POC Hgb 12.9 L (14.0-18.0) g/dl Hct 41.2 L (42.0-52.0) % POC Hct 38 L (42-52) % MCV 88.0 (80.0-100.0) fL MCH 31.8 (25.0-34.0) pg MCHC 36.2 H (32.0-36.0) g/dL RDW Std Deviation 38.4 (36.4-46.3) fL RDW Coeff of Miya 11.9 (11.5-14.5) % Plt Count 148 (130-400) K/uL MPV 9.4 (9.4-12.4) fL Immature Gran % (Auto) 0.3 % Neut % (Auto) 72.1 % Lymph % (Auto) 19.9 % [place] % (Auto) 6.7 % Eos % (Auto) 0.6 % Baso % (Auto) 0.4 % Neut # (Auto) 4.92 (1.40-6.50) K/uL Lymph # (Auto) 1.36 (1.20-3.40) K/uL [place] # (Auto) 0.46 (0.11-0.59) K/uL Eos # (Auto) 0.04 (0.00-0.50) K/uL Baso # (Auto) 0.03 (0.00-0.20) K/uL Immature Gran # (Auto) 0.02 (0.01-0.20) K/uL POC Sodium 140 (135-144) mmol/L Sodium 139 (136-145) mmol/L POC Potassium 3.9 (3.3-5.0) mmol/L Potassium 4.2 (3.5-5.1) mmol/L POC Chloride 105 (101-112) mmol/L Chloride 106 (98-107) mmol/L Carbon Dioxide 26 (21-32) mmol/L POC Total CO2 25 (24-31) mmol/L Anion Gap 7 (3-11) POC Anion Gap 15.0 L (16-25) mmol/L POC BUN 18 (7-18) mg/dl BUN 19 (6-23) mg/dl Creatinine 1.07 (0.6-1.4) mg/dl POC Creatinine 1.1 (0.6-1.3) mg/dl Est Cr Clr Drug Dosing 68.5 ml/min eGFR 72.82 BUN/Creatinine Ratio 17.8 (10-20) Glucose 151 H (70-99(Fasting)) mg/dl POC Glucose (other) 152 H (70-99) mg/dl Lactate 1.4 (0.4-2.0) mmol/L Calcium 9.9 (8.6-10.3) mg/dl POC Ioniz Calcium Saurav 1.18 (1.12-1.32) mmol/l Total Bilirubin 0.8 (0.2-1.0) mg/dl AST 18 (13-39) U/L ALT 16 (7-52) U/L Alkaline Phosphatase 63 (34-104) U/L Total Protein 6.4 (6.0-8.3) gm/dl Albumin 4.2 (3.4-5.0) gm/dl Globulin 2.2 L (2.5-4.0) gm/dl Albumin/Globulin Ratio 1.9 (0.9-2) Lipase 20 (11-82) U/L Diagnostic Findings EXAM: CT abd pelvis IV con only CLINICAL HISTORY: mid abd pain, hx SBO. TECHNIQUE: Contrast-enhanced CT of the abdomen and pelvis was performed, with the following protocol: axial images with, and reconstructed coronal and sagittal images. Intravenous contrast was administered. One of the following dose reduction techniques was utilized for this exam: Automated exposure control, adjustment of the mA and/or kV according to patient size, and use of iterative reconstruction. COMPARISON: CT dated 07/28/2023. FINDINGS: Abdomen: Liver: Normal in size, shape, and density. 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 A tiny 7 mm hypodensity in segment 6 of the liver, likely benign(stable). Hepatic vasculature and biliary ducts are unremarkable. Gallbladder and Biliary System: The gallbladder is normal in size and shape. No wall thickening, pericholecystic fluid, or gallstones were identified. The common bile duct is normal in caliber without dilation. Pancreas: Pancreatic head, body, and tail are visualized and appear normal in size and density. No pancreatic masses or calcifications were noted. The pancreatic duct is not dilated. Spleen: Normal in size, shape, and density. No splenic lesions or masses were identified. Kidneys and Adrenal Glands: Both kidneys are normal in size, shape, and position. Cortical thickness is within normal limits. A 20 mm hypodense area in the right kidney, is stable. No renal calculi or hydronephrosis. Adrenal glands are unremarkable with no evidence of masses or hyperplasia. Pelvis: Urinary Bladder: Normal in contour and wall thickness. No intraluminal lesions were identified. Prostate: Normal in size and contour. No focal lesions or masses were identified. Bowel: A distended fluid-filled stomach is seen. Multiple prominent fluid-filled small bowel loops are seen along the anterior abdominal wall with adjacent free fluid, leading to a focally dilated distal ileal loop right inguinal hernia. Fecal matter, measuring up to 3.3 cm in diameter, continuing into edematous collapsed distal ileal loops. Surrounding areas of fat stranding and haziness are seen. A focus of air is seen in this dilated ileal loop wall, along the right lateral aspect(229/385). No abnormal bowel wall enhancement is seen. Extensive colonic diverticulosis, without any evidence of acute diverticulitis. No evidence of appendicitis. Fat-containing right inguinal hernia, with soft tissue thickening, in the pelvis and right femoral region(stable). Mild free fluid is seen in the pelvis(new). 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 Bones and Soft Tissues: Degenerative changes in the visualized spine, with mild anterolisthesis of L5 over S1(stable). The metallic spinal fixator is seen through L3-S1 levels, with postlaminectomy changes at the L5-S1 level(stable). IMPRESSION: 1. High grade Small yuni obstruction as described. 2. 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 3. Mild free fluid is seen in the pelvis (new). 4. Fat-containing right inguinal hernia, with soft tissue thickening, in the pelvis and right femoral region (stable). 5. The rest of the findings have been stable since the previous scan. Electronically signed by Humphrey Oseguera 08-09-2024 06:37 AM
[2024-08-09 09:10] LABS: Appearance Urine Clear (Clear); Bilirubin Urine Negative (Negative); Blood Urine Negative (Negative); Color Urine Yellow; Glucose Urine UA Negative (Negative); Ketones Urine Trace (Negative); Leukocyte Esterase Urine Negative (Negative); Nitrite Urine Negative (Negative); Protein Urine Negative (Negative); Specific Gravity Urine > 1.045 (1.000-1.030); Urobilinogen Urine Negative (Negative)
[2024-08-09] MEDS ORDERED: POLYETHYLENE (MIRALAX) 17 GM PACK PO PRN (10:15)
[2024-08-09] MEDS ORDERED: MAGNESIUM HYDROXIDE SUSP 30 ML UDC PO PRN (10:15)
[2024-08-09] MEDS ORDERED: METOPROLOL TARTRATE 1 MG/ML VIAL IV PRN (10:15)
[2024-08-09] MEDS: SODIUM CHLORIDE 0.9% 1,000 ML IV SCH (11:13)
[2024-08-09] MEDS: ACETAMINOPHEN 1,000 MG/100 ML VIAL IV PRN (14:46)
[2024-08-09] MEDS: ENOXAPARIN INJ 40 MG/0.4 ML SYR SQ SCH (14:52)
[2024-08-09] MEDS: MoRPHine SULFATE 4 MG/ML 1 ML CARP\\VIAL IV PRN (19:17)
[2024-08-09] MEDS: ONDANSETRON INJ 2 MG/ML 2 ML VIAL IV PRN (19:23)
[2024-08-10 06:04] LABS: Hematocrit (blood only) 37.9 % (42.0-52.0); Hemoglobin 13.4 g/dl (14.0-18.0); Mean Corpuscular Hemoglobin 31.9 pg (25.0-34.0); Mean Corpuscular Hgb Conc 35.4 g/dL (32.0-36.0); Mean Corpuscular Volume 90.2 fL (80.0-100.0); Mean Platelet Volume 9.2 fL (9.4-12.4); Platelet Count 124 K/uL (130-400); RDW Coefficient of Variation 11.9 % (11.5-14.5); RDW Standard Deviation 39.1 fL (36.4-46.3); White Blood Count 6.94 K/ul (4.8-10.8)
[2024-08-10 06:26] LABS: BUN Creatinine Ratio 25.6 (10-20); Calcium 8.7 mg/dl (8.6-10.3); Creatinine Clr Calc Pharmacy 89.3 ml/min; Magnesium 2.1 mg/dl (1.7-2.4)
[2024-08-10] MEDS: PANTOprazole 40 MG/10 ML SYR IV SCH (07:45)
--- NOTE | 2024-08-10 07:56 | Hospitalist Progress Note ---
<Statement entered by Wood Romero, - 08/10/24 13:06> I have seen and examined the patient and have discussed the case with the advance practice provider. I have reviewed the advanced practitioner's documentation, and I agree with, and take responsibility for that plan of care. Patient reports started to have some flatus this morning. No BM. Thinks acute and vomiting last night was directly related to the morphine he received. Continue to encourage ambulation. If continue to see some progression of his bowels, may consider clear liquids later on this evening. Will coordinate with surgery. Plan of care as outlined below I spent a total of 16 minutes coordinating, documenting, and providing care for this patient excluding time spent by another provider/QHP. Date of Service August 10, 2024 Assessment & Plan (1) SBO (small bowel obstruction): (2) Paroxysmal atrial fibrillation: (3) GERD (gastroesophageal reflux disease): (4) CLL (chronic lymphocytic leukemia): Plan Truman Clayton is a 74y/o M with PMHx significant for HTN, HLD, PAF on Eliquis, nonrheumatic AV insufficiency, nonrheumatic MVR, vitamin D deficiency, senile purpura, fatty liver, SBO, chronic pain of R knee, BPH with LUTS, Mnire's disease, CLL [follows with [facility]], macular degeneration and BALTAZAR who presented to the ED on 08/09/24 with complaints of abdominal pain/spasms and nausea. He was ultimately found to have a high-grade SBO on presenting CTAP. Previously admitted under our service in July 2023 with SBO which was managed conservatively. Also had a SBO in 2014 following spinal surgery which resolved with conservative management as well. High-Grade SBO: CTAP revealed a high-grade SBO, possible mesenteric panniculitis and mild free fluid within the pelvis. UA negative. General surgery on board. No indication for surgical intervention. Continue NPO + IVF for now. Encourage ambulation to increase GI motility. If patient continues to pass flatus, general surgery may consider transitioning him to a clear liquid diet later on today. Labs reviewed and remain stable, VSS. Paroxysmal AFib: On flecainide 25mg HS, metoprolol succinate 12.5mg QAM. Also on Eliquis 5mg BID. Holding all po meds for now ISO SBO. Utilizing SQ Lovenox for DVT prophylaxis. Converted po BB to PRN IV Lopressor for now. Remains rate-controlled and in NSR on telemetry. Consider resuming home po flecainide and metoprolol succinate tomorrow AM if clinically improving. GERD: Converted po PPI to IV PPI while NPO status. CLL: Follows with [facility]. Was on Venclexta therapy but reports this has been stopped. DVT Prophylaxis: SQ Lovenox - Holding MARKETING PRODUCTION SPECIALIST po Eliquis for now ISO NPO status. Code Status: FULL CODE PCP: Conner Jones MD Disposition: Anticipate discharge back home within the next 2-3 days depending on his clinical course. Patient seen in collaboration with Dr. Romero. Please see addendum. I spent a total of 35 minutes coordinating, documenting, and providing care for this patient excluding time spent in the performance of separately billed services or time spent by another provider/QHP. This included personally reviewing all current laboratories and imaging studies, medical reconciliation, outpatient chart review and discussion with specialists. This chart was completed in part utilizing Speech Voice Recognition Software. Grammatical errors, random word insertions, pronoun errors, and incomplete sentences are an occasional consequence of this system due to software limitations, ambient noise, and hardware issues. Any formal questions or concerns about the content, text, or information contained within the body of this dictation should be directly addressed to the provider for clarification. Admission and Anticipated Discharge Date Admission Date: August 09, 2024 Subjective Patient seen and examined at bedside in room N289-1. Reports feeling better this morning. Did have 1 episode of emesis last evening however this was directly after he received a dose of IV morphine. No further episodes of emesis. Nausea improving. Reports he has been passing gas. No BM yet. Urinating without difficulty. Abdominal cramping/spasms improving. He has been ambulating around the halls. He is requesting to have ice chips. Again strongly encouraged against this until general surgery advances his diet. Review of Systems Review of Systems: At least ten systems reviewed and negative, except as noted in the subjective section. Physical Exam Physical Exam: General: WD/WN, NAD, sitting up in bed, very pleasant, conversing appropriately. A+Ox3. HEENT: Normocephalic, atraumatic. Conjunctivae normal. External ear/nose normal, oropharynx slightly dry. Respiratory: Normal respiratory effort, lungs clear to auscultation bilaterally. No accessory muscle use. Cardiovascular: Regular rate/rhythm, normal peripheral pulses, no BLE edema. Vessels: No JVD. Abdomen/GI: Active bowel sounds best heard in LUQ, soft, mild distention. Mild TTP in RLQ. No guarding. Neurologic: No overt focal deficits, CN's II-XI not formally tested but appear grossly intact bilaterally. Results & Data Results & Data Vital Signs (Past 12 Hours) Vital Signs Temp Pulse Pulse Resp BP Pulse Ox O2 Del Method 08/10/24 07:48 36.8 C 66 18 121/82 94 Room Air 08/10/24 07:00 60 08/10/24 03:48 36.6 C 61 20 123/79 95 Room Air 08/10/24 00:24 36.8 C 72 20 111/73 92 Room Air 08/09/24 22:41 74 08/09/24 21:57 Room Air Laboratory Results Short CBC 08/10/24 Range/Units 05:46 WBC 6.94 (4.8-10.8) K/ul Hgb 13.4 L (14.0-18.0) g/dl Hct 37.9 L (42.0-52.0) % Plt Count 124 L (130-400) K/uL BMP 08/10/24 05:46 Sodium 142 Potassium 4.0 Chloride 109 H Carbon Dioxide 27 BUN 21 Creatinine 0.82 Glucose 120 H Calcium 8.7 (3) GERD (gastroesophageal reflux disease) Esophagitis presence: esophagitis presence not specified Qualified Code(s): K21.9 - Gastro-esophageal reflux disease without esophagitis
--- NOTE | 2024-08-10 09:25 | Surgery Progress Note ---
Date of Service August 10, 2024 Assessment & Plan (1) SBO (small bowel obstruction): Plan 74-year-old gentleman with small bowel obstruction. He has had these in the past treated conservatively. He has a normal white count. He has no signs or symptoms of threatened bowel. No urgent surgical intervention required. 08/10/2024 avss no leukocytosis episode of vomiting last evening, Plan: Continue npo for this am. Encouraged ambulating to increase GI motility. If continues to pass flatus this am may consider clear liquids later today. continue medical management Discussed with Dr. Miles who agrees with above Admission and Anticipated Discharge Date Admission Date: August 09, 2024 Subjective feeling better this am, no as bloated had episode of vomiting last night around 10 pm but this was after morphine and immediately felt sick no persistent nausea passing gas this am after ambulating urinating without difficulty minimal lower abdominal pain Physical Exam Constitutional: WD/WN, vitals as above cooperative and comfortable; no acute distress and not ill appearing Respiratory: normal respiratory effort; no respiratory distress Gastrointestinal (Abdomen): Inspection/Auscultation: abdomen normal to inspection, + abdomen distended (mild) and + abdominal surgical scar (laparoscopic incisions) Percussion/Palpation: + abdomen tender (mild in RLQ) and abdomen soft; no guarding, abdomen not rigid and abdomen not firm Skin: no rashes, warm and dry Psychiatric: Orientation: alert and oriented x 3 Results & Data Vital Signs (Past 12 Hours) Vital Signs Temp Pulse Pulse Resp BP Pulse Ox O2 Del Method 08/10/24 07:48 36.8 C 66 18 121/82 94 Room Air 08/10/24 07:00 60 08/10/24 03:48 36.6 C 61 20 123/79 95 Room Air 08/10/24 00:24 36.8 C 72 20 111/73 92 Room Air 08/09/24 22:41 74 08/09/24 21:57 Room Air Laboratory Results 08/10/24 Range/Units 05:46 WBC 6.94 (4.8-10.8) K/ul RBC 4.20 L (4.70-6.10) M/uL Hgb 13.4 L (14.0-18.0) g/dl Hct 37.9 L (42.0-52.0) % MCV 90.2 (80.0-100.0) fL MCH 31.9 (25.0-34.0) pg MCHC 35.4 (32.0-36.0) g/dL RDW Std Deviation 39.1 (36.4-46.3) fL RDW Coeff of Miya 11.9 (11.5-14.5) % Plt Count 124 L (130-400) K/uL MPV 9.2 L (9.4-12.4) fL Sodium 142 (136-145) mmol/L Potassium 4.0 (3.5-5.1) mmol/L Chloride 109 H (98-107) mmol/L Carbon Dioxide 27 (21-32) mmol/L Anion Gap 6 (3-11) BUN 21 (6-23) mg/dl Creatinine 0.82 (0.6-1.4) mg/dl Est Cr Clr Drug Dosing 89.3 ml/min eGFR 92.18 BUN/Creatinine Ratio 25.6 H (10-20) Glucose 120 H (70-99(Fasting)) mg/dl Calcium 8.7 (8.6-10.3) mg/dl Magnesium 2.1 (1.7-2.4) mg/dl
[2024-08-10] MEDS ORDERED: HYDROmorphone INJ 1 MG/ML SYRINGE IV PRN (11:41)
[2024-08-10] MEDS: SODIUM CHLORIDE 0.9% 1,000 ML IV SCH (16:32)
[2024-08-11 06:33] LABS: Hematocrit (blood only) 35.8 % (42.0-52.0); Hemoglobin 12.5 g/dl (14.0-18.0); Mean Corpuscular Hemoglobin 31.2 pg (25.0-34.0); Mean Corpuscular Hgb Conc 34.9 g/dL (32.0-36.0); Mean Corpuscular Volume 89.3 fL (80.0-100.0); Mean Platelet Volume 9.3 fL (9.4-12.4); Platelet Count 118 K/uL (130-400); RDW Coefficient of Variation 11.9 % (11.5-14.5); RDW Standard Deviation 39.4 fL (36.4-46.3); Red Blood Count 4.01 M/uL (4.70-6.10); White Blood Count 4.15 K/ul (4.8-10.8)
[2024-08-11 07:00] LABS: BUN Creatinine Ratio 25.3 (10-20); Calcium 8.4 mg/dl (8.6-10.3); Creatinine Clr Calc Pharmacy 97.7 ml/min; Potassium 3.8 mmol/L (3.5-5.1)
[2024-08-11] MEDS: METOPROLOL SUCC 25MG EXT REL TAB PO SCH (07:32)
[2024-08-11] MEDS: APIXABAN 5 MG TABLET PO SCH (07:32)
[2024-08-11] MEDS: PANTOprazole 40 MG TAB PO SCH (07:46)
[2024-08-11] MEDS ORDERED: PANTOprazole 40 MG TAB PO SCH (09:00)
--- NOTE | 2024-08-11 11:49 | Surgery Progress Note ---
Date of Service August 11, 2024 Assessment & Plan (1) SBO (small bowel obstruction): Plan 74-year-old gentleman with small bowel obstruction. He has had these in the past treated conservatively. He has a normal white count. He has no signs or symptoms of threatened bowel. No urgent surgical intervention required. 08/11/2024 avss no leukocytosis Return of bowel function Plan: Advance to full liquids for lunch, Will go slow as patient still having some abdominal cramping Continue to ambulate continue medical management Dr. Miles has seen and examined patient, agrees with above. Admission and Anticipated Discharge Date Admission Date: August 09, 2024 Subjective Feeling better today still having some abdominal cramping Still continue to pass flatus and had 3 bowel movements Tolerated clear liquids without increase in abdominal pain, nausea, vomiting Physical Exam Constitutional: WD/WN, vitals as above cooperative and comfortable; no acute distress and not ill appearing Respiratory: normal respiratory effort; no respiratory distress and no labored breathing Gastrointestinal (Abdomen): Inspection/Auscultation: abdomen normal to inspection; abdomen not distended Percussion/Palpation: + abdomen tender (Generalized mid abdomen) and abdomen soft; no guarding, abdomen not rigid and abdomen not firm Skin: no rashes, warm and dry Psychiatric: A+Ox3, euthymic affect Results & Data Vital Signs (Past 12 Hours) Vital Signs Temp Pulse Pulse Resp BP Pulse Ox O2 Del Method 08/11/24 11:35 36.4 C L 52 L 18 163/92 H 96 Room Air 08/11/24 07:30 36.6 C 53 L 18 153/82 H 95 Room Air 08/11/24 07:00 54 L 08/11/24 03:48 36.5 C 52 L 20 145/82 H 94 Room Air Laboratory Results 08/11/24 Range/Units 05:49 WBC 4.15 L (4.8-10.8) K/ul RBC 4.01 L (4.70-6.10) M/uL Hgb 12.5 L (14.0-18.0) g/dl Hct 35.8 L (42.0-52.0) % MCV 89.3 (80.0-100.0) fL MCH 31.2 (25.0-34.0) pg MCHC 34.9 (32.0-36.0) g/dL RDW Std Deviation 39.4 (36.4-46.3) fL RDW Coeff of Miya 11.9 (11.5-14.5) % Plt Count 118 L (130-400) K/uL MPV 9.3 L (9.4-12.4) fL Sodium 141 (136-145) mmol/L Potassium 3.8 (3.5-5.1) mmol/L Chloride 110 H (98-107) mmol/L Carbon Dioxide 27 (21-32) mmol/L Anion Gap 4 (3-11) BUN 19 (6-23) mg/dl Creatinine 0.75 (0.6-1.4) mg/dl Est Cr Clr Drug Dosing 97.7 ml/min eGFR 94.70 BUN/Creatinine Ratio 25.3 H (10-20) Glucose 88 (70-99(Fasting)) mg/dl Calcium 8.4 L (8.6-10.3) mg/dl Magnesium 2.0 (1.7-2.4) mg/dl
--- NOTE | 2024-08-11 13:23 | Hospitalist Progress Note ---
Date of Service August 11, 2024 Assessment & Plan (1) SBO (small bowel obstruction): (2) Paroxysmal atrial fibrillation: (3) GERD (gastroesophageal reflux disease): (4) CLL (chronic lymphocytic leukemia): (5) Anemia: Plan Truman Clayton is a 74y/o M with PMHx significant for HTN, HLD, PAF on Eliquis, nonrheumatic AV insufficiency, nonrheumatic MVR, vitamin D deficiency, senile purpura, fatty liver, SBO, chronic pain of R knee, BPH with LUTS, Mnire's disease, CLL [follows with [facility]], macular degeneration and BALTAZAR who presented to the ED on 08/09/24 with complaints of abdominal pain/spasms and nausea. He was ultimately found to have a high-grade SBO on presenting CTAP. Previously admitted under our service in July 2023 with SBO which was managed conservatively. Also had a SBO in 2014 following spinal surgery which resolved with conservative management as well. High-Grade SBO: CTAP revealed a high-grade SBO, possible mesenteric panniculitis and mild free fluid within the pelvis. UA negative. General surgery on board. No indication for surgical intervention. Transitioned to full liquid diet - tolerating well. IVF stopped. Ambulation encouraged. Paroxysmal AFib: Resuming home flecainide 25mg HS and metoprolol succinate 12.5mg HS. Will also transition him back to his home Eliquis from SQ Lovenox. Telemetry benign, remains rate-controlled. GERD: Will convert back to po PPI today given good tolerance of full liquid diet. CLL: Follows with [facility]. Was on Venclexta therapy but reports this has been stopped. Anemia: Hgb 12.5 today, Hgb was 14.9 on admission. Suspect drop 2/2 dilution ISO IVF while NPO but will check anemia panel/folate/vit B12 in AM to be sure. Continue to monitor H/H. 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 Code Status: FULL CODE PCP: Conner Jones MD Disposition: Anticipate discharge back home likely tomorrow or Friday. Still having some abdominal cramping so need to advance diet slowly. Patient seen in collaboration with Dr. Dumont. Please see addendum. I spent a total of 25 minutes coordinating, documenting, and providing care for this patient excluding time spent in the performance of separately billed services or time spent by another provider/QHP. This included personally reviewing all current laboratories and imaging studies, medical reconciliation, outpatient chart review and discussion with specialists. This chart was completed in part utilizing Speech Voice Recognition Software. Grammatical errors, random word insertions, pronoun errors, and incomplete sentences are an occasional consequence of this system due to software limitations, ambient noise, and hardware issues. Any formal questions or concerns about the content, text, or information contained within the body of this dictation should be directly addressed to the provider for clarification. Admission and Anticipated Discharge Date Admission Date: August 09, 2024 Supervising Physician Co-Signing Physician Notes I have seen and discussed the case with the collaborating advanced practitioner. I agree with the above PN. I have reviewed and confirmed the patients medical history, the findings on physical examination, and the patients diagnosis and treatment plan with Gilberto MONTILLA and agree with the information documented. In short, Mr. Clayton is admitted for SBO which is improving slowly. Patient with flatus and multiple BM this morning. Still reports mild cramping otherwise working to increase mobilization. Denies any other acute symptoms. Plan as above I spent a total of 15 minutes coordinating, documenting, and providing care for this patient excluding time spent in the performance of separately billed services. All of the aforementioned completed outside of collaborating with the assigned advanced practitioner for a full treatment plan. I have reviewed the advanced practitioner's documentation, and I agree with, and take responsibility for the plan of care Subjective Patient seen and examined at bedside in room N289-1. NAEO. Tolerating clear liquid diet without issue. Mentions he has passed 3 BMs. Continues to pass gas. Having some mild abdominal cramping/spasms this morning but otherwise offers no additional complaints. He has been up and ambulating around the hallways. Denies any nausea or any further episodes of vomiting. Review of Systems Review of Systems: At least ten systems reviewed and negative, except as noted in the subjective section. Physical Exam Physical Exam: General: WD/WN, NAD, sitting up in bed, very pleasant, conversing appropriately. A+Ox3. HEENT: Normocephalic, atraumatic. Conjunctivae normal. External ear/nose normal, oropharynx slightly dry. Respiratory: Normal respiratory effort, lungs clear to auscultation bilaterally. No accessory muscle use. Cardiovascular: Regular rate/rhythm, normal peripheral pulses, no BLE edema. Vessels: No JVD. Abdomen/GI: Hypoactive bowel sounds but abdomen is soft, mild distention. Mild TTP in middle lower quadrant. No guarding. Neurologic: No overt focal deficits, CN's II-XI not formally tested but appear grossly intact bilaterally. Results & Data Results & Data Vital Signs (Past 12 Hours) Vital Signs Temp Pulse Pulse Resp BP Pulse Ox O2 Del Method 08/11/24 11:35 36.4 C L 52 L 18 163/92 H 96 Room Air 08/11/24 07:30 36.6 C 53 L 18 153/82 H 95 Room Air 08/11/24 07:00 54 L 08/11/24 03:48 36.5 C 52 L 20 145/82 H 94 Room Air Laboratory Results Short CBC 08/11/24 Range/Units 05:49 WBC 4.15 L (4.8-10.8) K/ul Hgb 12.5 L (14.0-18.0) g/dl Hct 35.8 L (42.0-52.0) % Plt Count 118 L (130-400) K/uL BMP 08/11/24 05:49 Sodium 141 Potassium 3.8 Chloride 110 H Carbon Dioxide 27 BUN 19 Creatinine 0.75 Glucose 88 Calcium 8.4 L (3) GERD (gastroesophageal reflux disease) Esophagitis presence: esophagitis presence not specified Qualified Code(s): K21.9 - Gastro-esophageal reflux disease without esophagitis (5) Anemia Anemia type: unspecified type Qualified Code(s): D64.9 - Anemia, unspecified
[2024-08-11] MEDS: amLODIPine BESYLATE 5 MG TAB PO ONE (16:04)
[2024-08-11] MEDS: hydrALAZINE HCL 20 MG/ML VIAL IV STA (17:34)
[2024-08-11] MEDS ORDERED: FLECAINIDE ACETATE 100 MG TABLET PO SCH (21:00)
[2024-08-11] MEDS: ATORVASTATIN 20 MG TAB PO SCH (21:10)
[2024-08-12 07:49] LABS: Hematocrit (blood only) 35.9 % (42.0-52.0); Mean Corpuscular Hgb Conc 36.2 g/dL (32.0-36.0); Mean Corpuscular Volume 88.4 fL (80.0-100.0); Mean Platelet Volume 9.5 fL (9.4-12.4); Platelet Count 115 K/uL (130-400); RDW Coefficient of Variation 11.8 % (11.5-14.5); RDW Standard Deviation 37.6 fL (36.4-46.3); Red Blood Count 4.06 M/uL (4.70-6.10); White Blood Count 4.19 K/ul (4.8-10.8)
[2024-08-12 08:14] LABS: BUN Creatinine Ratio 12.2 (10-20); Potassium 3.9 mmol/L (3.5-5.1)
[2024-08-12 08:35] LABS: Ferritin 157.8 ng/ml (8-388)
[2024-08-12 08:40] LABS: Folate (Folic Acid),Ser orPlas > 22.30 ng/ml (>5.38)
[2024-08-12 08:41] LABS: Vitamin B12 531 pg/ml (180-914)
--- NOTE | 2024-08-12 09:50 | Hospitalist Progress Note ---
Date of Service August 12, 2024 Assessment & Plan (1) SBO (small bowel obstruction): (2) Paroxysmal atrial fibrillation: (3) GERD (gastroesophageal reflux disease): (4) CLL (chronic lymphocytic leukemia): (5) Anemia: Plan Truman Clayton is a 74y/o M with PMHx significant for HTN, HLD, PAF on Eliquis, nonrheumatic AV insufficiency, nonrheumatic MVR, vitamin D deficiency, senile purpura, fatty liver, SBO, chronic pain of R knee, BPH with LUTS, Mnire's disease, CLL [follows with [facility]], macular degeneration and BALTAZAR who presented to the ED on 08/09/24 with complaints of abdominal pain/spasms and nausea. He was ultimately found to have a high-grade SBO on presenting CTAP. Previously admitted under our service in July 2023 with SBO which was managed conservatively. Also had a SBO in 2014 following spinal surgery which resolved with conservative management as well. High-Grade SBO CTAP revealed a high-grade SBO, possible mesenteric panniculitis and mild free fluid within the pelvis. UA negative. General surgery on board. No indication for surgical intervention. Transitioned to full liquid diet - tolerating well. IVF stopped. Ambulation encouraged. Continues to improve, passing flatus and a small amount of liquid stool. Further diet advancement as per general surgery. Paroxysmal AFib HTN Patient on flecainide 25mg HS and metoprolol succinate 12.5mg HS prior to admission Patient had received therapeutic dose Lovenox while n.p.o., Eliquis has been resumed Patient with history of chronic resting bradycardia. Expressing concerns about resuming flecainide and metoprolol, which is reasonable. Elevated BPs noted, likely situational due to pain, anxiety, hospitalization, etc. Will start Lisinopril 10mg daily today. Will revisit resuming metoprolol. Patient will need close outpatient follow up with cardiology, appointment requested GERD IV PPI -> now on PO CLL Follows with [facility]. Was on Venclexta therapy but reports this has been stopped. Anemia Hgb 14.9 -> 13.4 -> 12.5 -> 13.0 Likely 2/2 dilution while receiving IVF, no signs of bleeding Anemia panel unremarkable DVT Prophylaxis On Eliquis Code Status: FULL CODE PCP: Conner Jones MD Disposition: Anticipate discharge back home likely tomorrow or Friday. Patient remains on full liquid diet. I spent a total of 35 minutes coordinating, documenting, and providing care for this patient excluding time spent in the performance of separately billed services. This included personally reviewing all current laboratories and imaging studies, medication reconciliation, outpatient chart review, and discussion with specialists. Admission and Anticipated Discharge Date Admission Date: August 09, 2024 Supervising Physician Co-Signing Physician Notes I have seen and discussed the case with the collaborating advanced practitioner. I agree with the above PN. I have reviewed and confirmed the patients medical history, the findings on physical examination, and the patients diagnosis and treatment plan with Gilberto MONTILLA and agree with the information documented. In short, Mr. Clayton is admitted for SBO which is improving slowly. Improving overall. Denies any other acute symptoms. dispo maybe tomorrow Plan as above I spent a total of 15 minutes coordinating, documenting, and providing care for this patient excluding time spent in the performance of separately billed services. All of the aforementioned completed outside of collaborating with the assigned advanced practitioner for a full treatment plan. I have reviewed the advanced practitioner's documentation, and I agree with, and take responsibility for the plan of care Subjective Follow up for high grade SBO. Patient seen and examined. Reports minimal abdominal cramping. No nausea. Passing flatus and small amounts of liquid stool. Tolerating full liquid diet. Expressing concerns regarding metoprolol and flecainide with chronically low heart rate. Patient also concerned about elevated blood pressure this morning. Physical Exam Constitutional: WD/WN, vitals as above no acute distress Respiratory: normal respiratory effort, lungs clear to auscultation Cardiovascular: Rate/Rhythm: regular rhythm and + bradycardic Extremities: no edema Gastrointestinal (Abdomen): Inspection/Auscultation: + abnormal bowel sounds (hypoactive) Percussion/Palpation: abdomen soft; abdomen nontender Skin: no rashes, warm and dry Neurologic: no focal motor deficits Psychiatric: A+Ox3, euthymic affect Results & Data Results & Data Vital Signs (Past 12 Hours) Vital Signs Temp Pulse Pulse Resp BP BP Pulse Ox 08/12/24 07:45 36.5 C 58 L 18 172/94 H 95 08/12/24 07:09 50 L 08/12/24 04:38 36.8 C 54 L 20 149/81 H 95 08/12/24 01:11 36.8 C 54 L 20 158/82 H 95 08/12/24 01:00 58 L O2 Del Method 08/12/24 07:45 Room Air 08/12/24 07:09 08/12/24 04:38 Room Air 08/12/24 01:11 Room Air 08/12/24 01:00 Laboratory Results Short CBC 08/12/24 Range/Units 07:23 WBC 4.19 L (4.8-10.8) K/ul Hgb 13.0 L (14.0-18.0) g/dl Hct 35.9 L (42.0-52.0) % Plt Count 115 L (130-400) K/uL BMP 08/12/24 07:23 Sodium 141 Potassium 3.9 Chloride 109 H Carbon Dioxide 28 BUN 9 Creatinine 0.74 Glucose 107 H Calcium 9.0 (3) GERD (gastroesophageal reflux disease) Esophagitis presence: esophagitis presence not specified Qualified Code(s): K21.9 - Gastro-esophageal reflux disease without esophagitis (5) Anemia Anemia type: unspecified type Qualified Code(s): D64.9 - Anemia, unspecified
[2024-08-12] MEDS: lisinopril 10 MG TAB PO SCH (09:57)
--- NOTE | 2024-08-12 11:50 | Surgery Progress Note ---
Date of Service August 12, 2024 Assessment & Plan (1) SBO (small bowel obstruction): Plan 74-year-old gentleman with small bowel obstruction. He has had these in the past treated conservatively. He has a normal white count. He has no signs or symptoms of threatened bowel. No urgent surgical intervention required. 08/12/2024 avss no leukocytosis Return of bowel function Plan: Advance to low fiber diet Continue to ambulate continue medical management Dr. Miles has seen and examined patient, agrees with above. Admission and Anticipated Discharge Date Admission Date: August 09, 2024 Subjective tolerating full liquids still having abdominal cramping still passing gas but not as much, loose liquid bowel movement today no n,v Physical Exam Constitutional: WD/WN, vitals as above cooperative and comfortable; no acute distress and not ill appearing Gastrointestinal (Abdomen): Inspection/Auscultation: abdomen normal to inspection; abdomen not distended Percussion/Palpation: + abdomen tender (mid abdomen) and abdomen soft; no guarding, abdomen not rigid and abdomen not firm Skin: no rashes, warm and dry Psychiatric: Orientation: alert and oriented x 3 Results & Data Vital Signs (Past 12 Hours) Vital Signs Temp Pulse Pulse Resp BP BP Pulse Ox 08/12/24 11:27 36.3 C L 56 L 18 163/89 H 96 08/12/24 10:22 08/12/24 07:45 36.5 C 58 L 18 172/94 H 95 08/12/24 07:09 50 L 08/12/24 04:38 36.8 C 54 L 20 149/81 H 95 08/12/24 01:11 36.8 C 54 L 20 158/82 H 95 08/12/24 01:00 58 L Pulse Ox O2 Del Method O2 Del Method 08/12/24 11:27 Room Air 08/12/24 10:22 95 Room Air 08/12/24 07:45 Room Air 08/12/24 07:09 08/12/24 04:38 Room Air 08/12/24 01:11 Room Air 08/12/24 01:00 Laboratory Results 08/12/24 Range/Units 07:23 WBC 4.19 L (4.8-10.8) K/ul RBC 4.06 L (4.70-6.10) M/uL Hgb 13.0 L (14.0-18.0) g/dl Hct 35.9 L (42.0-52.0) % MCV 88.4 (80.0-100.0) fL MCH 32.0 (25.0-34.0) pg MCHC 36.2 H (32.0-36.0) g/dL RDW Std Deviation 37.6 (36.4-46.3) fL RDW Coeff of Miya 11.8 (11.5-14.5) % Plt Count 115 L (130-400) K/uL MPV 9.5 (9.4-12.4) fL Sodium 141 (136-145) mmol/L Potassium 3.9 (3.5-5.1) mmol/L Chloride 109 H (98-107) mmol/L Carbon Dioxide 28 (21-32) mmol/L Anion Gap 4 (3-11) BUN 9 (6-23) mg/dl Creatinine 0.74 (0.6-1.4) mg/dl Est Cr Clr Drug Dosing 99.0 ml/min eGFR 95.08 BUN/Creatinine Ratio 12.2 (10-20) Glucose 107 H (70-99(Fasting)) mg/dl Calcium 9.0 (8.6-10.3) mg/dl Magnesium 2.0 (1.7-2.4) mg/dl Iron 86 (35-175) mcg/dl TIBC 245 L (250-450) mcg/dl Transferrin 175 L (200-360) mg/dl Transferrin % Sat 35 (20-50) % Ferritin 157.8 (8-388) ng/ml Vitamin B12 531 (180-914) pg/ml Folate > 22.30 (>5.38) ng/ml
[2024-08-12] MEDS ORDERED: METOPROLOL SUCC 25MG EXT REL TAB PO SCH (21:00)
[2024-08-13 03:55] VITALS: TEMP 97.9
[2024-08-13 08:14] VITALS: BP 149/88; PULSE 55; RESP 18; O2SAT 97
[2024-08-13 08:30] LABS: Hematocrit (blood only) 37.3 % (42.0-52.0); Hemoglobin 13.4 g/dl (14.0-18.0); Mean Corpuscular Hemoglobin 31.8 pg (25.0-34.0); Mean Corpuscular Hgb Conc 35.9 g/dL (32.0-36.0); Mean Corpuscular Volume 88.4 fL (80.0-100.0); Mean Platelet Volume 9.3 fL (9.4-12.4); Platelet Count 129 K/uL (130-400); RDW Coefficient of Variation 11.7 % (11.5-14.5); RDW Standard Deviation 37.9 fL (36.4-46.3); Red Blood Count 4.22 M/uL (4.70-6.10); White Blood Count 4.41 K/ul (4.8-10.8)
[2024-08-13 09:06] LABS: BUN Creatinine Ratio 15.7 (10-20); Calcium 9.2 mg/dl (8.6-10.3); Creatinine Clr Calc Pharmacy 82.3 ml/min; Potassium 3.9 mmol/L (3.5-5.1)
--- NOTE | 2024-08-13 09:11 | Surgery Progress Note ---
Date of Service August 13, 2024 Assessment & Plan (1) SBO (small bowel obstruction): Plan 08/13/2024 avss no leukocytosis Return of bowel function Plan: Continue low fiber diet on discharge for 1-2 weeks okay from surgery standpoint for discharge Continue to ambulate continue medical management our services signing off, call with questions/concerns Dr. Miles has seen and examined patient, agrees with above. Admission and Anticipated Discharge Date Admission Date: August 09, 2024 Subjective feeling good tolerating low fiber diet without nausea, pain still having cramping pain but slightly better passing flatus, small bowel movement this am Physical Exam Constitutional: WD/WN, vitals as above cooperative and comfortable; no acute distress and not ill appearing Respiratory: normal respiratory effort; no respiratory distress Gastrointestinal (Abdomen): Inspection/Auscultation: abdomen normal to inspection; abdomen not distended Percussion/Palpation: + abdomen tender (mild, mid abdomen, improved) and abdomen soft; no guarding, abdomen not rigid and abdomen not firm Skin: no rashes, warm and dry Psychiatric: A+Ox3, euthymic affect Results & Data Vital Signs (Past 12 Hours) Vital Signs Temp Pulse Pulse Resp BP Pulse Ox O2 Del Method 08/13/24 08:13 36.6 C 55 L 18 149/88 H 97 Room Air 08/13/24 07:28 53 L 08/13/24 03:54 36.6 C 56 L 16 146/79 H 93 Room Air 08/13/24 00:46 63 08/13/24 00:09 36.9 C 58 L 16 126/75 98 Room Air Laboratory Results 08/13/24 Range/Units 06:45 WBC 4.41 L (4.8-10.8) K/ul RBC 4.22 L (4.70-6.10) M/uL Hgb 13.4 L (14.0-18.0) g/dl Hct 37.3 L (42.0-52.0) % MCV 88.4 (80.0-100.0) fL MCH 31.8 (25.0-34.0) pg MCHC 35.9 (32.0-36.0) g/dL RDW Std Deviation 37.9 (36.4-46.3) fL RDW Coeff of Miya 11.7 (11.5-14.5) % Plt Count 129 L (130-400) K/uL MPV 9.3 L (9.4-12.4) fL Sodium 141 (136-145) mmol/L Potassium 3.9 (3.5-5.1) mmol/L Chloride 106 (98-107) mmol/L Carbon Dioxide 29 (21-32) mmol/L Anion Gap 6 (3-11) BUN 14 (6-23) mg/dl Creatinine 0.89 (0.6-1.4) mg/dl Est Cr Clr Drug Dosing 82.3 ml/min eGFR 89.92 BUN/Creatinine Ratio 15.7 (10-20) Glucose 99 (70-99(Fasting)) mg/dl Calcium 9.2 (8.6-10.3) mg/dl Magnesium 2.0 (1.7-2.4) mg/dl
--- NOTE | 2024-08-13 16:11 | Discharge Summary ---
Date of Service August 13, 2024 Admission HPI Per Admitting Provider Truman Clayton is a 74y/o M with PMHx significant for HTN, HLD, PAF on Eliquis, nonrheumatic AV insufficiency, nonrheumatic MVR, vitamin D deficiency, senile purpura, fatty liver, chronic pain of R knee, BPH with LUTS, Mnire's disease, CLL on Venclexta, macular degeneration and BALTAZAR who presented to the ED on 08/09/24 with complaints of abdominal pain/spasms and nausea. History obtained from the patient, at bedside and associated chart review. Patient with generalized abdominal pain/spasms and intermittent nausea since yesterday morning. Patient reports these symptoms feel similar to when he had his most recent SBO back in July 2023 - which was managed conservatively. Patient also had a SBO in 2014 following a spinal surgery that resolved with conservative management as well. No episodes of vomiting. denies any fever, chills or body aches. Last BM was yesterday morning. Last meal was yesterday evening. Does not remember the last time he passed gas. Most recent dose of Eliquis was last evening. Did not take any of his prescribed medications this morning. Feels abdomen is mildly distended. He is complaining of some mild gastric reflux however he did not take his Protonix this morning. Denies any SOB, chest pain or urinary complaints. Previous abdominal surgeries consist of laparoscopic R inguinal hernia repair, open L inguinal hernia repair and appendectomy. CTAP today revealed a high-grade SBO, possible mesenteric panniculitis and mild free fluid within the pelvis. Remained hemodynamically stable in ED. Initial laboratory evaluation reviewed and grossly unremarkable. No leukocytosis. Admission Exam Per Admitting Provider General: WD/WN, vitals as above, NAD, sitting up in bed, pleasant, conversing appropriately. at bedside. A+Ox3. HEENT: Normocephalic, atraumatic. Conjunctivae normal. External ear and nose normal, oropharynx somewhat dry. Respiratory: Normal respiratory effort, lungs clear to auscultation bilaterally. No accessory muscle use. Cardiovascular: Regular rate/rhythm, normal peripheral pulses, no BLE edema. Vessels: No JVD. Abdomen/GI: Active bowel sounds, soft, mildly distended. Mild, diffuse TTP in all quadrants. No guarding. Neurologic: No overt focal deficits, CN's II-XI not formally tested but appear grossly intact bilaterally. Principal Diagnosis High-grade SBO Discharge Exam Constitutional WD/WN, vitals as above no acute distress Respiratory normal respiratory effort, lungs clear to auscultation Cardiovascular Rate/Rhythm: regular rhythm and + bradycardic Vessels: normal peripheral pulses Extremities: no edema Gastrointestinal (Abdomen) Inspection/Auscultation: normal bowel sounds Percussion/Palpation: abdomen soft; abdomen nontender Skin no rashes, warm and dry Neurologic no focal motor deficits Psychiatric A+Ox3, euthymic affect Discharge Data Allergies Allergy/AdvReac Type Severity Reaction Status Date / Time bee venom protein (honey bee) Allergy Intermediate Hives Verified 08/06/23 10:05 orphenadrine AdvReac Intermediate MENTAL Verified 08/06/23 10:05 CHANGES oxycodone AdvReac Mild NAUSEA Verified 08/06/23 10:05 Consultations 08/09/24 07:29 Consult General Surgery Routine Ordered Studies Laboratory Results WBC 4.41 K/ul (4.8-10.8) L 08/13/24 06:45 RBC 4.22 M/uL (4.70-6.10) L 08/13/24 06:45 Hgb 13.4 g/dl (14.0-18.0) L 08/13/24 06:45 POC Hgb 12.9 g/dl (14.0-18.0) L 08/09/24 04:59 Hct 37.3 % (42.0-52.0) L 08/13/24 06:45 POC Hct 38 % (42-52) L 08/09/24 04:59 MCV 88.4 fL (80.0-100.0) 08/13/24 06:45 MCH 31.8 pg (25.0-34.0) 08/13/24 06:45 MCHC 35.9 g/dL (32.0-36.0) 08/13/24 06:45 RDW Std Deviation 37.9 fL (36.4-46.3) 08/13/24 06:45 RDW Coeff of Miya 11.7 % (11.5-14.5) 08/13/24 06:45 Plt Count 129 K/uL (130-400) L 08/13/24 06:45 MPV 9.3 fL (9.4-12.4) L 08/13/24 06:45 Immature Gran % (Auto) 0.3 % 08/09/24 04:25 Neut % (Auto) 72.1 % 08/09/24 04:25 Lymph % (Auto) 19.9 % 08/09/24 04:25 [place] % (Auto) 6.7 % 08/09/24 04:25 Eos % (Auto) 0.6 % 08/09/24 04:25 Baso % (Auto) 0.4 % 08/09/24 04:25 Neut # (Auto) 4.92 K/uL (1.40-6.50) 08/09/24 04:25 Lymph # (Auto) 1.36 K/uL (1.20-3.40) 08/09/24 04:25 [place] # (Auto) 0.46 K/uL (0.11-0.59) 08/09/24 04:25 Eos # (Auto) 0.04 K/uL (0.00-0.50) 08/09/24 04:25 Baso # (Auto) 0.03 K/uL (0.00-0.20) 08/09/24 04:25 Immature Gran # (Auto) 0.02 K/uL (0.01-0.20) 08/09/24 04:25 POC Sodium 140 mmol/L (135-144) 08/09/24 04:59 Sodium 141 mmol/L (136-145) 08/13/24 06:45 POC Potassium 3.9 mmol/L (3.3-5.0) 08/09/24 04:59 Potassium 3.9 mmol/L (3.5-5.1) 08/13/24 06:45 POC Chloride 105 mmol/L (101-112) 08/09/24 04:59 Chloride 106 mmol/L (98-107) 08/13/24 06:45 Carbon Dioxide 29 mmol/L (21-32) 08/13/24 06:45 POC Total CO2 25 mmol/L (24-31) 08/09/24 04:59 Anion Gap 6 (3-11) 08/13/24 06:45 POC Anion Gap 15.0 mmol/L (16-25) L 08/09/24 04:59 POC BUN 18 mg/dl (7-18) 08/09/24 04:59 BUN 14 mg/dl (6-23) 08/13/24 06:45 Creatinine 0.89 mg/dl (0.6-1.4) 08/13/24 06:45 POC Creatinine 1.1 mg/dl (0.6-1.3) 08/09/24 04:59 Est Cr Clr Drug Dosing 82.3 ml/min 08/13/24 06:45 eGFR 89.92 08/13/24 06:45 BUN/Creatinine Ratio 15.7 (10-20) 08/13/24 06:45 Glucose 99 mg/dl (70-99(Fasting)) 08/13/24 06:45 POC Glucose (other) 152 mg/dl (70-99) H 08/09/24 04:59 Lactate 1.4 mmol/L (0.4-2.0) 08/09/24 04:42 Calcium 9.2 mg/dl (8.6-10.3) 08/13/24 06:45 POC Ioniz Calcium Saurav 1.18 mmol/l (1.12-1.32) 08/09/24 04:59 Magnesium 2.0 mg/dl (1.7-2.4) 08/13/24 06:45 Iron 86 mcg/dl (35-175) 08/12/24 07:23 TIBC 245 mcg/dl (250-450) L 08/12/24 07:23 Transferrin 175 mg/dl (200-360) L 08/12/24 07:23 Transferrin % Sat 35 % (20-50) 08/12/24 07:23 Ferritin 157.8 ng/ml (8-388) 08/12/24 07:23 Total Bilirubin 0.8 mg/dl (0.2-1.0) 08/09/24 04:25 AST 18 U/L (13-39) 08/09/24 04:25 ALT 16 U/L (7-52) 08/09/24 04:25 Alkaline Phosphatase 63 U/L (34-104) 08/09/24 04:25 Total Protein 6.4 gm/dl (6.0-8.3) 08/09/24 04:25 Albumin 4.2 gm/dl (3.4-5.0) 08/09/24 04:25 Globulin 2.2 gm/dl (2.5-4.0) L 08/09/24 04:25 Albumin/Globulin Ratio 1.9 (0.9-2) 08/09/24 04:25 Lipase 20 U/L (11-82) 08/09/24 04:25 Vitamin B12 531 pg/ml (180-914) 08/12/24 07:23 Folate > 22.30 ng/ml (>5.38) 08/12/24 07:23 Urine Color Yellow 08/09/24 Unknown Urine Appearance Clear (Clear) 08/09/24 Unknown Urine pH 7.0 (4.5-7.5) 08/09/24 Unknown Ur Specific [place] > 1.045 (1.000-1.030) H 08/09/24 Unknown Urine Protein Negative (Negative) 08/09/24 Unknown Urine Glucose (UA) Negative (Negative) 08/09/24 Unknown Urine Ketones Trace (Negative) H 08/09/24 Unknown Urine Blood Negative (Negative) 08/09/24 Unknown Urine Nitrite Negative (Negative) 08/09/24 Unknown Urine Bilirubin Negative (Negative) 08/09/24 Unknown Urine Urobilinogen Negative (Negative) 08/09/24 Unknown Ur Leukocyte Esterase Negative (Negative) 08/09/24 Unknown Impressions Abdomen/Pelvis CT 08/09/24 04:25 EXAM: CT abd pelvis IV con only CLINICAL HISTORY: mid abd pain, hx SBO. TECHNIQUE: Contrast-enhanced CT of the abdomen and pelvis was performed, with the following protocol: axial images with, and reconstructed coronal and sagittal images. Intravenous contrast was administered. One of the following dose reduction techniques was utilized for this exam: Automated exposure control, adjustment of the mA and/or kV according to patient size, and use of iterative reconstruction. COMPARISON: CT dated 07/28/2023. FINDINGS: Abdomen: Liver: Normal in size, shape, and density. 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 A tiny 7 mm hypodensity in segment 6 of the liver, likely benign(stable). Hepatic vasculature and biliary ducts are unremarkable. Gallbladder and Biliary System: The gallbladder is normal in size and shape. No wall thickening, pericholecystic fluid, or gallstones were identified. The common bile duct is normal in caliber without dilation. Pancreas: Pancreatic head, body, and tail are visualized and appear normal in size and density. No pancreatic masses or calcifications were noted. The pancreatic duct is not dilated. Spleen: Normal in size, shape, and density. No splenic lesions or masses were identified. Kidneys and Adrenal Glands: Both kidneys are normal in size, shape, and position. Cortical thickness is within normal limits. A 20 mm hypodense area in the right kidney, is stable. No renal calculi or hydronephrosis. Adrenal glands are unremarkable with no evidence of masses or hyperplasia. Pelvis: Urinary Bladder: Normal in contour and wall thickness. No intraluminal lesions were identified. Prostate: Normal in size and contour. No focal lesions or masses were identified. Bowel: A distended fluid-filled stomach is seen. Multiple prominent fluid-filled small bowel loops are seen along the anterior abdominal wall with adjacent free fluid, leading to a focally dilated distal ileal loop right inguinal hernia. Fecal matter, measuring up to 3.3 cm in diameter, continuing into edematous collapsed distal ileal loops. Surrounding areas of fat stranding and haziness are seen. A focus of air is seen in this dilated ileal loop wall, along the right lateral aspect(229/385). No abnormal bowel wall enhancement is seen. Extensive colonic diverticulosis, without any evidence of acute diverticulitis. No evidence of appendicitis. Fat-containing right inguinal hernia, with soft tissue thickening, in the pelvis and right femoral region(stable). Mild free fluid is seen in the pelvis(new). 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 Bones and Soft Tissues: Degenerative changes in the visualized spine, with mild anterolisthesis of L5 over S1(stable). The metallic spinal fixator is seen through L3-S1 levels, with postlaminectomy changes at the L5-S1 level(stable). IMPRESSION: 1. High grade Small yuni obstruction as described. 2. 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 3. Mild free fluid is seen in the pelvis (new). 4. Fat-containing right inguinal hernia, with soft tissue thickening, in the pelvis and right femoral region (stable). 5. The rest of the findings have been stable since the previous scan. Electronically signed by Humphrey Oseguera 08-09-2024 06:37 AM Hospital Course (1) SBO (small bowel obstruction): (2) Paroxysmal atrial fibrillation: (3) GERD (gastroesophageal reflux disease): (4) CLL (chronic lymphocytic leukemia): (5) Anemia: Plan Truman Clayton is a 74y/o M with PMHx significant for HTN, HLD, PAF on Eliquis, nonrheumatic AV insufficiency, nonrheumatic MVR, vitamin D deficiency, senile purpura, fatty liver, SBO, chronic pain of R knee, BPH with LUTS, Mnire's disease, CLL [follows with [facility]], macular degeneration and BALTAZAR who presented to the ED on 08/09/24 with complaints of abdominal pain/spasms and nausea. He was ultimately found to have a high-grade SBO on presenting CTAP. Previously admitted under our service in July 2023 with SBO which was managed conservatively. Also had a SBO in 2014 following spinal surgery which resolved with conservative management as well. High-Grade SBO CTAP revealed a high-grade SBO, possible mesenteric panniculitis and mild free fluid within the pelvis. UA negative. General surgery consulted. No indication for surgical intervention. Diet advanced. IVF stopped. Ambulation encouraged. Continued to improve, passing flatus and BM this AM. Patient tolerating low fiber diet on the day of discharge which he is to continue for 1 to 2 weeks. Paroxysmal AFib HTN Patient on flecainide 25mg HS and metoprolol succinate 12.5mg HS prior to admission Patient had received therapeutic dose Lovenox while n.p.o., Eliquis has been resumed Patient with history of chronic resting bradycardia. Expressing concerns about resuming flecainide and metoprolol, which is reasonable. While it is recommended to continue these medications, it would be reasonable for patient to hold per his preference until he sees cardiology. Elevated BPs noted, likely situational due to pain, anxiety, hospitalization, etc. Started Lisinopril 10mg daily with improvement in BP. Patient will need close outpatient follow up with cardiology, patient requesting follow-up with [facility] cardiology. Referral and records sent. GERD IV PPI -> now on PO CLL Follows with [facility]. Was on Venclexta therapy but reports this has been stopped. Anemia Hgb 14.9 -> 13.4 -> 12.5 -> 13.0 -> 13.4 Likely 2/2 dilution while receiving IVF, no signs of bleeding Anemia panel unremarkable Total Time Total Time Spent Total Time Spent (In Minutes): 40 Discharge Plan Discharge Items Patient Disposition: Home - Self-Care Reason For Visit: Abdominal Pain and Nausea Discharge Diagnosis: Small Bowel Obstruction Condition on Discharge: Good Activity: Resume your previous activity Non-emergency contact: Primary Care Provider Call non-emergency contact if: you have any medication questions, your symptoms worsen, your pain is not controlled, your pain is unusual for you and you have a fever Follow-up/Referrals: Yg Roberson MD [Physician] - (Office will call you with an appointment) Conner Jones MD [Primary Care Provider] - 08/23/24 10:00 am (Date & Time 08/23/2024 10:00 AM Provider: Conner Jones MD [facility] ) Diet: Low Fiber Addtl Attending Provider Instructions: You presented to the hospital for evaluation of abdominal pain and nausea. You were found to have a small bowel obstruction. General surgery evaluated you. You were treated with IV fluids and bowel rest. Your diet was able to be advanced and the obstruction resolved. You should continue a low fiber diet for 1-2 weeks after discharge. Your blood pressure was elevated during admission and you were started on Lisinopril 10mg daily. Due to low heart rate, you expressed concerns about taking flecainide and metoprolol for your history of atrial fibrillation. While it is recommended for you to continue these medications, it would be reasonable for you to hold per your preference until you see cardiology. It was a pleasure taking care of you. If you need to reach a member of the [facility] Hospitalist team at [facility], please call [phone]. GITA Olivares Pending Studies at Discharge: No Stand-Alone Forms: My [facility], Smoking Cessation Medications and DC Order Prescriptions: New lisinopril 10 mg Tablet 10 mg PO QAM Qty: 30 0RF Continued multivitamin Tablet 1 tab PO DAILY ascorbic acid (vitamin C) [Vitamin C] 1,000 mg Tablet 1 g PO DAILY atorvastatin 20 mg Tablet 20 mg PO HS [id number] [Glucosamine-Chondroitin 3X] 750-625-30 mg Tablet 1 tab PO BID Eliquis 5 mg Tablet 5 mg PO BID PreserVision AREDS-2 [id number] Capsule 1 tab PO BID pantoprazole [Protonix] 20 mg Tablet,Delayed Release (Dr/Ec) 20 mg PO DAILY Held flecainide 50 mg Tablet 25 mg PO HS Hold Instructions: Resume on 09/03/24. While it is recommended for you to continue this medication, it would be reasonable for you to hold per your preference until you see cardiology. metoprolol succinate 25 mg Tablet Extended Release 24 Hr 12.5 mg PO DAILY Hold Instructions: Resume on 09/03/24. While it is recommended for you to continue this medication, it would be reasonable for you to hold per your preference until you see cardiology. Discharge Orders: Discharge Order (Routine); Ordered 08/13/24 Ordered By: Radha Tay/Other Patient Handouts: Lisinopril Oral Tablet, Low-Fiber Diet Admission Data Admit Date/Time: 08/09/24 07:54 Attending Provider: Kim Dumont Admit Provider: Wood Romero Primary Care Provider: Conner Jones Other Providers: Tono Miles; Mason Horowitz Other Interventions: Discharge Summary Assessment (RN) Last Done: 08/13/24 11:07 Supervising Physician Co-Signing Physician Notes I have seen and discussed the case with the collaborating advanced practitioner. I agree with the above PN. I have reviewed and confirmed the patients medical history, the findings on physical examination, and the patients diagnosis and treatment plan with Elida PELAYO and agree with the information documented. In short, Mr. Clayton is admitted for SBO which resolved with conservative management. Patient wishing to discontinue flecanide--discussed patient should follow up OP with cardiology to determine if this is proper. states he wishes to follow with [facility]. Referral placed. Lisinopril started for hypertension. Rest of plan as jered I spent a total of 15 minutes coordinating, documenting, and providing care for this patient excluding time spent in the performance of separately billed services. All of the aforementioned completed outside of collaborating with the assigned advanced practitioner for a full treatment plan. I have reviewed the advanced practitioner's documentation, and I agree with, and take responsibility for the plan of care
== END 2024-08-13 12:03 | disposition home or self-care (01) | DRG 389 ==
LOC: ED 04:19 → EDINP 07:54 → SUATTDRO 07:54 → 2E 10:15 → 2N 22:41